=== PATIENT | male | born 1990 | race African-American/Black ===

== ENCOUNTER 2021-05-11 11:15 | Outpatient (CLI) | payer OTHER, SELFPAY ==
--- NOTE | 2021-05-11 11:20 | RAD_ITS ---
STUDY: X-RAY - RIGHT ANKLE REASON FOR EXAM: Male, 30 years old. ANKLE FRACTURE TECHNIQUE: 3 view(s) of the ankle. COMPARISON: 05/02/2021 FINDINGS: Distal fibular fracture extending to the tibiotalar joint level is stable with persistent, but stable displacement best seen on lateral view. Nondisplaced fracture of the posterior malleolus is stable. Persistent widening of the medial tibiotalar articulation. Normal visualized talus and calcaneus. The visualized subtalar, talonavicular, calcaneocuboid and tarsal articulations are normal. Decreased soft tissue swelling. RAD/Ankle min 3 Views IMPRESSION: 1. Stable alignment of distal fibular fracture. 2. Stable widening/subluxation of the medial tibiotalar joint. 3. Stable posterior malleolus fracture. Electronically Signed: Kang Beyer MD ([place]) at 11:47 EST ,
--- NOTE | 2021-05-11 11:21 | RAD_ITS ---
STUDY: X-RAY - RIGHT TIBIA AND FIBULA REASON FOR EXAM: Male, 30 years old. ANKLE FRACTURE TECHNIQUE: 3 view(s) of the tibia and fibula were obtained. COMPARISON: None. FINDINGS: Normal visualized tibia. Distal fibular fractures better seen on ankle x-ray. No additional fracture seen. The soft tissue structures are unremarkable. RAD/Tibia & Fibula 2 Views IMPRESSION: Distal fibular fracture described on ankle x-ray. Electronically Signed: Kang Beyer MD (Brooks) at 11:45 EST Reading Location ID and State: [address] [place] [address] , Service support ,
--- NOTE | 2021-05-11 11:21 | RAD_ITS ---
STUDY: X-RAY CHEST REASON FOR EXAM: Male, 30 years old. PRE OP TECHNIQUE: PA and lateral views of the chest. COMPARISON: None. FINDINGS: Linear fibrotic changes of the lung bases. No airspace consolidation. There is no demonstrated pleural abnormality. Normal size heart. Normal mediastinum and yasmani. Normal visualized pulmonary arteries. Normal visualized aortic arch and descending thoracic aorta. Normal visualized thoracic spine. Normal visualized ribs, clavicles, and shoulders. There is no demonstrated abnormality of the visualized soft tissue structures of the upper abdomen. RAD/Chest PA and Lateral IMPRESSION: No acute cardiopulmonary process. Electronically Signed: Kang Beyer MD ([place]) at 12:01 EST ,
[2021-05-11 15:05] LABS: Absolute Lymphocyte Count 1.48 X10^3/uL (0.83-4.51); Absolute Neutrophil Count 4.7 X10^3/uL (2.0-7.7); Basophil# 0.04 X10^3/uL; Basophil% 0.6 % (0-1); Eosinophil# 0.24 X10^3/uL; Eosinophils% 3.4 % (0-5); Hematocrit 41.6 % (40-54); Hemoglobin 13.3 g/dL (13.0-16.5); Lymphocyte # 1.48 X10^3/ul (0.83-4.51); Lymphocyte % 20.9 % (19-41); Mean Corpuscular Hgb 28.8 pg (27.0-32.0); Mean Platelet Vol. 9.8 fl (6.2-12.0); Monocyte# 0.64 X10^3/uL; NRBC Flagged by Analyzer 0 % (0-5); Neutrophil # 4.65 X10^3/uL (2.7-7.7); Neutrophil % 65.7 % (47-70); Platelet Count 345 K/mm3 (150-450); RBC Distribution Width CV 12.7 % (11.6-14.6); RBC Distribution Width SD 41.6 fl (35.1-43.9); Red Blood Count 4.62 M/mm3 (4.6-6.2); White Blood Count 7.1 K/mm3 (4.4-11.0)
[2021-05-11 15:29] LABS: ALB/GLOB Ratio 0.7 RATIO (0.9-2.4); AST(SGOT) 26 U/L (15-37); Alanine Aminotransfer ALT/SGPT 37 U/L (16-61); Albumin, Serum 3.5 g/dL (3.2-5.0); Alkaline Phosphatase 110 U/L (45-117); Anion Gap 7 (5-15); BUN 10 mg/dL (7-18); BUN/Creat Ratio 9.3 RATIO (10-20); Chloride 103 mmol/L (98-107); Creatinine, Serum 1.07 mg/dL (0.70-1.30); EST Glomerular Filtration Rate 85 mL/min (>60); Est Glom Filt Rate - Afr Amer 103 mL/min (>60); Globulin 5.2 g/dL (2.2-4.2); Glucose 101 mg/dL (74-106); Potassium 3.5 mmol/L (3.5-5.1); Protein, Total 8.7 g/dL (6.4-8.2); Sodium Level 136 mmol/L (136-145)
== END 2021-05-11 23:59 | disposition home or self-care (01) ==
LOC: MTLAB 11:18
PROVIDERS: PCP Internal Medicine; Referring Provider Family Medicine; Visit Provider Family Medicine
DX: S82.891A Other fracture of right lower leg, initial encounter for closed fracture (principal); Z01.818 Encounter for other preprocedural examination
CPT/HCPCS: 36415; 71046; 73590; 73610; 80053; 85025

== ENCOUNTER 2021-05-16 06:07 | Day surgery (SDC) | payer OTHER, SELFPAY ==
[2021-05-16] MEDS: Lactated Ringers 1,000 ML 15 ML IV (06:20)
[2021-05-16 06:38] VITALS: BP 116/79; PULSE 105; RESP 20; TEMP 36.5; O2SAT 96; BMI 43.3
--- NOTE | 2021-05-16 07:30 | RAD_ITS ---
STUDY: X-RAY - RIGHT ANKLE REASON FOR EXAM: Male, 30 years old. ORIF TECHNIQUE: 7 intraoperative view(s) of the ankle. COMPARISON: 05/11/2021 FINDINGS: 7 limited intraoperative studies were performed as the patient has undergone open reduction internal fixation of a comminuted distal fibular fracture. Alignment at the fracture site is anatomic. No intraoperative complications are noted. Follow-up is recommended to ensure complete osseous union RAD/Ankle 2 Views IMPRESSION: ORIF of a distal fibular fracture. Fracture stabilized with a metallic sideplate with multiple threaded screws, 2 of which run through the fibula into the distal tibia as well. Alignment at the fracture site is anatomic. Follow-up recommended to ensure complete osseous union Electronically Signed: Gautam Mai MD at 16:23 EST ,
[2021-05-16 10:23] VITALS: BP 101/88; BP 116/79; PULSE 87; RESP 16; TEMP 36.3; O2SAT 100
--- NOTE | 2021-05-16 10:25 | PCM.DC ---
Discharge Instructions Diet Discharge Diet: Light diet - advance as tolerated Activity Weight Bearing Status: No weight bearing (Non-weight bearing to Right Lower Extremity) Keep extremity elevated above heart level: Right Leg (Keep right foot elevated at least 50minutes for every hour) Dressing / Incision Call your doctor if your incision/area has: Continuous Slow Oozing, Sudden Increased Bleeding and Foul Smelling Discharge Call your doctor if you observe: Fever of 101 or Higher, Shortness of breath, Chest pain, Increased palpitations (irregular heartbeat), Calf discomfort and Uncontrolled pain Change Dressing in: do not change dressing Remove Dressing in: leave in place till F/U Cleanse incision/area with: Keep Dressing Clean & Dry Follow Up Care Please Follow Up With: Aaron Huber DPM When: follow [facility] within [facility] or sooner if needed. Test Results: Test results from this visit will be discussed in further detail at your follow-up appointment, if applicable. Discharge Plan Admission Primary Reason for Your Visit: Open Reduction Internal Fixation of Right Ankle with Syndesmotic Repair Attending Provider: Aaron Huber Primary Care Provider: Cleveland Means Discharge Orders/Prescriptions Prescriptions: New cephalexin 500 mg capsule 500 mg PO Q12H Qty: 14 RF: 0 oxycodone-acetaminophen 5-325 mg tablet 1 - 2 tab PO Q6H PRN (Reason: pain) 7 Days Qty: 28 RF: 0 No Action prednisone 5 mg tablet 5 mg PO DAILY RF: 0 mycophenolate mofetil [CellCept] 250 mg Capsule 500 mg PO BID RF: 0 sulfamethoxazole-trimethoprim [Bactrim] 200-40 mg/5 mL Suspension 5 ml PO DAILY RF: 0 Referrals / Follow Up: Cleveland Means MD [Primary Care Provider] - Disposition Disposition (needs filled in before D/C Order can be placed): Home, Self Care
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
[2021-05-16 10:30] VITALS: BP 116/79; BP 133/100; PULSE 88; RESP 16; O2SAT 95
[2021-05-16 10:45] VITALS: BP 116/79; BP 139/52; PULSE 91; RESP 15; O2SAT 94
--- NOTE | 2021-05-16 10:55 | RAD_ITS ---
STUDY: X-RAY - RIGHT ANKLE REASON FOR EXAM: Male, 30 years old. Post-op TECHNIQUE: 3 view(s) of the ankle. COMPARISON: Comparison is made with prior study dated 05/11/2021. FINDINGS: The patient is status post open reduction and internal fixation of the distal fibular fracture. There is good alignment. Normal tibiotalar articulation and ankle mortise. Normal visualized talus and calcaneus. The visualized subtalar, talonavicular, calcaneocuboid and tarsal articulations are normal. Postoperative soft tissue changes. RAD/Ankle min 3 Views IMPRESSION: Status post open reduction internal fixation of the distal fibular fracture. There is good alignment. Electronically Signed: Ervin Francis MD at 13:44 EST ,
[2021-05-16 11:03] VITALS: BP 116/79; BP 145/64; PULSE 91; RESP 16; TEMP 36.2; O2SAT 97
[2021-05-16] MEDS: Acetaminophen 325 MG Tablet PO (11:24)
[2021-05-16] MEDS: oxyCODONE 5 MG Tablet PO (11:25)
[2021-05-16 12:05] VITALS: BP 116/79; BP 125/89; PULSE 96; RESP 16; TEMP 35.9; O2SAT 92
== END 2021-05-16 23:59 | disposition home or self-care (01) ==
LOC: SDC 06:07 → AC 06:10
PROVIDERS: PCP Internal Medicine; Referring Provider Student in an Organized Health Care Education/Training Program; Visit Provider Student in an Organized Health Care Education/Training Program
PROC: (CPT 27792; principal; 2021-05-16 07:10)
DX: S82.441A Displaced spiral fracture of shaft of right fibula, initial encounter for closed fracture (principal); S82.391A Other fracture of lower end of right tibia, initial encounter for closed fracture; S93.401A Sprain of unspecified ligament of right ankle, initial encounter; W00.9XXA Unspecified fall due to ice and snow, initial encounter; D86.9 Sarcoidosis, unspecified; F17.220 Nicotine dependence, chewing tobacco, uncomplicated; Z79.52 Long term (current) use of systemic steroids
CPT/HCPCS: 27792; 27822; 27829; 64445; 73600; 73610; 76000; C1713; J7120; J2405

== ENCOUNTER → 2021-08-24 | Outpatient (CLI) | payer OTHER, SELFPAY ==
[2021-08-24 15:18] LABS: Absolute Lymphocyte Count 1.27 X10^3/uL (0.83-4.51); Absolute Neutrophil Count 2.5 X10^3/uL (2.0-7.7); Basophil# 0.01 X10^3/uL; Basophil% 0.2 % (0-1); Eosinophil# 0.42 X10^3/uL; Eosinophils% 8.6 % (0-5); Hematocrit 39.4 % (40-54); Hemoglobin 12.7 g/dL (13.0-16.5); Lymphocyte # 1.27 X10^3/ul (0.83-4.51); Lymphocyte % 25.9 % (19-41); Mean Corp Hgb Conc 32.2 g/dL (32-36); Mean Corpuscular Hgb 28.5 pg (27.0-32.0); Mean Corpuscular Volume 88.5 fL (80-94); Mean Platelet Vol. 10.8 fl (6.2-12.0); Monocyte# 0.66 X10^3/uL; Monocyte% 13.4 % (0-10); NRBC Flagged by Analyzer 0 % (0-5); Neutrophil # 2.52 X10^3/uL (2.7-7.7); Neutrophil % 51.3 % (47-70); Platelet Count 288 K/mm3 (150-450); RBC Distribution Width CV 13.1 % (11.6-14.6); Red Blood Count 4.45 M/mm3 (4.6-6.2); White Blood Count 4.9 K/mm3 (4.4-11.0)
[2021-08-24 15:35] LABS: ALB/GLOB Ratio 0.6 RATIO (0.9-2.4); AST(SGOT) 23 U/L (15-37); Alanine Aminotransfer ALT/SGPT 32 U/L (16-61); Albumin, Serum 3.4 g/dL (3.2-5.0); Alkaline Phosphatase 167 U/L (45-117); Anion Gap 4 (5-15); BUN 9 mg/dL (7-18); BUN/Creat Ratio 7.1 RATIO (10-20); Calcium,Total 9.4 mg/dL (8.5-10.1); Chloride 104 mmol/L (98-107); Creatinine, Serum 1.26 mg/dL (0.70-1.30); EST Glomerular Filtration Rate 71 mL/min (>60); Est Glom Filt Rate - Afr Amer 85 mL/min (>60); Globulin 5.3 g/dL (2.2-4.2); Glucose 102 mg/dL (74-106); Potassium 4.3 mmol/L (3.5-5.1); Protein, Total 8.7 g/dL (6.4-8.2); Sodium Level 137 mmol/L (136-145)
== END | disposition home or self-care (01) ==
LOC: MFPLAB 12:28
PROVIDERS: PCP Internal Medicine; Visit Provider Family Medicine
DX: Z01.818 Encounter for other preprocedural examination (principal)
CPT/HCPCS: 36415; 80053; 85025

== ENCOUNTER 2021-08-30 08:31 | Day surgery (SDC) | payer OTHER, SELFPAY ==
[2021-08-30] VITALS (8 sets, daily range): BP systolic 112–131; BP diastolic 79–88; PULSE 71–103; RESP 16–18; TEMP 36.4–37.1; O2SAT 96–100; BMI 40.2
--- NOTE | 2021-08-30 08:51 | PCM.DC ---
Discharge Instructions Diet Discharge Diet: No restrictions Activity Discharge Activity: May Shower (With cast bag on right leg) Weight Bearing Status: No weight bearing (Right lower extremity, use crutches/knee scooter for assistance) Keep extremity elevated above heart level: Right Leg (Elevate Right leg at all times of rest) Dressing / Incision Call your doctor if your incision/area has: Increased Pain/ Swelling, Increased Redness and Foul Smelling Discharge Call your doctor if you observe: Fever of 101 or Higher, Chest pain and Calf discomfort Change Dressing in: do not change dressing (Physician will change dressing at first post-op visit) Remove Dressing in: do not remove dressing (Keep dressings clean, dry, and intact) Cleanse incision/area with: Do not get Incision Wet Follow Up Care Please Follow Up With: Aaron Huber DPM When: 1 week. Patient has post-op visit scheduled Test Results: Test results from this visit will be discussed in further detail at your follow-up appointment, if applicable. Discharge Plan Admission Attending Provider: Aaron Huber Primary Care Provider: Cleveland Means Discharge Orders/Prescriptions Prescriptions: New doxycycline hyclate 100 mg capsule 100 mg PO DAILY 10 Days Qty: 10 RF: 0 aspirin 325 mg tablet 325 mg PO DAILY 20 Days Qty: 20 RF: 0 oxycodone-acetaminophen 5-325 mg tablet 1 tab PO Q6H PRN (Reason: pain) 7 Days Qty: 28 RF: 0 No Action prednisone 5 mg tablet 5 mg PO DAILY RF: 0 mycophenolate mofetil [CellCept] 250 mg Capsule 500 mg PO BID RF: 0 Referrals / Follow Up: Cleveland Means MD [Primary Care Provider] - Disposition Disposition (needs filled in before D/C Order can be placed): Home, Self Care
[2021-08-30] MEDS: Lactated Ringers 1,000 ML 15 ML IV (09:43)
--- NOTE | 2021-08-30 09:45 | RAD_ITS ---
STUDY: X-RAY - RIGHT ANKLE REASON FOR EXAM: Male, 30 years old. Intraoperative digital documentation views of ORIF of right ankle. TECHNIQUE: 2 intraoperative digital documentation view(s) of the ankle. COMPARISON: 05/16/2021 FINDINGS: Stable lateral plate-screw fixation of the distal fibula, syndesmotic screw and surgical device projected in the distal medial talus. The soft tissue structures are unremarkable. RAD/Ankle 2 Views IMPRESSION: Stable ORIF of right ankle. No complications. Electronically Signed: Lowell Olivares MD at 9:31 EDT ,
[2021-08-30] MEDS: Lidocaine 1% (20 ml mdv) 20 ML Vial (11:29)
[2021-08-30] MEDS: Bupivacaine Mpf 0.5% 30 ML VIAL (11:29)
--- NOTE | 2021-08-30 11:57 | SUR.PHASEI ---
DR. LOPEZ AT BEDSIDE TALKING WITH PATIENT. DR. LOPEZ GAVE VERBAL ORDER AT BEDSIDE FOR 5MG OF OXYIR PO AND 325MG OF TYLENOL PO. RN READ BACK ORDER TO PHYSICIAN AND ENTERED ORDER INTO COMPUTER
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
[2021-08-30] MEDS: Acetaminophen 325 MG Tablet PO (12:47)
[2021-08-30] MEDS: oxyCODONE 5 MG Tablet PO (12:47)
== END 2021-08-30 13:43 | disposition home or self-care (01) ==
LOC: SDC 08:33 → AC 08:35
PROVIDERS: PCP Internal Medicine; Referring Provider Student in an Organized Health Care Education/Training Program; Visit Provider Student in an Organized Health Care Education/Training Program
PROC: (CPT 20680; principal; 2021-08-30 09:45)
DX: T84.84XA Pain due to internal orthopedic prosthetic devices, implants and grafts, initial encounter (principal); Y83.1 Surgical operation with implant of artificial internal device as the cause of abnormal reaction of the patient, or of later complication, without mention of misadventure at the time of the procedure; G47.30 Sleep apnea, unspecified; K21.9 Gastro-esophageal reflux disease without esophagitis; F17.220 Nicotine dependence, chewing tobacco, uncomplicated; Z86.711 Personal history of pulmonary embolism
CPT/HCPCS: 20680; 73600; 76000; J7120; J2405

== ENCOUNTER 2021-09-29 12:30 | Outpatient (RCR) | payer OTHER, SELFPAY ==
--- NOTE | 2021-09-19 14:57 | HP.PTEVAL ---
Patient's Visit Information ASTON MUSTAFA III is a 31 year old M referred to Physical Therapy by Dr. Aaron Huber DPM with a diagnosis of Displaced Fracture of Lat Mall. Date of Evaluation: 09/19/21 Physical Therapist: Lilian Pires DPT - Visit Plan Frequency: 3x /Week Duration: 4 Weeks Plan: Focus on LE and core strength/stabilization, gait, proprioception and functional mobility. Can use ankle brace and tennis shoe. HEP Given IE: Ankle ROM, weight shifts, HR/TR seated - Subjective Patient reports that he was snowboarding at the end of Apr had a fracture- he went to urgent care who referred him to podiatry- he had a plate put in a few weeks later- and then he had hardware removed 08/30/21. He has been in a CAM walker throughout but was NWB until August. He is now WBAT. Prior to the last surgery he would wear the boot intermittently. He feels a lot more unstable now that they have removed the screw so he has been wearing the CAM walk more. He reports that he has stitches that he gets out this week. Worst: 3/10 Agg: pressure on it. Eases: elevation, and getting off of it. Best: 0/10. Describes the pain as dull and achy. No radiating pain stays on the outside of the ankle. Uses a single crutch as his AD. He has not been walking a lot- he he just got WB last Sunday. Fully I prior to injury. Work: [employer]- 50% sitting 50% standing- has been off work since this- October 03 return to work date. Feels that he is 75% back to normal. Sleep: not disturbed. Kids who are 9 and 4. PMHx/Meds: no changes since surgery at the hospital. - Objective Posture: FH, RS- can correct but does not maintain. Gait: antalgic- single axillary crutch- decrease stance on right LE with CAM walker- bent knee in stance phase. SLS: weight shift but unable to SLS. HR/TR: able in sitting. Girth: Figure 8: 52 cm Malls: 26 cm, Mets: 23.5 cm. ROM: DF: neutral, PF: 50 degrees, inver: 30 degrees Ever: 20 degrees, Knee: WFL. Strength: Ankle: 4/5 in available range, Knee: 4/5. Flex: HS: moderate, Gastroc: severe. Soleus: severe. Observation: incision healing well no s/s of infection- sutures in tact. Pt was 20 min late to initial evaluation - Balance/Special Test Scores Lower Extremity Functional Score: 8 - Goals Goal 1:: Patient will be I with HEP and progression Goal Time Frame: 4-6 Weeks Goal 2:: Patient will SLS for 30 sec without LOB Goal Time Frame: 4-6 Weeks Goal 3:: Patient will ambulate >300 feet with a normalized gait pattern and no AD Goal Time Frame: 4-6 Weeks Goal 4:: Patient will report 80% improvement Goal Time Frame: 4-6 Weeks - Rehabilitation Potential Physical Therapy Diagnosis: Patient presents with hypomobility- he has decreased LE and core strength/stabilization, ROM, flex, proprioception and muscular endurance leading to abnormal ambulation, poor balance and decreased ability to perform ADL's. Rehabilitation Potential: Good - Anticipated Interventions Patient/Client Instruction: Educate patient on: Benefits of Fitness Program Therapeutic Exercise to Include: Strength training, Endurance training, Balance training, Coordination, Agility training, Body mechanics, Postural training, Flexibilty training, Gait and locomotor training, Neuromotor development, Dynamic Lumbar Stabilization, Scapular Strength/Stabilization For the Purpose of:: To improve muscle performance and motor function TENS: Yes Cryotherapy (ice pack, ice massage): Yes Thermo therapy (hot pack): Yes Ultrasound (thermal/non thermal): No Thank you for the opportunity to evaluate your patient. For Medicare and Medicare HMO plans, please review the plan of care and approve it. It will need to be FAXED BACK to us at [phone] for Medicare purposes. For Medicare only, by signing this I certify the plan of care. Please let me know if there are questions or concerns regarding this plan of care. Physician Signature: Date:
--- NOTE | 2022-02-23 08:01 | HP.PT.NRP ---
ASTON MUSTAFA III was seen in my office for initial evaluation on 09/19/21. The following Plan of Care was established for this patient: Initial Frequency: 3x /Week Initial Duration: 4 Weeks Patient/Client Instruction: Educate patient on: Benefits of Fitness Program Therapeutic Exercise to Include: Strength training, Endurance training, Balance training, Coordination, Agility training, Body mechanics, Postural training, Flexibilty training, Gait and locomotor training, Neuromotor development, Dynamic Lumbar Stabilization, Scapular Strength/Stabilization For the Purpose of:: To improve muscle performance and motor function TENS: Yes Cryotherapy (ice pack, ice massage): Yes Thermo therapy (hot pack): Yes Ultrasound (thermal/non thermal): No This patient was last seen in our office . Pertinent comments regarding their Physical therapy will appear below: Patient has not attended physical therapy in over 30 days- at this time d/c is appropriate and return to the MD for further evaluation as needed At this point I will be discontinuing this patient from physical therapy. I would be happy to see this patient again in the future if found appropriate by the physician. Thank you! Lilian Pires DPT Balance/Gait/Functional tests - Balance/Special Test Scores Lower Extremity Functional Score: 8
== END 2021-09-29 19:00 | disposition home or self-care (01) ==
LOC: PT 12:30
PROVIDERS: PCP Internal Medicine; Referring Provider Student in an Organized Health Care Education/Training Program; Visit Provider Student in an Organized Health Care Education/Training Program
DX: S82.61XD Displaced fracture of lateral malleolus of right fibula, subsequent encounter for closed fracture with routine healing (principal); X58.XXXD Exposure to other specified factors, subsequent encounter
CPT/HCPCS: 97110; 97161

== ENCOUNTER → 2024-10-04 | Outpatient (CLI) | payer BC, SELFPAY ==
--- NOTE | 2024-10-03 15:47 | LES_PTH ---
PATIENT: ASTON MUSTAFA III LOC: [facility] U#:[id number] AGE/SX: 34/M ROOM: RE10/04/[address]: Dr. Jerrod Londono MD : 1990 BED: DIS: 10/04/2024 SPEC #: [id number] RECD: 10/03/24 17:06 STATUS: PACO PUSHPA #: [id number] DANITZA: 10/03/24 15:[address]: Jerrod Londono DEPT: SURGICAL PATHOLOGY RECD BY: Randall Jose ENTERED: 10/06/24 09:33 SP TYPE: Lesion OTHR DR: Dr. Cleveland Means MD Tissues: A - Skin of nose, NOS Procedures: Surgery Specimen Level IV HEADER OPERATION: Biopsy left nose PRE-OP DIAGNOSIS: Left nose biopsy TISSUE SUBMITTED: A- Left nose biopsy lesion MICROSCOPIC DIAGNOSIS A. Nose, left lesion, biopsy: Lobular capillary hemangioma. MICROSCOPIC DESCRIPTION Slides are reviewed. GROSS DESCRIPTION A. Received in formalin labeled with the patient's name and date of . Designated as biopsy left nose lesion is a 0.5 x 0.2 x 0.2 cm firm and raised, johnson to light brown portion of skin devoid of orientation. The resection margin is inked black and the specimen is bisected and entirely submitted in 1 cassette. MS 10/06/2024 CPT:86236
--- OUTSIDE RECORDS SUMMARY | 2024-10-04 09:26 | XMS RPT_ITS | CCD ---
Author Organization [facility] Care Team Providers Care Hvac Residential Service Technician Name Role Phone [place] MEANS Unavailable Unavailable OLDER, MANDY (TANK CLEANER) Unavailable Unavailable OLDER, MANDY (TANK CLEANER) Unavailable Unavailable Cleveland Means MD Primary Care Provider Lynn Howard MD H Unavailable Lee GOMEZ, Nicoleasis H Unavailable Dr. Cleveland Means Primary Care Provider Dr. Cleveland Means Referring Provider Tamir MATIAS, PA Chano Attending Provider Dr. Kannan Gallagher Attending Provider Tamir MATIAS, PA Chano Referring Provider Cleveland Means MD Primary Care Provider Lee GOMEZ, Debasis H Unavailable Lee GOMEZ, Debasis H Unavailable Lee GOMEZ, Debasis H Unavailable [phone] Cleveland Means Primary Care Unavailable Cleveland Means Referring Unavailable Chano Garnett Attending Unavailable Aaron Huber Attending Unavailable Aaron Huber Referring Unavailable Cleveland Means Primary Care Unavailable Genie Chaudhari S Attending Unavailable Cleveland Means Primary Care Unavailable Aaron Huber Attending Unavailable Cleveland Means Primary Care Unavailable Aaron Huber Referring Unavailable Cleveland Means Primary Care Unavailable Aaron Huber Attending Unavailable Aaron Huber Referring Unavailable Genie Chaudhari S Attending Unavailable Faar, Genie S Referring Unavailable Cleveland Means Primary Care Unavailable Cleveland Means Primary Care Unavailable Kannan Gallagher Attending Unavailable Chano Garnett Referring Unavailable Cleveland Means MD Primary Care Provider Lee GOMZE, Debasis H Unavailable Lee GOMEZ, Debasis H Unavailable Cleveland Means MD Primary Care Provider LEE, DEBASIS H Attending Unavailable LEE, DEBASIS H Referring Unavailable MEANS, MOSHE Primary Care Unavailable LEE, DEBASIS H Attending Unavailable MEANS, MOSHE Primary Care Unavailable Ozzie HAT LINER.TANK CLEANER, Mandy M Unavailable LEE, DEBASIS H Referring Unavailable MEANS, MOSHE Primary Care Unavailable MEÑO STEINBERG Referring Unavailable MEANS, MOSHE Primary Care Unavailable LEE, DEBASIS H Referring Unavailable MEANS, MOSHE Primary Care Unavailable LEE, DEBASIS H Referring Unavailable MEANS, MOSHE Primary Care Unavailable LEE, DEBASIS H Referring Unavailable MEANS, MOSHE Primary Care Unavailable LEE, DEBASIS H Referring Unavailable MEANS, MOSHE Primary Care Unavailable LEE, DEBASIS H Referring Unavailable LEE, DEBASIS H Referring Unavailable PAIGE, NELSON Attending Unavailable PAIGE, NELSON Attending Unavailable PAIGE, NELSON Referring Unavailable MEANS, MOSHE Primary Care Unavailable LEE, DEBASIS H Referring Unavailable MEANS, MOSHE Primary Care Unavailable LEE, DEBASIS H Referring Unavailable MARK GONG Attending Unavailable PAIGE, NELSON Referring Unavailable MEANS, MOSHE Primary Care Unavailable LEE, DEBASIS H Referring Unavailable MEANS, MOSHE Primary Care Unavailable LEE, DEBASIS H Referring Unavailable MEANS, MOSHE Primary Care Unavailable PAIGE, NELSON Attending Unavailable PAIGE, NELSON Referring Unavailable MEANS, MOSHE Primary Care Unavailable Dr. Cleveland Means MD Primary Care Provider Dr. Cleveland Means MD Referring Provider Dr. Jerrod Londono MD Attending Provider Allergies Allergy Classification Reported Allergen(s) Allergy Type Date of Onset Reaction(s) Facility shrimp allergenic extract (2 sources) shrimp allergenic extract Drug Allergy 4 Other: See Comments [facility] Work Phone: (20 sources) Seasonal allergy; Translations: [SEASONAL ALLERGIES] Allergy to substance Other: See Comments [facility] (20 sources) shrimp allergenic extract; Translations: [SHRIMP] Drug Allergy 4 Other: See Comments [facility] Work Phone: Medications Current Medications Medication Drug Class(es) Dates Sig (Normalized) Sig (Original) alendronic acid 35 mg oral tablet (20 sources) Bisphosphonate Start: 10-17-2023 End: 02-26-2025 take 1 tablet by mouth every week in the morning alendronate (FOSAMAX) 35 mg tablet Indications: Current chronic use of systemic steroids Take 1 tablet by mouth one time a week. in the morning with a full glass of water, on an empty stomach, and do not take anything else by mouth or lie down for the next 30 minutes. 12 tablet 3 02/27/2024 02/26/2025 Active amoxicillin 875 mg / clavulanate 125 mg oral tablet (6 sources) Penicillin-class Antibacterial Start: 08-17-2021 End: 08-24-2021 take 1 tablet by mouth every twelve hours amoxicillin-clavu lanic acid (AUGMENTIN) 875-125 mg per tablet Indications: Acute bronchitis, unspecified organism Take 1 tablet by mouth every 12 hours for 7 days. 14 tablet 0 08/17/2021 08/24/2021 Active Start: 07-06-2015 End: 05-02-2021 take 1 tablet by mouth every twelve hours Amoxicillin-Pot Clavulanate 875 MG tablet Discontinued 875 mg PO Q12H 20 0 July 06, 2015 12:00am May 02, 2021 4:24pm Comment on above: Take 1 tablet by winifred every 12 hours for 7 days. benoxinate hydrochloride 4 mg/ml / fluorescein sodium 3 mg/ml ophthalmic solution (13 sources) Diagnostic Dye Start: 08-28-2024 End: 08-28-2024 fluorescein-benoxi pranav 0.3-0.4 % 1 drop (FLURESS) Start: 08-28-2024 End: 08-28-2024 1 drop, BOTH EYES, DIRECT ED, Starting on Rosanna 08/28/24 at 1030, Until Rosanna 08/28/24 at 2229, Administer for applanation tonometry. In the event of a Fluress shortage, administer Steff-Fluor 1 drop into both eyes as directed for applanation tonometry Start: 05-01-2024 End: 05-02-2024 fluorescein-benoxinate 0.3-0 .4 % 1 Drop (FLURESS) Start: 05-01-2024 End: 05-02-2024 1 Drop, BOTH EYES, DIRECT ED, Starting on Rosanna 05/01/24 at 1600, Until Sun05/02/24 at 0359, Administer for applanation tonometry. In the event of a Fluress shortage, administer Helm-Fluor 1 drop into both eyes as directed for applanation tonometry, OPHT CLINIC MED ORDERS Start: 11-23-2023 End: 11-24-2023 fluorescein-benoxinate 0.3-0 .4 % 1 Drop (FLURESS) Start: 11-23-2023 End: 11-24-2023 1 Drop, BOTH EYES, DIRECT ED, Starting on 11/23/23 at 1330, Until 11/24/23 at 0129, Administer for applanation tonometry. In the event of a Fluress shortage, administer Steff-Fluor 1 drop into both eyes as directed for applanation tonometry Start: 09-06-2023 End: 09-07-2023 fluorescein-benoxinate 0.3-0 .4 % 1 Drop (FLURESS) Start: 05-03-2023 End: 05-04-2023 fluorescein-benoxinate 0.3-0 .4 % 1 Drop (FLURESS) Start: 02-01-2023 End: 02-02-2023 fluorescein-benoxinate 0.25- 0.4 % 1 Drop (FLURESS) Start: 06-09-2022 End: 06-09-2022 fluorescein-benoxinate 0.25- 0.4 % 1 Drop (FLURESS) Start: 02-02-2022 End: 02-02-2022 fluorescein-benoxinate 0.25- 0.4 % 1 Drop (FLURESS) Start: 08-12-2021 End: 08-12-2021 fluorescein-benoxinate 0.25- 0.4 % 1 Drop (FLURESS) BIPAP (20 sources) Start: 03-07-2018 BIPAP Indicati ons: RONNA (obstructive sleep apnea) , Shift work sleep disorder New machine: Settings 15/11 cm H2O, suitable mask per pt preference (Airfit F30), chin strap, head gear, humidity, tubing, lifetime supplies. G47.33 Obstructive Sleep Apnea 1 Device 03/07/2018 Active Start: 03-07-2018 BIPAP Indicati ons: RONNA (obstructive sleep apnea) , Shift work sleep disorder New machine: Settings 15/11 cm H2O, suitable mask per pt preference (Airfit F30), chin strap, head gear, humidity, tubing, lifetime supplies. G47.33 Obstructive Sleep Apnea 1 Device 0 03/07/2018 Active Comment on above: New machine: Setting s 15/11 cm H2O, suitable mask per pt preference (Airfit F30), chin strap, head gear, humidity, tubing, lifetime supplies. G47.33 Obstructive Sleep Apnea cetirizine hydrochloride 10 mg oral tablet (20 sources) Histamine-1 Receptor Antagonist Start: take 1 tablet by mouth once daily cetirizine (ZYRTEC) 10 mg tablet Indications: Sarcoidosis TAKE 1 TABLET BY MOUTH EVERY DAY 90 tablet 1 04/25/2024 Active Start: 10-17-2023 End: 04-14-2024 take 1 tablet by mouth once daily cetirizine (ZYRTEC) 10 mg tablet Indications: Sarcoidosis Take 1 tablet by mouth once daily. 90 tablet 1 10/17/2023 04/14/2024 Active [id number] 0.3 ml EPINEPHrine 1 mg/ml auto-injector (20 sources) alpha-Adrenergic Agonist, beta-Adrenergic Agonist, Catecholamine Start: 05-16-2023 EPINEPHrine (EPIPEN 2-MAYANK) 0.3 mg/0.3 mL auto-injector Inject 0.3 mL intramuscularly as needed. For allergic reaction.Seek emergent medical care immediately after use.Disp:1 2-pakw/corporate sales trainer 1 Each 2 05/16/2023 Active Comment on above: Inject 0.3 mL intram uscularly as needed. For allergic reaction.Seek emergent medical care immediately after use.Disp:1 2-pakw/corporate sales trainer fluconazole 150 mg oral tablet (1 source) Azole Antifungal Start: 04-03-2022 End: 04-06-2022 take 1 tablet by mouth once daily fluconazole (DIFLUCAN) 150 mg tablet Take 1 tablet by mouth once daily for 3 days. 3 tablet 0 04/03/2022 04/06/2022 Active Comment on above: Take 1 tablet by winifred once daily for 3 days. folic acid 1 mg oral tablet (20 sources) Start: 10-17-2023 End: 02-26-2025 take 1 tablet by mouth once daily folic acid 1 mg tablet Indications: Neurosarcoidosis , Sarcoidosis Take 1 tablet by mouth once daily. 90 tablet 3 02/27/2024 02/26/2025 Active inFLIXimab 100 mg injection (20 sources) Tumor Necrosis Factor Kamilla Start: 02-27-2024 End: 02-26-2025 inFLIXimab (REMICADE) 100 mg injection Indications: Neurosarcoidosis Inject 600 mg intravenously every 4 weeks. Pre-medicate with 25mg po benadryl and 1000mg po acetaminophen prior to infusion per protocol. 6 Each 11 02/27/2024 02/26/2025 Active Start: 05-11-2021 End: 02-27-2024 inFLIXimab (REMICADE) 100 mg injection Indications: Neurosarcoidosis Inject 600 mg intravenously every 6 weeks. Infuse 5 mg/kg intravenously on weeks 0, 2, 6 then every 4 weeks. Pre-medicate with 25mg po benadryl and 1000mg po acetaminophen prior to infusion per protocol. 600 mg 5 05/11/2021 02/27/2024 Discontinued Start: 08-28-2018 End: 05-11-2021 inFLIXimab (REMICADE) 100 mg injection Inject 600 mg intravenously every 4 weeks. Infuse 5 mg/kg intravenously on weeks 0, 2, 6 then every 4 weeks. Pre-medicate with 25mg po benadryl and 1000mg po acetaminophen prior to infusion per protocol. 6 Vial 6 08/28/2018 05/11/2021 Discontinued Comment on above: Inject 600 mg intrav enously every 6 weeks. Infuse 5 mg/kg intravenously on weeks 0, 2, 6 then every 4 weeks. Pre-medicate with 25mg po benadryl and 1000mg po acetaminophen prior to infusion per protocol. Infliximab (Remicade) 100 mg recon soln (1 source) Start: 10-03-2024 Infliximab (Remicade) 100 mg recon soln Active mg .Route every 6 weeks October 03, 2024 12:00am every 6 weeksIV iv contrast (will be provided with radiology test) (20 sources) Start: 08-23-2023 iv contrast (will be provided with radiology test) Indications: Sarcoidosis of central nervous system , Optic neuritis MRI Orbits Inject, intravenously, once for 1 dose. No IV access, insert saline lock prior to the beginning of sedation, infusion, injection of imaging exam. Discontinue saline lock post exam. If Pt. has a central line or IVAD, may access for administration according to line specific nursing protocol. Once exam is complete flush line and de-access according to line specific nursing protocol in the MR contrast administration guidelines link. 1 Each 08/23/2023 Active Start: 08-23-2023 iv contrast (w ill be provided with radiology test) Indications: Sarcoidosis of central nervous system , Optic neuritis MRI Orbits Inject, intravenously, once for 1 dose. No IV access, insert saline lock prior to the beginning of sedation, infusion, injection of imaging exam. Discontinue saline lock post exam. If Pt. has a central line or IVAD, may access for administration according to line specific nursing protocol. Once exam is complete flush line and de-access according to line specific nursing protocol in the MR contrast administration guidelines link. 1 Each 0 08/23/2023 Active Start: 09-13-2022 End: 2022 inject 1 dose intravenously once iv contrast (will be provided with radiology test) Indications: Thunderclap headache , Sarcoidosis of lung (HCC) , Neurosarcoidosis , Morbid obesity (HCC) MRI Brain Inject, intravenously, once for 1 dose.No IV access, insert saline lock prior to beginning of sedation, infusion, injection of imaging exam.Discontinue saline lock post exam. If Pt. has a central line or IVAD, may access for administration according to line specific nursing protocol.Once exam is complete flush line and de-access according to line specific nursing protocol in the MR contrast administration guidelines link 1 Each 0 09/13/2022 2022 Active Start: 09-13-2022 End: 2022 iv contrast (will be provide d with radiology test) Indications: Thunderclap headache , Sarcoidosis of lung (HCC) , Neurosarcoidosis , Morbid obesity (HCC) MRI Pituitary Inject, intravenously, once for 1 dose. No IV access, insert saline lock prior to the beginning of sedation, infusion, injection of imaging exam. Discontinue saline lock post exam. If Pt. has a central line or IVAD, may access for administration according to line specific nursing protocol. Once exam is complete flush line and de-access according to line specific nursing protocol in the MR contrast administration guidelines link. 1 Each 0 09/13/2022 2022 Active Start: 07-22-2021 End: 07-23-2021 inject 1 dose intravenously once iv contrast (will be provided with radiology test) Indications: Sarcoidosis of central nervous system MRI Brain Inject, intravenously, once for 1 dose.No IV access, insert saline lock prior to beginning of sedation, infusion, injection of imaging exam.Discontinue saline lock post exam. If Pt. has a central line or IVAD, may access for administration according to line specific nursing protocol.Once exam is complete flush line and de-access according to line specific nursing protocol in the MR contrast administration guidelines link 1 Each 0 07/22/2021 07/23/2021 Active Start: 07-22-2021 End: 07-23-2021 iv contrast (will be provide d with radiology test) Indications: Sarcoidosis of central nervous system MRI Orbits Inject, intravenously, once for 1 dose. No IV access, insert saline lock prior to the beginning of sedation, infusion, injection of imaging exam. Discontinue saline lock post exam. If Pt. has a central line or IVAD, may access for administration according to line specific nursing protocol. Once exam is complete flush line and de-access according to line specific nursing protocol in the MR contrast administration guidelines link. 1 Each 0 07/22/2021 07/23/2021 Active Comment on above: MRI Brain Inject, in travenously, once for 1 dose.No IV access, insert saline lock prior to beginning of sedation, infusion, injection of imaging exam.Discontinue saline lock post exam. If Pt. has a central line or IVAD, may access for administration according to line specific nursing protocol.Once exam is complete flush line and de-access according to line specific nursing protocol in the MR contrast administration guidelines link MRI Orbits Inject, i ntravenously, once for 1 dose. No IV access, insert saline lock prior to the beginning of sedation, infusion, injection of imaging exam. Discontinue saline lock post exam. If Pt. has a central line or IVAD, may access for administration according to line specific nursing protocol. Once exam is complete flush line and de-access according to line specific nursing protocol in the MR contrast administration guidelines link. MRI Pituitary Inject , intravenously, once for 1 dose. No IV access, insert saline lock prior to the beginning of sedation, infusion, injection of imaging exam. Discontinue saline lock post exam. If Pt. has a central line or IVAD, may access for administration according to line specific nursing protocol. Once exam is complete flush line and de-access according to line specific nursing protocol in the MR contrast administration guidelines link. methotrexate 2.5 mg oral tablet (20 sources) Folate Analog Metabolic Inhibitor Start: 024 End: 025 take 3 tablets by mouth once methotrexate 2.5 mg tablet Indications: Neurosarcoidosis Take 3 tablets by mouth every Sunday. Take as directed. 36 tablet 3 02/29/2024 02/28/2025 Active Start: 10-17-2023 End: 02-27-2024 inject 0.3 mL by subcutaneous injection every week methotrexate sodium 25 mg/mL soln Indications: Sarcoidosis Inject 0.3 mL subcutaneously one time a week. 4 mL 5 10/17/2023 02/27/2024 Discontinued nystatin [id number] unt/ml / triamcinolone acetonide 1 mg/ml topical cream (2 sources) Polyene Antifungal, Corticosteroid Start: 07-01-2021 End: 07-15-2021 nystatin-triamcinolone (MYCOLOG II) cream Indications: Rash and nonspecific skin eruption Apply to affected area four times daily for 14 days. 60 g 1 07/01/2021 07/15/2021 Active Comment on above: Apply to affected ar ea four times daily for 14 days. ondansetron 4 mg oral tablet (20 sources) Serotonin-3 Receptor Antagonist Start: 12-22-2019 take 1 tablet by mouth every eight hours as needed for nausea ondansetron (ZOFRAN) 4 mg tablet Indications: Neurosarcoidosis , Nausea and vomiting, intractability of vomiting not specified, unspecified vomiting type Take 1 tablet by mouth every 8 hours as needed for Nausea/Vomiting. 30 tablet 1 12/22/2019 Active Comment on above: Take 1 tablet by winifred th every 8 hours as needed for Nausea/Vomiting. pantoprazole 40 mg delayed release oral tablet (20 sources) Proton Pump Inhibitor Start: 04-24-2023 End: 10-09-2023 take 1 tablet by mouth once daily pantoprazole DR (PROTONIX) 40 mg tablet Indications: Gastroesophageal reflux disease without esophagitis Take 1 tablet by mouth once daily. 90 tablet 3 10/10/2023 Active Start: 03-28-2022 End: 06-26-2022 take 1 tablet by mouth once daily pantoprazole DR (PROTONIX) 40 mg tablet Indications: Gastroesophageal reflux disease without esophagitis Take 1 tablet by mouth once daily. 90 tablet 3 03/28/2022 Active Start: 01-17-2021 End: 03-25-2022 take 1 tablet by mouth once daily pantoprazole DR (PROTONIX) 40 mg tablet Indications: Gastroesophageal reflux disease without esophagitis TAKE 1 TABLET BY MOUTH EVERY DAY 30 tablet 2 01/17/2021 08/17/2021 Discontinued Comment on above: TAKE 1 TABLET BY WINIFRED TH EVERY DAY Take 1 tablet by winifred th once daily. phenylephrine hydrochloride 25 mg/ml ophthalmic solution (11 sources) alpha-1 Adrenergic Agonist Start: 08-28-2024 End: 08-28-2024 PHENYLephrine 2.5 % 1 drop (AK-DILATE, ANGIE-SYNEPHRINE) Start: 08-28-2024 End: 08-28-2024 1 drop, BOTH EYES, DIRECT ED, Starting on Sun08/28/24 at 1030, Until Sun08/28/24 at 2229, Administer for dilation PROTECT FROM LIGHT Start: 05-01-2024 End: 05-02-2024 PHENYLephrine 2.5 % 1 Drop ( AK-DILATE, ANGIE-SYNEPHRINE) Start: 05-01-2024 End: 05-02-2024 1 Drop, BOTH EYES, DIRECT ED, Starting on Sun05/01/24 at 1600, Until Sun05/02/24 at 0359, Administer for dilation PROTECT FROM LIGHT, [facility] MED ORDERS Start: 09-06-2023 End: 09-07-2023 PHENYLephrine 2.5 % 1 Drop ( AK-DILATE, ANGIE-SYNEPHRINE) Start: 05-03-2023 End: 05-04-2023 PHENYLephrine 2.5 % 1 Drop ( AK-DILATE, ANGIE-SYNEPHRINE) Start: 02-01-2023 End: 02-02-2023 PHENYLephrine 2.5 % 1 Drop ( AK-DILATE, ANGIE-SYNEPHRINE) Start: 06-09-2022 End: 06-09-2022 PHENYLephrine 2.5 % 1 Drop ( AK-DILATE, ANGIE-SYNEPHRINE) Start: 02-02-2022 End: 02-02-2022 PHENYLephrine 2.5 % 1 Drop ( AK-DILATE, ANGIE-SYNEPHRINE) Start: 08-12-2021 End: 08-12-2021 PHENYLephrine 2.5 % 1 Drop ( AK-DILATE, ANGIE-SYNEPHRINE) prednisoLONE acetate 10 mg/ml ophthalmic suspension (20 sources) Corticosteroid Start: 02-24-2021 End: 02-02-2022 prednisoLONE acetate (PRED FORTE, ECONOPRED PLUS) 1 % ophthalmic suspension Use 1 Drop in the left eye four times daily. 10 mL 3 02/02/2022 Active Start: 02-24-2021 End: 02-02-2022 prednisoLONE acetate (PRED F ORTE, ECONOPRED PLUS) 1 % ophthalmic suspension Use 1 Drop in the left eye four times daily. 10 mL 3 02/02/2022 Active Comment on above: Use 1 Drop in the le ft eye four times daily. predniSONE 5 mg oral tablet (20 sources) Start: 05-11-2021 End: 02-27-2024 predniSONE (DELTASONE) 5 mg tablet Indications: Neurosarcoidosis , Sarcoid uveitis of left eye Take 1 tablet by mouth every 48 hours. 45 tablet 5 02/27/2024 Active Start: 12-15-2019 End: 05-11-2021 take 1 tablet by mouth once daily Prednisone 5 mg tablet Active 5 mg PO DAILY December 15, 2019 12:00am Comment on above: Take 1 tablet by winifred th every 48 hours. proparacaine hydrochloride 5 mg/ml ophthalmic solution (8 sources) Local Anesthetic Start: 08-28-2024 End: 08-28-2024 proparacaine 0.5 % 1 drop (ALCAINE) Start: 05-01-2024 End: 05-02-2024 proparacaine 0.5 % 1 Drop (A LCAINE) Start: 09-06-2023 End: 09-07-2023 proparacaine 0.5 % 1 Drop (A LCAINE) Start: 05-03-2023 End: 05-04-2023 proparacaine 0.5 % 1 Drop (A LCAINE) Start: 02-01-2023 End: 02-02-2023 proparacaine 0.5 % 1 Drop (A LCAINE) Start: 06-09-2022 End: 06-09-2022 proparacaine 0.5 % 1 Drop (A LCAINE) Start: 02-02-2022 End: 02-02-2022 proparacaine 0.5 % 1 Drop (A LCAINE) Start: 08-12-2021 End: 08-12-2021 proparacaine 0.5 % 1 Drop (A LCAINE) sodium chloride 0.342 meq/ml ophthalmic solution (20 sources) Start: 09-29-2022 take 1 drop(s) into the eye(s) four times daily sodium chloride (HERBERT 128) 2 % ophthalmic solution Use 1 Drop in the left eye four times daily. 10 mL 3 09/29/2022 Active Comment on above: Use 1 Drop in the le ft eye four times daily. triamcinolone acetonide 1 mg/ml topical cream (15 sources) Corticosteroid Start: 08-16-2022 End: 02-12-2023 triamcinolone acetonide (KENALOG) 0.1 % cream Apply 1 application to affected area twice daily. Apply sparingly to affected areas on the feet for rash/itching. 30 g 3 08/16/2022 02/12/2023 Active Start: 04-03-2022 End: 08-14-2022 triamcinolone acetonide (NARESH ALOG) 0.1 % cream Apply 1 application to affected area twice daily. Apply sparingly to affected areas on the feet for rash/itching. 30 g 0 04/03/2022 08/14/2022 Discontinued Comment on above: Apply 1 application to affected area twice daily. Apply sparingly to affected areas on the feet for rash/itching. tropicamide 10 mg/ml ophthalmic solution (11 sources) Anticholinergic Start: 08-28-2024 End: 08-28-2024 tropicamide 1 % 1 drop (MYDRIACYL) Start: 08-28-2024 End: 08-28-2024 1 drop, BOTH EYES, DIRECT ED, Starting on Sun08/28/24 at 1030, Until Rosanna 08/28/24 at 2229, Administer for dilation Start: 05-01-2024 End: 05-02-2024 tropicamide 1 % 1 Drop (MYDR IACYL) Start: 05-01-2024 End: 05-02-2024 1 Drop, BOTH EYES, DIRECT ED, Starting on Sun05/01/24 at 1600, Until Sun05/02/24 at 0359, Administer for dilation, OPHT CLINIC MED ORDERS Start: 09-06-2023 End: 09-07-2023 tropicamide 1 % 1 Drop (MYDR IACYL) Start: 05-03-2023 End: 05-04-2023 tropicamide 1 % 1 Drop (MYDR IACYL) Start: 02-01-2023 End: 02-02-2023 tropicamide 1 % 1 Drop (MYDR IACYL) Start: 06-09-2022 End: 06-09-2022 tropicamide 1 % 1 Drop (MYDR IACYL) Start: 02-02-2022 End: 02-02-2022 tropicamide 1 % 1 Drop (MYDR IACYL) Start: 08-12-2021 End: 08-12-2021 tropicamide 1 % 1 Drop (MYDR IACYL) Completed/Discontinued Medications Medication Drug Class(es) Dates Sig (Normalized) Sig (Original) acetaminophen 325 mg oral tablet (11 sources) Start: 10-03-2024 End: 10-03-2024 take 1 dose by mouth once, then take 4000 mg by mouth once daily 650 mg, ORAL, ONCE, 1 dose, On Sun10/03/24 at 1330, No more than 4000 mg of acetaminophen should be given per day (FROM ALL SOURCES) Start: 08-22-2024 End: 08-22-2024 take 1 dose by mouth once, then take 4000 mg by mouth once daily 650 mg, ORAL, ONCE, 1 dose, On Sun08/22/24 at 1330, No more than 4000 mg of acetaminophen should be given per day (FROM ALL SOURCES) Start: 07-11-2024 End: 07-11-2024 take 1 dose by mouth once, then take 4000 mg by mouth once daily 650 mg, ORAL, ONCE, 1 dose, On Sun07/11/24 at 1430, No more than 4000 mg of acetaminophen should be given per day (FROM ALL SOURCES) Start: 05-23-2024 End: 05-23-2024 take 1 dose by mouth once, then take 4000 mg by mouth once daily 650 mg, ORAL, ONCE, 1 dose, On Sun05/23/24 at 0930, No more than 4000 mg of acetaminophen should be given per day (FROM ALL SOURCES) Start: 04-11-2024 End: 04-11-2024 take 1 dose by mouth once, then take 4000 mg by mouth once daily 650 mg, ORAL, ONCE, 1 dose, On Sun04/11/24 at 0900, No more than 4000 mg of acetaminophen should be given per day (FROM ALL SOURCES) Start: 02-29-2024 End: 02-29-2024 take 1 dose by mouth once, then take 4000 mg by mouth once daily 650 mg, ORAL, ONCE, 1 dose, On Sun02/29/24 at 0900, No more than 4000 mg of acetaminophen should be given per day (FROM ALL SOURCES) Start: 01-18-2024 End: 01-18-2024 take 1 dose by mouth once, then take 4000 mg by mouth once daily 650 mg, ORAL, ONCE, 1 dose, On Sun01/18/24 at 0930, No more than 4000 mg of acetaminophen should be given per day (FROM ALL SOURCES) Start: 12-07-2023 End: 12-07-2023 take 1 dose by mouth once, then take 4000 mg by mouth once daily 650 mg, ORAL, ONCE, 1 dose, On Sun12/07/23 at 0930, No more than 4000 mg of acetaminophen should be given per day (FROM ALL SOURCES) Start: 10-26-2023 End: 10-26-2023 acetaminophen 650 mg tab(s) (TYLENOL) Start: 2023 End: 2023 acetaminophen 650 mg tab(s) (TYLENOL) Start: 08-03-2023 End: 08-03-2023 acetaminophen 650 mg tab(s) (TYLENOL) acetaminophen 325 mg / oxyCODONE hydrochloride 5 mg oral tablet (7 sources) Opioid Agonist Start: 08-30-2021 End: 10-03-2024 Oxycodone-Acetaminophen 5-32 5 mg tablet Discontinued 1 {tbl} PO EVERY 6 HOURS as needed for pain 28 7 0 August 30, 2021 October 03, 2024 3:09pm Other acute postprocedural pain Other acute postprocedural pain Start: 08-30-2021 take 1 tablet by winifred th every six hours Oxycodone-Acetaminophen Active 1 TABLET PO EVERY 6 HOURS 28 7 August 30, 2021 Start: 07-06-2015 End: 12-15-2019 Oxycodone-Acetaminophen 1 TA BLET tablet Discontinued 1 - 2 {tbl} PO EVERY 4 HOURS NEEDED as needed for Pain July 06, 2015 12:00am December 15, 2019 9:43am Start: 07-06-2015 End: 12-15-2019 take 1 tablet by mouth every four hours as needed Oxycodone-Acetaminophen Discontinued 1 - 2 TABLET PO EVERY 4 HOURS NEEDED July 06, 2015 10:27pm December 15, 2019 9:43am [id number] 200 actuat albuterol 0.09 mg/actuat metered dose inhaler (20 sources) beta2-Adrenergic Agonist Start: 04-11-2023 End: 05-16-2023 take 2 puff(s) by inhalation every six hours as needed for wheezing albuterol HFA (PROVENTIL HFA, VENTOLIN HFA) 90 mcg/actuation inhaler Indications: URI, acute Inhale 2 Puffs as instructed every 6 hours as needed for wheezing/shortness of breath. 1 Each 0 04/11/2023 05/16/2023 Discontinued (Other) Start: 12-22-2020 take 2 puff(s) by in halation every six hours as needed for cough albuterol HFA (PROAIR HFA) 90 mcg/actuation inhaler Indications: Cough Inhale 2 Puffs as instructed every 6 hours as needed for wheezing/shortness of breath (cough). 6.7 g 3 12/22/2020 Active Comment on above: Inhale 2 Puffs as in structed every 6 hours as needed for wheezing/shortness of breath (cough). Inhale 2 Puffs as in structed every 6 hours as needed for wheezing/shortness of breath. aspirin 325 mg oral tablet (3 sources) Platelet Aggregation Inhibitor, Nonsteroidal Anti-inflammatory Drug Start: End: take 1 tablet by mouth once daily Aspirin 325 mg tablet Discontinued 325 mg PO DAILY 20 20 0 August 30, 2021 12:00am October 03, 2024 3:09pm post-op ciprofloxacin 3 mg/ml ophthalmic solution (1 source) Quinolone Antimicrobial Start: End: take 1 drop(s) into the eye(s) four times daily ciprofloxacin HCl (CILOXAN) 0.3 % ophthalmic solution Use 1 Drop in the left eye four times daily. 1 Bottle 04/20/2020 05/09/2021 Discontinued (Discontinued by Patient) cyclopentolate hydrochloride 10 mg/ml ophthalmic solution (20 sources) Start: End: take 1 drop(s) into the eye(s) twice daily cyclopentolate (CYCLOGYL) 1 % ophthalmic solution Use 1 Drop in the left eye twice daily. 1 Bottle 07/28/2020 05/16/2023 Discontinued (Other) Start: 07-28-2020 take 1 drop(s) into the eye(s) twice daily cyclopentolate (CYCLOGYL) 1 % ophthalmic solution Use 1 Drop in the left eye twice daily. 1 Bottle 0 07/28/2020 Active Comment on above: Use 1 Drop in the le ft eye twice daily. diphenhydrAMINE hydrochloride 25 mg oral capsule (12 sources) Histamine-1 Receptor Antagonist Start: 10-03-2024 End: 10-03-2024 take 1 dose by mouth once 25 mg, ORAL, ONCE, 1 dose, On Sun10/03/24 at 1330 Start: 08-28-2024 End: 08-28-2024 diphenhydrAMINE 12.5-50 mg o ral liquid (BENADRYL) Start: 08-22-2024 End: 08-22-2024 take 1 dose by mouth once 25 mg, ORAL, ONCE, 1 dose, O n 08/22/24 at 1330 Start: 07-11-2024 End: 07-11-2024 take 1 dose by mouth once 25 mg, ORAL, ONCE, 1 dose, O n 07/11/24 at 1430 Start: 05-23-2024 End: 05-23-2024 take 1 dose by mouth once 25 mg, ORAL, ONCE, 1 dose, O n 05/23/24 at 0930 Start: 04-11-2024 End: 04-11-2024 take 1 dose by mouth once 25 mg, ORAL, ONCE, 1 dose, O n 04/11/24 at 0900 Start: 02-29-2024 End: 02-29-2024 take 1 dose by mouth once 25 mg, ORAL, ONCE, 1 dose, O n 02/29/24 at 0900 Start: 01-18-2024 End: 01-18-2024 take 1 dose by mouth once 25 mg, ORAL, ONCE, 1 dose, O n 01/18/24 at 0930 Start: 12-07-2023 End: 12-07-2023 take 1 dose by mouth once 25 mg, ORAL, ONCE, 1 dose, O n 12/07/23 at 0930 Start: 10-26-2023 End: 10-26-2023 diphenhydrAMINE 25 mg capsul e (BENADRYL) Start: 2023 End: 2023 diphenhydrAMINE 25 mg capsul e (BENADRYL) Start: 08-03-2023 End: 08-03-2023 diphenhydrAMINE 25 mg capsul e (BENADRYL) doxycycline hyclate 100 mg oral capsule (3 sources) Tetracycline-class Drug Start: 08-30-2021 End: 10-03-2024 take 1 capsule by mouth once daily Doxycycline Hyclate 100 mg capsule Discontinued 100 mg PO DAILY 10 10 0 August 30, 2021 12:00am October 03, 2024 3:09pm etodolac 500 mg oral tablet (4 sources) Nonsteroidal Anti-inflammatory Drug Start: 12-15-2019 End: 05-02-2021 take 1 tablet by mouth twice daily Etodolac 500 mg tablet Discontinued 500 mg PO TWICE A DAY 60 0 December 15, 2019 12:00am May 02, 2021 4:24pm Do not take in conjunction with other NSAIDs. Tylenol is okay. fluorescein 250 mg injection (2 sources) Start: 08-28-2024 End: 08-28-2024 fluorescein 250 mg injection Start: 08-28-2024 End: 08-28-2024 250 mg, INTRAVENOUS, ONCE, 1 dose, On Rosanna 08/28/24 at 1030 inFLIXimab-axxq 600 mg in Na Cl 0.9% 250 mL (AVSOLA) (11 sources) Start: 10-03-2024 End: 10-03-2024 600 mg, INTRAVENOUS, at 83.33-250 mL/hr, Administer over 1-3 Hours, ONCE, 1 dose, On Sun10/03/24 at 1330, TOTAL VOLUME - Expires: 10/04/24 @ 1315 Administer with 0.2 micron filter. Start: 08-22-2024 End: 08-22-2024 600 mg, INTRAVENOUS, at 83.3 3-250 mL/hr, Administer over 1-3 Hours, ONCE, 1 dose, On Sun08/22/24 at 1330, TOTAL VOLUME - exp 1330 08/22/24 (room temp) Administer with 0.2 micron filter. Start: 07-11-2024 End: 07-11-2024 600 mg, INTRAVENOUS, at 83.3 3-250 mL/hr, Administer over 1-3 Hours, ONCE, 1 dose, On Sun07/11/24 at 1430, Total Volume: = 250 ml exp 1500 07/12/24 (room temp) Administer with 0.2 micron filter. Start: 05-23-2024 End: 05-23-2024 600 mg, INTRAVENOUS, at 83.3 3-250 mL/hr, Administer over 1-3 Hours, ONCE, 1 dose, On Sun05/23/24 at 0930, Total Volume - Expires: 05/24/24 @ 0930 Administer with 0.2 micron filter. Start: 04-11-2024 End: 04-11-2024 600 mg, INTRAVENOUS, at 83.3 3-250 mL/hr, Administer over 1-3 Hours, ONCE, 1 dose, On Sun04/11/24 at 0900, TOTAL VOLUME - Expires: 04/12/24 @ 0910 Administer with 0.2 micron filter. Start: 02-29-2024 End: 02-29-2024 600 mg, INTRAVENOUS, at 83.3 3-250 mL/hr, Administer over 1-3 Hours, ONCE, 1 dose, On Sun02/29/24 at 0900, Total Volume: = 250 mL exp 0900 /7/24 (room temp) Administer with 0.2 micron filter. Start: 01-18-2024 End: 01-18-2024 600 mg, INTRAVENOUS, at 83.3 3-250 mL/hr, Administer over 1-3 Hours, ONCE, 1 dose, On Sun01/18/24 at 0930, TOTAL VOLUME - Expires: 01/19/24 @ 0920 Administer with 0.2 micron filter. Start: 12-07-2023 End: 12-07-2023 600 mg, INTRAVENOUS, at 83.3 3-250 mL/hr, Administer over 1-3 Hours, ONCE, 1 dose, On Sun12/07/23 at 0930, TOTAL VOLUME - Expires: 12/08/23 @ 0915 Administer with 0.2 micron filter. Start: 10-26-2023 End: 10-26-2023 inFLIXimab-axxq 600 mg in Na Cl 0.9% 250 mL (AVSOLA) Start: 2023 End: 2023 inFLIXimab-axxq 600 mg in Na Cl 0.9% 250 mL (AVSOLA) Start: 08-03-2023 End: 08-03-2023 inFLIXimab-axxq 600 mg in Na Cl 0.9% 250 mL (AVSOLA) mycophenolate mofetil 500 mg oral tablet (20 sources) Start: 05-10-2023 End: 10-17-2023 take 1 tablet by mouth twice daily mycophenolate Mofetil (CELLCEPT) 500 mg tablet Take 1 tablet by mouth two times a day. 60 tablet 1 05/10/2023 10/17/2023 Discontinued Start: 08-14-2022 End: 05-10-2023 take 2 tablets by mouth twice daily mycophenolate Mofetil (CELLCEPT) 500 mg tablet Indications: Neurosarcoidosis , Sarcoid uveitis of left eye Take 2 tablets by mouth twice daily. 120 tablet 11 08/14/2022 05/10/2023 Discontinued Start: 05-13-2021 take 2 capsules by m outh twice daily Mycophenolate Mofetil (Cellcept) 250 mg Capsule Active 500 mg PO TWICE A DAY May 13, 2021 1:00am Start: 09-03-2020 End: 05-19-2022 take 2 tablets by mouth twice daily mycophenolate Mofetil (CELLCEPT) 500 mg tablet Indications: Neurosarcoidosis , Sarcoid uveitis of left eye Take 2 tablets by mouth twice daily. 120 tablet 5 01/23/2022 05/19/2022 Discontinued Comment on above: Take 2 tablets by mo uth twice daily. Take 1 tablet by winifred th two times a day. nystatin 100 unt/mg topical powder (20 sources) Polyene Antifungal Start: 023 End: nystatin (NYSTOP) powder Indications: Tinea cruris Apply 1 application to affected area twice daily. 60 g 1 04/03/2022 05/16/2023 Discontinued (Other) Comment on above: Apply 1 application to affected area twice daily. sulfamethoxazole 800 mg / trimethoprim 160 mg oral tablet (20 sources) Dihydrofolate Reductase Inhibitor Antibacterial, Sulfonamide Antimicrobial Start: 021 End: take 1 tablet by mouth once sulfamethoxazole-trime thoprim (BACTRIM DS,SEPTRA DS) 800-160 mg per tablet Indications: Neurosarcoidosis , Sarcoid uveitis of left eye Take 1 tablet by mouth every Sunday,Sunday, y. 16 tablet 5 05/19/2022 05/10/2023 Discontinued Comment on above: Take 1 tablet by winifred th every Sunday,Sunday,Sunday. topiramate 25 mg oral tablet (20 sources) Start: 022 End: take 1 tablet by mouth twice daily topiramate (TOPAMAX) 25 mg tablet Take 1 tablet by mouth twice daily. 60 tablet 2 04/07/2021 05/16/2023 Discontinued (Other) Comment on above: Take 1 tablet by winifred th twice daily. Problems Active Problems Problem Classification Problem Date Documented Da te Episodic/Chronic Abdominal pain (2 sources) Stomach ache; Translations: [Unspecified abdominal pain] Episodic Acute bronchitis (1 source) Acute bronchitis; Translations: [Acute bronchitis, unspecified] Episodic Allergic reactions (4 sources) Allergy to food; Translations: [Allergy to other foods] 05-10-2023 Episodic Blindness and vision defects (1 source) Disorder of refraction; Translations: [Unspecified disorder of refraction] 11-23-2023 Episodic Complication of device; implant or graft (4 sources) Pain; Translations: [Pain due to internal orthopedic prosthetic devices, implants and grafts, initial encounter] Episodic Esophageal disorders (20 sources) Gastroesophageal reflux disease; Translations: [Gastro-esophageal reflux disease without esophagitis] Onset: 1 04-19-2020 Chronic Fracture of lower limb (15 sources) Fracture of posterior malleolus; Translations: [Other fracture of lower end of right tibia, initial encounter for closed fracture] Onset: 2 Episodic Headache; including migraine (20 sources) New daily persistent headache; Translations: [New daily persistent headache (NDPH)] Onset: 8 Resolved: 2 01-01-2018 Chronic Headache; including migraine (1 source) Thunderclap headache; Translations: [Primary thunderclap headache] Episodic Immunity disorders (20 sources) Pulmonary sarcoidosis; Translations: [Sarcoidosis of lung] Onset: 6 07-11-2018 Chronic Inflammation; infection of eye (except that caused by tuberculosis or sexually transmitteddisease) (20 sources) Panuveitis of left eye; 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, left eye] Onset: 8 11-28-2017 Chronic Other aftercare (3 sources) Long-term current use of systemic steroid; Translations: [superintendent container terminal (current) use of systemic steroids] 05-14-2023 Episodic Other aftercare (1 source) At risk for negative response to medication; Translations: [Other terminal carman (current) drug therapy] 05-14-2023 Episodic Other aftercare (1 source) intermediate (current) use of systemic steroids; Translations: [Current chronic use of systemic steroids] Onset: 4 Episodic Other eye disorders (20 sources) Vitritis; Translations: [Other disorders of vitreous body] Onset: 8 11-28-2017 Chronic Other gastrointestinal disorders (1 source) Heartburn; Translations: [Heartburn] 04-20-2022 Episodic Other injuries and conditions due to external causes (1 source) Injury of right ankle; Translations: [Unspecified injury of right ankle, initial encounter] 04-29-2021 Episodic Other liver diseases (20 sources) Steatosis of liver; Translations: [Fatty (change of) liver, not elsewhere classified] Onset: 0 12-26-2019 Chronic Other nervous system disorders (20 sources) Circadian rhythm sleep disorder of shift work type; Translations: [Circadian rhythm sleep disorder, shift work type] Onset: 8 01-01-2018 Chronic Other nervous system disorders (3 sources) Acute postoperative pain; Translations: [Other acute postprocedural pain] 08-30-2021 Episodic Other non-traumatic joint disorders (1 source) Acute ankle pain; Translations: [Pain in right ankle and joints of right foot] 04-29-2021 Episodic Other nutritional; endocrine; and metabolic disorders (20 sources) Morbid obesity; Translations: [Morbid (severe) obesity due to excess calories] Onset: 9 07-26-2020 Chronic Other skin disorders (1 source) Eruption; Translations: [Rash and other nonspecific skin eruption] Episodic Other upper respiratory disease (20 sources) Seasonal allergic rhinitis; Translations: [Other seasonal allergic rhinitis] Onset: 6 07-08-2015 Chronic Other upper respiratory disease (1 source) Allergic rhinitis due to animals; Translations: [Allergic rhinitis due to animal (cat) (dog) hair and dander] 05-16-2023 Chronic Other upper respiratory disease (1 source) Allergic rhinitis due to house dust mite; Translations: [Other allergic rhinitis] 05-16-2023 Chronic Other upper respiratory disease (1 source) Allergic rhinitis; Translations: [Other allergic rhinitis] 05-16-2023 Chronic Other upper respiratory disease (1 source) Allergic rhinitis due to pollen; Translations: [Allergic rhinitis due to pollen] 05-16-2023 Chronic Residual codes; unclassified (1 source) Obstructive sleep apnea (adult) (pediatric); Translations: [Obstructive sleep apnea (adult) (pediatric)] Onset: 8 Chronic Residual codes; unclassified (20 sources) Obstructive sleep apnea syndrome; Translations: [Obstructive sleep apnea (adult) (pediatric)] Onset: 8 01-01-2018 Chronic Residual codes; unclassified (1 source) Hypersomnia, unspecified; Translations: [Hypersomnia, unspecified] Onset: 8 Sprains and strains (6 sources) Rupture of ankle ligament; Translations: [Sprain of deltoid ligament of right ankle, initial encounter] Episodic Past or Other Problems Problem Classification Problem Date Documented Date Episodic/Chronic Anxiety disorders (20 sources) Mixed anxiety and depressive disorder; Translations: [Other specified anxiety disorders] Onset: 08-19-2015 Resolved: 01-26-2020 03-21-2021 Chronic Biliary tract disease (20 sources) Gallstone; Translations: [Calculus of gallbladder without cholecystitis without obstruction] Onset: 12-26-2019 12-26-2019 Episodic Lymphadenitis (20 sources) Hilar lymphadenopathy ; Translations: [Localized enlarged lymph nodes] Onset: 07-12-2015 Resolved: 04-08-2018 04-08-2018 Episodic Other lower respiratory disease (1 source) Snoring; Translations: [Snoring] Onset: 08-24-2017 Episodic Other lower respiratory disease (1 source) Apnea, not elsewhere classified; Translations: [Apnea, not elsewhere classified] Onset: 08-24-2017 Episodic Other lower respiratory disease (20 sources) Solitary nodule of lung; Translations: [Solitary pulmonary nodule] Onset: 07-26-2015 Resolved: 01-26-2020 01-26-2020 Episodic Other nervous system disorders (2 sources) Other acute postprocedural pain; Translations: [Other acute postoperative pain] Onset: 08-30-2021 Episodic Other non-traumatic joint disorders (1 source) Pain in right ankle and joints of right foot; Translations: [M25.571 - Pain in right ankle and joints of right foot] Onset: 05-04-2021 Episodic Other upper respiratory disease (20 sources) Nasal congestion; Translations: [Nasal congestion] Onset: 01-01-2018 Resolved: 01-26-2020 01-26-2020 Episodic Pulmonary heart disease (20 sources) H/O: pulmonary embolus; Translations: [Personal history of pulmonary embolism] Onset: 07-12-2015 Resolved: 04-08-2018 04-19-2020 Episodic Residual codes; unclassified (20 sources) History of immunosuppressive therapy; Translations: [Personal history of immunosupression therapy] Onset: 01-10-2021 01-10-2021 Episodic Spondylosis; intervertebral disc disorders; other back problems (20 sources) Neck pain; Translations: [Cervicalgia] Onset: 08-03-2021 Resolved: 12-28-2021 Episodic Results Test Name Value Interpretation Reference Range Facility CBC W Auto Differential pane l (Bld)on 09-01-2024 Basophils (Bld) [#/Vol] 0.05 10*3/uL Normal <0.11 [facility] Comment on above: Order Comment: Speci men Type: BLOOD SPECIMENOrdering Facility: [facility] Address: [address] [place] [address] Performed By: #### 5 7021-8 ####[facility] [id number] [place] [address] [place] Basophils/100 WBC (Bld) 0.8 % Normal [facility] Comment on above: Order Comment: Speci men Type: BLOOD SPECIMENOrdering Facility: [facility] Address: [address] [place] [address] Performed By: #### 5 7021-8 ####[facility] [id number] [place] [address] [place] Differential cell count method Nom (Bld) Auto Normal [facility] Comment on above: Order Comment: Speci men Type: BLOOD SPECIMENOrdering Facility: [facility] Address: [address] [place] [address] Performed By: #### 5 7021-8 ####[facility] [id number] [place] [address] [place] Eosinophils (Bld) [#/Vol] 0.26 10*3/uL Normal <0.46 [facility] Comment on above: Order Comment: Speci men Type: BLOOD SPECIMENOrdering Facility: [facility] Address: [address] [place] [address] Performed By: #### 5 7021-8 ####[facility] [id number] [place] [address] [place] Eosinophils/100 WBC (Bld) 4.1 % Normal [facility] Comment on above: Order Comment: Speci men Type: BLOOD SPECIMENOrdering Facility: [facility] Address: [address] [place] [address] Performed By: #### 5 7021-8 ####[facility] RAVINDERCENTERVILLENIKI [id number] [place] [address] [place] Erythrocyte distribution width (RBC) [Ratio] 12.8 % Normal 11.5-15.0 [facility] Comment on above: Order Comment: Speci men Type: BLOOD SPECIMENOrdering Facility: [facility] Address: [address] [place] [address] Performed By: #### 5 7021-8 ####[facility] [id number] [place] [address] [place] Hematocrit (Bld) [Volume fraction] 40.1 % Normal 39.0-51.0 [facility] Comment on above: Order Comment: Speci men Type: BLOOD SPECIMENOrdering Facility: [facility] Address: [address] [place] [address] Performed By: #### 5 7021-8 ####[facility] [id number] [place] [address] [place] Hemoglobin (Bld) [Mass/Vol] 13.6 g/dL Normal 13.0-17.0 [facility] Comment on above: Order Comment: Speci men Type: BLOOD SPECIMENOrdering Facility: [facility] Address: [address] [place] [address] Performed By: #### 5 7021-8 ####[facility] [id number] [place] [address] [place] Immature granulocytes (Bld) [#/Vol] 10*3/uL Normal <0.10 [facility] Comment on above: Order Comment: Speci men Type: BLOOD SPECIMENOrdering Facility: [facility] Address: [address] [place] [address] Performed By: #### 5 7021-8 ####[facility] [id number] [place] [address] [place] Immature granulocytes/100 WBC (Bld) 0.2 % Normal [facility] Comment on above: Order Comment: Speci men Type: BLOOD SPECIMENOrdering Facility: [facility] Address: [address] [place] [address] Performed By: #### 5 7021-8 ####[facility] ERMARYOnur [id number] [place] [address] [place] Lymphocytes (Bld) [#/Vol] 2.53 10*3/uL Normal 1.00-4.00 [facility] Comment on above: Order Comment: Speci men Type: BLOOD SPECIMENOrdering Facility: [facility] Address: [address] [place] [address] Performed By: #### 5 7021-8 ####[facility] [id number] [place] [address] [place] Lymphocytes/100 WBC (Bld) 39.7 % Normal [facility] Comment on above: Order Comment: Speci men Type: BLOOD SPECIMENOrdering Facility: [facility] Address: [address] [place] [address] Performed By: #### 5 7021-8 ####[facility] [id number] [place] [address] [place] MCH (RBC) [Entitic mass] 30.4 pg Normal 26.0-34.0 [facility] Comment on above: Order Comment: Speci men Type: BLOOD SPECIMENOrdering Facility: [facility] Address: [address] [place] [address] Performed By: #### 5 7021-8 ####[facility] ERNCLIA [id number] [place] [address] [place] MCHC (RBC) [Mass/Vol] 33.9 g/dL Normal 30.5-36.0 [facility] Comment on above: Order Comment: Speci men Type: BLOOD SPECIMENOrdering Facility: [facility] Address: [address] [place] [address] Performed By: #### 5 7021-8 ####[facility] ERNCLI [id number] [place] [address] [place] MCV (RBC) [Entitic vol] 89.7 fL Normal 80.0-100.0 [facility] Comment on above: Order Comment: Speci men Type: BLOOD SPECIMENOrdering Facility: [facility] Address: [address] [place] [address] Performed By: #### 5 7021-8 ####[facility] ERNCSALT [facility] [id number] [place] [address] [place] Monocytes (Bld) [#/Vol] 0.45 10*3/uL Normal <0.87 [facility] Comment on above: Order Comment: Speci men Type: BLOOD SPECIMENOrdering Facility: [facility] Address: [address] [place] [address] Performed By: #### 5 7021-8 ####[facility] ERNCLI [id number] [place] [address] [place] Monocytes/100 WBC (Bld) 7.1 % Normal [facility] Comment on above: Order Comment: Speci men Type: BLOOD SPECIMENOrdering Facility: [facility] Address: [address] [place] [address] Performed By: #### 5 7021-8 ####[facility] [id number] [place] [address] [place] Neutrophils (Bld) [#/Vol] 3.07 10*3/uL Normal 1.45-7.50 [facility] Comment on above: Order Comment: Speci men Type: BLOOD SPECIMENOrdering Facility: [facility] Address: [address] [place] [address] Performed By: #### 5 7021-8 ####[facility] RAVINDERWNCLIA [id number] [place] [address] [place] Neutrophils/100 WBC (Bld) 48.1 % Normal [facility] Comment on above: Order Comment: Speci men Type: BLOOD SPECIMENOrdering Facility: [facility] Address: [address] [place] [address] Performed By: #### 5 7021-8 ####MCKIT[facility] HOSPITALLIA [id number] [place] [address] [place] Nucleated RBC (Bld) [#/Vol] 10*3/uL Normal <0.01 [facility] Comment on above: Order Comment: Speci men Type: BLOOD SPECIMENOrdering Facility: [facility] Address: [address] [place] [address] Performed By: #### 5 7021-8 ####[facility]OSPITALLIA [id number] [place] [address] [place] Nucleated RBC/100 WBC (Bld) [Ratio] 0.0 /100 WBC Normal [facility] Comment on above: Order Comment: Speci men Type: BLOOD SPECIMENOrdering Facility: [facility] Address: [address] [place] [address] Performed By: #### 5 7021-8 ####[facility] ERNCLIA [id number] [place] [address] [place] Platelet mean volume (Bld) [Entitic vol] 8.9 fL Low 9.0-12.7 [facility] Comment on above: Order Comment: Speci men Type: BLOOD SPECIMENOrdering Facility: [facility] Address: [address] [place] [address] Performed By: #### 5 7021-8 ####[facility] HOSPITALLIA [id number] [place] [address] [place] Platelets (Bld) [#/Vol] 306 10*3/uL Normal 150-400 [facility] Comment on above: Order Comment: Speci men Type: BLOOD SPECIMENOrdering Facility: [facility] Address: [address] [place] [address] Performed By: #### 5 7021-8 ####[facility]ITAL[facility] [id number] [place] [address] [place] RBC (Bld) [#/Vol] 4.47 10*6/uL Normal 4.20-6.00 [facility] Comment on above: Order Comment: Speci men Type: BLOOD SPECIMENOrdering Facility: [facility] Address: [address] [place] [address] Performed By: #### 5 7021-8 ####[facility] [id number] [place] [address] [place] WBC (Bld) [#/Vol] 6.37 10*3/uL Normal 3.70-11.00 [facility] Comment on above: Order Comment: Speci men Type: BLOOD SPECIMENOrdering Facility: [facility] Address: [address] [place] [address] Performed By: #### 5 7021-8 ####[facility] HOSPITALBRYCEA [id number] [place] [address] [place] Comprehensive metabolic 2000 panelon 09-01-2024 Albumin [Mass/Vol] 4.2 g/dL Normal 3.9-4.9 [facility] Comment on above: Order Comment: Speci men Type: BLOOD SPECIMENOrdering Facility: [facility] Address: [address] [place] [address] Performed By: #### 2 4323-8 ####[facility] ERMARYLIA [id number] [place] [address] [place] ALP [Catalytic activity/Vol] 102 U/L Normal 38-113 [facility] Comment on above: Order Comment: Speci men Type: BLOOD SPECIMENOrdering Facility: [facility] Address: [address] [place] [address] Performed By: #### 2 4323-8 ####[facility] ASHWINI MILLWNCLIA [id number] [place] [address] [place] ALT [Catalytic activity/Vol] 17 U/L Normal 10-54 [facility] Comment on above: Order Comment: Speci men Type: BLOOD SPECIMENOrdering Facility: [facility] Address: [address] [place] [address] Performed By: #### 2 4323-8 ####[facility] ERNCLIA [id number] [place] [address] [place] Anion gap [Moles/Vol] 13 mmol/L Normal 8-15 [facility] Comment on above: Order Comment: Speci men Type: BLOOD SPECIMENOrdering Facility: [facility] Address: [address] [place] [address] Performed By: #### 2 4323-8 ####[facility] HOSPITALLIA [id number] [place] [address] [place] AST [Catalytic activity/Vol] 17 U/L Normal 14-40 [facility] Comment on above: Order Comment: Speci men Type: BLOOD SPECIMENOrdering Facility: [facility] Address: [address] [place] [address] Performed By: #### 2 4323-8 ####[facility] [id number] [place] [address] [place] Bilirubin [Mass/Vol] 0.4 mg/dL Normal 0.2-1.3 [facility] Comment on above: Order Comment: Speci men Type: BLOOD SPECIMENOrdering Facility: [facility] Address: [address] [place] [address] Performed By: #### 2 4323-8 ####[facility] ASHWINI MILLTOWNCLIA [id number] [place] [address] [place] Calcium [Mass/Vol] 9.3 mg/dL Normal 8.5-10.2 [facility] Comment on above: Order Comment: Speci men Type: BLOOD SPECIMENOrdering Facility: [facility] Address: [address] [place] [address] Performed By: #### 2 4323-8 ####[facility] MILLTOWNCLIA [id number] [place] [address] [place] Chloride [Moles/Vol] 106 mmol/L Normal 98-107 [facility] Comment on above: Order Comment: Speci men Type: BLOOD SPECIMENOrdering Facility: [facility] Address: [address] [place] [address] Performed By: #### 2 4323-8 ####[facility] MILLTOWNCLIA [id number] [place] [address] [place] CO2 [Moles/Vol] 20 mmol/L Low 22-30 [facility] Comment on above: Order Comment: Speci men Type: BLOOD SPECIMENOrdering Facility: [facility] Address: [address] [place] [address] Performed By: #### 2 4323-8 ####[facility] ASHWINI MILLTOWNCLIA [id number] [place] [address] [place] Creatinine [Mass/Vol] 1.04 mg/dL Normal 0.73-1.22 [facility] Comment on above: Order Comment: Speci men Type: BLOOD SPECIMENOrdering Facility: [facility] Address: [address] [place] [address] Performed By: #### 2 4323-8 ####[facility] MILLTOWNCLIA [id number] [place] [address] [place] Creatinine and Glomerular filtration rate.predicted panel (S/P/Bld) 97 mL/min/1.73m??? Normal >=60 [facility] Comment on above: Order Comment: Renata flores Type: BLOOD SPECIMENOrdering Facility: [facility] Address: [address] [place] [address] Result Comment: Reina mated Glomerular Filtration Rate (eGFR) is calculated using the 2020 CKD-EPI creatinine equation. This equation utilizes serum creatinine, sex, and age as parameters. The creatinine assay has traceable calibration to isotope dilution-mass spectrometry. Refer to KDIGO guidelines for clinical interpretation. In patients with unstable renal function, e.g. those with acute kidney injury, the eGFR may not accurately reflect actual GFR. Performed By: #### 2 4323-8 ####[facility] [id number] [place] [address] [place] Glucose [Mass/Vol] 98 mg/dL Normal 74-99 [facility] Comment on above: Order Comment: Renata flores Type: BLOOD SPECIMENOrdering Facility: [facility] Address: [address] [place] [address] Result Comment: The [place] [employer] (ADA) provides guidance for cutoff values for fasting glucose and random glucose. The ADA defines fasting as no caloric intake for at least 8 hours. Fasting plasma glucose results between 100 to 125 mg/dL indicate increased risk for diabetes (prediabetes). Fasting plasma glucose results greater than or equal to 126 mg/dL meet the criteria for diagnosis of diabetes. In the absence of unequivocal hyperglycemia, results should be confirmed by repeat testing. In a patient with classic symptoms of hyperglycemia or hyperglycemic crisis, random plasma glucose results greater than or equal to 200 mg/dL meet the criteria for diagnosis of diabetes. Reference: Standards of Medical Care in Diabetes 2016, [place] [employer]. Diabetes Care. 2016.39(Suppl 1). Performed By: #### 2 4323-8 ####[facility] [id number] [place] [address] [place] Potassium [Moles/Vol] 4.0 mmol/L Normal 3.7-5.1 [facility] Comment on above: Order Comment: Speci men Type: BLOOD SPECIMENOrdering Facility: [facility] Address: [address] [place] [address] Performed By: #### 2 4323-8 ####[facility] ERNCLIA [id number] [place] [address] [place] Protein [Mass/Vol] 8.0 g/dL Normal 6.3-8.0 [facility] Comment on above: Order Comment: Speci men Type: BLOOD SPECIMENOrdering Facility: [facility] Address: [address] [place] [address] Performed By: #### 2 4323-8 ####[facility] ERNCSALT [facility] [id number] [place] [address] [place] Sodium [Moles/Vol] 139 mmol/L Normal 136-144 [facility] Comment on above: Order Comment: Speci men Type: BLOOD SPECIMENOrdering Facility: [facility] Address: [address] [place] [address] Performed By: #### 2 4323-8 ####[facility] HOSPITALLIA [id number] [place] [address] [place] Urea nitrogen [Mass/Vol] 9 mg/dL Normal 9-24 [facility] Comment on above: Order Comment: Speci men Type: BLOOD SPECIMENOrdering Facility: [facility] Address: [address] [place] [address] Performed By: #### 2 4323-8 ####[facility] ERNCLIA [id number] [place] [address] [place] FLUORESCEIN ANGIOGRAPHY OU ( BOTH EYES), TRANSIT OS (LEFT EYE)on 08-28-2024 [facility] Radiology Study observation (narrative) [facility] FUNDUS AUTOFLUORESCENCE PHOT O (FAF) OU (BOTH EYES)on 08-28-2024 [facility] Radiology Study observation (narrative) [facility] FUNDUS PHOTOS OU (BOTH EYES) on 08-28-2024 [facility] Radiology Study observation (narrative) [facility] OCT ANGIOGRAPHY OU (BOTH EYE S)on 08-28-2024 [facility] Radiology Study observation (narrative) [facility] OCT MACULA CIRRUS OU (BOTH E YES)on 08-28-2024 [facility] Radiology Study observation (narrative) [facility] CNPNon 07-31-2024 CNPN Telephone (PMNA11) ASTON CHICAS III ([id number]) 1990 M Date Time Provider Department 07/31/24 LYNN HOWARD PMNA11 During your visit today, we recorded the following information about you: Ashkan Alves 07/31/2024 12:48 PM Signed Avsola 100 MG Vials were approved Please allow time delay for documents to appear in [employer] (Scanned Documents Tab). Images can take up to 24 hours to appear in [employer]. Allergies As of Date: 07/31/2024 Noted Allergy Reaction SEASONAL ALLERGIES 05/17/2023 14 - Other: See Comments Comments: Cats, dust mites, molds, trees, grasses, weeds, ragweed verified by skin testing SHRIMP 05/16/2023 14 - Other: See Comments Comments: Itching mouth and throat, one prior episode of urticaria associated with ingestion of shrimp Date Reviewed: 05/23/2024 Reviewed by: Shannen Cavanaugh, KAILASH - Fully Assessed Reason for Visit: Medication Authorization [1699] Prescriptions as of 07/31/2024 - cetirizine (ZYRTEC) 10 mg tablet TAKE 1 TABLET BY MOUTH EVERY DAY - folic acid 1 mg tablet Take 1 tablet by mouth once daily. - predniSONE (DELTASONE) 5 mg tablet Take 1 tablet by mouth every 48 hours. - methotrexate 2.5 mg tablet Take 3 tablets by mouth every Sunday. Take as directed. - alendronate (FOSAMAX) 35 mg tablet Take 1 tablet by mouth one time a week. in the morning with a full glass of water, on an empty stomach, and do not take anything else by mouth or lie down for the next 30 minutes. - inFLIXimab (REMICADE) 100 mg injection Inject 600 mg intravenously every 4 weeks. Pre-medicate with 25mg po benadryl and 1000mg po acetaminophen prior to infusion per protocol. - pantoprazole DR (PROTONIX) 40 mg tablet Take 1 tablet by mouth once daily. - iv contrast (will be provided with radiology test) MRI Orbits Inject, intravenously, once for 1 dose. No IV access, insert saline lock prior to the beginning of sedation, infusion, injection of imaging exam. Discontinue saline lock post exam. If Pt. has a central line or IVAD, may access for administration according to line specific nursing protocol. Once exam is complete flush line and de-access according to line specific nursing protocol in the MR contrast administration guidelines link. - EPINEPHrine (EPIPEN 2-MAYANK) 0.3 mg/0.3 mL auto-injector Inject 0.3 mL intramuscularly as needed. 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 - prednisoLONE acetate (PRED FORTE, ECONOPRED PLUS) 1 % ophthalmic suspension Use 1 Drop in the left eye four times daily. - albuterol HFA (PROAIR HFA) 90 mcg/actuation inhaler Inhale 2 Puffs as instructed every 6 hours as needed for wheezing/shortness of breath (cough). - ondansetron (ZOFRAN) 4 mg tablet Take 1 tablet by mouth every 8 hours as needed for Nausea/Vomiting. - BIPAP New machine: Settings 15/11 cm H2O, suitable mask per pt preference (Airfit F30), chin strap, head gear, humidity, tubing, lifetime supplies. 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] 11/28/2017 Vitritis of left eye [H43.89] 11/28/2017 RONNA (obstructive sleep apnea) [G47.33] 01/01/2018 Nasal congestion [R09.81] 01/01/2018 01/26/2020 Longstanding daily persistent headache behind t*01/01/2018 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] 01/01/2018 Morbid obesity (HCC) [E66.01] 04/29/2018 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] 07/11/2018 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 Hepatic steatosis [K76.0] 12/26/2019 Gallstones [K80.20] 12/26/2019 GERD (gastroesophageal reflux disease) [K21.9] 04/19/2020 History of pulmonary embolus (PE) [Z86.711] 04/19/2020 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 Personal history of immunosupression therapy [Z*01/10/2021 Neck pain [M54.2] 08/03/2021 12/28/2021 Tension type headache [G44.209] 08/03/2021 12/28/2021 Encounter Status:Closed by ASHKAN ALVES on 07/31/24 [facility] Neel 06-20-2024 LENAN Telephone (BOLA) ASTON CHICAS III ([id number]) 1990 M Date Time Provider Department 06/20/24 SUHAS ESCOTO During your visit today, we recorded the following information about you: Stephanie Higgins 06/20/2024 11:19 AM Signed Spouse is calling to move 07/04/24 to 07/11 as patient is going to first shift and unable to get time off for this date, and then will need to move other appointments to the afternoon please advise patient in regards to these changes as spouse is currently at work and unable to take a call. Cristina CastilloNicol 06/20/2024 2:14 PM Signed Rescheduled, patient informed Allergies As of Date: 06/20/2024 Noted Allergy Reaction SEASONAL ALLERGIES 05/17/2023 14 - Other: See Comments Comments: Cats, dust mites, molds, trees, grasses, weeds, ragweed verified by skin testing SHRIMP 05/16/2023 14 - Other: See Comments Comments: Itching mouth and throat, one prior episode of urticaria associated with ingestion of shrimp Date Reviewed: 05/23/2024 Reviewed by: Shannen Cavanaugh, RN - Fully Assessed Reason for Visit: Appointment [186] Prescriptions as of 06/20/2024 - cetirizine (ZYRTEC) 10 mg tablet TAKE 1 TABLET BY MOUTH EVERY DAY - folic acid 1 mg tablet Take 1 tablet by mouth once daily. - predniSONE (DELTASONE) 5 mg tablet Take 1 tablet by mouth every 48 hours. - methotrexate 2.5 mg tablet Take 3 tablets by mouth every Sunday. Take as directed. - alendronate (FOSAMAX) 35 mg tablet Take 1 tablet by mouth one time a week. in the morning with a full glass of water, on an empty stomach, and do not take anything else by mouth or lie down for the next 30 minutes. - inFLIXimab (REMICADE) 100 mg injection Inject 600 mg intravenously every 4 weeks. Pre-medicate with 25mg po benadryl and 1000mg po acetaminophen prior to infusion per protocol. - pantoprazole DR (PROTONIX) 40 mg tablet Take 1 tablet by mouth once daily. - iv contrast (will be provided with radiology test) MRI Orbits Inject, intravenously, once for 1 dose. No IV access, insert saline lock prior to the beginning of sedation, infusion, injection of imaging exam. Discontinue saline lock post exam. If Pt. has a central line or IVAD, may access for administration according to line specific nursing protocol. Once exam is complete flush line and de-access according to line specific nursing protocol in the MR contrast administration guidelines link. - EPINEPHrine (EPIPEN 2-MAYANK) 0.3 mg/0.3 mL auto-injector Inject 0.3 mL intramuscularly as needed. 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 - prednisoLONE acetate (PRED FORTE, ECONOPRED PLUS) 1 % ophthalmic suspension Use 1 Drop in the left eye four times daily. - albuterol HFA (PROAIR HFA) 90 mcg/actuation inhaler Inhale 2 Puffs as instructed every 6 hours as needed for wheezing/shortness of breath (cough). - ondansetron (ZOFRAN) 4 mg tablet Take 1 tablet by mouth every 8 hours as needed for Nausea/Vomiting. - BIPAP New machine: Settings 15/11 cm H2O, suitable mask per pt preference (Airfit F30), chin strap, head gear, humidity, tubing, lifetime supplies. 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] 11/28/2017 Vitritis of left eye [H43.89] 11/28/2017 RONNA (obstructive sleep apnea) [G47.33] 01/01/2018 Nasal congestion [R09.81] 01/01/2018 01/26/2020 Longstanding daily persistent headache behind t*01/01/2018 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] 01/01/2018 Morbid obesity (HCC) [E66.01] 04/29/2018 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] 07/11/2018 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 Hepatic steatosis [K76.0] 12/26/2019 Gallstones [K80.20] 12/26/2019 GERD (gastroesophageal reflux disease) [K21.9] 04/19/2020 History of pulmonary embolus (PE) [Z86.711] 04/19/2020 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 Personal history of immunosupression therapy [Z*01/10/2021 Neck pain [M54.2] 08/03/2021 12/28/2021 Tension type headache [G44.209] 08/03/2021 12/28/2021 Encounter Status:Closed by NICOL GONZALEZ on 06/20/24 Normal [facility] 1,25-dihydroxyvitamin D3 [Ma ss/Vol]on 05-14-2024 VIT D1,25 DIHYDROXY 22.6 pg/mL Normal 19.9-79.3 [facility] Comment on above: Order Comment: Speci mark Type: BLOOD SPECIMENOrdering Facility: [facility] Address: [address] [place] [address] Performed By: #### 1 649-3 ####[facility] LABCLIA [id number] [place] [address] [place] ANGELITO SerPl-cCncon 05-14-2024 Angiotensin converting enzyme [Catalytic activity/Vol] 10 U/L Normal <=52 [facility] Comment on above: Order Comment: Kristii mark Type: BLOOD SPECIMEN Ordering Facility: [facility] Address: [address] [place] [address] Result Comment: Radha ficially low ANGELITO levels may be found for patients taking ANGELITO inhibitors or after the administration of gadolinium. This test was developed, and its performance characteristics determined by the [facility] Department of Pathology and Laboratory Medicine. It has not been cleared or approved by the FDA. The [facility] Department of Pathology and Laboratory Medicine is regulated under CLIA as qualified to perform high-complexity testing. This test is used for clinical purposes. It should not be regarded as investigational or for research. Performed By: #### 2 742-5 #### [facility] CLIA [id number] [address] [place] [address] BLOOD TB SCREENon 05-14-2024 M. tuberculosis tuberculin stim IFN-g Ql (Bld) Negative Normal [facility] Comment on above: Order Comment: Speci men Type: BLOOD SPECIMENOrdering Facility: [facility] Address: [address] [place] [address] Performed By: #### I NFTBP ####[facility] LABCL[facility] [id number] [place] [address] [place] MITOGEN MINUS NIL >9.98 Normal >=0.50 [facility] Comment on above: Order Comment: Speci men Type: BLOOD SPECIMENOrdering Facility: [facility] Address: [address] [place] [address] Performed By: #### I NFTBP ####[facility] LABIA [id number] [address] TB GAMMA INTERPRETATION Infection with M. tuberculosis complex is unlikely. If latent tuberculosis infection is highly suspected, a negative result does not rule out the infection. Specimens from immunocompromised patients and those <5 years of age may show false negative results. In case of a contact investigation, please repeat 8-12 weeks after a known exposure. Normal [facility] Comment on above: Order Comment: Speci men Type: BLOOD SPECIMENOrdering Facility: [facility] Address: [address] [place] [address] Performed By: #### I NFTBP ####[facility] LABIA [id number] [address] TB NIL 0.02 IU/mL Normal <=8.00 [facility] Comment on above: Order Comment: Speci men Type: BLOOD SPECIMENOrdering Facility: [facility] Address: [address] [place] [address] Performed By: #### I NFTBP ####[facility] LABCLIA [id number] [place] [address] [place] TB1 AG MINUS NIL 0.01 IU/mL Normal <0.35 [facility] Comment on above: Order Comment: Speci men Type: BLOOD SPECIMENOrdering Facility: [facility] Address: [address] [place] [address] Performed By: #### I NFTBP ####[facility] LABCL[facility] [id number] [place] [address] [place] TB2 AG MINUS NIL 0.02 IU/mL Normal <0.35 [facility] Comment on above: Order Comment: Speci men Type: BLOOD SPECIMENOrdering Facility: [facility] Address: [address] [place] [address] Performed By: #### I NFTBP ####[facility] LABIA [id number] [place] [address] [place] CBC W Auto Differential pane l (Bld)on 05-14-2024 Basophils (Bld) [#/Vol] 0.04 10*3/uL Normal <0.11 [facility] Comment on above: Order Comment: Speci men Type: BLOOD SPECIMENOrdering Facility: [facility] Address: [address] [place] [address] Performed By: #### 5 7021-8 ####[facility] HOSPITALA [id number] [place] [address] [place] Basophils/100 WBC (Bld) 0.6 % Normal [facility] Comment on above: Order Comment: Speci men Type: BLOOD SPECIMENOrdering Facility: [facility] Address: [address] [place] [address] Performed By: #### 5 7021-8 ####[facility] ERNCLIA [id number] [place] [address] [place] Differential cell count method Nom (Bld) Auto Normal [facility] Comment on above: Order Comment: Speci men Type: BLOOD SPECIMENOrdering Facility: [facility] Address: [address] [place] [address] Performed By: #### 5 7021-8 ####[facility] ALMA DELIABRYCEOnur [id number] [place] [address] [place] Eosinophils (Bld) [#/Vol] 0.19 10*3/uL Normal <0.46 [facility] Comment on above: Order Comment: Speci men Type: BLOOD SPECIMENOrdering Facility: [facility] Address: [address] [place] [address] Performed By: #### 5 7021-8 ####[facility] ERNIKI [id number] [place] [address] [place] Eosinophils/100 WBC (Bld) 2.7 % Normal [facility] Comment on above: Order Comment: Speci men Type: BLOOD SPECIMENOrdering Facility: [facility] Address: [address] [place] [address] Performed By: #### 5 7021-8 ####[facility] ERNIKI [id number] [place] [address] [place] Erythrocyte distribution width (RBC) [Ratio] 12.9 % Normal 11.5-15.0 [facility] Comment on above: Order Comment: Speci men Type: BLOOD SPECIMENOrdering Facility: [facility] Address: [address] [place] [address] Performed By: #### 5 7021-8 ####[facility] ERNCLIA [id number] [place] [address] [place] Hematocrit (Bld) [Volume fraction] 39.3 % Normal 39.0-51.0 [facility] Comment on above: Order Comment: Speci men Type: BLOOD SPECIMENOrdering Facility: [facility] Address: [address] [place] [address] Performed By: #### 5 7021-8 ####[facility] ERNCLIA [id number] [place] [address] [place] Hemoglobin (Bld) [Mass/Vol] 12.6 g/dL Low 13.0-17.0 [facility] Comment on above: Order Comment: Speci men Type: BLOOD SPECIMENOrdering Facility: [facility] Address: [address] [place] [address] Performed By: #### 5 7021-8 ####[facility] [id number] [place] [address] [place] Immature granulocytes (Bld) [#/Vol] 10*3/uL Normal <0.10 [facility] Comment on above: Order Comment: Speci men Type: BLOOD SPECIMENOrdering Facility: [facility] Address: [address] [place] [address] Performed By: #### 5 7021-8 ####[facility] [id number] [place] [address] [place] Immature granulocytes/100 WBC (Bld) 0.3 % Normal [facility] Comment on above: Order Comment: Speci men Type: BLOOD SPECIMENOrdering Facility: [facility] Address: [address] [place] [address] Performed By: #### 5 7021-8 ####[facility] [id number] [place] [address] [place] Lymphocytes (Bld) [#/Vol] 2.50 10*3/uL Normal 1.00-4.00 [facility] Comment on above: Order Comment: Speci men Type: BLOOD SPECIMENOrdering Facility: [facility] Address: [address] [place] [address] Performed By: #### 5 7021-8 ####[facility] [id number] [place] [address] [place] Lymphocytes/100 WBC (Bld) 36.1 % Normal [facility] Comment on above: Order Comment: Speci men Type: BLOOD SPECIMENOrdering Facility: [facility] Address: [address] [place] [address] Performed By: #### 5 7021-8 ####[facility] ERNCLIA [id number] [place] [address] [place] MCH (RBC) [Entitic mass] 29.5 pg Normal 26.0-34.0 [facility] Comment on above: Order Comment: Speci men Type: BLOOD SPECIMENOrdering Facility: [facility] Address: [address] [place] [address] Performed By: #### 5 7021-8 ####[facility] ERNCBRYCEA [id number] [place] [address] [place] MCHC (RBC) [Mass/Vol] 32.1 g/dL Normal 30.5-36.0 [facility] Comment on above: Order Comment: Speci men Type: BLOOD SPECIMENOrdering Facility: [facility] Address: [address] [place] [address] Performed By: #### 5 7021-8 ####[facility] ERNCLIA [id number] [place] [address] [place] MCV (RBC) [Entitic vol] 92.0 fL Normal 80.0-100.0 [facility] Comment on above: Order Comment: Speci men Type: BLOOD SPECIMENOrdering Facility: [facility] Address: [address] [place] [address] Performed By: #### 5 7021-8 ####[facility] ERNCLIA [id number] [place] [address] [place] Monocytes (Bld) [#/Vol] 0.39 10*3/uL Normal <0.87 [facility] Comment on above: Order Comment: Speci men Type: BLOOD SPECIMENOrdering Facility: [facility] Address: [address] [place] [address] Performed By: #### 5 7021-8 ####[facility] RAVINDERCENTERVILLECANDELARIAA [id number] [place] [address] [place] Monocytes/100 WBC (Bld) 5.6 % Normal [facility] Comment on above: Order Comment: Speci men Type: BLOOD SPECIMENOrdering Facility: [facility] Address: [address] [place] [address] Performed By: #### 5 7021-8 ####[facility] ERNCSALT [facility] [id number] [place] [address] [place] Neutrophils (Bld) [#/Vol] 3.78 10*3/uL Normal 1.45-7.50 [facility] Comment on above: Order Comment: Speci men Type: BLOOD SPECIMENOrdering Facility: [facility] Address: [address] [place] [address] Performed By: #### 5 7021-8 ####[facility] [id number] [place] [address] [place] Neutrophils/100 WBC (Bld) 54.7 % Normal [facility] Comment on above: Order Comment: Speci men Type: BLOOD SPECIMENOrdering Facility: [facility] Address: [address] [place] [address] Performed By: #### 5 7021-8 ####[facility] [id number] [place] [address] [place] Nucleated RBC (Bld) [#/Vol] 10*3/uL Normal <0.01 [facility] Comment on above: Order Comment: Speci men Type: BLOOD SPECIMENOrdering Facility: [facility] Address: [address] [place] [address] Performed By: #### 5 7021-8 ####[facility] ERNCLIA [id number] [place] [address] [place] Nucleated RBC/100 WBC (Bld) [Ratio] 0.0 /100 WBC Normal [facility] Comment on above: Order Comment: Speci men Type: BLOOD SPECIMENOrdering Facility: [facility] Address: [address] [place] [address] Performed By: #### 5 7021-8 ####[facility] HOSPITALBRYCE [id number] [place] [address] [place] Platelet mean volume (Bld) [Entitic vol] 9.3 fL Normal 9.0-12.7 [facility] Comment on above: Order Comment: Speci men Type: BLOOD SPECIMENOrdering Facility: [facility] Address: [address] [place] [address] Performed By: #### 5 7021-8 ####[facility] [id number] [place] [address] [place] Platelets (Bld) [#/Vol] 312 10*3/uL Normal 150-400 [facility] Comment on above: Order Comment: Speci men Type: BLOOD SPECIMENOrdering Facility: [facility] Address: [address] [place] [address] Performed By: #### 5 7021-8 ####[facility] [id number] [place] [address] [place] RBC (Bld) [#/Vol] 4.27 10*6/uL Normal 4.20-6.00 [facility] Comment on above: Order Comment: Speci men Type: BLOOD SPECIMENOrdering Facility: [facility] Address: [address] [place] [address] Performed By: #### 5 7021-8 ####[facility] HOSPITALLI [id number] [place] [address] [place] WBC (Bld) [#/Vol] 6.92 10*3/uL Normal 3.70-11.00 [facility] Comment on above: Order Comment: Speci men Type: BLOOD SPECIMENOrdering Facility: [facility] Address: [address] [place] [address] Performed By: #### 5 7021-8 ####[facility] [id number] [place] [address] [place] CRP SerPl-mCncon 05-14-2024 CRP [Mass/Vol] 0.9 mg/dL High <0.9 [facility] Comment on above: Order Comment: Speci men Type: BLOOD SPECIMENOrdering Facility: [facility] Address: [address] [place] [address] Performed By: #### 1 988-5 ####[facility] LABCLIA [id number] [place] [address] [place] Comprehensive metabolic 2000 panelon 05-14-2024 Albumin [Mass/Vol] 4.2 g/dL Normal 3.9-4.9 [facility] Comment on above: Order Comment: Speci men Type: BLOOD SPECIMENOrdering Facility: [facility] Address: [address] [place] [address] Performed By: #### 2 4323-8 ####[facility] [id number] [place] [address] [place] ALP [Catalytic activity/Vol] 108 U/L Normal 38-113 [facility] Comment on above: Order Comment: Speci men Type: BLOOD SPECIMENOrdering Facility: [facility] Address: [address] [place] [address] Performed By: #### 2 4323-8 ####[facility] [id number] [place] [address] [place] ALT [Catalytic activity/Vol] 22 U/L Normal 10-54 [facility] Comment on above: Order Comment: Speci men Type: BLOOD SPECIMENOrdering Facility: [facility] Address: [address] [place] [address] Performed By: #### 2 4323-8 ####[facility] TAMPAWNCL[facility] [id number] [place] [address] [place] Anion gap [Moles/Vol] 11 mmol/L Normal 8-15 [facility] Comment on above: Order Comment: Speci men Type: BLOOD SPECIMENOrdering Facility: [facility] Address: [address] [place] [address] Performed By: #### 2 4323-8 ####[facility] ERNCSALT [facility] [id number] [place] [address] [place] AST [Catalytic activity/Vol] 17 U/L Normal 14-40 [facility] Comment on above: Order Comment: Speci men Type: BLOOD SPECIMENOrdering Facility: [facility] Address: [address] [place] [address] Performed By: #### 2 4323-8 ####[facility] [id number] [place] [address] [place] Bilirubin [Mass/Vol] 0.3 mg/dL Normal 0.2-1.3 [facility] Comment on above: Order Comment: Speci men Type: BLOOD SPECIMENOrdering Facility: [facility] Address: [address] [place] [address] Performed By: #### 2 4323-8 ####[facility] ERNCA [id number] [place] [address] [place] Calcium [Mass/Vol] 9.4 mg/dL Normal 8.5-10.2 [facility] Comment on above: Order Comment: Speci men Type: BLOOD SPECIMENOrdering Facility: [facility] Address: [address] [place] [address] Performed By: #### 2 4323-8 ####[facility] ERNCLIA [id number] [place] [address] [place] Chloride [Moles/Vol] 103 mmol/L Normal 98-107 [facility] Comment on above: Order Comment: Speci men Type: BLOOD SPECIMENOrdering Facility: [facility] Address: [address] [place] [address] Performed By: #### 2 4323-8 ####[facility] ERNCLIA [id number] [place] [address] [place] CO2 [Moles/Vol] 24 mmol/L Normal 22-30 [facility] Comment on above: Order Comment: Speci men Type: BLOOD SPECIMENOrdering Facility: [facility] Address: [address] [place] [address] Performed By: #### 2 4323-8 ####[facility]ALL[facility] [id number] [place] [address] [place] Creatinine [Mass/Vol] 1.12 mg/dL Normal 0.73-1.22 [facility] Comment on above: Order Comment: Speci men Type: BLOOD SPECIMENOrdering Facility: [facility] Address: [address] [place] [address] Performed By: #### 2 4323-8 ####[facility]ALL[facility] [id number] [place] [address] [place] [facility] Creatinine and Glomerular filtration rate.predicted panel (S/P/Bld) 88 mL/min/1.73m??? Normal >=60 [facility] Comment on above: Order Comment: Speci men Type: BLOOD SPECIMENOrdering Facility: [facility] Address: [address] [place] [address] Result Comment: Reina mated Glomerular Filtration Rate (eGFR) is calculated using the 2020 CKD-EPI creatinine equation. This equation utilizes serum creatinine, sex, and age as parameters. The creatinine assay has traceable calibration to isotope dilution-mass spectrometry. Refer to KDIGO guidelines for clinical interpretation. In patients with unstable renal function, e.g. those with acute kidney injury, the eGFR may not accurately reflect actual GFR. Performed By: #### 2 4323-8 ####[facility] TAMPAWMARYLIA [id number] [place] [address] [place] Glucose [Mass/Vol] 123 mg/dL High 74-99 [facility] Comment on above: Order Comment: Renata flores Type: BLOOD SPECIMENOrdering Facility: [facility] Address: [address] [place] [address] Result Comment: The [place] [employer] (ADA) provides guidance for cutoff values for fasting glucose and random glucose. The ADA defines fasting as no caloric intake for at least 8 hours. Fasting plasma glucose results between 100 to 125 mg/dL indicate increased risk for diabetes (prediabetes). Fasting plasma glucose results greater than or equal to 126 mg/dL meet the criteria for diagnosis of diabetes. In the absence of unequivocal hyperglycemia, results should be confirmed by repeat testing. In a patient with classic symptoms of hyperglycemia or hyperglycemic crisis, random plasma glucose results greater than or equal to 200 mg/dL meet the criteria for diagnosis of diabetes. Reference: Standards of Medical Care in Diabetes 2016, [place] [employer]. Diabetes Care. 2016.39(Suppl 1). Performed By: #### 2 4323-8 ####[facility] [id number] [place] [address] [place] Potassium [Moles/Vol] 3.8 mmol/L Normal 3.7-5.1 [facility] Comment on above: Order Comment: Renata flores Type: BLOOD SPECIMENOrdering Facility: [facility] Address: [address] [id number] Performed By: #### 2 4323-8 ####[facility] ERNCLIA [id number] [place] [address] [place] Protein [Mass/Vol] 8.0 g/dL Normal 6.3-8.0 [facility] Comment on above: Order Comment: Speci men Type: BLOOD SPECIMENOrdering Facility: [facility] Address: [address] [place] [address] Performed By: #### 2 4323-8 ####[facility] [id number] [place] [address] [place] Sodium [Moles/Vol] 138 mmol/L Normal 136-144 [facility] Comment on above: Order Comment: Speci men Type: BLOOD SPECIMENOrdering Facility: [facility] Address: [address] [place] [address] Performed By: #### 2 4323-8 ####[facility] [id number] [place] [address] [place] Urea nitrogen [Mass/Vol] 12 mg/dL Normal 9-24 [facility] Comment on above: Order Comment: Speci men Type: BLOOD SPECIMENOrdering Facility: [facility] Address: [address] [place] [address] Performed By: #### 2 4323-8 ####[facility] [id number] [place] [address] [place] INTERLEUKIN 2 RECEPTOR, SOLU BLE, SERUMon 05-14-2024 INTERLEUKIN-2 RECEPTOR 668.2 pg/mL Normal 175.3-858.2 [facility] Comment on above: Order Comment: Speci men Type: BLOOD SPECIMENOrdering Facility: [facility] Address: [address] [place] [address] Result Comment: INTE RPRETIVE INFORMATION: Cytokines Results are used to understand the pathophysiology of immune, infectious, or inflammatory disorders, or may be used for research purposes. This test was developed and its performance characteristics determined by [facility]. It has not been cleared or approved by the [place] Food and Drug Administration. This test was performed in a CLIA certified laboratory and is intended for clinical purposes. Performed By: [facility] [address] [id number] Internal Grinder: Nba Bonilla MD, PhD CLIA Number: [id number] Performed By: #### S IL2R ####[facility]IESCLIA [id number] [place] [id number] OCT MACULA CIRRUS OU (BOTH E YES)Ordered By: Ann Caldwell on 05-01-2024 [facility] Work Phone: OCT MACULA CIRRUS OU (BOTH E YES)on 05-01-2024 Radiology Study observation (narrative) [facility] CNOVSPon 01-18-2024 CNOVSP Visit (SP) Office (HEMAWS) ASTON CHICAS III ([id number]) 1990 M Date Time Provider Department 01/18/24 9:00 AM TREATMENT RM 16 [facility] WSTRHEMAWS During your visit today, we recorded the following information about you: Temperature Pulse Blood pressure 98.4 degrees 82/minute 141/80 Referring Provider: LYNN HOWARD [[id number]] Allergies As of Date: 01/18/2024 Noted Allergy Reaction SEASONAL ALLERGIES 05/17/2023 14 - Other: See Comments Comments: Cats, dust mites, molds, trees, grasses, weeds, ragweed verified by skin testing SHRIMP 05/16/2023 14 - Other: See Comments Comments: Itching mouth and throat, one prior episode of urticaria associated with ingestion of shrimp Date Reviewed: 01/18/2024 Reviewed by: Veronika Atkinson MA - Fully Assessed Reason for Visit: Non-Chemotherapy Treatment [795] Primary Visit Diagnosis:Pulmonary sarcoidosis (HCC) [D86.0] Order(s):TREATMENT PARAMETER-NOT NEEDED [[id number]] Order #: [id number]: 1 BCN NURSING COMMUNICATION [[id number]] Order #: [id number]: 1 STANDING BCN NURSING COMMUNICATION [[id number]] Order #: [id number]: 1 [] diphenhydrAMINE 25 mg capsule (BENADRYL)Disp: Rfl: [] acetaminophen 650 mg tab(s) (TYLENOL)Disp: Rfl: [] inFLIXimab-axxq 600 mg in NaCl 0.9% 250 mL (AVSOLA)Disp: Rfl: NaCl 0.9% iv infusionDisp: Rfl: diphenhydrAMINE 50 mg injection (BENADRYL)Disp: Rfl: hydrocortisone sodium succinate (PF) 100 mg injection (Solu-CORTEF)Disp: Rfl: EPINEPHrine HCl (PF) 1 mg/mL (1 mL) 0.3 mg injectionDisp: Rfl: [facility] NURSING COMMUNICATION [[id number]] Order #: [id number]: 1 STANDING Prescriptions as of 01/18/2024 - cetirizine (ZYRTEC) 10 mg tablet Take 1 tablet by mouth once daily. - methotrexate sodium 25 mg/mL soln Inject 0.3 mL subcutaneously one time a week. - folic acid 1 mg tablet Take 1 tablet by mouth once daily. - Insulin Syringe-Needle U-100 (MONOJECT INS SYR 1CC/27G) 1 mL 27 gauge x 1/2 syrg 0.3 mL one time a week. - predniSONE (DELTASONE) 5 mg tablet Take 1 tablet by mouth every 48 hours. - alendronate (FOSAMAX) 35 mg tablet Take 1 tablet by mouth one time a week. in the morning with a full glass of water, on an empty stomach, and do not take anything else by mouth or lie down for the next 30 minutes. - pantoprazole DR (PROTONIX) 40 mg tablet Take 1 tablet by mouth once daily. - iv contrast (will be provided with radiology test) MRI Orbits Inject, intravenously, once for 1 dose. No IV access, insert saline lock prior to the beginning of sedation, infusion, injection of imaging exam. Discontinue saline lock post exam. If Pt. has a central line or IVAD, may access for administration according to line specific nursing protocol. Once exam is complete flush line and de-access according to line specific nursing protocol in the MR contrast administration guidelines link. - EPINEPHrine (EPIPEN 2-MAYANK) 0.3 mg/0.3 mL auto-injector Inject 0.3 mL intramuscularly as needed. 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 - prednisoLONE acetate (PRED FORTE, ECONOPRED PLUS) 1 % ophthalmic suspension Use 1 Drop in the left eye four times daily. - inFLIXimab (REMICADE) 100 mg injection Inject 600 mg intravenously every 6 weeks. Infuse 5 mg/kg intravenously on weeks 0, 2, 6 then every 4 weeks. Pre-medicate with 25mg po benadryl and 1000mg po acetaminophen prior to infusion per protocol. - albuterol HFA (PROAIR HFA) 90 mcg/actuation inhaler Inhale 2 Puffs as instructed every 6 hours as needed for wheezing/shortness of breath (cough). - ondansetron (ZOFRAN) 4 mg tablet Take 1 tablet by mouth every 8 hours as needed for Nausea/Vomiting. - BIPAP New machine: Settings 15/11 cm H2O, suitable mask per pt preference (Airfit F30), chin strap, head gear, humidity, tubing, lifetime supplies. G47.33 Obstructive Sleep Apnea Facility-Administered Medications as of 01/18/2024 - NaCl 0.9% iv infusion - diphenhydrAMINE 50 mg injection (BENADRYL) - hydrocortisone sodium succinate (PF) 100 mg injection (Solu-CORTEF) - EPINEPHrine HCl (PF) 1 mg/mL (1 mL) 0.3 mg injection Problem List As Of Date 01/18/2024 Noted Resolved Seasonal allergic rhinitis [J30.2] 07/08/2015 Pulmonary embolus (HCC) [I26.99] 07/12/2015 04/08/2018 Hilar adenopathy [R59.0] 07/12/2015 04/08/2018 Solitary pulmonary nodule [R91.1] 07/26/2015 01/26/2020 Pulmonary sarcoidosis (HCC) [D86.0] 08/19/2015 Depression with anxiety [F41.8] 08/19/2015 01/26/2020 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 Normal [facility] CNOVSPon 12-07-2023 CNOVSP Visit (SP) Office (HEMAWS) ASTON CHICAS III ([id number]) 1990 M Date Time Provider Department 12/07/23 9:00 AM TREATMENT RM 16 [facility] WSTRHEMAWS During your visit today, we recorded the following information about you: Temperature Pulse Respiration Blood pressure 98.7 degrees 69/minute 18/minute 108/76 Weight 122.4 kg Referring Provider: LYNN HOWARD [[id number]] Allergies As of Date: 12/07/2023 Noted Allergy Reaction SEASONAL ALLERGIES 05/17/2023 14 - Other: See Comments Comments: Cats, dust mites, molds, trees, grasses, weeds, ragweed verified by skin testing SHRIMP 05/16/2023 14 - Other: See Comments Comments: Itching mouth and throat, one prior episode of urticaria associated with ingestion of shrimp Date Reviewed: 12/07/2023 Reviewed by: Leida Lou RN - Fully Assessed Reason for Visit: Non-Chemotherapy Treatment [795] Primary Visit Diagnosis:Pulmonary sarcoidosis (HCC) [D86.0] Order(s):TREATMENT PARAMETER-NOT NEEDED [[id number]] Order #: [id number]: 1 BCN NURSING COMMUNICATION [[id number]] Order #: [id number]: 1 STANDING BCN NURSING COMMUNICATION [[id number]] Order #: [id number]: 1 [] diphenhydrAMINE 25 mg capsule (BENADRYL)Disp: Rfl: [] acetaminophen 650 mg tab(s) (TYLENOL)Disp: Rfl: [] inFLIXimab-axxq 600 mg in NaCl 0.9% 250 mL (AVSOLA)Disp: Rfl: NaCl 0.9% iv infusionDisp: Rfl: diphenhydrAMINE 50 mg injection (BENADRYL)Disp: Rfl: hydrocortisone sodium succinate (PF) 100 mg injection (Solu-CORTEF)Disp: Rfl: EPINEPHrine HCl (PF) 1 mg/mL (1 mL) 0.3 mg injectionDisp: Rfl: BCN NURSING COMMUNICATION [[id number]] Order #: [id number]: 1 STANDING Prescriptions as of 12/07/2023 - cetirizine (ZYRTEC) 10 mg tablet Take 1 tablet by mouth once daily. - methotrexate sodium 25 mg/mL soln Inject 0.3 mL subcutaneously one time a week. - folic acid 1 mg tablet Take 1 tablet by mouth once daily. - Insulin Syringe-Needle U-100 (MONOJECT INS SYR 1CC/27G) 1 mL 27 gauge x 1/2 syrg 0.3 mL one time a week. - predniSONE (DELTASONE) 5 mg tablet Take 1 tablet by mouth every 48 hours. - alendronate (FOSAMAX) 35 mg tablet Take 1 tablet by mouth one time a week. in the morning with a full glass of water, on an empty stomach, and do not take anything else by mouth or lie down for the next 30 minutes. - pantoprazole DR (PROTONIX) 40 mg tablet Take 1 tablet by mouth once daily. - iv contrast (will be provided with radiology test) MRI Orbits Inject, intravenously, once for 1 dose. No IV access, insert saline lock prior to the beginning of sedation, infusion, injection of imaging exam. Discontinue saline lock post exam. If Pt. has a central line or IVAD, may access for administration according to line specific nursing protocol. Once exam is complete flush line and de-access according to line specific nursing protocol in the MR contrast administration guidelines link. - EPINEPHrine (EPIPEN 2-MAYANK) 0.3 mg/0.3 mL auto-injector Inject 0.3 mL intramuscularly as needed. 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 - prednisoLONE acetate (PRED FORTE, ECONOPRED PLUS) 1 % ophthalmic suspension Use 1 Drop in the left eye four times daily. - inFLIXimab (REMICADE) 100 mg injection Inject 600 mg intravenously every 6 weeks. Infuse 5 mg/kg intravenously on weeks 0, 2, 6 then every 4 weeks. Pre-medicate with 25mg po benadryl and 1000mg po acetaminophen prior to infusion per protocol. - albuterol HFA (PROAIR HFA) 90 mcg/actuation inhaler Inhale 2 Puffs as instructed every 6 hours as needed for wheezing/shortness of breath (cough). - ondansetron (ZOFRAN) 4 mg tablet Take 1 tablet by mouth every 8 hours as needed for Nausea/Vomiting. - BIPAP New machine: Settings 15/11 cm H2O, suitable mask per pt preference (Airfit F30), chin strap, head gear, humidity, tubing, lifetime supplies. G47.33 Obstructive Sleep Apnea Facility-Administered Medications as of 12/07/2023 - NaCl 0.9% iv infusion - diphenhydrAMINE 50 mg injection (BENADRYL) - hydrocortisone sodium succinate (PF) 100 mg injection (Solu-CORTEF) - EPINEPHrine HCl (PF) 1 mg/mL (1 mL) 0.3 mg injection Problem List As Of Date 12/07/2023 Noted Resolved Seasonal allergic rhinitis [J30.2] 07/08/2015 Pulmonary embolus (HCC) [I26.99] 07/12/2015 04/08/2018 Hilar adenopathy [R59.0] 07/12/2015 04/08/2018 Solitary pulmonary nodule [R91.1] 07/26/2015 01/26/2020 Pulmonary sarcoidosis (HCC) [D86.0] 08/19/2015 Depression with anxiety [F41.8] 08/19/2015 01/26/2020 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 Normal [facility] CNOVSPon 10-26-2023 CNOVSP Visit (SP) Office ([place]) ASTON CHICAS III ([id number]) 1990 M Date Time Provider Department 10/26/23 9:00 AM TREATMENT RM [facility] [place] [facility] WSTRHEMA[facility] During your visit today, we recorded the following information about you: Temperature Pulse Respiration Blood pressure 98 degrees 79/minute 18/minute 112/77 Referring Provider: LYNN HOWARD [[id number]] Allergies As of Date: 10/26/2023 Noted Allergy Reaction SEASONAL ALLERGIES 05/17/2023 14 - Other: See Comments Comments: Cats, dust mites, molds, trees, grasses, weeds, ragweed verified by skin testing SHRIMP 05/16/2023 14 - Other: See Comments Comments: Itching mouth and throat, one prior episode of urticaria associated with ingestion of shrimp Date Reviewed: 10/26/2023 Reviewed by: Leida Lou, KAILASH - Fully Assessed Reason for Visit: Non-Chemotherapy Treatment [795] Primary Visit Diagnosis:Pulmonary sarcoidosis (HCC) [D86.0] Order(s):TREATMENT PARAMETER-NOT NEEDED [[id number]] Order #: [id number]: 1 BCN NURSING COMMUNICATION [[id number]] Order #: [id number]: 1 STANDING BCN NURSING COMMUNICATION [[id number]] Order #: [id number]: 1 [] diphenhydrAMINE 25 mg capsule (BENADRYL)Disp: Rfl: [] acetaminophen 650 mg tab(s) (TYLENOL)Disp: Rfl: [] inFLIXimab-axxq 600 mg in NaCl 0.9% 250 mL (AVSOLA)Disp: Rfl: NaCl 0.9% iv infusionDisp: Rfl: diphenhydrAMINE 50 mg injection (BENADRYL)Disp: Rfl: hydrocortisone sodium succinate (PF) 100 mg injection (Solu-CORTEF)Disp: Rfl: EPINEPHrine HCl (PF) 1 mg/mL (1 mL) 0.3 mg injectionDisp: Rfl: BCN NURSING COMMUNICATION [9990330] Order #: [id number]: 1 STANDING Prescriptions as of 10/26/2023 - cetirizine (ZYRTEC) 10 mg tablet Take 1 tablet by mouth once daily. - methotrexate sodium 25 mg/mL soln Inject 0.3 mL subcutaneously one time a week. - folic acid 1 mg tablet Take 1 tablet by mouth once daily. - Insulin Syringe-Needle U-100 (MONOJECT INS SYR 1CC/27G) 1 mL 27 gauge x 1/2 syrg 0.3 mL one time a week. - predniSONE (DELTASONE) 5 mg tablet Take 1 tablet by mouth every 48 hours. - alendronate (FOSAMAX) 35 mg tablet Take 1 tablet by mouth one time a week. in the morning with a full glass of water, on an empty stomach, and do not take anything else by mouth or lie down for the next 30 minutes. - pantoprazole DR (PROTONIX) 40 mg tablet Take 1 tablet by mouth once daily. - iv contrast (will be provided with radiology test) MRI Orbits Inject, intravenously, once for 1 dose. No IV access, insert saline lock prior to the beginning of sedation, infusion, injection of imaging exam. Discontinue saline lock post exam. If Pt. has a central line or IVAD, may access for administration according to line specific nursing protocol. Once exam is complete flush line and de-access according to line specific nursing protocol in the MR contrast administration guidelines link. - EPINEPHrine (EPIPEN 2-MAYANK) 0.3 mg/0.3 mL auto-injector Inject 0.3 mL intramuscularly as needed. 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 - prednisoLONE acetate (PRED FORTE, ECONOPRED PLUS) 1 % ophthalmic suspension Use 1 Drop in the left eye four times daily. - inFLIXimab (REMICADE) 100 mg injection Inject 600 mg intravenously every 6 weeks. Infuse 5 mg/kg intravenously on weeks 0, 2, 6 then every 4 weeks. Pre-medicate with 25mg po benadryl and 1000mg po acetaminophen prior to infusion per protocol. - albuterol HFA (PROAIR HFA) 90 mcg/actuation inhaler Inhale 2 Puffs as instructed every 6 hours as needed for wheezing/shortness of breath (cough). - ondansetron (ZOFRAN) 4 mg tablet Take 1 tablet by mouth every 8 hours as needed for Nausea/Vomiting. - BIPAP New machine: Settings 15/11 cm H2O, suitable mask per pt preference (Airfit F30), chin strap, head gear, humidity, tubing, lifetime supplies. G47.33 Obstructive Sleep Apnea Facility-Administered Medications as of 10/26/2023 - NaCl 0.9% iv infusion - diphenhydrAMINE 50 mg injection (BENADRYL) - hydrocortisone sodium succinate (PF) 100 mg injection (Solu-CORTEF) - EPINEPHrine HCl (PF) 1 mg/mL (1 mL) 0.3 mg injection Problem List As Of Date 10/26/2023 Noted Resolved Seasonal allergic rhinitis [J30.2] 07/08/2015 Pulmonary embolus (HCC) [I26.99] 07/12/2015 04/08/2018 Hilar adenopathy [R59.0] 07/12/2015 04/08/2018 Solitary pulmonary nodule [R91.1] 07/26/2015 01/26/2020 Pulmonary sarcoidosis (HCC) [D86.0] 08/19/2015 Depression with anxiety [F41.8] 08/19/2015 01/26/2020 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 Normal [facility] MR Orbit WO and W contrast I Von 09-26-2023 IMPRESSION: Stable chronic changes in the left globe with newly appreciated areas of likely chronic abnormal signal in the left optic nerve, but no superimposed abnormal enhancement to suggest an active optic neuritis. Normal appearance of the right orbit. No abnormal intracranial parenchymal or leptomeningeal enhancement to suggest neurosarcoidosis. [facility] Consultant: PSCMariah Transcribe Date/Time: Sep 26 2023 4:41P Dictated by : REX HOFFMAN MD This examination was interpreted and the report reviewed and electronically signed by: REX HOFFMAN MD on Sep 26 2023 5:39PM [facility] DIVISION OF RADIOLOGY * * *Final Report* * * DATE OF EXAM: Sep 26 2023 3:45PM [facility] 0311 - MRI ORBIT WO/W IVCON / PROCEDURE REASON: multiple diagnoses * * * * Physician Interpretation * * * * EXAMINATION: MRI ORBIT WO/W IVCON Clinical history: As provided by the ordering clinician via order question entries: Infection/inflammatory . Optic neuritis suspected. Sarcoidosis of central nervous system. Optic neuritis. Further evaluate for optic neuritis. Stated history: Eval for optic neuritis, hx sarcoidosis. TECHNIQUE: Whole brain sagittal T1, axial FLAIR, and DWI. Orbital coronal precontrast T1, postcontrast coronal T2 fat-saturated, and axial fat saturated T1 SPACE. Additional whole brain axial T1-weighted images were also acquired. MQ: MRBWOW_2 Contrast: IV 20 ml of Dotarem Comparison: 05/21/2023 brain MRI and 03/21/2022 orbital MRI without and with contrast RESULT: Acute Change: No abnormal restricted diffusion to suggest an acute infarct. Orbits: Normal appearance of the right orbit. Stable appearance of the left orbit with small left globe and sequelae of prior retinal detachment and postprocedural changes related to vitrectomy and silicone oil injection. Chronic appearing area of increased T2 signal in the anterior orbital segment of the left optic nerve (series 7, image 10), and also posteriorly and extending into the canalicular segment (series 7, images 14-17), not readily visualized on the 2019 examination and no obvious correlate on the February 2022 exam within the constraints of severe motion degradation artifact on that exam. The right optic nerve, prechiasmatic optic nerves, chiasm, and optic tracts otherwise appear unremarkable. No abnormal enhancement. Mass Lesion/ Mass Effect: No apparent intracranial mass, extra-axial fluid collection, or abnormal enhancement in the imaged brain parenchyma. No significant mass effect. Chronic Change: Previously seen punctate foci of FLAIR signal hyperintensity in the bifrontal white matter are less apparent on the current examination. No substantial chronic changes. Parenchyma: No significant volume loss for age. The brain parenchyma is otherwise within normal limits of signal intensity and morphology. Ventricles: Ventricular calibers are commensurate with the parenchymal volume and normal in configuration. Skull Base: Partially empty sella. Grossly unremarkable hypothalamic region. Mild bilateral cerebellar tonsillar ectopia, unchanged from the prior exam. Otherwise unremarkable appearance of the craniocervical junction. No significant marrow replacement process. Vasculature: Major intracranial arterial structures, and dural venous sinuses show typical flow void, suggesting patency by spin echo criteria. Other: Small volume presumed retained secretions in the ethmoid air cell posteriorly on the left. Trace mucosal thickening in the right greater than left maxillary sinuses. Grossly clear mastoid air cells. Kaley bullosae of the right middle nasal turbinate. Minimal leftward deviation of the nasal septum. The extracranial soft tissues are within normal limits. DIVISION OF RADIOLOGY Provider, [facility] - 09/26/2023 * * *Final Report* * * DATE OF EXAM: Sep 26 2023 3:45PM [facility] 0311 - MRI ORBIT WO/W IVCON / PROCEDURE REASON: multiple diagnoses * * * * Physician Interpretation * * * * EXAMINATION: MRI ORBIT WO/W IVCON Clinical history: As provided by the ordering clinician via order question entries: Infection/inflammatory . Optic neuritis suspected. Sarcoidosis of central nervous system. Optic neuritis. Further evaluate for optic neuritis. Stated history: Eval for optic neuritis, hx sarcoidosis. TECHNIQUE: Whole brain sagittal T1, axial FLAIR, and DWI. Orbital coronal precontrast T1, postcontrast coronal T2 fat-saturated, and axial fat saturated T1 SPACE. Additional whole brain axial T1-weighted images were also acquired. MQ: MRBWOW_2 Contrast: IV 20 ml of Dotarem Comparison: 05/21/2023 brain MRI and 03/21/2022 orbital MRI without and with contrast RESULT: Acute Change: No abnormal restricted diffusion to suggest an acute infarct. Orbits: Normal appearance of the right orbit. Stable appearance of the left orbit with small left globe and sequelae of prior retinal detachment and postprocedural changes related to vitrectomy and silicone oil injection. Chronic appearing area of increased T2 signal in the anterior orbital segment of the left optic nerve (series 7, image 10), and also posteriorly and extending into the canalicular segment (series 7, images 14-17), not readily visualized on the 2019 examination and no obvious correlate on the February 2022 exam within the constraints of severe motion degradation artifact on that exam. The right optic nerve, prechiasmatic optic nerves, chiasm, and optic tracts otherwise appear unremarkable. No abnormal enhancement. Mass Lesion/ Mass Effect: No apparent intracranial mass, extra-axial fluid collection, or abnormal enhancement in the imaged brain parenchyma. No significant mass effect. Chronic Change: Previously seen punctate foci of FLAIR signal hyperintensity in the bifrontal white matter are less apparent on the current examination. No substantial chronic changes. Parenchyma: No significant volume loss for age. The brain parenchyma is otherwise within normal limits of signal intensity and morphology. Ventricles: Ventricular calibers are commensurate with the parenchymal volume and normal in configuration. Skull Base: Partially empty sella. Grossly unremarkable hypothalamic region. Mild bilateral cerebellar tonsillar ectopia, unchanged from the prior exam. Otherwise unremarkable appearance of the craniocervical junction. No significant marrow replacement process. Vasculature: Major intracranial arterial structures, and dural venous sinuses show typical flow void, suggesting patency by spin echo criteria. Other: Small volume presumed retained secretions in the ethmoid air cell posteriorly on the left. Trace mucosal thickening in the right greater than left maxillary sinuses. Grossly clear mastoid air cells. Kaley bullosae of the right middle nasal turbinate. Minimal leftward deviation of the nasal septum. The extracranial soft tissues are within normal limits. IMPRESSION IMPRESSION: Stable chronic changes in the left globe with newly appreciated areas of likely chronic abnormal signal in the left optic nerve, but no superimposed abnormal enhancement to suggest an active optic neuritis. Normal appearance of the right orbit. No abnormal intracranial parenchymal or leptomeningeal enhancement to suggest neurosarcoidosis. [facility] Consultant: [facility] C[facility] Transcribe Date/Time: Sep 26 2023 4:41P Dictated by : REX HOFFMAN MD This examination was interpreted and the report reviewed and electronically signed by: REX HOFFMAN MD on Sep 26 2023 5:39PM EST [facility] Radiology Study observation (narrative) [facility] MR Orbit WO and W contrast I VOrdered By: [facility] Provider on 09-26-2023 [facility] MRI ORBIT WO/W IVCONon 09-25 MRI ORBIT WO/W IVCON * * *Final Report* * * DATE OF EXAM: Sep 26 2023 3:45PM [facility] 0311 - MRI ORBIT WO/W IVCON / PROCEDURE REASON: multiple diagnoses * * * * Physician Interpretation * * * * EXAMINATION: MRI ORBIT WO/W IVCON Clinical history: As provided by the ordering clinician via order question entries: Infection/inflammatory . Optic neuritis suspected. Sarcoidosis of central nervous system. Optic neuritis. Further evaluate for optic neuritis. Stated history: Eval for optic neuritis, hx sarcoidosis. TECHNIQUE: Whole brain sagittal T1, axial FLAIR, and DWI. Orbital coronal precontrast T1, postcontrast coronal T2 fat-saturated, and axial fat saturated T1 SPACE. Additional whole brain axial T1-weighted images were also acquired. MQ: MRBWOW_2 Contrast: IV 20 ml of Dotarem Comparison: 05/21/2023 brain MRI and 03/21/2022 orbital MRI without and with contrast RESULT: Acute Change: No abnormal restricted diffusion to suggest an acute infarct. Orbits: Normal appearance of the right orbit. Stable appearance of the left orbit with small left globe and sequelae of prior retinal detachment and postprocedural changes related to vitrectomy and silicone oil injection. Chronic appearing area of increased T2 signal in the anterior orbital segment of the left optic nerve (series 7, image 10), and also posteriorly and extending into the canalicular segment (series 7, images 14-17), not readily visualized on the 2019 examination and no obvious correlate on the February 2022 exam within the constraints of severe motion degradation artifact on that exam. The right optic nerve, prechiasmatic optic nerves, chiasm, and optic tracts otherwise appear unremarkable. No abnormal enhancement. Mass Lesion/ Mass Effect: No apparent intracranial mass, extra-axial fluid collection, or abnormal enhancement in the imaged brain parenchyma. No significant mass effect. Chronic Change: Previously seen punctate foci of FLAIR signal hyperintensity in the bifrontal white matter are less apparent on the current examination. No substantial chronic changes. Parenchyma: No significant volume loss for age. The brain parenchyma is otherwise within normal limits of signal intensity and morphology. Ventricles: Ventricular calibers are commensurate with the parenchymal volume and normal in configuration. Skull Base: Partially empty sella. Grossly unremarkable hypothalamic region. Mild bilateral cerebellar tonsillar ectopia, unchanged from the prior exam. Otherwise unremarkable appearance of the craniocervical junction. No significant marrow replacement process. Vasculature: Major intracranial arterial structures, and dural venous sinuses show typical flow void, suggesting patency by spin echo criteria. Other: Small volume presumed retained secretions in the ethmoid air cell posteriorly on the left. Trace mucosal thickening in the right greater than left maxillary sinuses. Grossly clear mastoid air cells. Kaley bullosae of the right middle nasal turbinate. Minimal leftward deviation of the nasal septum. The extracranial soft tissues are within normal limits. IMPRESSION: Stable chronic changes in the left globe with newly appreciated areas of likely chronic abnormal signal in the left optic nerve, but no superimposed abnormal enhancement to suggest an active optic neuritis. Normal appearance of the right orbit. No abnormal intracranial parenchymal or leptomeningeal enhancement to suggest neurosarcoidosis. [facility] Consultant: TANA Transcribe Date/Time: Sep 26 2023 4:41P Dictated by : REX HOFFMAN MD This examination was interpreted and the report reviewed and electronically signed by: REX HOFFMAN MD on Sep 26 2023 5:39PM EST [id number] Normal [facility] OCT MACULA CIRRUS OU (BOTH E YES)on 09-06-2023 [facility] Radiology Study observation (narrative) [facility] CT Chest WO contraston 05-10 [facility] SURGICAL PATHOLOGYon 023 Case Report Surgical Pathology Report Case: [id number] Authorizing Provider: Norbert Sosa MD Collected: 04/20/2022 01:48 PM Ordering Location: Ambulatory Surgery Received: 04/20/2022 03:20 PM Pathologist: Violet Cronin MD Specimens: A) - DUODENUM BIOPSY B) - ANTRUM (STOMACH) BIOPSY, ANtral bx for H/H C) - ESOPHAGUS BIOPSY, DISTAL D) - ESOPHAGUS MID BIOPSY, MID [facility] Diagnosis Comment B. No microorganisms morphologically compatible with H. Pylori are identified on routine H&E stained sections. [facility] FINAL DIAGNOSIS A. Duodenum, biopsy: - Duodenal mucosa with no pathologic diagnostic abnormality; negative for celiac disease, granulomas or dysplasia. B. Stomach, antrum, biopsy: - Gastric antral body type mucosa with no pathologic diagnostic abnormality; see comment. C. Esophagus, distal, biopsy: - Mild reactive squamous mucosa and slight actively inflamed gastric mucosa; negative for intestinal metaplasia or dysplasia. D. Esophagus, mid, biopsy: - Squamous mucosa with no pathologic diagnostic abnormality; negative for intraepithelial eosinophils. [facility] Gross Description A. DUODENUM BIOPSY Received in formalin is one piece of johnson, soft tissue measuring 0.4 x 0.2 x 0.2 cm. Totally submitted in one cassette. B. ANTRUM (STOMACH) BIOPSY Received in formalin is one piece of johnson, soft tissue measuring 0.4 x 0.2 x 0.2 cm. Totally submitted in one cassette. C. ESOPHAGUS BIOPSY Received in formalin are two pieces of johnson, soft tissue aggregating to 0.6 x 0.3 x 0.2 cm. Totally submitted in one cassette. D. ESOPHAGUS MID BIOPSY Received in formalin are two pieces of johnson, soft tissue aggregating to 0.3 x 0.2 x 0.1 cm. Totally submitted in one cassette. Gross examination performed at [facility], [address] 04/20/2022 10:50 PM [facility] Performing Lab Diagnostic interpretation performed at [facility], [address] [address] CLIA# [id number] Internal Grinder: Violet Cronin M.D. [facility] EGD DIAGNOSTICon 04-20-2022 [facility] No Panel Informationon 03-21 [facility] XR Chest PA and Lateralon IMPRESSION: Chronic changes. No apparent acute cardiopulmonary process. 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 MQ: XC2_6 EXAM DATE/TIME: 01/31/2022 2:45 PM COMPARISON: Comparison is made to prior chest dated 17 March 2021 and June 2018 RESULT: Lines, tubes, and devices: None. Lungs and pleura: Hypoventilatory change accentuates bilateral chronic interstitial lung changes. Central airway lucency with probable bronchial wall thickening appears slightly progressed. There is no focal consolidation or acute pleural process. There is no vascular redistribution to suggest pulmonary edema. Cardiomediastinal silhouette: Normal cardiomediastinal silhouette. Bones/soft tissues: The bony structures are intact with mild degenerative change. No bony destructive process noted. 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 MQ: XC2_6 EXAM DATE/TIME: 01/31/2022 2:45 PM COMPARISON: Comparison is made to prior chest dated 17 March 2021 and June 2018 RESULT: Lines, tubes, and devices: None. Lungs and pleura: Hypoventilatory change accentuates bilateral chronic interstitial lung changes. Central airway lucency with probable bronchial wall thickening appears slightly progressed. There is no focal consolidation or acute pleural process. There is no vascular redistribution to suggest pulmonary edema. Cardiomediastinal silhouette: Normal cardiomediastinal silhouette. Bones/soft tissues: The bony structures are intact with mild degenerative change. No bony destructive process noted. IMPRESSION IMPRESSION: Chronic changes. No apparent acute cardiopulmonary process. [facility] Consultant: PSCB Transcribe Date/Time: Jan 31 2022 2:53P Dictated by : VERONIKA ELLSWORTH MD This examination was interpreted and the report reviewed and electronically signed by: VERONIKA ELLSWORTH MD on Jan 31 2022 2:56PM EST [facility] Radiology Study observation (narrative) [facility] XR Chest PA and LateralOrder ed By: Ccf Provider on 01-31-2022 [facility] CBC W Auto Differential pane l (Bld)on 12-23-2021 Abs Immature Gran <0.10 k/uL [facility] Basophils (Bld) [#/Vol] <0.11 k/uL [facility] Basophils/100 WBC (Bld) 0.3 % [facility] Differential cell count method Nom (Bld) Auto [facility] Eosinophils (Bld) [#/Vol] 0.11 10*3/uL <0.46 k/uL [facility] Eosinophils/100 WBC (Bld) 3.4 % [facility] Erythrocyte distribution width (RBC) [Ratio] 13.2 % 11.5 - 15.0 % [facility] Hematocrit (Bld) [Volume fraction] 33.2 % Low 39.0 - 51.0 % [facility] Hemoglobin (Bld) [Mass/Vol] 11.2 g/dL Low 13.0 - 17.0 g/dL [facility] Immature Gran % 0.3 % [facility] Lymphocytes (Bld) [#/Vol] 1.06 10*3/uL 1.00 - 4.00 k/uL [facility] Lymphocytes/100 WBC (Bld) 32.6 % [facility] MCH (RBC) [Entitic mass] 29.6 pg 26.0 - 34.0 pg [facility] MCHC (RBC) [Mass/Vol] 33.7 g/dL 30.5 - 36.0 g/dL [facility] MCV (RBC) [Entitic vol] 87.8 fL 80.0 - 100.0 fL [facility] Monocytes (Bld) [#/Vol] 0.45 10*3/uL <0.87 k/uL [facility] Monocytes/100 WBC (Bld) 13.8 % [facility] Neutrophils (Bld) [#/Vol] 1.61 10*3/uL 1.45 - 7.50 k/uL [facility] Neutrophils/100 WBC (Bld) 49.6 % [facility] Nucleated RBC (Bld) [#/Vol] <0.01 k/uL [facility] Nucleated RBC/100 WBC (Bld) [Ratio] 0.0 /100 WBC [facility] Platelet mean volume (Bld) [Entitic vol] 8.3 fL Low 9.0 - 12.7 fL [facility] Platelets (Bld) [#/Vol] 255 10*3/uL 150 - 400 k/uL [facility] RBC (Bld) [#/Vol] 3.78 10*6/uL Low 4.20 - 6.0 0 m/uL [facility] WBC (Bld) [#/Vol] 3.25 10*3/uL Low 3.70 - 11. 00 k/uL [facility] Comprehensive metabolic 2000 panelon 12-23-2021 Albumin [Mass/Vol] 3.6 g/dL Low 3.9 - 4.9 g/dL [facility] ALP [Catalytic activity/Vol] 173 U/L High 38 - 113 U/L [facility] ALT [Catalytic activity/Vol] 23 U/L 10 - 54 U/L [facility] Anion gap [Moles/Vol] 10 mmol/L 9 - 18 mmol/L [facility] AST [Catalytic activity/Vol] 23 U/L 14 - 40 U/L [facility] Bilirubin [Mass/Vol] 0.4 mg/dL 0.2 - 1 .3 mg/dL [facility] Calcium [Mass/Vol] 8.5 mg/dL 8.5 - 10. 2 mg/dL [facility] Chloride [Moles/Vol] 105 mmol/L 97 - 10 5 mmol/L [facility] CO2 [Moles/Vol] 21 mmol/L Low 22 - 30 mmol/L [facility] Creatinine [Mass/Vol] 0.92 mg/dL 0.73 - 1.22 mg/dL [facility] Estimated Glomerular Filtration Rate 113 mL/min/1.73m >=60 mL/min/1.73m [facility] Glucose [Mass/Vol] 95 mg/dL 74 - 99 mg/dL [facility] Potassium [Moles/Vol] 3.6 mmol/L Low 3.7 - 5.1 mmol/L [facility] Protein [Mass/Vol] 7.3 g/dL 6.3 - 8.0 g/dL Cl [facility] Sodium [Moles/Vol] 136 mmol/L 136 - 144 mmol/L [facility] Urea nitrogen [Mass/Vol] 9 mg/dL 9 - 24 mg/dL [facility] Inital Evaluation (1) - PTon 09-19-2021 Inital Evaluation (1) - PT [facility] Physical Therapy [address] [place] [address] / REHABILITATION SERVICES INITIAL EVALUATION MR#: [id number] Acct: [id number] Name: ASTON CHICAS III Rep #: [id number] : 1990 31 From: Lilian Pires DPT Referring Dr.: MARY ALICE Huber Status: RE G R Insurance: [facility] SELF PAY INSURANCE Patient's Visit Information ASTON CHICAS III is a 31 year old M referred to Physical Therapy by Dr. Aaron Huber DPM with a diagnosis of Displaced Fracture of Lat Mall. Date of Evaluation: 09/19/21 Physical Therapist: Lilian Pires DPT - Visit Plan Frequency: 3x /Week Duration: 4 Weeks Plan: Focus on LE and core strength/stabilization , gait, proprioception and functional mobility. Can use ankle brace and tennis shoe. HEP Given IE: Ankle ROM, weight shifts, HR/TR seated - Subjective Patient reports that he was snowboarding at the end of Apr had a fracture- he went to urgent care who referred him to podiatry- he had a plate put in a few weeks later- and then he had hardware removed 08/30/21. He has been in a CAM walker throughout but was NWB until August. He is now WBAT. Prior to the last surgery he would wear the boot intermittently. He feels a lot more unstable now that they have removed the screw so he has been wearing the CAM walk more. He reports that he has stitches that he gets out this week. Worst: 3/10 Agg: pressure on it. Eases: elevation, and getting off of it. Best: 0/10. Describes the pain as dull and achy. No radiating pain stays on the outside of the ankle. Uses a single crutch as his AD. He has not been walking a lot- he he just got WB last Sunday. Fully I prior to injury. Work: [employer]- 50% sitting 50% standing- has been off work since this- October 03 return to work date. Feels that he is 75% back to normal. Sleep: not disturbed. Kids who are 9 and 4. PMHx/Meds: no changes since surgery at the hospital. - Objective Posture: FH, RS- can correct but does not maintain. Gait: antalgic- single axillary crutch- decrease stance on right LE with CAM walker- bent knee in stance phase. SLS: weight shift but unable to SLS. HR/TR: able in sitting. Girth: Figure 8: 52 cm Malls: 26 cm, Mets: 23.5 cm. ROM: DF: neutral, PF: 50 degrees, inver: 30 degrees Ever: 20 degrees, Knee: WFL. Strength: Ankle: 4/5 in available range, Knee: 4/5. Flex: HS: moderate, Gastroc: severe. Soleus: severe. Observation: incision healing well no s/s of infection- sutures in tact. Pt was 20 min late to initial evaluation - Balance/Special Test Scores Lower Extremity Functional Score: 8 - Goals Goal 1:: Patient will be I with HEP and progression Goal Time Frame: 4-6 Weeks Goal 2:: Patient will SLS for 30 sec without LOB Goal Time Frame: 4-6 Weeks Goal 3:: Patient will ambulate >300 feet with a normalized gait pattern and no AD Goal Time Frame: 4-6 Weeks Goal 4:: Patient will report 80% improvement Goal Time Frame: 4-6 Weeks - Rehabilitation Potential Physical Therapy Diagnosis: Patient presents with hypomobility- he has decreased LE and core strength/stabilization , ROM, flex, proprioception and muscular endurance leading to abnormal ambulation, poor balance and decreased ability to perform ADL's. Rehabilitation Potential: Good - Anticipated Interventions Patient/Client Instruction: Educate patient on: Benefits of Fitness Program Therapeutic Exercise to Include: Strength training, Endurance training, Balance training, Coordination, Agility training, Body mechanics, Postural training, Flexibilty training, Gait and locomotor training, Neuromotor development, Dynamic Lumbar Stabilization, Scapular Strength/Stabilization For the Purpose of:: To improve muscle performance and motor function TENS: Yes Cryotherapy (ice pack, ice massage): Yes Thermo therapy (hot pack): Yes Ultrasound (thermal/non thermal): No Thank you for the opportunity to evaluate your patient. For Medicare and Medicare HMO plans, please review the plan of care and approve it. It will need to be FAXED BACK to us at [phone] for Medicare purposes. For Medicare only, by signing this I certify the plan of care. Please let me know if there are questions or concerns regarding this plan of care. Physician Signature: Date:__ 09/19/21 1457 CC: MARY ALICE Huber; Dr. Cleveland Means MD ELR Signed Normal [facility] Ankle 2 Viewson 08-30-2021 Ankle 2 Views [facility] Imaging Services [address] [place] [address] Ankle 2 Views MR#: [id number] Acct: [id number] Name: ASTON CHICAS III Rep #: [id number] : 1990 M 30 From: Lowell Olivares MD PCP: Dr. Cleveland Means MD Status: [facility] Study: Ankle 2 Views Date of Exam: 08/30/21 Exam# [id number] Ordering Dr: Aaron Huber DPM STUDY: X-RAY - RIGHT ANKLE REASON FOR EXAM: Male, 30 years old. Intraoperative digital documentation views of ORIF of right ankle. TECHNIQUE: 2 intraoperative digital documentation view(s) of the ankle. COMPARISON: 05/16/2021 FINDINGS: Stable lateral plate-screw fixation of the distal fibula, syndesmotic screw and surgical device projected in the distal medial talus. The soft tissue structures are unremarkable. RAD/Ankle 2 Views IMPRESSION: Stable ORIF of right ankle. No complications. Electronically Signed: Lowell Olivares MD at 9:31 EDT , CC: MARY ALICE Huber; Dr. Cleveland Means MD [facility] Consultant: Signed Normal [facility] CBC W/Diff, Automatedon 06-0 Absolute Neut Normal 2.0-7.7 [facility] Comment on above: Result Comment: @CAN CELLATION REQUESTED VIA EMR Performed By: #### L 500.4056, L100.0100 #### [facility] [address] [place], [address] HCT Normal 40-54 [facility] Comment on above: Result Comment: @CAN CELLATION REQUESTED VIA EMR Performed By: #### L 500.4050, L100.0100 #### [facility] [address] [place], [address] HGB Normal 13.0-16.5 [facility] Comment on above: Result Comment: @CAN CELLATION REQUESTED VIA EMR Performed By: #### L 500.4050, L100.0100 #### [facility] [address] [place], [address] MCH Normal 27.0-32.0 [facility] Comment on above: Result Comment: @CAN CELLATION REQUESTED VIA EMR Performed By: #### L 500.4050, L100.0100 #### [facility] [address] [place], [address] MCHC Normal 32-36 [facility] Comment on above: Result Comment: @CAN CELLATION REQUESTED VIA EMR Performed By: #### L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 3.5-5.1 [facility] Comment on above: Order Comment: Order Date: 05/11/21Order Info: 0786-1 - CMP Performed By: #### L 100.0100, L500.4050 ####[facility] [address] [place], [address] Sodium [Moles/Vol] 136 mmol/L Normal 136-145 [facility] Comment on above: Order Comment: Order Date: 05/11/21Order Info: 0786-1 - CMP Performed By: #### L 100.0100, L500.4050 ####[place] [facility] [address] [place], [address] T PROT 8.7 g/dL High 6.4-8.2 [facility] Comment on above: Order Comment: Order Date: 05/11/21Order Info: 0786-1 - CMP Performed By: #### L 100.0100, L500.4050 ####[facility] [address] [place], [address] Urea nitrogen [Mass/Vol] 10 mg/dL Normal 7-18 [facility] Comment on above: Order Comment: Order Date: 05/11/21Order Info: 0786-1 - CMP Performed By: #### L 100.0100, L500.4050 ####[facility] [address] [place], [address] Determination of erythrocyte mean corpuscular volume (MCV)on 05-11-2021 MCV (RBC) [Entitic vol] 90.0 fL 80-94 [facility] Work Phone: Hematocrit Auto (Bld) [Volum e fraction]on 05-11-2021 Hematocrit (Bld) [Volume fraction] 41.6 % 40-54 [facility] Work Phone: Laboratory - Chemistry and C hemistry - challengeon 05-11-2021 ALP [Catalytic activity/Vol] 110 U/L 45-117 [facility] Work Phone: ALT [Catalytic activity/Vol] 37 U/L 16-61 [facility] Work Phone: CO2 [Moles/Vol] 26.0 mmol/L 21.0-32.0 [facility] Work Phone: Globulin (S) [Mass/Vol] 5.2 g/dL 2.2-4.2 [facility] Work Phone: Urea nitrogen/Creatinine [Mass ratio] 9.3 mg/mg 10-20 [facility] Work Phone: Laboratory - Hematology and Cell countson 05-11-2021 Erythrocyte distribution width (RBC) [Entitic vol] 41.6 fL 35.1-43.9 [facility] Work Phone: Erythrocyte distribution width (RBC) [Ratio] 12.7 % 11.6-14.6 [facility] Work Phone: Immature granulocytes/100 WBC (Bld) 0.400 % 0.0-0.9 [facility] Work Phone: Comment on above: IG% - Immature Granu locytes (promyelocytes, myelocytes and metamyelocytes) > 1% indicates that a LEFT SHIFT is Present. MCH (RBC) [Entitic mass] 28.8 pg 27.0-32.0 [facility] Work Phone: Nucleated RBC/100 WBC (Bld) [Ratio] 0 % 0-5 [facility] Work Phone: MCHC Auto (RBC) [Mass/Vol]on 05-11-2021 MCHC (RBC) [Mass/Vol] 32.0 g/dL 32-36 [facility] Work Phone: No Panel Informationon 05-11 Estimated GFR (MDRD) Amer 103 mL/min >60 [facility] Work Phone: Comment on above: GFR Calc Estimated GFR (MDRD) Non-Af Amer 85 mL/min >60 [facility] Work Phone: Comment on above: Non- GFR Calc Platelets bldon 05-11-2021 Platelets (Bld) [#/Vol] 345 10*3/uL 150-450 [facility] Work Phone: Serum or plasma albumin argenis urement (mass/volume)on 05-11-2021 Albumin [Mass/Vol] 3.5 g/dL 3.2-5.0 [facility] Work Phone: Serum or plasma albumin/glob ulin mass ratioon 05-11-2021 Albumin/Globulin [Mass ratio] 0.7 {ratio} 0.9-2.4 [facility] Work Phone: Serum or plasma calcium argenis urement (mass/volume)on 05-11-2021 Calcium [Mass/Vol] 9.0 mg/dL 8.5-10.1 [facility] Work Phone: Serum or plasma creatinine m easurement (mass/volume)on 05-11-2021 Creatinine [Mass/Vol] 1.07 mg/dL 0.70-1.30 [facility] Work Phone: Comment on above: The validity of the calculated GFR & GFRAA in patients over 70 years has not been determined. Clinical correlation is essential. Serum or plasma urea nitroge n measurement (mass/volume)on 05-11-2021 Urea nitrogen [Mass/Vol] 10 mg/dL 7-18 [facility] Work Phone: Thin prep Papanicolaou smear with manual screeningon 05-11-2021 Thin prep Papanicolaou smear with manual screening 26 U/L 15-37 [facility] Work Phone: Thin prep Papanicolaou smear with manual screening 7 5-15 [facility] Work Phone: Tibia Fibula 2 Viewson 05-11 Tibia Fibula 2 Views [facility] Imaging Services [address] [place] [address] Tibia Fibula 2 Views MR#: [id number] Acct: [id number] Name: ASTON CHICAS III Rep #: [id number] : 1990 M 30 From: Kang Beyer MD PCP: Dr. Cleveland Means MD Status: REG CLI Study: Tibia Fibula 2 Views Date of Exam: 05/11/21 Exam# [id number] Ordering Dr: Genie Chaudhari MD STUDY: X-RAY - RIGHT TIBIA AND FIBULA REASON FOR EXAM: Male, 30 years old. ANKLE FRACTURE TECHNIQUE: 3 view(s) of the tibia and fibula were obtained. COMPARISON: None. FINDINGS: Normal visualized tibia. Distal fibular fractures better seen on ankle x-ray. No additional fracture seen. The soft tissue structures are unremarkable. RAD/Tibia Fibula 2 Views IMPRESSION: Distal fibular fracture described on ankle x-ray. Electronically Signed: Kang Beyer MD (Brooks) at 11:45 EST Reading Location ID and State: [place] , Service support , CC: Dr. Genie Chaudhari MD; Dr. Cleveland Means MD W[facility] Care [facility] Consultant: Signed Normal [facility] Ankle min 3 Viewson 05-02-19 Ankle min 3 Views [facility] Radiology [address] [place] [address] Ankle min 3 Views MR#: [id number] Acct: [id number] Name: ASTON CHICAS III Rep #: [id number] : 1990 M 30 From: Dominic miller MD PCP: Dr. Cleveland Means MD Status: DEP AMB Study: Ankle min 3 Views Date of Exam: 05/02/21 Exam# [id number] Ordering Dr: Chano Garnett PA ADDENDUM by Dr. Dominic Pat MD on 05/02/21 at 1703 STUDY: X-RAY - RIGHT ANKLE REASON FOR EXAM: Male, 30 years old. s Hx of a fracture, patient had xrays at urgent care on sunday. Patient fell on sunday. Pain in right ankle. TECHNIQUE: 3 view(s) of the ankle. COMPARISON: None. FINDINGS: An acute spiral fracture of the distal one third fibular shaft is present with mild displacement. There is also widening (6.4 mm) of the medial clear space indicating mild lateral subluxation of the talus in relation to the tibial plafond. The soft tissues are moderately swollen. Normal distal tibia. No additional fractures are seen. Normal medial and lateral malleoli. Normal tibiotalar articulation and ankle mortise. Normal visualized talus and calcaneus. The visualized subtalar, talonavicular, calcaneocuboid and tarsal articulations are normal. 05/02/21 1703 Date cc: POLLY Garnett; Dr. Cleveland Means MD * Signed ADDENDUM by Dr. Dominic Pat MD on 05/02/21 at 1703 RAD/Ankle min 3 Views IMPRESSION: 1. Acute spiral mildly displaced fracture of the distal one third fibular shaft 2. There is also widening of the medial clear space indicating mild lateral subluxation of the talus in relation to the tibial plafond. N.B. : The above Results were Read Back by Dominic Pat MD to Chano Garnett MD, and understanding confirmed on 05/02/2021 17:08:29 (ET). Electronically Signed: Dominic Pat MD at 17:03 EST , 05/02/21 1715 Date cc: POLLY Garnett; Dr. Cleveland Means MD * Signed We are attempting to reach an attending provider to discuss findings. An addendum with communication details will be sent when the communication is complete. STUDY: X-RAY - RIGHT ANKLE REASON FOR EXAM: Male, 30 years old. s Hx of a fracture, patient had xrays at urgent care on sunday. Patient fell on sunday. Pain in right ankle. TECHNIQUE: 3 view(s) of the ankle. COMPARISON: None. FINDINGS: An acute spiral fracture of the distal one third fibular shaft is present with mild displacement. There is also widening (6.4 mm) of the medial clear space indicating mild lateral subluxation of the talus in relation to the tibial plafond. The soft tissues are moderately swollen. Normal distal tibia. No additional fractures are seen. Normal medial and lateral malleoli. Normal tibiotalar articulation and ankle mortise. Normal visualized talus and calcaneus. The visualized subtalar, talonavicular, calcaneocuboid and tarsal articulations are normal. RAD/Ankle min 3 Views IMPRESSION: 1. Acute spiral mildly displaced fracture of the distal one third fibular shaft 2. There is also widening of the medial clear space indicating mild lateral subluxation of the talus in relation to the tibial plafond. Electronically Signed: Dominic Pat MD at 17:03 EST Reading Location ID and State: [address] [place] [address] , Service support , CC: POLLY Garnett; Dr. Cleveland Means MD W[facility] Care Center Consultant: Signed Normal [facility] Orthopedic Visit Reporton Orthopedic Visit Report [facility] Orthopa[facility] Sports Medicine [address] [place] [address] OFFICE VISIT Date of Service: 05/02/21 MR#: [id number] Acct: [id number] Name: ASTON CHICAS III Rep #: [id number] : 1990 Provider: POLLY Garnett Age/Sex: 30/M Location: [facility] Status: Signed Intake Vital Signs 05/02/21 08:19 05/02/21 15:23 Height 5 ft 9 in 5 ft 8 in Weight: 285 lb BMI 43.3 Intake Visit Reasons: Right leg Is patient in pain?: Yes Pain scale (1-10): 5 Allergies No Known Allergies Allergy (Verified 05/02/21 15:24) Medications prednisone 5 mg tablet PO 12/15/19 [History Confirmed 05/02/21] [facility] Medical History (Updated 05/02/21 @ 16:17 by POLLY Jansen) Sarcoidosis Social History Smoking Status: Former smoker alcohol intake: current HPI Right leg Details: Parts of this documentation were recorded by a scribe, this documentation accurately reflects the service provided and the decisions made by , POLLY Frye 05/02/21 1413. ASTON CHICAS III is a 30 year old M here today new patient for right ankle fracture. Patient notes that he slipped on ice on Sunday. Patient was unable to ambulate on his ankle. He went to the urgent care at [facility], he had xrays which showed a fracture and he was put into a splint. Patient has kept the splint on at all times. Patient is able to move his toes. He has numbness over his anterior foot and ankle. Patient is taking tylenol for pain. Ortho Exam Right Foot/Ankle Skin/Wound: Yes Ecchymosis and Soft Tissue Swelling; No Erythema Exam: present tender to palpate - over fracture site, TTP Lateral Malleolus and TTP Deltoid Ligament; absent TTP Medial Malleolus ANKLE: Inspection of the right ankle shows generalized swelling the ankle with evident lateral ecchymosis patient does have swelling also noted the foot. He does have sensation to light touch throughout the extremity. He does have pain with range of motion of the foot. Patient does have reproducible tenderness on palpation of the distal one third of the fibula at site of fracture site, he also has pain over the deltoid ligament. No other major tests were done due to pain and swelling. Coding Level of Care Code Off vis,new,level 3 Diagnoses Fracture of posterior malleolus of right tibia S82.391A Fracture of distal end of right fibula S82.831A Tear of deltoid ligament of right ankle S93.421A Assessment and Plan Assessment and Plan (1) Fracture of posterior malleolus of right tibia: Status: Acute (2) Fracture of distal end of right fibula: Status: Acute (3) Tear of deltoid ligament of right ankle: Status: Acute Plan - Chano MATIAS PA: Patient presents the office today for follow-up of right ankle injury. Patient sustained injury while shoveling snow. He states that he had an inversion injury fell over immediately with pain. Patient was seen in the emergency department showing evidence of fracture. We did repeat radiographs today which do show a spiral/oblique fracture of the distal one third of the fibula. Patient also has posterior malleolus fracture as well as increased medial clear space. He has significant swelling in the ankle today at the same time he has soft compartments and normal sensation to light touch. At this time we did discuss anatomy physiology as well as pathophysiology of the ankle. With bimalleolar fracture as well as medial clear space widening I do think that patient likely will need surgical intervention for ankle stabilization. At this time we are going to send patient to foot and ankle specialist for treatment. In the meantime patient is to elevate the extremity, and continue to ice. I did go ahead and reapply his splint with more padding underneath for better support and fitting. Patient is to monitor notify of any increasing pains, numbness or tingling, hardening of the compartments, calf tenderness, or any other signs or symptoms. We did call foot and ankle patient has appointment set up for Sunday. This note was generated with Diffbot dictation software. It may contain incorrect words, spelling, and punctuation that were not noted in checking the note before signing. Plan Details Other Orders: Orders: Ankle min 3 Views Today M25.571 05/02/21 1620 Date Chano Owens Signature: Date (if applicable) CC: Normal [facility] XR Ankle - right AP and Late ral and obliqueon 04-29-2021 * * *Final Report* * * DATE OF EXAM: Apr 29 2021 4:03PM WOX 5297 - XR ANKLE 3V AP/LAT/OBL RT / PROCEDURE REASON: multiple diagnoses * * * * Physician Interpretation * * * * Indication: Right ankle pain after trauma Comparison: None 3 views of the right ankle are obtained. There is an oblique comminuted fracture of the distal right fibula. There is a fracture of the posterior malleolus extending to the articular surface. No dislocation. Impression: Fractures of the distal right fibula and posterior malleolus Wound Care Center Consultant: TANA Transcribe Date/Time: Apr 29 2021 4:06P Dictated by : VALENCIA GARCIA MD This examination was interpreted and the report reviewed and electronically signed by: VALENCIA GARCIA MD on Apr 29 2021 4:07PM [facility] DIVISION OF RADIOLOGY Provider, Adrián [facility] - 04/29/2021 * * *Final Report* * * DATE OF EXAM: Apr 29 2021 4:03PM WOX 5297 - XR ANKLE 3V AP/LAT/OBL RT / PROCEDURE REASON: multiple diagnoses * * * * Physician Interpretation * * * * Indication: Right ankle pain after trauma Comparison: None 3 views of the right ankle are obtained. There is an oblique comminuted fracture of the distal right fibula. There is a fracture of the posterior malleolus extending to the articular surface. No dislocation. Impression: Fractures of the distal right fibula and posterior malleolus Wound Care Center Consultant: [facility] Transcribe Date/Time: Apr 29 2021 4:06P Dictated by : VALENCIA GARCIA MD This examination was interpreted and the report reviewed and electronically signed by: VALENCIA GARCIA MD on Apr 29 2021 4:07PM [facility] Radiology Study observation (narrative) [facility] XR Ankle - right AP and Late ral and obliqueOrdered By: [facility] Provider on 04-29-2021 [facility] Progress Noteon 11-05-2020 Boot Maker Authentication Interface Message Text Aston Chicas is a 30 year-old man with an 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 The phenotypes is variable even in the same family and many individuals are mildly affected. Diagnosis: the diagnosis is usually made on chromosomal microarray ordered in the course of genetic work up of developmental delays and autism Management: Supportive. Early intervention, IEP, management of seizures...Echo to rule out CHD. Inheritance: Most cases are reported due to a deletion inherited from either parent. The risk in such situation is 50% at time of conception of siblings who share the same affected parent. Since the phenotype is variable in the case of 22q11.2 duplication syndrome and many cases are inherited from a parent with mild or subtle presentation, I recommended target testing for duplicated area on chromosome 22q11.2 . It is important to rule out this possibility since patients with this syndrome will need at least evaluation with echo. Further, it is crucial for genetic counseling and defining the recurrence risk ( marginal if the duplication is proved to be a de marita event vs 50% if inherited from a parent). Offering testing for other family members at risk ( children) is another benefit of identifying if the duplication id inherited. I discussed the basic technics, the benefits, the risks, the possible outcome including finding a variant of unclear clinical significance which may require parental testing for further clarification, and the alternative of no testing of targeted chromosomal microarray. Aston verbalized understanding and agreement. Normal [facility] Miscellaneous Laboratory Guerda ton 10-20-2020 Patient Results ----- Normal [facility] Comment on above: Order Comment: Custo m panel to [facility] Saliva specimen collected 09-23-20 No orders. No charges. Scanned as Lab external. Result Comment: Plea se refer to the complete report scanned into Epic as lab external 10-20-2020. Performed By: #### M ISC #### [address] [address] Test Normal [facility] Normal [facility] Comment on above: Order Comment: Custo m panel to [facility] Saliva specimen collected 09-23-20 No orders. No charges. Scanned as Lab external. Performed By: #### M ISC #### [address] [address] Test Name Genetics report Normal [facility] Comment on above: Order Comment: Custo m panel to [facility] Saliva specimen collected 09-23-20 No orders. No charges. Scanned as Lab external. Performed By: #### M ISC #### [address] [address] No Panel Information [facility] Vital Signs Date Time Vital Sign Value Performing Clinician Facility 10-03-2024 15:13-0400 Body height 172.[address] Cleveland Means MD Work Phone: 7(435)[phone] [place] [address] 10-03-2024 15:13-0400 Body mass index (BMI) [Ratio] 40.1 kg/m2 Dr. Cleveland Means MD Work Phone: 1(022)743-683358 [place] [address] 10-03-2024 15:13-0400 Body weight 119.[address] Cleveland Means MD Work Phone: 8(169)476-851458 [place] [address] 10-03-2024 15:13-0400 Diastolic blood pressure 80 mm[Hg] Dr. Cleveland Means MD Work Phone: 0(328)506-690758 [place] [address] 10-03-2024 15:13-0400 Heart rate 50 /min Dr. Cleveland Means MD Work Phone: 4(297)[phone] [place] [address] 10-03-2024 15:13-0400 Respiratory rate 16 /min Dr. Cleveland Means MD Work Phone: 7(014)232-409358 [place] [address] 10-03-2024 15:13-0400 SaO2% (BldA) [Mass fraction] 96 % Dr. Cleveland Means MD Work Phone: 6(074)393-743658 [place] [address] 10-03-2024 15:13-0400 Systolic blood pressure 121 mm[Hg] Dr. Cleveland Means MD Work Phone: 5(530)864-229314 [place] [address] 10-03-2024 13:15-0400 Body temperature 97.81 [degF] Treatment Wstr Work Phone: [facility] 10-03-2024 13:15-0400 Diastolic blood pressure 76 mm[Hg] Treatment Wstr Work Phone: [facility] 10-03-2024 13:15-0400 Heart rate 78 /min Treatment Wstr Work Phone: [facility] 10-03-2024 13:15-0400 Respiratory rate 18 /min Treatment Wstr Work Phone: [facility] 10-03-2024 13:15-0400 SaO2% (BldA) [Mass fraction] 97 % Treatment Wstr Work Phone: [facility] 10-03-2024 13:15-0400 Systolic blood pressure 123 mm[Hg] Treatment Wstr Work Phone: [facility] 08-22-2024 13:36-0400 Body temperature 97.7 [degF] Treatment Wstr Work Phone: [facility] 08-22-2024 13:36-0400 Diastolic blood pressure 72 mm[Hg] Treatment Wstr Work Phone: [facility] 08-22-2024 13:36-0400 Heart rate 58 /min Treatment Wstr Work Phone: [facility] 08-22-2024 13:36-0400 SaO2% (BldA) [Mass fraction] 98 % Treatment Wstr Work Phone: [facility] 08-22-2024 13:36-0400 Systolic blood pressure 116 mm[Hg] Treatment Wstr Work Phone: [facility] 07-11-2024 14:32-0400 Body mass index (BMI) [Ratio] 42.92 kg/m2 Treatment Wstr Work Phone: [facility] 07-11-2024 14:32-0400 Body temperature 98.71 [degF] Treatment Wstr Work Phone: [facility] 07-11-2024 14:32-0400 Body weight 124.3 kg Treatment Wstr Work Phone: [facility] 07-11-2024 14:32-0400 Diastolic blood pressure 70 mm[Hg] Treatment Wstr Work Phone: [facility] 07-11-2024 14:32-0400 Heart rate 88 /min Treatment Wstr Work Phone: [facility] 07-11-2024 14:32-0400 Respiratory rate 16 /min Treatment Wstr Work Phone: [facility] 07-11-2024 14:32-0400 SaO2% (BldA) [Mass fraction] 97 % Treatment Wstr Work Phone: [facility] 07-11-2024 14:32-0400 Systolic blood pressure 130 mm[Hg] Treatment Wstr Work Phone: [facility] 05-23-2024 09:11-0500 Body temperature 99.19 [degF] Treatment Wstr Work Phone: [facility] 05-23-2024 09:11-0500 Diastolic blood pressure 83 mm[Hg] Treatment Wstr Work Phone: [facility] 05-23-2024 09:11-0500 Heart rate 67 /min Treatment Wstr Work Phone: [facility] 05-23-2024 09:11-0500 SaO2% (BldA) [Mass fraction] 99 % Treatment Wstr Work Phone: [facility] 05-23-2024 09:11-0500 Systolic blood pressure 131 mm[Hg] Treatment Wstr Work Phone: [facility] 04-11-2024 09:07-0500 Body temperature 98.01 [degF] Treatment Wstr Work Phone: [facility] 04-11-2024 09:07-0500 Diastolic blood pressure 72 mm[Hg] Treatment Wstr Work Phone: [facility] 04-11-2024 09:07-0500 Heart rate 91 /min Treatment Wstr Work Phone: [facility] 04-11-2024 09:07-0500 Respiratory rate 16 /min Treatment Wstr Work Phone: [facility] 04-11-2024 09:07-0500 SaO2% (BldA) [Mass fraction] 100 % Treatment Wstr Work Phone: [facility] 04-11-2024 09:07-0500 Systolic blood pressure 127 mm[Hg] Treatment Wstr Work Phone: [facility] 02-29-2024 09:10-0500 Body temperature 98.8 [degF] Treatment Wstr Work Phone: [facility] 02-29-2024 09:10-0500 Diastolic blood pressure 85 mm[Hg] Treatment Wstr Work Phone: [facility] 02-29-2024 09:10-0500 Heart rate 95 /min Treatment Wstr Work Phone: [facility] 02-29-2024 09:10-0500 SaO2% (BldA) [Mass fraction] 95 % Treatment Wstr Work Phone: [facility] 02-29-2024 09:10-0500 Systolic blood pressure 130 mm[Hg] Treatment Wstr Work Phone: [facility] 01-18-2024 09:03-0400 Body temperature 98.4 [degF] Treatment Wstr Work Phone: [facility] 01-18-2024 09:03-0400 Diastolic blood pressure 80 mm[Hg] Treatment Wstr Work Phone: [facility] 01-18-2024 09:03-0400 Heart rate 82 /min Treatment Wstr Work Phone: [facility] 01-18-2024 09:03-0400 SaO2% (BldA) [Mass fraction] 98 % Treatment Wstr Work Phone: [facility] 01-18-2024 09:03-0400 Systolic blood pressure 141 mm[Hg] Treatment Wstr Work Phone: [facility] 12-07-2023 09:08-0400 Body mass index (BMI) [Ratio] 42.26 kg/m2 Treatment Wstr Work Phone: [facility] 12-07-2023 09:08-0400 Body temperature 98.71 [degF] Treatment Wstr Work Phone: [facility] 12-07-2023 09:08-0400 Body weight 122.4 kg Treatment Wstr Work Phone: [facility] 12-07-2023 09:08-0400 Diastolic blood pressure 76 mm[Hg] Treatment Wstr Work Phone: [facility] 12-07-2023 09:08-0400 Heart rate 69 /min Treatment Wstr Work Phone: [facility] 12-07-2023 09:08-0400 Respiratory rate 18 /min Treatment Wstr Work Phone: [facility] 12-07-2023 09:08-0400 SaO2% (BldA) [Mass fraction] 100 % Treatment Wstr Work Phone: [facility] 12-07-2023 09:08-0400 Systolic blood pressure 108 mm[Hg] Treatment Wstr Work Phone: [facility] 10-26-2023 09:06-0400 Body temperature 98.01 [degF] Treatment Wstr Work Phone: [facility] 10-26-2023 09:06-0400 Diastolic blood pressure 77 mm[Hg] Treatment Wstr Work Phone: [facility] 10-26-2023 09:06-0400 Heart rate 79 /min Treatment Wstr Work Phone: [facility] 10-26-2023 09:06-0400 Respiratory rate 18 /min Treatment Wstr Work Phone: [facility] 10-26-2023 09:06-0400 SaO2% (BldA) [Mass fraction] 97 % Treatment Wstr Work Phone: [facility] 10-26-2023 09:06-0400 Systolic blood pressure 112 mm[Hg] Treatment Wstr Work Phone: [facility] 2023 13:48-0400 Body mass index (BMI) [Ratio] 42.6 kg/m2 Treatment Wstr Work Phone: [facility] 2023 13:48-0400 Body temperature 97 [degF] Treatment Wstr Work Phone: [facility] 2023 13:48-0400 Body weight 123.38 kg Treatment Wstr Work Phone: [facility] 2023 13:48-0400 Diastolic blood pressure 84 mm[Hg] Treatment Wstr Work Phone: [facility] 2023 13:48-0400 Heart rate 73 /min Treatment Wstr Work Phone: [facility] 2023 13:48-0400 Respiratory rate 18 /min Treatment Wstr Work Phone: [facility] 2023 13:48-0400 Systolic blood pressure 118 mm[Hg] Treatment Wstr Work Phone: [facility] 08-23-2023 14:35-0400 Body mass index (BMI) [Ratio] 42.66 kg/m2 Meño Steinberg MD Work Phone: [facility] 08-23-2023 14:35-0400 Body temperature 97.59 [degF] Meño Steinberg MD Work Phone: [facility] 08-23-2023 14:35-0400 Body weight 123.56 kg Meño Steinberg MD Work Phone: [facility] 08-23-2023 14:35-0400 Diastolic blood pressure 75 mm[Hg] Meño Steinberg MD Work Phone: [facility] 08-23-2023 14:35-0400 Heart rate 59 /min Meño Steinberg MD Work Phone: [facility] 08-23-2023 14:35-0400 Respiratory rate 18 /min Meño Steinberg MD Work Phone: [facility] 08-23-2023 14:35-0400 SaO2% (BldA) [Mass fraction] 100 % Meño Steinberg MD Work Phone: [facility] 08-23-2023 14:35-0400 Systolic blood pressure 134 mm[Hg] Meño Steinberg MD Work Phone: [facility] 08-03-2023 13:34-0400 Body mass index (BMI) [Ratio] 42.76 kg/m2 Treatment Wstr Work Phone: [facility] 08-03-2023 13:34-0400 Body temperature 97.81 [degF] Treatment Wstr Work Phone: [facility] 08-03-2023 13:34-0400 Body weight 123.83 kg Treatment Wstr Work Phone: [facility] 08-03-2023 13:34-0400 Diastolic blood pressure 83 mm[Hg] Treatment Wstr Work Phone: [facility] 08-03-2023 13:34-0400 Heart rate 69 /min Treatment Wstr Work Phone: [facility] 08-03-2023 13:34-0400 Respiratory rate 18 /min Treatment Wstr Work Phone: [facility] 08-03-2023 13:34-0400 SaO2% (BldA) [Mass fraction] 100 % Treatment Wstr Work Phone: [facility] 08-03-2023 13:34-0400 Systolic blood pressure 130 mm[Hg] Treatment Wstr Work Phone: [facility] 06-01-2023 08:00-0500 Body temperature 98.49 [degF] Treatment Wstr Work Phone: [facility] 06-01-2023 08:00-0500 Diastolic blood pressure 66 mm[Hg] Treatment Wstr Work Phone: [facility] 06-01-2023 08:00-0500 Heart rate 75 /min Treatment Wstr Work Phone: [facility] 06-01-2023 08:00-0500 Systolic blood pressure 126 mm[Hg] Treatment Wstr Work Phone: [facility] 05-16-2023 15:42-0500 Body weight 125.65 kg Gia Stewart MD Work Phone: [facility] 05-16-2023 15:42-0500 Diastolic blood pressure 62 mm[Hg] Gia Stewart MD Work Phone: [facility] 05-16-2023 15:42-0500 Heart rate 86 /min Gia Stewart MD Work Phone: [facility] 05-16-2023 15:42-0500 SaO2% (BldA) [Mass fraction] 98 % Gia Stewart MD Work Phone: [facility] 05-16-2023 15:42-0500 Systolic blood pressure 98 mm[Hg] Gia Stewart MD Work Phone: [facility] 05-10-2023 14:19-0500 Body temperature 97.39 [degF] Nickie Ibarra PA-C Work Phone: [facility] 05-10-2023 14:19-0500 Body weight 125.65 kg Nickie Ibarra PA-C Work Phone: [facility] 05-10-2023 14:19-0500 Diastolic blood pressure 85 mm[Hg] Nickie Ibarra PA-C Work Phone: [facility] 05-10-2023 14:19-0500 Heart rate 93 /min Nickie Ibarra PA-C Work Phone: [facility] 05-10-2023 14:19-0500 SaO2% (BldA) [Mass fraction] 96 % Nickie Ibarra PA-C Work Phone: [facility] 05-10-2023 14:19-0500 Systolic blood pressure 130 mm[Hg] Nickie Ibarra PA-C Work Phone: [facility] 01-26-2023 08:33-0400 Body temperature 97.7 [degF] Treatment Wstr Work Phone: [facility] 01-26-2023 08:33-0400 Diastolic blood pressure 84 mm[Hg] Treatment Wstr Work Phone: [facility] 01-26-2023 08:33-0400 Heart rate 84 /min Treatment Wstr Work Phone: [facility] 01-26-2023 08:33-0400 Respiratory rate 16 /min Treatment Wstr Work Phone: [facility] 01-26-2023 08:33-0400 SaO2% (BldA) [Mass fraction] 96 % Treatment Wstr Work Phone: [facility] 01-26-2023 08:33-0400 Systolic blood pressure 125 mm[Hg] Treatment Wstr Work Phone: [facility] 12-15-2022 08:38-0400 Body temperature 97.59 [degF] Treatment Wstr Work Phone: [facility] 12-15-2022 08:38-0400 Diastolic blood pressure 48 mm[Hg] Treatment Wstr Work Phone: [facility] 12-15-2022 08:38-0400 Heart rate 72 /min Treatment Wstr Work Phone: [facility] 12-15-2022 08:38-0400 Systolic blood pressure 116 mm[Hg] Treatment Wstr Work Phone: [facility] 09-22-2022 10:10-0400 Body temperature 97.39 [degF] Treatment Wstr Work Phone: [facility] 09-22-2022 10:10-0400 Diastolic blood pressure 74 mm[Hg] Treatment Wstr Work Phone: [facility] 09-22-2022 10:10-0400 Heart rate 70 /min Treatment Wstr Work Phone: [facility] 09-22-2022 10:10-0400 Systolic blood pressure 134 mm[Hg] Treatment Wstr Work Phone: [facility] 06-30-2022 08:00-0400 Body temperature 97.39 [degF] Treatment Wstr Work Phone: [facility] 06-30-2022 08:00-0400 Body weight 117.48 kg Treatment Wstr Work Phone: [facility] 06-30-2022 08:00-0400 Diastolic blood pressure 72 mm[Hg] Treatment Wstr Work Phone: [facility] 06-30-2022 08:00-0400 Heart rate 70 /min Treatment Wstr Work Phone: [facility] 06-30-2022 08:00-0400 Respiratory rate 18 /min Treatment Wstr Work Phone: [facility] 06-30-2022 08:00-0400 SaO2% (BldA) [Mass fraction] 100 % Treatment Wstr Work Phone: [facility] 06-30-2022 08:00-0400 Systolic blood pressure 126 mm[Hg] Treatment Wstr Work Phone: [facility] 04-20-2022 14:40-0500 Heart rate 82 /min Norbert Sosa MD Work Phone: [facility] 04-20-2022 14:40-0500 SaO2% (BldA) [Mass fraction] 100 % Norbert Sosa MD Work Phone: [facility] 04-20-2022 14:30-0500 Diastolic blood pressure 70 mm[Hg] Norbert Sosa MD Work Phone: [facility] 04-20-2022 14:30-0500 Respiratory rate 16 /min Norbert Sosa MD Work Phone: [facility] 04-20-2022 14:30-0500 Systolic blood pressure 122 mm[Hg] Norbert Sosa MD Work Phone: [facility] 04-20-2022 13:01-0500 Body temperature 98.49 [degF] Norbert Sosa MD Work Phone: [facility] 02-03-2022 09:00-0500 Body temperature 98.2 [degF] Treatment Wstr Work Phone: [facility] 02-03-2022 09:00-0500 Diastolic blood pressure 58 mm[Hg] Treatment Wstr Work Phone: [facility] 02-03-2022 09:00-0500 Heart rate 77 /min Treatment Wstr Work Phone: [facility] 02-03-2022 09:00-0500 Systolic blood pressure 91 mm[Hg] Treatment Wstr Work Phone: [facility] 12-23-2021 09:34-0400 Body temperature 98.2 [degF] Treatment Wstr Work Phone: [facility] 12-23-2021 09:34-0400 Body weight 114.31 kg Treatment Wstr Work Phone: [facility] 12-23-2021 09:34-0400 Diastolic blood pressure 79 mm[Hg] Treatment Wstr Work Phone: [facility] 12-23-2021 09:34-0400 Heart rate 87 /min Treatment Wstr Work Phone: [facility] 12-23-2021 09:34-0400 SaO2% (BldA) [Mass fraction] 100 % Treatment Wstr Work Phone: [facility] 12-23-2021 09:34-0400 Systolic blood pressure 133 mm[Hg] Treatment Wstr Work Phone: [facility] 11-11-2021 09:23-0400 Body temperature 97.81 [degF] Treatment Wstr Work Phone: [facility] 11-11-2021 09:23-0400 Diastolic blood pressure 73 mm[Hg] Treatment Wstr Work Phone: [facility] 11-11-2021 09:23-0400 Heart rate 93 /min Treatment Wstr Work Phone: [facility] 11-11-2021 09:23-0400 Systolic blood pressure 115 mm[Hg] Treatment Wstr Work Phone: [facility] 09-30-2021 08:09-0400 Body temperature 96.8 [degF] Treatment Wstr Work Phone: [facility] 09-30-2021 08:09-0400 Diastolic blood pressure 72 mm[Hg] Treatment Wstr Work Phone: [facility] 09-30-2021 08:09-0400 Heart rate 103 /min Treatment Wstr Work Phone: [facility] 09-30-2021 08:09-0400 Respiratory rate 16 /min Treatment Wstr Work Phone: [facility] 09-30-2021 08:09-0400 Systolic blood pressure 124 mm[Hg] Treatment Wstr Work Phone: [facility] 08-30-2021 13:33-0400 Body temperature 97.8 [degF] Dr. Cleveland Means Work Phone: [facility] Work Phone: 08-30-2021 13:33-0400 Diastolic blood pressure 84 mm[Hg] Dr. Cleveland Means Work Phone: [facility] Work Phone: 08-30-2021 13:33-0400 Heart rate 90 /min Dr. Cleveland Means Work Phone: [facility] Work Phone: 08-30-2021 13:33-0400 Respiratory rate 18 /min Dr. Cleveland Means Work Phone: [facility] Work Phone: 08-30-2021 13:33-0400 SaO2% (BldA) [Mass fraction] 99 % Dr. Cleveland Means Work Phone: [facility] Work Phone: 08-30-2021 13:33-0400 Systolic blood pressure 112 mm[Hg] Dr. Cleveland Means Work Phone: [facility] Work Phone: 08-30-2021 09:00-0400 Body height 172.[address] Cleveland Means Work Phone: [facility] Work Phone: 08-30-2021 09:00-0400 Body mass index (BMI) [Ratio] 40.2 kg/m2 Dr. Cleveland Means Work Phone: [facility] Work Phone: 08-30-2021 09:00-0400 Body weight [address] Cleveland Means Work Phone: [facility] Work Phone: 07-08-2021 08:00-0400 Body temperature 96.6 [degF] Treatment Wstr Work Phone: [facility] 07-08-2021 08:00-0400 Diastolic blood pressure 61 mm[Hg] Treatment Wstr Work Phone: [facility] 07-08-2021 08:00-0400 Heart rate 128 /min Treatment Wstr Work Phone: [facility] 07-08-2021 08:00-0400 SaO2% (BldA) [Mass fraction] 99 % Treatment Wstr Work Phone: [facility] 07-08-2021 08:00-0400 Systolic blood pressure 101 mm[Hg] Treatment Wstr Work Phone: [facility] 05-16-2021 11:05-0500 Body temperature 96.6 [degF] Dr. Cleveland Means Work Phone: [facility] Work Phone: 05-16-2021 11:05-0500 Diastolic blood pressure 89 mm[Hg] Dr. Cleveland Means Work Phone: [facility] Work Phone: 05-16-2021 11:05-0500 Heart rate 96 /min Dr. Cleveland Means Work Phone: [facility] Work Phone: 05-16-2021 11:05-0500 Respiratory rate 16 /min Dr. Cleveland Means Work Phone: [facility] Work Phone: 05-16-2021 11:05-0500 SaO2% (BldA) [Mass fraction] 92 % Dr. Cleveland Means Work Phone: [facility] Work Phone: 05-16-2021 11:05-0500 Systolic blood pressure 125 mm[Hg] Dr. Cleveland Means Work Phone: [facility] Work Phone: 05-16-2021 05:38-0500 Body height 172.[address] Cleveland Means Work Phone: [facility] Work Phone: 05-16-2021 05:38-0500 Body mass index (BMI) [Ratio] 43.3 kg/m2 Dr. Cleveland Means Work Phone: [facility] Work Phone: 05-16-2021 05:38-0500 Body weight 129.[address] Cleveland Means Work Phone: [facility] Work Phone: 05-02-2021 14:23-0500 Body mass index (BMI) [Ratio] 43.3 kg/m2 Dr. Cleveland Means Work Phone: [facility] Work Phone: 05-02-2021 14:23-0500 Body weight 129.[address] Cleveland Means Work Phone: [facility] Work Phone: Encounters Encounter Date Encounter Type Care Provider Facility Start: 10-03-2024 End: 10-03-[address] Cleveland Means MD Work Phone: [facility] Start: 10-03-2024 End: 10-03-[address] 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); Panuveitis of left eye Start: 08-28-2024 End: 08-28-2024 ambulatory NELSON PAIGE Facility:[facility] Start: 08-22-2024 End: 08-22-2024 ambulatory Treatment Rm 18 [facility] Work Phone: Hematology/Oncology Comment on above: Pulmonary sarcoidosi s (HCC) (Primary Dx) Start: 07-31-2024 End: 07-31-2024 Telephone encounter Lynn Howard MD Work Phone: Pulmonary Medicine Comment on above: Medication Authoriza tion Start: 07-11-2024 End: 07-11-2024 ambulatory Treatment Rm 14 [facility] Work Phone: Hematology/Oncology Comment on above: Pulmonary sarcoidosi s (HCC) (Primary Dx) Start: 07-09-2024 End: 07-09-2024 Orders Only Frank Valladares [facility] HB -3 Comment on above: Neurosarcoidosis (Pr imary Dx) Start: 06-26-2024 End: 06-26-2024 ambulatory Lynn Howard MD Work Phone: Pulmonary Medicine Comment on above: July 03 Start: 06-20-2024 End: 06-20-2024 Telephone encounter Suhas Escoto DO Work Phone: Hematology/Oncology Comment on above: Appointment Start: 05-23-2024 End: 05-23-2024 ambulatory Treatment Rm 16 [facility] Work Phone: Hematology/Oncology Comment on above: Pulmonary sarcoidosi s (HCC) (Primary Dx) Start: 05-14-2024 End: 05-14-2024 ambulatory LYNN HOWARD Facility:[facility] Start: 05-01-2024 End: 05-01-2024 ambulatory NELSON PAIGE Facility:[facility] Start: 05-01-2024 End: 05-01-2024 Office outpatient visit 25 minutes Nelson Gibson MD Work Phone: Ophthalmology Comment on above: Sarcoid uveitis of l eft eye Start: 04-24-2024 End: 04-25-2024 Refill Lynn Howard MD Work Phone: Pulmonary Medicine Comment on above: Refill Request Start: 04-11-2024 End: 04-11-2024 ambulatory Treatment Rm 16 [facility] Work Phone: Hematology/Oncology Comment on above: Pulmonary sarcoidosi s (HCC) (Primary Dx) Start: 03-11-2024 End: 03-11-2024 Social Work Cinthia WATSON Hematology Start: 02-29-2024 End: 02-29-2024 ambulatory Treatment Rm 16 [facility] Work Phone: Hematology/Oncology Comment on above: Pulmonary sarcoidosi s (HCC) (Primary Dx) Start: 02-27-2024 End: 02-27-2024 Telemedicine consultation with patient Lynn Howard MD Work Phone: Pulmonary Medicine Start: 02-27-2024 End: 02-27-2024 ambulatory Lynn Howard MD Work Phone: Pulmonary Medicine Comment on above: Neurosarcoidosis (Pr imary Dx); Sarcoidosis; Sarcoid uveitis of left eye; Current chronic use of systemic steroids; Pulmonary sarcoidosis (HCC); RONNA (obstructive sleep apnea); Morbid obesity (HCC); Personal history of immunosupression therapy Start: 01-18-2024 End: 01-18-2024 ambulatory LYNN HOWARD Hematology/Oncology Comment on above: Pulmonary sarcoidosi s (HCC) (Primary Dx) Start: 01-18-2024 End: 01-18-2024 Patient encounter procedure Treatment Rm 16 [facility] Work Phone: Hematology/Oncology Start: 12-07-2023 End: 12-07-2023 ambulatory DEBTYRON HOWARD Hematology/Oncology Comment on above: Pulmonary sarcoidosi s (HCC) (Primary Dx) Start: 12-07-2023 End: 12-07-2023 Patient encounter procedure Treatment Rm 16 [facility] Work Phone: Hematology/Oncology Start: 11-23-2023 End: 11-23-2023 ambulatory MARK GONG Facility:[facility] Start: 11-23-2023 End: 11-23-2023 Patient encounter procedure Mark Gong OD Work Phone: Ophthalmology Comment on above: Refractive error (Pr imary Dx); Sarcoid uveitis of left eye; Panuveitis of left eye Start: 10-26-2023 End: 10-26-2023 ambulatory LYNN HOWARD Hematology/Oncology Comment on above: Pulmonary sarcoidosi s (HCC) (Primary Dx) Start: 10-26-2023 End: 10-26-2023 Patient encounter procedure Treatment Rm 16 [facility] Work Phone: Hematology/Oncology Start: 10-17-2023 End: 10-17-2023 Telemedicine consultation with patient Lynn Howard MD Work Phone: Pulmonary Medicine Start: 10-17-2023 End: 10-17-2023 ambulatory Lynn Howard MD Work Phone: Pulmonary Medicine Comment on above: Sarcoidosis (Primary Dx); Neurosarcoidosis; Sarcoid uveitis of left eye; Panuveitis of left eye; Optic neuritis; Current chronic use of systemic steroids Start: 10-09-2023 Refill Lynn frazier MD Work Phone: Pulmonary Medicine Comment on above: Refill Request Start: 09-26-2023 End: 09-26-2023 ambulatory MEÑO STEINBERG Facility:[facility] Start: 09-26-2023 End: 09-26-2023 Subsequent hospital visit by physician [facility] (I-Stat/1.5t) Work Phone: Radiology Comment on above: 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] Start: 2023 End: 2023 ambulatory Treatment Rm 8 [facility] Work Phone: Hematology/Oncology Comment on above: Pulmonary sarcoidosi s (HCC) (Primary Dx) Start: 09-07-2023 Orders Only Lynn frazier MD Work Phone: Pulmonary Medicine Comment on above: 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) Start: 09-06-2023 End: 09-06-2023 ambulatory NELSON GIBSON Facility:[facility] Start: 09-06-2023 End: 09-06-2023 Office outpatient visit 25 minutes Nelson Gibson MD Work Phone: Ophthalmology Comment on above: Sarcoid uveitis of l eft eye Start: 08-27-2023 Orders Only Lynn frazier MD Work Phone: Pulmonary Medicine Comment on above: 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) Start: 08-23-2023 End: 08-23-2023 Patient encounter procedure Meño Steinberg MD Work Phone: Pulmonary Medicine Comment on above: 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); Optic neuritis Start: 08-15-2023 Telephone encounter Lynn Howard MD Work Phone: Pulmonary Medicine Comment on above: Insurance Authorizat ion Start: 08-03-2023 End: 08-03-2023 ambulatory Treatment Rm 8 [facility] Work Phone: Hematology/Oncology Comment on above: Pulmonary sarcoidosi s (HCC) (Primary Dx) Start: 07-25-2023 Orders Only Lynn frazier MD Work Phone: Pulmonary Medicine Comment on above: 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, 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) Start: 07-11-2023 Telephone encounter Luis armas MD Work Phone: Hematology/Oncology Comment on above: Chemotherapy Treatme nt Start: 06-11-2023 Orders Only Lynn frazier MD Work Phone: Pulmonary Medicine Comment on above: 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, 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) Start: 06-07-2023 Orders Only [facility] HB-3 Start: 06-01-2023 End: 06-01-2023 ambulatory Treatment Rm 9 [facility] Work Phone: Hematology/Oncology Comment on above: Personal history of immunosupression therapy (Primary Dx); Pulmonary sarcoidosis (HCC) Start: 05-31-2023 Orders Only Lynn frazier MD Work Phone: Pulmonary Medicine Comment on above: Pulmonary sarcoidosi s (HCC) (Primary Dx) Start: 05-16-2023 End: 05-16-2023 Patient encounter procedure Gia Stewart MD Work Phone: Allergy Comment on above: Oral allergy syndrom e, initial encounter (Primary Dx); Food allergy; Adverse reaction to food, initial encounter; Allergic rhinitis due to cats; Allergic rhinitis due to dust mite; Allergic rhinitis due to fungal spores, unspecified seasonality; Seasonal allergic rhinitis due to pollen Start: 05-10-2023 End: 05-10-2023 ambulatory Pulm A110 Work Phone: Pulmonary Medicine Comment on above: Spirometry Start: 05-10-2023 End: 05-10-2023 Patient encounter procedure Pulm [facility] - A110 Work Phone: 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; Pulmonary sarcoidosis (HCC); Sarcoid uveitis of left eye; Stomach pain; Panuveitis of left eye; Current chronic use of systemic steroids; Ongoing use of possibly toxic medication Start: 05-10-2023 End: 05-10-2023 Subsequent hospital visit by physician Miriam Rodgers Work Phone: Radiology Comment on above: Neurosarcoidosis [D8 6.89] Start: 05-03-2023 End: 05-03-2023 Patient encounter procedure Nelosn Gibosn MD Work Phone: Ophthalmology Comment on above: Sarcoid uveitis of l eft eye Start: 03-05-2023 E-mail encounter fro m caregiver [facility] Provider ASHWINI [facility] Start: 03-05-2023 Patient encounter procedure [facility] Provider Hematology/Oncology Comment on above: Appointment Cancella tion Request Start: 02-01-2023 End: 02-01-2023 Patient encounter procedure Nelson Gibson MD Work Phone: Ophthalmology Comment on above: Sarcoid uveitis of l eft eye Start: 01-26-2023 End: 01-26-2023 Orders Only Lynn Howard MD Work Phone: Pulmonary Medicine Comment on above: Pulmonary sarcoidosi s (HCC) (Primary Dx) Start: 12-15-2022 End: 12-15-2022 ambulatory Treatment Rm 9 [facility] Work Phone: Hematology/Oncology Comment on above: Pulmonary sarcoidosi s (HCC) (Primary Dx) Start: 09-22-2022 End: 09-22-2022 ambulatory Treatment Rm 11 [facility] Work Phone: Hematology/Oncology Comment on above: Pulmonary sarcoidosi s (HCC) (Primary Dx) Start: 09-13-2022 End: 09-13-2022 ambulatory Lynn Howard MD Work Phone: Pulmonary Medicine Comment on above: Neurosarcoidosis (Pr imary Dx); [place]cl[place] headache; Sarcoidosis of lung (HCC); Morbid obesity (HCC); Pulmonary sarcoidosis (HCC); RONNA (obstructive sleep apnea) Start: 09-13-2022 End: 09-13-2022 Telemedicine consultation with patient Lynn Howard MD Work Phone: [facility] Start: 06-30-2022 End: 06-30-2022 ambulatory Treatment 9 [facility] Work Phone: Hematology/Oncology Comment on above: Pulmonary sarcoidosi s (HCC) (Primary Dx) Start: 06-09-2022 End: 06-09-2022 Patient encounter procedure Nelson Gibson MD Work Phone: Ophthalmology Comment on above: Sarcoid uveitis of l eft eye Start: 05-19-2022 End: 05-19-2022 ambulatory Lynn Howard MD Work Phone: Pulmonary Medicine Comment on above: Neurosarcoidosis (Pr imary Dx); Sarcoid uveitis of left eye; Sarcoidosis of lung (HCC) Start: 05-19-2022 End: 05-19-2022 Telemedicine consultation with patient Lynn Howard MD Work Phone: [facility] Start: 05-02-2022 Telephone encounter Norbert velazquez MD Work Phone: General Surgery Comment on above: Procedure Follow Up (EGD) Start: 04-20-2022 End: 04-20-2022 Subsequent hospital visit by physician Norbert Sosa MD Work Phone: Ambulatory Surgery Comment on above: Heartburn [R12] Start: 04-09-2022 Orders Only Lynn frazier MD Work Phone: Pulmonary Medicine Comment on above: Neurosarcoidosis (Pr imary Dx) Start: 04-03-2022 Telephone encounter Suhas quintanilla DO Work Phone: Hematology/Oncology Comment on above: Appointment; Patient Update Start: 03-30-2022 ambulatory Lynn frazier MD Work Phone: Pulmonary Medicine Comment on above: Medicine Start: 03-25-2022 Refill Lynn frazier MD Work Phone: Pulmonary Medicine Comment on above: Refill Request Start: 03-21-2022 End: 03-21-2022 Subsequent hospital visit by physician [facility] (I-Stat/1.5t) Work Phone: Radiology Comment on above: 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] Start: 03-17-2022 Orders Only Lynn frazier MD Work Phone: Pulmonary Medicine Comment on above: Sarcoidosis (Primary Dx) Pulmonary sarcoidosi s (HCC) Orders (Needs new re micade order) Start: 02-24-2022 End: 02-24-2022 Subsequent hospital visit by physician [facility] (I-Stat/1.5t) Work Phone: Radiology Comment on above: 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] Start: 02-03-2022 End: 02-03-2022 ambulatory Treatment Rm 2 [facility] Work Phone: Hematology/Oncology Comment on above: Personal history of immunosupression therapy (Primary Dx); Pulmonary sarcoidosis (HCC) Start: 02-02-2022 End: 02-02-2022 Patient encounter procedure Nelson Gibson MD Work Phone: Ophthalmology Comment on above: Sarcoid uveitis of l eft eye Start: 02-01-2022 Telephone encounter Nelson bravo MD Work Phone: Ophthalmology Comment on above: Appointment Start: 01-31-2022 End: 01-31-2022 Subsequent hospital visit by physician Rad[facility] Work Phone: Radiology Comment on above: Neurosarcoidosis [D8 6.89] Start: 01-23-2022 End: 01-23-2022 ambulatory Debasis Raymon Howard MD Work Phone: Pulmonary Medicine Comment on above: Neurosarcoidosis (Pr imary Dx); Sarcoid uveitis of left eye; Stomach pain Start: 01-23-2022 End: 01-23-2022 Telemedicine consultation with patient Lynn Howard MD Work Phone: [facility] Start: 12-23-2021 End: 12-23-2021 ambulatory Treatment Rm 13 [facility] Work Phone: Hematology/Oncology Comment on above: Pulmonary sarcoidosi s (HCC) (Primary Dx); Sarcoidosis of lung (HCC) Start: 11-11-2021 End: 11-11-2021 ambulatory Treatment Rm 6 [facility] [email or web address] Work Phone: Hematology/Oncology Comment on above: Pulmonary sarcoidosi s (HCC) (Primary Dx) Start: 09-30-2021 End: 09-30-2021 ambulatory Treatment Rm 2 [facility] [email or web address] Work Phone: Hematology/Oncology Comment on above: Pulmonary sarcoidosi s (HCC) (Primary Dx) Start: 09-29-2021 End: 09-29-2021 ambulatory Aaron Huber Facility:[facility] Start: 08-30-2021 Encounter for other preprocedural examination Aaron Huber [facility] Start: 08-30-2021 End: 08-30-2021 ambulatory Aaron Huber Facility:[facility] Start: 08-30-2021 End: 08-30-2021 Admission to same day surgery center Dr. Cleveland Means Work Phone: [facility] Start: 08-24-2021 End: 08-24-[address] Cleveland Means Work Phone: [facility] Start: 08-24-2021 End: 08-24-2021 ambulatory Calvin Contreras PT Work Phone: [facility] Comment on above: Neck pain (Primary D x); Chronic tension-type headache, not intractable Start: 08-17-2021 End: 08-17-2021 ambulatory Lynn Howard MD Work Phone: Pulmonary Medicine Comment on above: Neurosarcoidosis (Pr imary Dx); Gastroesophageal reflux disease without esophagitis; Sarcoid uveitis of left eye; Sarcoidosis of lung (HCC); Acute bronchitis, unspecified organism Start: 08-17-2021 End: 08-17-2021 Telemedicine consultation with patient Lynn Howard MD Work Phone: [facility] Start: 08-12-2021 Telephone encounter Nan Prather RN He matology/Oncology Comment on above: Frozen Food Department Manager - O ther (Schedule ) Start: 08-12-2021 End: 08-12-2021 Patient encounter procedure Nelson Gibson MD Work Phone: Ophthalmology Comment on above: Sarcoid uveitis of l eft eye Start: 08-11-2021 ambulatory Lynn frazier MD Work Phone: Pulmonary Medicine Comment on above: Infusion Start: 08-10-2021 End: 08-10-2021 ambulatory Lindsey Josue HYDROLOGY PROFESSOR Work Phone: [facility] Comment on above: Neck pain (Primary D x); Chronic tension-type headache, not intractable Start: 07-22-2021 End: 07-22-2021 ambulatory Meño Steinberg MD Work Phone: [facility] Comment on above: 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); Sarcoidosis of lung (HCC) Start: 07-22-2021 End: 07-22-2021 Telemedicine consultation with patient Meño Steinberg MD Work Phone: [facility] Start: 07-08-2021 End: 07-08-2021 ambulatory Treatment Rm 2 [facility] Work Phone: Hematology/Oncology Comment on above: Pulmonary sarcoidosi s (HCC) (Primary Dx) Start: 06-30-2021 ambulatory Lynn frazier MD Work Phone: [facility] Start: 06-30-2021 Patient encounter procedure Lynn Howard MD Work Phone: Pulmonary Medicine Comment on above: Appointment Start: 06-24-2021 ambulatory Nelson colon MD Work Phone: [facility] Start: 06-24-2021 Patient encounter procedure Nelson Gibson MD Work Phone: Ophthalmology Comment on above: Appointment Start: 05-16-2021 End: 05-16-2021 ambulatory Cleveland Means Facility:[facility] Start: 05-16-2021 End: 05-16-2021 Admission to same day surgery center Dr. Cleveland Means Work Phone: [facility] Start: 05-11-2021 End: 05-12-2021 ambulatory Genie Chaudhari Facility:[facility] Start: 05-11-2021 End: 05-11-[address] Cleveland Means Work Phone: [facility] Start: 05-02-2021 End: 05-02-2021 ambulatory Cleveland Means Facility:[facility] Start: 05-02-2021 End: 05-02-[address] Cleveland Means Work Phone: [facility] Start: 04-29-2021 End: 04-29-2021 Subsequent hospital visit by physician Radha [facility] Work Phone: Radiology Comment on above: Injury of right ankl e, initial encounter [S99.911A] Start: 02-16-2018 End: 02-22-2018 Patient encounter procedure MANDY (TANK CLEANER) [facility] Start: 09-11-2017 End: 09-11-2017 Patient encounter procedure MANDY (LENA) [facility] Start: 08-24-2017 End: 08-24-2017 [facility] Procedures Date Procedure Procedure Detail Performing Clinician Start: 08-28-2024 End: 08-28-2024 Computerized ophthalmic imaging retina Nelson Gibson MD Work Phone: Start: 08-28-2024 OCT ANGIOGRAPHY OU (BOTH EYES) Nelson granados MD Work Phone: Start: 05-01-2024 Computerized ophthalmic imaging retina Nelson Gibson MD Work Phone: Start: 09-26-2023 Mri orbit face & neck w/o & w/contrast matrl Meño Steinberg MD Work Phone: Start: 09-06-2023 Computerized ophthalmic imaging retina Nelson Gibson MD Work Phone: Start: 05-16-2023 ALLERGEN SKIN TEST-FOOD Gia Stewart MD Work Phone: Start: 05-16-2023 ALLERGEN SKIN TEST-INHALENT 40 Gia Stewart MD Work Phone: Start: 05-10-2023 Co diffusing capacity Lynn Howard MD Work Phone: Start: 05-10-2023 Ct thorax w/o contrast material Lynn Howard MD Work Phone: Start: 05-03-2023 Computerized ophthalmic imaging retina Nelson Gibson MD Work Phone: Start: 02-01-2023 Computerized ophthalmic imaging retina Nelson Gibson MD Work Phone: Start: 06-09-2022 Computerized ophthalmic imaging retina Nelson Gibson MD Work Phone: Start: 04-20-2022 Level iv surg pathology gross&microscopic exam Norbert Sosa MD Work Phone: Start: 04-20-2022 Esophagogastroduodenoscopy transoral diagnostic Norbert Sosa MD Work Phone: Start: 03-21-2022 End: 03-21-2022 Mri brain brain stem w/o w/contrast material Meño Steinberg MD Work Phone: Start: 02-02-2022 Computerized ophthalmic imaging retina Nelson Gibson MD Work Phone: Start: 01-31-2022 Radiologic exam chest 2 views Lynn Howard MD Work Phone: Start: 12-23-2021 Blood count complete auto&auto difrntl wbc Lynn Howard MD Work Phone: Start: 08-30-[address] Cleveland Means Work Phone: Start: 08-30-[address] Cleveland Means Work Phone: Start: 08-17-2021 Adult depression screening assessment Lynn Howard MD Work Phone: Start: 08-12-2021 Computerized ophthalmic imaging retina Nelson Gibson MD Work Phone: Start: 07-21-2021 Adult depression screening assessment Meño Steinberg MD Work Phone: Start: 05-16-[address] Cleveland Means Work Phone: Start: 05-16-2021 O.R. Fluoro for C-Arm Dr. Cleveland Means Work Phone: Start: 05-16-[address] Cleveland Means Work Phone: Start: 05-11-2021 Plain chest X-ray Dr. Cleveland Means Work Phone: Start: 05-11-2021 Plain X-ray of tibia and fibula Dr. Andrey Means Work Phone: Start: 05-11-[address] Cleveland Means Work Phone: Start: 05-09-2021 Lipid 1996 panel - Serum or Plasma Treat ment Wstr Work Phone: Start: 05-02-[address] Cleveland Means Work Phone: Start: 04-29-2021 Radex ankle complete minimum 3 views Nohemy Pollock HAT LINER.TANK CLEANER Work Phone: Start: 02-10-2021 Adult depression screening assessment Nelson Gibson MD Work Phone: Plan of Treatment Date Care Activity Detail Author Start: 05-09-2026 Lipid panel Lipid Screening [facility] Start: 08-18-2025 Urine microalbumin profile [facility] Start: 01-01-2025 End: 01-01-2025 Patient encounter procedure 01/01/2025 3:15 PM EDT Office Visit [facility] Ophthalmology [address] [address] Nelson Gibson MD [address] [place] [address] Diagnostics, [facility] [address] [address] Return in about 4 months (around 12/28/2024).Check out comments:Drs. Medhat Pemberton or Drs. Tae Mayberry please within 2-3 months for K transplant evaluation Ophthalmology Comment on above: Return in about 4 months (around 12/29/19 25).Check out comments:Drs. Medhat Pemberton or Drs. Tae Mayberry please within 2-3 months for K transplant evaluation Start: 12-31-2024 End: 12-31-2024 Patient encounter procedure 12/31/2024 9:45 AM EDT Office Visit [facility] Ophthalmology [address] [address] Medhat Pemberton MD [address] [place] [address] Diagnostics, [facility] [address] [address] Return in about 4 months (around 12/28/2024).Check out comments:Drs. Meléndez See or Drs. Tae Mayberry please within 2-3 months for K transplant evaluation Ophthalmology Comment on above: Return in about 4 months (around 12/29/19).Check out comments:Drs. Meléndez See or Drs. Tae Mayberry please within 2-3 months for K transplant evaluation Start: 12-26-2024 End: 12-26-2024 ambulatory 12/26/2024 1:30 PM EDT Infusion Center Hematology/Oncology [address] [place] [address] 2ND Hematology/Oncology Comment on above: 2ND Start: 11-24-2024 Influenza vaccination [facility] Start: 11-14-2024 End: 11-14-2024 ambulatory 11/14/2024 1:30 PM EDT Infusion Center Hematology/Oncology [address] [place] [place] [address] 2ND Hematology/Oncology Comment on above: 2ND Start: 10-23-2024 End: 10-23-2024 Patient encounter procedure 10/23/2024 3:30 PM EDT Office Visit [facility] Ophthalmology [address] [address] Nelson Gibson MD [address] [place] [address] Return in about 4 months (around 08/29/2024). Ophthalmology Comment on above: Return in about 4 months (around ). Start: 10-03-2024 End: 10-03-2024 ambulatory 10/03/2024 1:30 PM EDT Infusion Center Hematology/Oncology [address] [place] [address] 2ND Hematology/Oncology Comment on above: 2ND Start: 09-20-2024 End: 02-27-2025 OCT MACULA CIRRUS OU (BOTH EYES) OCT MACULA CIRRUS OU (BOTH EYES) [facility] Imaging Routine Sarcoid uveitis of left eye Expected: 09/20/2024, Expires: 02/27/2025 [facility] Work Phone: Comment on above: Expected: 09/20/2024, Expires: Start: 08-28-2024 End: 08-28-2024 Patient encounter procedure Ophthalmology Comment on above: Return in about 4 months (around ). Start: 08-22-2024 End: 08-22-2024 ambulatory 08/22/2024 1:30 PM EDT Infusion Center Hematology/Oncology [address] [place] [address] 2ND Hematology/Oncology Comment on above: 2ND Start: 08-15-2024 End: 08-15-2024 ambulatory 08/15/2024 9:00 AM EDT Infusion Center Hematology/Oncology [address] [place] [address] 2ND Hematology/Oncology Comment on above: 2ND Start: 07-11-2024 End: 07-11-2024 ambulatory 07/11/2024 2:30 PM EDT Infusion Center Hematology/Oncology [address] [place] [address] 2ND Hematology/Oncology Comment on above: 2ND Start: 07-04-2024 End: 07-04-2024 ambulatory 07/04/2024 9:00 AM EDT Infusion Center Hematology/Oncology [address] [place] [address] 2ND Hematology/Oncology Comment on above: 2ND Start: 07-03-2024 End: 07-03-2024 ambulatory 07/03/2024 9:00 AM EDT [facility] [address] [address] Lynn Howard MD [address] [place] [address] MYC V - Neurosarcoidosi Pulmonary Medicine Comment on above: MYC V - Neurosarcoidosi Start: 06-16-2024 End: 06-16-2024 Patient encounter procedure 06/16/2024 11:00 AM EDT Office Visit Gastroenterology [address] [place] [address] Olga Larsen PA-C [address] [place] [address] abdominal problems Gastroenterology Comment on above: abdominal problems Start: 05-23-2024 End: 05-23-2024 ambulatory 05/23/2024 9:00 AM EST [facility] Center Hematology/Oncology [address] [place] [address] 2ND Hematology/Oncology Comment on above: 2ND Start: 05-17-2024 End: 10-24-2024 OCT MACULA CIRRUS OU (BOTH EYES) OCT MACULA CIRRUS OU (BOTH EYES) [facility] Imaging Routine Sarcoid uveitis of left eye Expected: 05/17/2024, Expires: 10/24/2024 [facility] Work Phone: Comment on above: Expected: 05/17/2024, Expires: Start: 05-01-2024 End: 05-01-2024 Patient encounter procedure 05/01/2024 3:30 PM EST Office Visit [facility] Ophthalmology [address] [address] Nelson Gibson MD [address] [place] [address] Return in about 4 months (around 01/06/2024). Ophthalmology Comment on above: Return in about 4 months (around 024). Start: 04-11-2024 End: 04-11-2024 ambulatory Hematology/Oncology Comment on above: 2ND Start: 02-29-2024 End: 02-29-2024 ambulatory Hematology/Oncology Comment on above: 2ND Start: 02-27-2024 End: 05-28-2024 Angiotensin converting enzyme [Enzymatic activity/volume] in Serum or Plasma ANGELITO/ANGIOTENSIN BLD Lab Routine Neurosarcoidosis Expected: 02/27/2024, Expires: 05/28/2024 [facility] Comment on above: Expected: 02/27/2024, Expires: Start: 02-27-2024 End: 05-28-2024 BLOOD TB SCREEN BLOOD TB SCREEN Lab Routine Neurosarcoidosis Expected: 02/27/2024, Expires: 05/28/2024 [facility] Comment on above: Expected: 02/27/2024, Expires: Start: 02-27-2024 End: 05-28-2024 C reactive protein [Mass/volume] in Serum or Plasma C-REACTIVE PROTEIN Lab Routine Neurosarcoidosis Expected: 02/27/2024, Expires: 05/28/2024 [facility] Comment on above: Expected: 02/27/2024, Expires: Start: 02-27-2024 End: 05-28-2024 Calcitriol [Mass/volume] in Serum or Plasma VITAMIN D1 25-DIHYDR Lab Routine Neurosarcoidosis Expected: 02/27/2024, Expires: 05/28/2024 [facility] Comment on above: Expected: 02/27/2024, Expires: Start: 02-27-2024 End: 05-28-2024 INTERLEUKIN 2 RECEPTOR, SOLUBLE, SERUM INTERLEUKIN 2 RECEPTOR, SOLUBLE, SERUM Lab Routine Neurosarcoidosis Expected: 02/27/2024, Expires: 05/28/2024 [facility] Comment on above: Expected: 02/27/2024, Expires: Start: 02-27-2024 End: 02-27-2024 Follow-up encounter 02/27/2024 8:30 AM [facility]monary Medicine [address] [place] [address] Lynn Howard MD [address] [place] [address] follow up Pulmonary Medicine Comment on above: follow up Start: 02-16-2024 End: 07-25-2024 OCT MACULA CIRRUS OU (BOTH EYES) OCT MACULA CIRRUS OU (BOTH EYES) [facility] Imaging Routine Sarcoid uveitis of left eye Expected: 02/16/2024, Expires: 07/25/2024 [facility] Work Phone: Comment on above: Expected: 02/16/2024, Expires: Start: 01-31-2024 End: 01-31-2024 Patient encounter procedure 01/31/2024 3:30 PM EST Office Visit [facility] Ophthalmology [address] [address] Nelson Gibson MD [address] [place] [address] Return in about 4 months (around 01/06/2024). Ophthalmology Comment on above: Return in about 4 months (around 024). Start: 01-18-2024 End: 01-18-2024 ambulatory 01/18/2024 9:00 AM EDT Visit (SP) Office Hematology/Oncology [address] [place] [address] 2ND Hematology/Oncology Comment on above: 2ND Start: 01-10-2024 End: 01-10-2024 Patient encounter procedure 01/10/2024 3:30 PM EDT Office Visit [facility] Ophthalmology [address] [address] Nelson Gibson MD [address] [place] [address] Return in about 4 months (around 01/06/2024). Ophthalmology Comment on above: Return in about 4 months (around 024). Start: 12-13-2023 End: 12-13-2023 Patient encounter procedure 12/13/2023 12:00 PM EDT Office Visit Pulmonary Medicine [address] [place] [address] Meño Steinberg MD [address] [address] 3 mo f/u / est pt neurosarcoid / f/u desk/rescheduled x1 from 12.06.2023 Pulmonary Medicine Comment on above: 3 mo f/u / est pt neurosarcoid / f/u emily k/rescheduled x1 from 12.06.2023 Start: 12-07-2023 End: 12-07-2023 ambulatory Hematology/Oncology Comment on above: 2ND Start: 12-06-2023 End: 12-06-2023 Patient encounter procedure 12/06/2023 2:30 PM EDT Office Visit Pulmonary Medicine [address] [place] [address] Meño Steinberg MD [address] [place] [address] 3 mo f/u / est pt neurosarcoid / f/u desk Pulmonary Medicine Comment on above: 3 mo f/u / est pt neurosarcoid / f/u emily k Start: 11-25-2023 Covid-19 Vaccine ( season) Covid-19 Vaccine ( season) [facility] Start: 11-25-2023 Covid-19 Vaccine () Covid-19 Vaccine () [facility] Start: 11-25-2023 Influenza vaccination [facility] Start: 11-23-2023 End: 11-23-2023 Patient encounter procedure 11/23/2023 1:00 PM EDT Office Visit [facility] Ophthalmology [address] [place], [place] [address] Mark Gong, OD [address] [place] [address] Return in about 4 months (around 01/06/2024). Ophthalmology Comment on above: Return in about 4 months (around 024). Start: 10-26-2023 End: 10-26-2023 [facility] Center Hematology/Oncology Comment on above: Q6WK AVSOLA/ORDERING DEBASIS LEE/AUTH EXP 07/10/24* NO LATER THAN 130 2ND Start: 10-17-2023 End: 01-16-2024 25-hydroxyvitamin D3 [Mass/volume] in Serum or Plasma VITAMIN D 25 HYDROXY Lab Routine Sarcoidosis Expected: 10/17/2023, Expires: 01/16/2024 [facility] Comment on above: Expected: 10/17/2023, Expires: Start: 10-17-2023 End: 01-16-2024 Angiotensin converting enzyme [Enzymatic activity/volume] in Serum or Plasma ANGELITO/ANGIOTENSIN BLD Lab Routine Sarcoidosis Expected: 10/17/2023, Expires: 01/16/2024 [facility] Comment on above: Expected: 10/17/2023, Expires: Start: 10-17-2023 End: 01-16-2024 BLOOD TB SCREEN BLOOD TB SCREEN Lab Routine Sarcoidosis Expected: 10/17/2023, Expires: 01/16/2024 [facility] Comment on above: Expected: 10/17/2023, Expires: Start: 10-17-2023 End: 01-16-2024 C reactive protein [Mass/volume] in Serum or Plasma C-REACTIVE PROTEIN Lab Routine Sarcoidosis Expected: 10/17/2023, Expires: 01/16/2024 [facility] Comment on above: Expected: 10/17/2023, Expires: Start: 10-17-2023 End: 01-16-2024 Calcitriol [Mass/volume] in Serum or Plasma VITAMIN D1 25-DIHYDR Lab Routine Sarcoidosis Expected: 10/17/2023, Expires: 01/16/2024 [facility] Comment on above: Expected: 10/17/2023, Expires: Start: 10-17-2023 End: 01-16-2024 Erythrocyte sedimentation rate SEDIMENTATION RATE, WESTERGREN Lab Routine Sarcoidosis Expected: 10/17/2023, Expires: 01/16/2024 [facility] Comment on above: Expected: 10/17/2023, Expires: Start: 10-17-2023 End: 01-16-2024 INTERLEUKIN 2 RECEPTOR, SOLUBLE, SERUM INTERLEUKIN 2 RECEPTOR, SOLUBLE, SERUM Lab Routine Sarcoidosis Expected: 10/17/2023, Expires: 01/16/2024 [facility] Comment on above: Expected: 10/17/2023, Expires: Start: 10-17-2023 End: 10-17-2023 Follow-up encounter 10/17/2023 1:30 PM EDT [facility] [address] [place] [address] Lynn Howard MD [address] [place] [address] follow up Pulmonary Medicine Comment on above: follow up Start: 10-17-2023 End: 10-17-2023 Patient encounter procedure 10/17/2023 1:30 PM EDT Office Visit Pulmonary Medicine [address] [address] Lynn Howard MD [address] [place] [address] Gen, Est, 6 month follow up, Pulmonary Medicine Comment on above: Gen, Est, 6 month follow up, Start: 09-26-2023 End: 09-26-2023 Patient encounter procedure 09/26/2023 3:00 PM EDT Appointment Radiology [address] [place] [address] 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] Radiology Comment on above: Sarcoidosis of central nervous system [D 86.89] Start: 2023 End: 2023 Infusion Center 2023 1:30 PM EDT Infusion Center Hematology/Oncology [address] [place] [address] Q6WK AVSOLA/ORDERING DEBASIS LEE/AUTH EXP 07/10/24* NO LATER THAN 130 Hematology/Oncology Comment on above: Q6WK AVSOLA/ORDERING DEBASIS LEE/AUTH EXP 07/10/24* NO LATER THAN 130 Start: 09-06-2023 End: 09-06-2023 Patient encounter procedure 09/06/2023 3:00 PM EDT Office Visit [facility] Ophthalmology [address] [address] Nelson Gibson MD [address] [place] [address] Return in about 4 months (around 09/01/2023). Ophthalmology Comment on above: Return in about 4 months (around ). Start: 08-23-2023 End: 08-23-2023 Patient encounter procedure 08/23/2023 2:30 PM EDT Office Visit Pulmonary Medicine [address] [place] [address] Meño Steinberg MD [address] [place] [address] Gen, Est, 6 month follow up, Pulmonary Medicine Comment on above: Gen, Est, 6 month follow up, Start: 08-08-2023 End: 08-08-2023 Follow-up encounter 08/08/2023 8:00 AM EDT [facility] [address] [id number] Gia Stewart MD [address] [place], [place] [id number] follow up visit Allergy Comment on above: follow up visit Start: 08-03-2023 End: 08-03-2023 Infusion Center 08/03/2023 1:30 PM EDT Infusion Center Hematology/Oncology [address] [place] [address] Q6WK AVSOLA/ORDERING DEBASIS LEE/AUTH EXP ?* Hematology/Oncology Comment on above: Q6WK AVSOLA/ORDERING DEBASIS LEE/AUTH EXP ?* Start: 03-26-2023 Behavioral Health Screening Behavioral Health Screening [facility] Start: 03-26-2023 Depression Assessment Depression Assessment [facility] Start: 03-15-2023 End: 10-13-2023 Ct thorax w/o contrast material CT CHEST WO IVCON Radiology Routine Thunderclap headache Sarcoidosis of lung (HCC) Neurosarcoidosis Morbid obesity (HCC) Expected: 03/15/2023, Expires: 10/13/2023 [facility] Work Phone: Comment on above: Expected: 03/15/2023, Expires: Start: 03-15-2023 End: 10-13-2023 LUNG DIFFUSION CAPACITY (DLCO) LUNG DIFFUSION CAPACITY (DLCO) PFT Routine Sarcoidosis of lung (HCC) Expected: 03/15/2023, Expires: 10/13/2023 [facility] Work Phone: Comment on above: Expected: 03/15/2023, Expires: 4 Start: 03-15-2023 End: 10-13-2023 Mri brain brain stem w/o w/contrast material [facility] Work Phone: Comment on above: Expected: 03/15/2023, Expires: 4 Start: 03-15-2023 End: 10-13-2023 SPIROMETRY WITH DILATOR IF OBSTRUCTED SPIROMETRY WITH DILATOR IF OBSTRUCTED PFT Routine Sarcoidosis of lung (HCC) Expected: 03/15/2023, Expires: 10/13/2023 [facility] Work Phone: Comment on above: Expected: 03/15/2023, Expires: 4 Start: 02-17-2023 End: 07-27-2023 OCT MACULA CIRRUS OU (BOTH EYES) OCT MACULA CIRRUS OU (BOTH EYES) [facility] Imaging Routine Sarcoid uveitis of left eye Expected: 02/17/2023, Expires: 07/27/2023 [facility] Work Phone: Comment on above: Expected: 02/17/2023, Expires: 4 Start: 11-24-2022 Covid-19 Vaccine ( season) Covid-19 Vaccine () [facility] Start: 11-24-2022 Influenza vaccination [facility] Start: 09-13-2022 End: 11-13-2022 Angiotensin converting enzyme [Enzymatic activity/volume] in Serum or Plasma [facility] Work Phone: Comment on above: Expected: 09/13/2022, Expires: 3 Start: 09-13-2022 End: 11-13-2022 BLOOD TB SCREEN [facility] Work Phone: Comment on above: Expected: 09/13/2022, Expires: 3 Start: 09-13-2022 End: 11-13-2022 C reactive protein [Mass/volume] in Serum or Plasma [facility] Work Phone: Comment on above: Expected: 09/13/2022, Expires: 3 Start: 09-13-2022 End: 11-13-2022 Erythrocyte sedimentation rate [facility] Work Phone: Comment on above: Expected: 09/13/2022, Expires: 3 Start: 09-13-2022 End: 11-13-2022 INTERLEUKIN 2 RECEPTOR, SOLUBLE, SERUM [facility] Work Phone: Comment on above: Expected: 09/13/2022, Expires: 3 Start: 09-12-2022 TWO PNEUMOVAX 5 YEARS APART PRIOR TO AGE 65 (#2) TWO PNEUMOVAX 5 YEARS APART PRIOR TO AGE 65 (#2) [facility] Start: 08-27-2022 End: 02-03-2023 OCT MACULA CIRRUS OU (BOTH EYES) OCT MACULA CIRRUS OU (BOTH EYES) [facility] Imaging Routine Sarcoid uveitis of left eye Expected: 08/27/2022, Expires: 02/03/2023 [facility] Work Phone: Comment on above: Expected: 08/27/2022, Expires: 3 Start: 08-17-2022 Adult depression screening assessment DEPRESSION SCREENING [facility] Start: 07-21-2022 Adult depression screening assessment DEPRESSION SCREENING [facility] Start: 05-09-2022 [facility] Comment on above: Postponed from 2008 (Declined at t his time) Start: 05-09-2022 ADULT PREVNAR-13 ADULT PREVNAR-13 [facility] Comment on above: Postponed from 2008 (Declined at t his time) Start: 05-09-2022 PNEUMOCOCCAL (2 - PCV) PNEUMOCOCCAL (2 - PCV) [facility] Comment on above: Postponed from 09/12/2018 (Declined at t his time) Start: 03-26-2022 DEPRESSION ASSESSMENT DEPRESSION ASSESSMENT [facility] Start: 02-10-2022 Adult depression screening assessment DEPRESSION SCREENING [facility] Start: 01-23-2022 End: 03-25-2022 Angiotensin converting enzyme [Enzymatic activity/volume] in Serum or Plasma ANGELITO/ANGIOTENSIN BLD Lab Routine Neurosarcoidosis Sarcoid uveitis of left eye Expected: 01/23/2022, Expires: 03/25/2022 [facility] Work Phone: Comment on above: Expected: 01/23/2022, Expires: 2 Start: 01-23-2022 End: 03-25-2022 C reactive protein [Mass/volume] in Serum or Plasma C-REACTIVE PROTEIN (CRP) Lab Routine Neurosarcoidosis Sarcoid uveitis of left eye Expected: 01/23/2022, Expires: 03/25/2022 [facility] Work Phone: Comment on above: Expected: 01/23/2022, Expires: 2 Start: 01-23-2022 End: 03-25-2022 Erythrocyte sedimentation rate SED RATE WESTERGREN Lab Routine Neurosarcoidosis Sarcoid uveitis of left eye Expected: 01/23/2022, Expires: 03/25/2022 [facility] Work Phone: Comment on above: Expected: 01/23/2022, Expires: 2 Start: 01-23-2022 End: 03-25-2022 INTERLEUKIN 2 RECEPTOR, SOLUBLE, SERUM INTERLEUKIN 2 RECEPTOR, SOLUBLE, SERUM Lab Routine Neurosarcoidosis Sarcoid uveitis of left eye Expected: 01/23/2022, Expires: 03/25/2022 [facility] Work Phone: Comment on above: Expected: 01/23/2022, Expires: 2 Start: 11-24-2021 Influenza vaccination INFLUENZA (#1) [facility] Start: 08-30-2021 Radiography of ankle Ankle min 3 Views [facility] Work Phone: Start: 08-30-2021 Radiography of ankle Ankle 2 Views [facility] Work Phone: Start: 07-20-2021 COVID-19 VACCINE (4 - Booster for Pfizer series) COVID-19 VACCINE (4 - Booster for Pfizer series) [facility] Start: 07-14-2021 COVID-19 VACCINE (4 - Booster for Pfizer series) COVID-19 VACCINE (4 - Booster for Pfizer series) [facility] Start: 06-16-2021 COVID-19 VACCINE (4 - Booster for Pfizer series) COVID-19 VACCINE (4 - Booster for Pfizer series) [facility] Start: 06-16-2021 Covid-19 Vaccine (4 - Pfizer risk series) Covid-19 Vaccine (4 - Pfizer risk series) [facility] Start: 05-16-2021 Injection aa&/strd sciatic nerve NJX AA&/STRD SCIATIC NERVE [facility] Work Phone: Start: 05-16-2021 Open tx distal fibular fracture lat malleolus TREATMENT OF ANKLE FRACTURE [facility] Work Phone: Start: 05-16-2021 Open tx distal tibiofibular joint disruption TREAT LOWER LEG JOINT [facility] Work Phone: Start: 05-16-2021 Open tx trimalleolar ankle fx w/o fixj pst lip TREATMENT OF ANKLE FRACTURE [facility] Work Phone: Start: 03-26-2021 DEPRESSION ASSESSMENT DEPRESSION ASSESSMENT [facility] Start: 09-12-2018 PNEUMOCOCCAL (2 - PCV) PNEUMOCOCCAL (2 - PCV) [facility] Start: 09-12-2018 Pneumococcal vaccination [facility] Start: 2008 SHINGRIX VACCINE (1 of 2) SHINGRIX VACCINE (1 of 2) [facility] Start: 09-15-2007 Anxiety Screening Anxiety Screening [facility] Start: 09-15-2007 Depression Screening Depression Screening [facility] End: 08-17-2022 CBC W Auto Differential panel - Blood CBC + DIFF Lab Routine Sarcoidosis of lung (HCC) Every 2 months for 6 Occurrences starting 08/17/2021 until 08/17/2022 [facility] Work Phone: Comment on above: Every 2 months for 6 Occurrences startin g 08/17/2021 until 08/17/2022 End: 01-23-2023 CBC W Auto Differential panel - Blood CBC + DIFF Lab Routine Neurosarcoidosis Sarcoid uveitis of left eye Once per month for 6 Occurrences starting 01/23/2022 until 01/23/2023 [facility] Work Phone: Comment on above: Once per month for 6 Occurrences startin g 01/23/2022 until 01/23/2023 End: 05-19-2023 CBC W Auto Differential panel - Blood CBC + DIFF Lab Routine Neurosarcoidosis Every 2 months for 6 Occurrences starting 05/19/2022 until 05/19/2023 [facility] Work Phone: Comment on above: Every 2 months for 6 Occurrences startin g 05/19/2022 until 05/19/2023 End: 10-16-2024 CBC W Auto Differential panel - Blood COMPLETE BLOOD COUNT AND DIFFERENTIAL Lab Routine Sarcoidosis Once per month for 6 Occurrences starting 10/17/2023 until 10/16/2024 [facility] Work Phone: Comment on above: Once per month for 6 Occurrences startin g 10/17/2023 until 10/16/2024 End: 02-26-2025 CBC W Auto Differential panel - Blood COMPLETE BLOOD COUNT AND DIFFERENTIAL Lab Routine Neurosarcoidosis Every 2 months for 6 Occurrences starting 02/27/2024 until 02/26/2025 [facility] Work Phone: Comment on above: Every 2 months for 6 Occurrences startin g 02/27/2024 until 02/26/2025 End: 08-17-2022 Comprehensive metabolic 2000 panel - Serum or Plasma COMP METABOLIC PANEL Lab Routine Sarcoidosis of lung (HCC) Every 2 months for 6 Occurrences starting 08/17/2021 until 08/17/2022 [facility] Work Phone: Comment on above: Every 2 months for 6 Occurrences startin g 08/17/2021 until 08/17/2022 End: 01-23-2023 Comprehensive metabolic 2000 panel - Serum or Plasma COMP METABOLIC PANEL Lab Routine Neurosarcoidosis Sarcoid uveitis of left eye Once per month for 6 Occurrences starting 01/23/2022 until 01/23/2023 [facility] Work Phone: Comment on above: Once per month for 6 Occurrences startin g 01/23/2022 until 01/23/2023 End: 05-19-2023 Comprehensive metabolic 2000 panel - Serum or Plasma COMP METABOLIC PANEL Lab Routine Neurosarcoidosis Every 2 months for 6 Occurrences starting 05/19/2022 until 05/19/2023 [facility] Work Phone: Comment on above: Every 2 months for 6 Occurrences startin g 05/19/2022 until 05/19/2023 End: 10-16-2024 Comprehensive metabolic 2000 panel - Serum or Plasma COMPREHENSIVE METABOLIC PANEL Lab Routine Sarcoidosis Once per month for 6 Occurrences starting 10/17/2023 until 10/16/2024 [facility] Comment on above: Once per month for 6 Occurrences startin g 10/17/2023 until 10/16/2024 End: 02-26-2025 Comprehensive metabolic 2000 panel - Serum or Plasma COMPREHENSIVE METABOLIC PANEL Lab Routine Neurosarcoidosis Every 2 months for 6 Occurrences starting 02/27/2024 until 02/26/2025 [facility] Comment on above: Every 2 months for 6 Occurrences startin g 02/27/2024 until 02/26/2025 End: 06-18-2023 Ct thorax w/o contrast material CT CHEST WO IVCON Radiology Routine Neurosarcoidosis Sarcoidosis of lung (HCC) 1 Occurrences starting 05/19/2022 until 06/18/2023 [facility] Work Phone: Comment on above: 1 Occurrences starting 05/19/2022 until 06/18/2023 LUNG DIFFUSION CAPAC ITY (DLCO) LUNG DIFFUSION CAPACITY (DLCO) PFT Routine Sarcoidosis of lung (HCC) 05/10/2023 1:26 PM EST [facility] Work Phone: End: 09-21-2024 MR Orbit WO and W contrast IV MRI ORBIT WO/W IVCON Radiology Routine 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 Occurrences starting 08/23/2023 until 09/21/2024 [facility] Work Phone: Comment on above: 1 Occurrences starting 08/23/2023 until 09/21/2024 End: 08-21-2022 Mri brain brain stem w/o w/contrast material MRI BRAIN WO/W IVCON Radiology Routine Sarcoidosis of central nervous system 1 Occurrences starting 07/22/2021 until 08/21/2022 [facility] Work Phone: Comment on above: 1 Occurrences starting 07/22/2021 until 08/21/2022 End: 08-21-2022 Mri orbit face & neck w/o & w/contrast matrl MRI ORBIT WO/W IVCON Radiology Routine Sarcoidosis of central nervous system 1 Occurrences starting 07/22/2021 until 08/21/2022 [facility] Work Phone: Comment on above: 1 Occurrences starting 07/22/2021 until 08/21/2022 Patient referral [facility] Work Phone: End: 02-22-2023 Radiologic exam chest 2 views XR CHEST 2V FRONTAL/LAT Radiology Routine 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 Occurrences starting 01/23/2022 until 02/22/2023 [facility] Work Phone: Comment on above: 1 Occurrences starting 01/23/2022 until 02/22/2023 SPIROMETRY WITH DILA TOR IF OBSTRUCTED SPIROMETRY WITH DILATOR IF OBSTRUCTED PFT Routine Sarcoidosis of lung ([facility]) 05/10/2023 1:26 PM EST [facility] Work Phone: End: 11-15-2024 XR Chest PA and Lateral XR CHEST 2V FRONTAL/LAT Radiology Routine Sarcoidosis 1 Occurrences starting 10/17/2023 until 11/15/2024 [facility] Comment on above: 1 Occurrences starting 10/17/2023 until 11/15/2024 [facility] Immunizations Immunization Date Immunization Notes Care Provider Fa sandy 04-21-2021 Covid (Pfizer) Dr. Cleveland Means Work Phone: [facility] 02-10-2021 influenza, injectabl e, quadrivalent, contains preservative Nelson Gibson MD Work Phone: [facility] 02-10-2021 influenza virus vacc ine, unspecified formulation Treatment Wstr Work Phone: [facility] 09-12-2017 pneumococcal polysaccharide vaccine, 23 valent Nelson Gibson MD Work Phone: [facility] 08-19-2015 tetanus toxoid, redu jesi diphtheria toxoid, and acellular pertussis vaccine, adsorbed Nelson Gibson MD Work Phone: [facility] 04-18-2013 influenza virus vacc ine, unspecified formulation Nelson Gibson MD Work Phone: [facility] 11-07-2001 hepatitis B vaccine, pediatric or pediatric/adolescent dosage Nelson Gibson MD Work Phone: [facility] Work Phone: 11-07-2001 measles, mumps and rubella virus vaccine Nelson Gibson MD Work Phone: [facility] Work Phone: Payers Date Payer Category Payer [employer] BLUE CARD PPO OOS [id number] 2023 Unknown [id number] 2023 Unknown [id number] 2021 Self-pay [id number] 2020 Unknown [id number] 2018 Unknown MMO MMO SUPERMED PLUS [id number] 2018-Present [phone] [address] [place] [address] PPO [id number] 2018 Unknown [id number] Unknown [id number] Unknown [id number] Unknown [id number] Unknown [id number] Unknown [id number] Unknown [id number] Unknown [id number] Unknown [id number] Social History Date Type Detail Facility Start: 06-21-2015 End: 05-01-2024 Tobacco smoking status NHIS Ex-smoker [facility] Start: 09-19-2011 End: 09-18-2012 History of tobacco use Current smoker [facility] Start: 09-19-2011 End: 09-18-2012 History of tobacco use Cigarette Smoker [facility] Start: 06-21-2015 End: 08-11-2022 Cigarettes smoked current (pack per day) - Reported 0.5 [facility] Start: 06-21-2015 End: 05-01-2024 Tobacco use and exposure User of smokeless tobacco [facility] History of tobacco use Chews Tobacco [facility] Start: 04-29-2021 End: 05-09-2021 Alcohol intake Current non-drinker of alcohol (finding) [facility] Start: 02-10-2021 History SDOH Alcohol Frequency 3 [facility] Start: 02-10-2021 History SDOH Alcohol Std Drinks 1 [facility] Start: 02-10-2021 History SDOH Social Connections Phone 5 [facility] Start: 02-10-2021 History SDOH Social Connections Membership 2 [facility] Start: 02-10-2021 History SDOH Physical Activity DPW 0 [facility] Start: 02-10-2021 History SDOH Financial 4 [facility] Start: 12-14-2019 Education 21 [facility] Start: 04-15-2020 End: 01-31-2022 Tobacco Comment no vape hx [facility] Start: 1990 Sex Assigned At Male [facility] Start: 03-30-2021 End: 01-31-2022 Exposure to SARS-CoV-2 (event) Not sure [facility] Start: 08-24-2021 Tobacco smoking status [facility] Unknown if ever smoked [facility] Work Phone: Start: 01-31-2022 End: 08-28-2024 Alcohol intake Current drinker of alcohol (finding) [facility] Start: 04-20-2022 Alcohol Comment occasionally [facility] Start: 02-10-2021 End: 08-11-2022 Social connection and isolation panel [facility] Do you belong to any clubs or organizations such as quaker groups, unions, fraternal or athletic groups, or school groups? No [facility] Are you now , , , , never or living with a partner? [facility] How often to you hav e a drink containing alcohol? 2-4 times a month [facility] How many standard dr inks containing alcohol do you have on a typical day? 1 or 2 [facility] How often do you hav e 6 or more drinks on 1 occasion? Never [facility] How hard is it for y ou to pay for the very basics like food, housing, medical care, and heating Not very hard [facility] Adult Depression Screening Assessment 3 [facility] Do you feel stress - tense, restless, nervous, or anxious, or unable to sleep at night because your mind is troubled all the time - these days [OSQ] To some extent [facility] (I/We) worried wheth er (my/our) food would run out before (I/we) got money to buy more. Never true [facility] Start: 10-23-2019 Gender identity Identifies as male gender (finding) [facility] Start: 10-23-2019 Sexual orientation Heterosexual (finding) [facility] How often to you hav e a drink containing alcohol? Monthly or less [facility] How hard is it for y ou to pay for the very basics like food, housing, medical care, and heating Somewhat hard [facility] In the past 12 month s, was there a time when you were not able to pay the mortgage or rent on time? Yes [facility] Start: 10-03-2024 Tobacco smoking status NHIS Smokes tobacco daily (finding) [facility] Medical Equipment Procedure Code Equipment Code Equipment Origin al Text Equipment Identifier Dates ORIF, ankle 2.7mm locking screw FDA Star t: 05-16-2021 ORIF, ankle Posterior Latera l fibula plate FDA Start: 05-16-2021 ORIF, ankle TIGHTROPE, XP FDA Start: 05-16-2021 ORIF, ankle 2.7mm locking screw FDA Star t: 05-16-2021 ORIF, ankle 2.7mm locking screw FDA Star t: 05-16-2021 ORIF, ankle 2.7mm locking screw FDA Star t: 05-16-2021 ORIF, ankle 3.5mm cortical screw FDA Sta rt: 05-16-2021 ORIF, ankle 3.5mm locking screw FDA Star t: 05-16-2021 ORIF, ankle 3.5mm locking screw FDA Star t: 05-16-2021 ORIF, ankle 3.5mm locking screw FDA Star t: 05-16-2021 ORIF, ankle 3.5mm locking screw FDA Star t: 05-16-2021 ORIF, ankle 2.7mm locking screw FDA Star t: 05-16-2021 ORIF, ankle Posterior Latera l fibula plate FDA Start: 05-16-2021 ORIF, ankle TIGHTROPE, XP FDA Start: 05-16-2021 ORIF, ankle 2.7mm locking screw FDA Star t: 05-16-2021 ORIF, ankle 2.7mm locking screw FDA Star t: 05-16-2021 ORIF, ankle 2.7mm locking screw FDA Star t: 05-16-2021 ORIF, ankle 3.5mm cortical screw FDA Sta rt: 05-16-2021 ORIF, ankle 3.5mm locking screw FDA Star t: 05-16-2021 ORIF, ankle 3.5mm locking screw FDA Star t: 05-16-2021 ORIF, ankle 3.5mm locking screw FDA Star t: 05-16-2021 ORIF, ankle 3.5mm locking screw FDA Star t: 05-16-2021 ORIF, ankle 2.7mm locking screw FDA Star t: 05-16-2021 ORIF, ankle Posterior Latera l fibula plate FDA Start: 05-16-2021 ORIF, ankle TIGHTROPE, XP FDA Start: 05-16-2021 ORIF, ankle 2.7mm locking screw FDA Star t: 05-16-2021 ORIF, ankle 2.7mm locking screw FDA Star t: 05-16-2021 ORIF, ankle 2.7mm locking screw FDA Star t: 05-16-2021 ORIF, ankle 3.5mm cortical screw FDA Sta rt: 05-16-2021 ORIF, ankle 3.5mm locking screw FDA Star t: 05-16-2021 ORIF, ankle 3.5mm locking screw FDA Star t: 05-16-2021 ORIF, ankle 3.5mm locking screw FDA Star t: 05-16-2021 ORIF, ankle 3.5mm locking screw FDA Star t: 05-16-2021 ORIF, ankle 2.7mm locking screw FDA Star t: 05-16-2021 ORIF, ankle Posterior Latera l fibula plate FDA Start: 05-16-2021 ORIF, ankle TIGHTROPE, XP FDA Start: 05-16-2021 ORIF, ankle 2.7mm locking screw FDA Star t: 05-16-2021 ORIF, ankle 2.7mm locking screw FDA Star t: 05-16-2021 ORIF, ankle 2.7mm locking screw FDA Star t: 05-16-2021 ORIF, ankle 3.5mm cortical screw FDA Sta rt: 05-16-2021 ORIF, ankle 3.5mm locking screw FDA Star t: 05-16-2021 ORIF, ankle 3.5mm locking screw FDA Star t: 05-16-2021 ORIF, ankle 3.5mm locking screw FDA Star t: 05-16-2021 ORIF, ankle 3.5mm locking screw FDA Star t: 05-16-2021 Retisert Flucino lone Acetonide 0.59mg - [id number] Start: 07-27-2020 0.3 mL one time a week. [id number] Start: 10-17-2023 End: 04-14-2024 Mental Status Date Assessment Result Facility 08-30-2021 Cognitive function Voice/Name [facility] Work Phone: 05-16-2021 Cognitive function Voice/Name [facility] Work Phone: Clinical Notes 01-01-2018 to 08-28-2024 Nelson Gibson MD - 08/28/2024 12:06 PM EDTTelephone Encounter - Ashkan Alves - 07/31/2024 12:43 PM EDTTelephone Encounter - Ashkan Alves - 07/31/2024 12:43 PM EDT Note Date & Type Note Facility 08-28-2024 Note Date of Procedure 08/28/2024. 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 Start time: 10:52 AM. Stop time: 11:00 AM. Imaged Right eye only no view Left eye . Quality Right Eye Good. Left Eye Excessive artifacts. ZEISS 08-28-2024 Note Date of Procedure 08/28/2024. 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 Start time: 10:52 AM. Stop time: 11:00 AM. Imaged right eye only no view os. OCT Macula Interpretation Right Eye Normal without fluid. Interval Change Right Eye Stable. ZEISS 08-28-2024 Note Date of Procedure 08/28/2024. 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 Start time: 11:01 AM. Stop time: 11:03 AM. Disc Right Eye Normal. Macula Right Eye Normal. Periphery Right Eye Normal. [facility] 08-28-2024 Note Date of Procedure 08/28/2024. 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 Start time: 11:00 AM. Stop time: 11:03 AM. Interpretation Right Eye Normal pattern. [facility]ISS 08-28-2024 Note Date of Procedure 08/28/2024. 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 Start time: 11:03 AM. Stop time: 11:36 AM. 24g IV catheter in Right wrist vein. 2.5 cc's 10% NaFl injected. No complications. Catheter removed, intact. Patient tolerated. Michelle Dixon RN 08/28/2024 11:20 AM No view Left eye increased/ decreased gain view no better . Interpretation Left Eye Findings include Leakage. Additional Notes Right Eye No neovascularization on views obtained, No abnormal disc fluorescence, No late staining/hyperfluorescence in the macula. Notes ? Leakage OS [facility] 08-28-2024 Note HNO ID: [id number] Author: NELSON GIBSON MD Service: ? 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 biopsied and c/w sarcoid. Follows with pulmonology Dr. Howard. - Had numerous URRUTIA and light sensitivity, MRI in 05/2018 with leptomeningeal enhancement c/w sarcoidosis. - Most recent MRI Orbits 09/26/2023: Stable chronic changes in the left globe with newly appreciated areas of likely chronic abnormal signal in the left optic nerve, but no superimposed abnormal enhancement to suggest an active optic neuritis Imaging: - FA 12/24/19 OD mild disc leakage with far peripheral perivenular leakage; relatively normal - FA 02/24/21: Left eye hot disc, hazy view - OCT 09/28/22 Right eye - flat - OCT 02/01/23: OD - flat, unable to obtain OS - OCT 05/03/23: OD - flat, OS - abnormal contour, but improved vs last few visit - unclear if same area of imaging or not. - OCT 05/01/2024: OD flat, stable, poor view/centration but grossly less fluid/macular folds OCT 08/28/24 Right eye - flat, no view Left eye - FA 08/29/24 no leakage Right eye, no real view Left eye Assessment/Plan: - I think inactive, but time to replace retisert Left eye - will K transplant; - ongoing corneal edema and haze - PK/Silicon oil removal / Retisert exchange later in the year Guide Dog Mobility Instructor: Dr. Howard (Reviewed note from 02/27/24) Neurologist: Dr. Steinberg (Reviewed note from 08/23/2023) Labs: get rpt labs and TB screen; last CBC/CMP from 01/2022 I have confirmed and edited as necessary the relevant HPI, ophthalmic history, ROS, and the neuro exam findings as obtained by others. I have seen and examined Aston Chicas III. I have discussed the case and the management of this patient's care with the Resident/Fellow, if applicable. I also have reviewed and agree with the assessment and plan as stated above and agree with all of its relevant components. 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 biopsied and c/w sarcoid. Follows with pulmonology Dr. Howard. - Had numerous URRUTIA and light sensitivity, MRI in 05/2018 with leptomeningeal enhancement c/w sarcoidosis. - Most recent MRI Orbits 09/26/2023: Stable chronic changes in the left globe with newly appreciated areas of likely chronic abnormal signal in the left optic nerve, but no superimposed abnormal enhancement to suggest an active optic neuritis Imaging: - FA 12/24/19 OD mild disc leakage with far peripheral perivenular leakage; relatively normal - FA 02/24/21: Left eye hot disc, hazy view - OCT 09/28/22 Right eye - flat - OCT 02/01/23: OD - flat, unable to obtain OS - OCT 05/03/23: OD - flat, OS - abnormal contour, but improved vs last few visit - unclear if same area of imaging or not. - OCT 05/01/2024: OD flat, stable, poor view/centration but grossly less fluid/macular folds OCT 08/28/24 Right eye - flat, no view Left eye - FA 08/29/24 no leakage Right eye, no real view Left eye Assessment/Plan: - I think inactive, but time to replace retisert Left eye - will K transplant; - ongoing corneal edema and haze - PK/Silicon oil removal / Retisert exchange later in the year Guide Dog Mobility Instructor: Dr. Howard (Reviewed note from 02/27/24) Neurologist: Dr. Steinberg (Reviewed note from 08/23/2023) Labs: get rpt labs and TB screen; last CBC/CMP from 01/2022 I have confirmed and edited as necessary the relevant HPI, ophthalmic history, ROS, and the neuro exam findings as obtained by others. I have seen and examined Aston Chicas III. I have discussed the case and the management of this patient's care with the Resident/Fellow, if applicable. I also have reviewed and agree with the assessment and plan as stated above and agree with all of its relevant components. documented in this encounter [facility] 07-31-2024 Telephone encounter Note Images from the original note were not included. Avsola 100 MG Vials were approved Please allow time delay for documents to appear in Epic (Scanned Documents Tab). Images can take up to 24 hours to appear in Epic. [facility] 07-31-2024 Miscellaneous Notes Images from the original note were not included. Avsola 100 MG Vials were approved Please allow time delay for documents to appear in Epic (Scanned Documents Tab). Images can take up to 24 hours to appear in Epic. documented in this encounter [facility] 06-20-2024 Telephone encounter Note Rescheduled, patient informed [facility] Work Phone: 06-20-2024 Miscellaneous Notes Rescheduled, patient informed Spouse is calling to move 07/04/24 to 07/11 as patient is going to first shift and unable to get time off for this date, and then will need to move other appointments to the afternoon please advise patient in regards to these changes as spouse is currently at work and unable to take a call. documented in this encounter [facility] 06-20-2024 Telephone encounter Note Spouse is calling to move 07/04/24 to 07/11 as patient is going to first shift and unable to get time off for this date, and then will need to move other appointments to the afternoon please advise patient in regards to these changes as spouse is currently at work and unable to take a call. [facility] 05-01-2024 Note HNO ID: [id number] Author: NELSON GIBSON MD Service: ? Author Type: Physician Type: Progress Notes Filed: 05/01/2024 17:36 Note Text: Got updated Mrx last Fall, seeing well. 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 biopsied and c/w sarcoid. Follows with pulmonology Dr. Howard. - Had numerous URRUTIA and light sensitivity, MRI in 05/2018 with leptomeningeal enhancement c/w sarcoidosis. - Most recent MRI Orbits 09/26/2023: Stable chronic changes in the left globe with newly appreciated areas of likely chronic abnormal signal in the left optic nerve, but no superimposed abnormal enhancement to suggest an active optic neuritis Imaging: - FA 12/24/19 OD mild disc leakage with far peripheral perivenular leakage; relatively normal - FA 02/24/21: Left eye hot disc, hazy view - OCT 09/28/22 Right eye - flat - OCT 02/01/23: OD - flat, unable to obtain OS - OCT 05/03/23: OD - flat, OS - abnormal contour, but improved vs last few visit - unclear if same area of imaging or not. - OCT 05/01/2024: OD flat, stable, poor view/centration but grossly less fluid/macular folds Assessment/Plan: - Retisert is still working well OS - improved fluid/folds - Restarted on MTX oral, continuing PO prednisone and infliximab infusions [id number]. - Follow up in 4 months with FA - ongoing corneal edema and haze - Consider PK/SOR/sutured IOL/Retisert exchange later in the year Guide Dog Mobility Instructor: Dr. Howard (Reviewed note from 02/27/24) Neurologist: Dr. Steinberg (Reviewed note from 08/23/2023) Labs: get rpt labs and TB screen; last CBC/CMP from 01/2022 I have confirmed and edited as necessary the relevant HPI, ophthalmic history, ROS, and the neuro exam findings as obtained by others. I have seen and examined Aston Chicas III. I have discussed the case and the management of this patient's care with the Resident/Fellow, if applicable. I also have reviewed and agree with the assessment and plan as stated above and agree with all of its relevant components. [facility] 05-01-2024 Note Date of Procedure 05/01/2024. OCT Macula Interpretation Right Eye Findings include Negative for Intraretinal fluid, Subretinal fluid. Left Eye Findings include Negative for Intraretinal fluid, Subretinal fluid. Interval Change Right Eye Stable. Left Eye Stable. [facility] 05-01-2024 History of Present illness Narrative Got updated Mrx last Fall, seeing well. 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 biopsied and c/w sarcoid. Follows with pulmonology Dr. Howard. - Had numerous URRUTIA and light sensitivity, MRI in 05/2018 with leptomeningeal enhancement c/w sarcoidosis. - Most recent MRI Orbits 09/26/2023: Stable chronic changes in the left globe with newly appreciated areas of likely chronic abnormal signal in the left optic nerve, but no superimposed abnormal enhancement to suggest an active optic neuritis Imaging: - FA 12/24/19 OD mild disc leakage with far peripheral perivenular leakage; relatively normal - FA 02/24/21: Left eye hot disc, hazy view - OCT 09/28/22 Right eye - flat - OCT 02/01/23: OD - flat, unable to obtain OS - OCT 05/03/23: OD - flat, OS - abnormal contour, but improved vs last few visit - unclear if same area of imaging or not. - OCT 05/01/2024: OD flat, stable, poor view/centration but grossly less fluid/macular folds Assessment/Plan: - Retisert is still working well OS - improved fluid/folds - Restarted on MTX oral, continuing PO prednisone and infliximab infusions [id number]. - Follow up in 4 months with FA - ongoing corneal edema and haze - Consider PK/SOR/sutured IOL/Retisert exchange later in the year Guide Dog Mobility Instructor: Dr. Howard (Reviewed note from 02/27/24) Neurologist: Dr. Steinberg (Reviewed note from 08/23/2023) Labs: get rpt labs and TB screen; last CBC/CMP from 01/2022 I have confirmed and edited as necessary the relevant HPI, ophthalmic history, ROS, and the neuro exam findings as obtained by others. I have seen and examined Aston Chicas III. I have discussed the case and the management of this patient's care with the Resident/Fellow, if applicable. I also have reviewed and agree with the assessment and plan as stated above and agree with all of its relevant components. documented in this encounter [facility] 04-24-2024 Telephone encounter Note Summary: RX REFILL Patient contacted pharmacy and requests refills as follows: Requested Prescriptions Pending Prescriptions Disp Refills cetirizine (ZYRTEC) 10 mg tablet [Pharmacy Med Name: CETIRIZINE HCL 10 MG TABLET] 90 tablet 1 Sig: TAKE 1 TABLET BY MOUTH EVERY DAY The last encounter with Lynn Howard MD was 02/27/2024 RX INSTRUCTIONS: Patient aware RX will be sent to pharmacy. No need to notify patient. Patient has been identified by name and date of : Yes Ashkan Alcantar [facility] 04-24-2024 Miscellaneous Notes Summary: RX REFILL Patient contacted pharmacy and requests refills as follows: Requested Prescriptions Pending Prescriptions Disp Refills cetirizine (ZYRTEC) 10 mg tablet [Pharmacy Med Name: CETIRIZINE HCL 10 MG TABLET] 90 tablet 1 Sig: TAKE 1 TABLET BY MOUTH EVERY DAY The last encounter with Lynn Howard MD was 02/27/2024 RX INSTRUCTIONS: Patient aware RX will be sent to pharmacy. No need to notify patient. Patient has been identified by name and date of : Yes Ashkan Alcantar documented in this encounter [facility] 03-11-2024 Note HNO ID: [id number] Author: CINTHIA CUETO LISW Service: ? Author Type: Demurrage Worker Type: Progress Notes Filed: 03/11/2024 11:27 Note Text: is providing coverage for [place] Pt is on PRO Report due to PHQ-9=16 with a positive #9 on 02/27/24. Pt is not an oncology pt and PHQ was administered for appointment with cook's assistant. No contact. WALTER Sanchez-S Oncology [facility] 03-11-2024 History of Present illness Narrative SW is providing coverage for [place] SW Pt is on PRO Report due to PHQ-9=16 with a positive #9 on 02/27/24. Pt is not an oncology pt and PHQ was administered for appointment with cook's assistant. No contact. SRINIVASA Sanchez Oncology SW documented in this encounter [facility] 02-27-2024 Note HNO ID: [id number] Author: LYNN HOWARD MD Service: ? Author Type: Physician Type: Progress Notes Filed: 02/27/2024 08:58 Note Text: Virtual Visit for sarcoidosis Aston Chicas III has consented to this video visit . Persons Present: patient I have communicated my name and active licensure. The patient's identity and physical location were verified at the time of this visit. Either the patient or their legal premium service representative has been informed of the risks and benefits of -- and alternatives to -- treatment through a remote evaluation and consents to proceed with the evaluation remotely. MY CHart zoom visit: Chief Complaint/Reason: Sarcoidosis Subsequent vsit : - here for follow up for sarcoidosis - now feels very tired - has been working 3rd shift - has been fatigue sore , jt pain - sleeps around 6 hours of sleep - on and off bipap - has not been taking methotrexate for last 3-4 months - only doing prednisone 5 every 48 hors - on infliximab every 6 weeks - unfortunately di dnot get increased Sarcoidosis ROS : - no skin rash - posadas shave Jt pain - hip knees ankles ans shoulder - no leg swelling - no kidney stones - no blood stools - got new glasses - left eye is being followed dr Gibson - Right eye vision normal - intentional loss of weight of 20 lbs ROS: GEN: Good energy, good appetite, No weight change, no fevers, no chills HEENT: No headaches, no conjunctival pruritus, no rhinorrhea or congestion, no nose bleeds, no snoring, CV: see HPI Lungs:see HPI GI: No Abdominal pain, nausea, vomiting, diarrhea, constipation, blood in stools : No dysuria, polyuria or hematuria MSK: No joint or muscle aches Neuro: No numbness or weakness, no seizures Skin: No lesions or rashes Lymph: No swollen node All other review of system is negative. 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 methotrexate sodium 25 mg/mL soln Inject 0.3 mL subcutaneously one time a week. folic acid 1 mg tablet Take 1 tablet by mouth once daily. Insulin Syringe-Needle U-100 (MONOJECT INS SYR 1CC/27G) 1 mL 27 gauge x 1/2 syrg 0.3 mL one time a week. predniSONE (DELTASONE) 5 mg tablet Take 1 tablet by mouth every 48 hours. alendronate (FOSAMAX) 35 mg tablet Take 1 tablet by mouth one time a week. in the morning with a full glass of water, on an empty stomach, and do not take anything else by mouth or lie down for the next [address] (PROTONIX) 40 mg tablet Take 1 tablet by mouth once daily. iv contrast (will be provided with radiology test) MRI Orbits Inject, intravenously, once for 1 dose. No IV access, insert saline lock prior to the beginning of sedation, infusion, injection of imaging exam. Discontinue saline lock post exam. If Pt. has a central line or IVAD, may access for administration according to line specific nursing protocol. Once exam is complete flush line and de-access according to line specific nursing protocol in the MR contrast administration guidelines link. EPINEPHrine (EPIPEN 2-MAYANK) 0.3 mg/0.3 mL auto-injector Inject 0.3 mL intramuscularly as needed. For allergic reaction.Seek emergent medical care immediately after use.Disp:1 2-pakw/corporate sales trainer sodium chloride (HERBERT 128) 2 % ophthalmic solution Use 1 Drop in the left eye four times daily. prednisoLONE acetate (PRED FORTE, ECONOPRED PLUS) 1 % ophthalmic suspension Use 1 Drop in the left eye four times daily. (Patient taking differently: Use 1 Drop in the left eye two times a day.) inFLIXimab (REMICADE) 100 mg injection Inject 600 mg intravenously every 6 weeks. Infuse 5 mg/kg intravenously on weeks 0, 2, 6 then every 4 weeks. Pre-medicate with 25mg po benadryl and 1000mg po acetaminophen prior to infusion per protocol. albuterol HFA (PROAIR HFA) 90 mcg/actuation inhaler Inhale 2 Puffs as instructed every 6 hours as needed for wheezing/shortness of breath (cough). ondansetron (ZOFRAN) 4 mg tablet Take 1 tablet by mouth every 8 hours as needed for Nausea/Vomiting. BIPAP New machine: Settings 15/11 cm H2O, suitable mask per pt preference (Airfit F30), chin strap, head gear, humidity, tubing, lifetime supplies. G47.33 Obstructive Sleep Apnea No current facility-administered medicatio (more content not included)... [facility] 02-27-2024 History of Present illness Narrative Virtual Visit for sarcoidosis Aston Chicas III has consented to this video visit . Persons Present: patient I have communicated my name and active licensure. The patient's identity and physical location were verified at the time of this visit. Either the patient or their legal premium service representative has been informed of the risks and benefits of -- and alternatives to -- treatment through a remote evaluation and consents to proceed with the evaluation remotely. MY CHart zoom visit: Chief Complaint/Reason: Sarcoidosis Subsequent vsit : - here for follow up for sarcoidosis - now feels very tired - has been working 3rd shift - has been fatigue sore , jt pain - sleeps around 6 hours of sleep - on and off bipap - has not been taking methotrexate for last 3-4 months - only doing prednisone 5 every 48 hors - on infliximab every 6 weeks - unfortunately di dnot get increased Sarcoidosis ROS : - no skin rash - posadas shave Jt pain - hip knees ankles ans shoulder - no leg swelling - no kidney stones - no blood stools - got new glasses - left eye is being followed dr Gibson - Right eye vision normal - intentional loss of weight of 20 lbs ROS: GEN: Good energy, good appetite, No weight change, no fevers, no chills HEENT: No headaches, no conjunctival pruritus, no rhinorrhea or congestion, no nose bleeds, no snoring, CV: see HPI Lungs:see HPI GI: No Abdominal pain, nausea, vomiting, diarrhea, constipation, blood in stools : No dysuria, polyuria or hematuria MSK: No joint or muscle aches Neuro: No numbness or weakness, no seizures Skin: No lesions or rashes Lymph: No swollen node All other review of system is negative. 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 methotrexate sodium 25 mg/mL soln Inject 0.3 mL subcutaneously one time a week. folic acid 1 mg tablet Take 1 tablet by mouth once daily. Insulin Syringe-Needle U-100 (MONOJECT INS SYR 1CC/27G) 1 mL 27 gauge x 1/2 syrg 0.3 mL one time a week. predniSONE (DELTASONE) 5 mg tablet Take 1 tablet by mouth every 48 hours. alendronate (FOSAMAX) 35 mg tablet Take 1 tablet by mouth one time a week. in the morning with a full glass of water, on an empty stomach, and do not take anything else by mouth or lie down for the next [address] (PROTONIX) 40 mg tablet Take 1 tablet by mouth once daily. iv contrast (will be provided with radiology test) MRI Orbits Inject, intravenously, once for 1 dose. No IV access, insert saline lock prior to the beginning of sedation, infusion, injection of imaging exam. Discontinue saline lock post exam. If Pt. has a central line or IVAD, may access for administration according to line specific nursing protocol. Once exam is complete flush line and de-access according to line specific nursing protocol in the MR contrast administration guidelines link. EPINEPHrine (EPIPEN 2-MAYANK) 0.3 mg/0.3 mL auto-injector Inject 0.3 mL intramuscularly as needed. For allergic reaction.Seek emergent medical care immediately after use.Disp:1 2-pakw/corporate sales trainer sodium chloride (HERBERT 128) 2 % ophthalmic solution Use 1 Drop in the left eye four times daily. prednisoLONE acetate (PRED FORTE, ECONOPRED PLUS) 1 % ophthalmic suspension Use 1 Drop in the left eye four times daily. (Patient taking differently: Use 1 Drop in the left eye two times a day.) inFLIXimab (REMICADE) 100 mg injection Inject 600 mg intravenously every 6 weeks. Infuse 5 mg/kg intravenously on weeks 0, 2, 6 then every 4 weeks. Pre-medicate with 25mg po benadryl and 1000mg po acetaminophen prior to infusion per protocol. albuterol HFA (PROAIR HFA) 90 mcg/actuation inhaler Inhale 2 Puffs as instructed every 6 hours as needed for wheezing/shortness of breath (cough). ondansetron (ZOFRAN) 4 mg tablet Take 1 tablet by mouth every 8 hours as needed for Nausea/Vomiting. BIPAP New machine: Settings 15/11 cm H2O, suitable mask per pt preference (Airfit F30), chin strap, head gear, humidity, tubing, lifetime supplies. G47.33 Obstructive Sleep Apnea No current facility-administered medications for this visit. CXR 03/23/21 - R basal atelectasis Data Reviewed: Most recent labs and imaging results. Component Latest Ref Rng & Units 07/11/2018 TB Nil IU/mL 0.17 TB1 Ag minus Nil <0.35 IU/mL 0.00 TB2 Ag minus Nil <0.35 IU/mL 0.02 Mitogen minus Nil 5.88 TB Result Negative Negative TB Interpretation No evidence of current or previous infection with Mycobacterium tuberculosis. Vitamin D 1,25 Dihydroxy D2 pg/mL 68.4 Vitamin D 1,25 Dihydroxy D3 pg/mL 26.3 Vit D1,25 Dihydroxy 15.0 - 60.0 pg/mL 94.7 (H) TPMT Genotype TPMT*1/TPMT*1 TPMT Predicted Phenotype Alleles present are associated with NORMAL ENZYME ACTIVITY. WSR 0 - 15 mm/hr 26 (H) CRP <0.9 mg/dL 1.2 (H) ANGELITO <52 U/L 70 (H) Interleukin-2 Receptor, Serum <=1,033 pg/mL 2,389 (H) Vitamin D 25 Hydroxy 31.0 - 80.0 ng/mL 16.9 (L) PFT: ( normal) Date FEV1 FVC FEV1/FVC TLC RV DLco 03/17/21 2.82 (81%) 3.49 (84%) 81 20.09 (59%) MRI Orbit : 09/26/23 Stable chronic changes in the left globe with newly appreciated areas of likely chronic abnormal signal in the left optic nerve, but no superimposed abnormal enhancement to suggest an active optic neuritis. Normal appearance of the right orbit. No abnormal intracranial parenchymal or leptomeningeal enhancement to suggest neurosarcoidosis. MRI Brain 05/21/23 No acute intracranial abnormality and no abnormal parenchymal or leptomeningeal enhancement. MRI Brain 03/21/22 1. No acute/new/progressive/recurrent intracranial pathology or abnormal enhancement. 2. Left globe surgical changes with no active orbital disease. 03/03/21 Postoperative changes related to prior left globe mechanical vitrectomy. No acute brain findings. No mass effect or abnormal enhancement. Artifact as noted on the diffusion trace images. No correlate on the remaining images. Borderline tonsillar descent. No crowding at the foramen magnum. No evidence for cervical syrinx. 04/09/20 1. Complete resolution of previously identified intracranial changes of neurosarcoidosis. 2. On today's study - unremarkable MRI brain. 3. Findings consistent with secondary changes of papilledema (correlate clinically). 4. Persistent mild enhancement of posterior eye globe chorioretinal lining. 5. Remaining orbital MRI is unremarkable. 09/11/2019 Progressive infratentorial and supratentorial leptomeningeal enhancement since 05/31/2018 compatible with the provided history of neurosarcoidosis. No significant intracranial mass effect. Asymmetric enhancement left anterior chamber may relate to uveitis. Bilateral optic disc fullness suggestive of papilledema. Pansinusitis. Assessment: Sarcoidosis with eye, neurological and pulmonary involvement ( MRI confirms neurosarcoidosis) Loss of visionin left eye RONNA on BIPAP Stomach pain Sarcoidosis - after getting better to treatment had stopped taking medication had relapse of disease in January 2023 - non compliant to cellcept - has flare of uveitis - MRI orbit reviewed persistent disease but stable 10/16 - MRI brain - no enhancement - switched to sub cut MTX 7.5mg weekly on10/16 non compliant did not nform about compliance Plan want to switch to PO MTX - will switch - will increase infliximab ot every 4 week for 6 months till eye disease is better controlled - continue prednisone 5mg every 48 houors - Sarcoidosis markers/ blood TB test for infliximab - cotninue follow up with dr Gibson for left eye - CBC/CMP every other montly RONNA - on bipap Plan - increase compliance to the BIPAP Follow up in 3 months VV Follo wup 3 months with virtual visit Time spend : 40 minutes Lynn Howard MD Staff, Respiratory [place] Staff, Sarcoidosis IL[facility] Center 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, [employer] Date: February 27, 2024 Time: 8:53 AM Pager: [phone] Cleveland Means MD, Dr Gibson, Dr Steinberg documented in this encounter [facility] 11-23-2023 Note HNO ID: [id number] Author: MARK GONG OD Service: ? Author Type: REGULATOR OPERATOR Type: Progress Notes Filed: 11/23/2023 13:58 Note Text: 1. 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 Gibson as scheduled Follow-up with me as needed Mark Gong, RICHARD November 23, 2023 1:57 PM [facility] 11-23-2023 History of Present illness Narrative 1. 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 Gibson as scheduled Follow-up with me as needed Mark Gong, RICHARD November 23, 2023 1:57 PM documented in this encounter [facility] 10-17-2023 Note HNO ID: [id number] Author: LYNN HOWARD MD Service: ? Author Type: Physician Type: Progress Notes Filed: 10/17/2023 14:14 Note Text: Virtual Visit for sarcoidosis Aston Chicas III has consented to this video visit . Persons Present: patient I have communicated my name and active licensure. The patient's identity and physical location were verified at the time of this visit. Either the patient or their legal premium service representative has been informed of the risks and benefits of -- and alternatives to -- treatment through a remote evaluation and consents to proceed with the evaluation remotely. MY CHart zoom visit: Chief Complaint/Reason: Sarcoidosis Subsequent vsit : - here for follow up for sarcoidosis - has been doing well - on onfliximab every 6 weeks - has mild tiring and fatigue - no Right eye problem - main issue is uveiti sof right eye On prednisone 5 mg every other - no skin rash - no kidney stone s - has knee and hip pain - no cough wheezing or chets tightness - no palpitation Non compliant to cellcept ROS: GEN: Good energy, good appetite, No weight change, no fevers, no chills HEENT: No headaches, no conjunctival pruritus, no rhinorrhea or congestion, no nose bleeds, no snoring, CV: see HPI Lungs:see HPI GI: No Abdominal pain, nausea, vomiting, diarrhea, constipation, blood in stools : No dysuria, polyuria or hematuria MSK: No joint or muscle aches Neuro: No numbness or weakness, no seizures Skin: No lesions or rashes Lymph: No swollen node All other review of system is negative. 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 iv contrast (will be provided with radiology test) MRI Orbits Inject, intravenously, once for 1 dose. No IV access, insert saline lock prior to the beginning of sedation, infusion, injection of imaging exam. Discontinue saline lock post exam. If Pt. has a central line or IVAD, may access for administration according to line specific nursing protocol. Once exam is complete flush line and de-access according to line specific nursing protocol in the MR contrast administration guidelines link. EPINEPHrine (EPIPEN 2-MAYANK) 0.3 mg/0.3 mL auto-injector Inject 0.3 mL intramuscularly as needed. 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 sodium chloride (HERBERT 128) 2 % ophthalmic solution Use 1 Drop in the left eye four times daily. (Patient not taking: Reported on 09/06/2023) predniSONE (DELTASONE) 5 mg tablet Take 1 tablet by mouth every 48 hours. prednisoLONE acetate (PRED FORTE, ECONOPRED PLUS) 1 % ophthalmic suspension Use 1 Drop in the left eye four times daily. (Patient taking differently: Use 1 Drop in the left eye two times a day.) inFLIXimab (REMICADE) 100 mg injection Inject 600 mg intravenously every 6 weeks. Infuse 5 mg/kg intravenously on weeks 0, 2, 6 then every 4 weeks. Pre-medicate with 25mg po benadryl and 1000mg po acetaminophen prior to infusion per protocol. albuterol HFA (PROAIR HFA) 90 mcg/actuation inhaler Inhale 2 Puffs as instructed every 6 hours as needed for wheezing/shortness of breath (cough). ondansetron (ZOFRAN) 4 mg tablet Take 1 tablet by mouth every 8 hours as needed for Nausea/Vomiting. BIPAP New machine: Settings 15/11 cm H2O, suitable mask per pt preference (Airfit F30), chin strap, head gear, humidity, tubing, lifetime supplies. G47.33 Obstructive Sleep Apnea No current facility-administered medications for this visit. CXR 03/23/21 - R basal atelectasis MRI Brain 03/21/22 1. No acute/new/progressive/recurrent intracranial pathology or abnormal enhancement. 2. Left globe surgical changes with no active orbital disease. 03/03/21 Postoperative changes related to prior left globe mechanical vitrectomy. No acute brain findings. No mass effect or abnormal enhancement. Artifact as noted on the diffusion trace images. No correlate on the remaining images. Borderline tonsillar descent. No crowding at the foramen magnum. No evidence for cervical syrinx. 04/09/20 1. Complete resolution of previously identified intracranial changes of neur (more content not included)... [facility] 10-17-2023 History of Present illness Narrative Virtual Visit for sarcoidosis Aston Chicas III has consented to this video visit . Persons Present: patient I have communicated my name and active licensure. The patient's identity and physical location were verified at the time of this visit. Either the patient or their legal premium service representative has been informed of the risks and benefits of -- and alternatives to -- treatment through a remote evaluation and consents to proceed with the evaluation remotely. MY CHart zoom visit: Chief Complaint/Reason: Sarcoidosis Subsequent vsit : - here for follow up for sarcoidosis - has been doing well - on onfliximab every 6 weeks - has mild tiring and fatigue - no Right eye problem - main issue is uveiti sof right eye On prednisone 5 mg every other - no skin rash - no kidney stone s - has knee and hip pain - no cough wheezing or chets tightness - no palpitation Non compliant to cellcept ROS: GEN: Good energy, good appetite, No weight change, no fevers, no chills HEENT: No headaches, no conjunctival pruritus, no rhinorrhea or congestion, no nose bleeds, no snoring, CV: see HPI Lungs:see HPI GI: No Abdominal pain, nausea, vomiting, diarrhea, constipation, blood in stools : No dysuria, polyuria or hematuria MSK: No joint or muscle aches Neuro: No numbness or weakness, no seizures Skin: No lesions or rashes Lymph: No swollen node All other review of system is negative. 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 iv contrast (will be provided with radiology test) MRI Orbits Inject, intravenously, once for 1 dose. No IV access, insert saline lock prior to the beginning of sedation, infusion, injection of imaging exam. Discontinue saline lock post exam. If Pt. has a central line or IVAD, may access for administration according to line specific nursing protocol. Once exam is complete flush line and de-access according to line specific nursing protocol in the MR contrast administration guidelines link. EPINEPHrine (EPIPEN 2-MAYANK) 0.3 mg/0.3 mL auto-injector Inject 0.3 mL intramuscularly as needed. 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 sodium chloride (HERBERT 128) 2 % ophthalmic solution Use 1 Drop in the left eye four times daily. (Patient not taking: Reported on 09/06/2023) predniSONE (DELTASONE) 5 mg tablet Take 1 tablet by mouth every 48 hours. prednisoLONE acetate (PRED FORTE, ECONOPRED PLUS) 1 % ophthalmic suspension Use 1 Drop in the left eye four times daily. (Patient taking differently: Use 1 Drop in the left eye two times a day.) inFLIXimab (REMICADE) 100 mg injection Inject 600 mg intravenously every 6 weeks. Infuse 5 mg/kg intravenously on weeks 0, 2, 6 then every 4 weeks. Pre-medicate with 25mg po benadryl and 1000mg po acetaminophen prior to infusion per protocol. albuterol HFA (PROAIR HFA) 90 mcg/actuation inhaler Inhale 2 Puffs as instructed every 6 hours as needed for wheezing/shortness of breath (cough). ondansetron (ZOFRAN) 4 mg tablet Take 1 tablet by mouth every 8 hours as needed for Nausea/Vomiting. BIPAP New machine: Settings 15/11 cm H2O, suitable mask per pt preference (Airfit F30), chin strap, head gear, humidity, tubing, lifetime supplies. G47.33 Obstructive Sleep Apnea No current facility-administered medications for this visit. CXR 03/23/21 - R basal atelectasis MRI Brain 03/21/22 1. No acute/new/progressive/recurrent intracranial pathology or abnormal enhancement. 2. Left globe surgical changes with no active orbital disease. 03/03/21 Postoperative changes related to prior left globe mechanical vitrectomy. No acute brain findings. No mass effect or abnormal enhancement. Artifact as noted on the diffusion trace images. No correlate on the remaining images. Borderline tonsillar descent. No crowding at the foramen magnum. No evidence for cervical syrinx. 04/09/20 1. Complete resolution of previously identified intracranial changes of neurosarcoidosis. 2. On today's study - unremarkable MRI brain. 3. Findings consistent with secondary changes of papilledema (correlate clinically). 4. Persistent mild enhancement of posterior eye globe chorioretinal lining. 5. Remaining orbital MRI is unremarkable. 09/11/2019 Progressive infratentorial and supratentorial leptomeningeal enhancement since 05/31/2018 compatible with the provided history of neurosarcoidosis. No significant intracranial mass effect. Asymmetric enhancement left anterior chamber may relate to uveitis. Bilateral optic disc fullness suggestive of papilledema. Pansinusitis. Data Reviewed: Most recent labs and imaging results. Component Latest Ref Rng & Units 07/11/2018 TB Nil IU/mL 0.17 TB1 Ag minus Nil <0.35 IU/mL 0.00 TB2 Ag minus Nil <0.35 IU/mL 0.02 Mitogen minus Nil 5.88 TB Result Negative Negative TB Interpretation No evidence of current or previous infection with Mycobacterium tuberculosis. Vitamin D 1,25 Dihydroxy D2 pg/mL 68.4 Vitamin D 1,25 Dihydroxy D3 pg/mL 26.3 Vit D1,25 Dihydroxy 15.0 - 60.0 pg/mL 94.7 (H) TPMT Genotype TPMT*1/TPMT*1 TPMT Predicted Phenotype Alleles present are associated with NORMAL ENZYME ACTIVITY. WSR 0 - 15 mm/hr 26 (H) CRP <0.9 mg/dL 1.2 (H) ANGELITO <52 U/L 70 (H) Interleukin-2 Receptor, Serum <=1,033 pg/mL 2,389 (H) Vitamin D 25 Hydroxy 31.0 - 80.0 ng/mL 16.9 (L) PFT: ( normal) Date FEV1 FVC FEV1/FVC TLC RV DLco 03/17/21 2.82 (81%) 3.49 (84%) 81 20.09 (59%) MRI Orbit : 09/26/23 Stable chronic changes in the left globe with newly appreciated areas of likely chronic abnormal signal in the left optic nerve, but no superimposed abnormal enhancement to suggest an active optic neuritis. Normal appearance of the right orbit. No abnormal intracranial parenchymal or leptomeningeal enhancement to suggest neurosarcoidosis. MRI Brain 05/21/23 o acute intracranial abnormality and no abnormal parenchymal or leptomeningeal enhancement. Assessment: Sarcoidosis with eye, neurological and pulmonary involvement ( MRI confirms neurosarcoidosis) Loss of visionin left eye RONNA on BIPAP Stomach pain Plan: - after getting better to treatment had stopped taking medication had relapse of disease in January - non compliant to cellcept - has flare of uveitis - MRI orbit reviewed persistent disease but stabke - MRI bbrain - no enhancement - switch to MTX 7.5mg weekly for better compliance - increase infliximab ot every 4 week for 6 months till eye disease is better controlled - continue prednisone 5mg every 48 houors - blood TB test for infliximab - cotninue follow up with dr Gibson for left eye - CBC/CMP every montly - increase compliance to the BIPAP Follow up in 3 months VV Juana boswell 3 months with virtual visit Time spend : 40 minutes Lynn Howard MD Staff, Respiratory [place] Staff, Sarcoidosis IL[facility] 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 Requested Prescriptions Pending Prescriptions Disp Refills pantoprazole (PROTONIX) 40 mg tablet 90 tablet 3 Sig: Take 1 tablet by mouth once daily. Patient last seen 08/23/23 Ashkan Alcantar [facility] 10-10-2023 Miscellaneous Notes Summary: RX REFILL Call from patient requesting refill. Requested Prescriptions Pending Prescriptions Disp Refills pantoprazole DR (PROTONIX) 40 mg tablet 90 tablet 3 Sig: Take 1 tablet by mouth once daily. Patient last seen 08/23/23 Ashkan Alcantar documented in this encounter [facility] 09-26-2023 History of Present illness Narrative Radiology Service Progress Note DATE OF SERVICE: September 26, 2023 TIME: 3:30 PM PATIENT IDENTITY VERIFICATION COMPLETED USING TWO (2) STANDARD IDENTIFIERS: Name and Date of confirmed by patient verbally. FALL SCREENING: Has the patient had 2 falls in the last year or 1 fall with injury or currently using an Ambulatory Assistive Device (Walker, Cane, Wheelchair, Crutches, etc.)? No PATIENT GENDER DATA: Male PATIENT RELEVANT IMPLANT DATA REVIEWED: Yes PATIENT PRESENTS WITH AN IMPLANTABLE OR ATTACHED DIE TRIPPER: No ALLERGIES: Reviewed and unchanged CONTRAST ALLERGY: NO. EXAM: MRI - CONTRAST TYPE: GROUP II PERIPHERAL IV DATA: Ambulatory: A peripheral IV was started in the Right antecubital site with a Angio cath: 22 gauge. RADIOLOGY DEPARTMENT: MR; Exam(s) Completed: Head: Orbit/Sinus SIGNATURE: RT Inna(Elizabeth) PATIENT NAME: Aston Chicas III DATE: September 26, 2023 TIME: 3:30 PM documented in this encounter [facility] 09-26-2023 Note HNO ID: [id number] Author: ELAINE FAUSTIN RT(R) Service: ? Author Type: Technologist Type: Progress Notes Filed: 09/26/2023 15:31 Note Text: Radiology Service Progress Note DATE OF SERVICE: September 26, 2023 TIME: 3:30 PM PATIENT IDENTITY VERIFICATION COMPLETED USING TWO (2) STANDARD IDENTIFIERS: Name and Date of confirmed by patient verbally. FALL SCREENING: Has the patient had 2 falls in the last year or 1 fall with injury or currently using an Ambulatory Assistive Device (Walker, Cane, Wheelchair, Crutches, etc.)? No PATIENT GENDER DATA: Male PATIENT RELEVANT IMPLANT DATA REVIEWED: Yes PATIENT PRESENTS WITH AN IMPLANTABLE OR ATTACHED DIE TRIPPER: No ALLERGIES: Reviewed and unchanged CONTRAST ALLERGY: NO. EXAM: MRI - CONTRAST TYPE: GROUP II PERIPHERAL IV DATA: Ambulatory: A peripheral IV was started in the Right antecubital site with a Angio cath: 22 gauge. RADIOLOGY DEPARTMENT: MR; Exam(s) Completed: Head: Orbit/Sinus SIGNATURE: RT Inna(R) PATIENT NAME: Aston Chicas III DATE: September 26, 2023 TIME: 3:30 PM [facility] 09-06-2023 Note Date of Procedure 09/06/2023. 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 Poor view left eye/GUS Chavarria . Interpretation Right Eye Normal without fluid. Findings include Negative for Intraretinal fluid, Subretinal fluid. Interval Change Right Eye Stable. Notes No view [facility] 09-06-2023 Note HNO ID: [id number] Author: NELSON GIBSON MD Service: ? Author Type: Physician Type: Progress Notes Filed: 09/06/2023 16:52 Note Text: Feels vision OD is a little worse. No new floaters/flashes. 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 biopsied and c/w sarcoid. Follows with pulmonology Dr. Howard. - Had numerous URRUTIA and light sensitivity, MRI in 05/2018 with leptomeningeal enhancement c/w sarcoidosis. Follows with neurology Dr. 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 - OCT 09/06/23: OD flat, stable, no view OS Assessment/Plan: Looks better Left eye - less fluid, less folds -my plan - observe, if worse once retisert is out - will plan on retisert replacement If continues to improve, could consider simultaneous Penetrating keratoplasty Left eye - will wait to see if he even needs it - Restarted on cellcept, continuing PO prednisone and infliximab infusions [id number]. Can consider Mrx given slight worsening vision OD. Otherwise, monitor F/u in 4 months [facility] 09-06-2023 History of Present illness Narrative Feels vision OD is a little worse. No new floaters/flashes. 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 biopsied and c/w sarcoid. Follows with pulmonology Dr. Howard. - Had numerous URRUTIA and light sensitivity, MRI in 05/2018 with leptomeningeal enhancement c/w sarcoidosis. Follows with neurology Dr. 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 - OCT 09/06/23: OD flat, stable, no view OS Assessment/Plan: Looks better Left eye - less fluid, less folds -my plan - observe, if worse once retisert is out - will plan on retisert replacement If continues to improve, could consider simultaneous Penetrating keratoplasty Left eye - will wait to see if he even needs it - Restarted on cellcept, continuing PO prednisone and infliximab infusions [id number]. Can consider Mrx given slight worsening vision OD. Otherwise, monitor F/u in 4 months documented in this encounter [facility] 08-23-2023 Instructions Meño Steinberg MD - 08/23/2023 2:56 PM EDT Schedule an MRI Orbit. Follow up with Dr. Steinberg after the MRI is complete. This can be a virtual visit. Send me a MyChart message if your right arm numbness and weakness is not significantly better in a couple of weeks. documented in this encounter [facility] 08-23-2023 History of Present illness Narrative Images from the original note were not included. 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, uveitis/perineuritis OS) DISEASE SUMMARY: Date of onset: July 2015 Date of diagnosis of sarcoidosis: 2015 Established by: Lung biopsy Disease course at onset: Progressive Current disease course: Progressive Previous disease therapies: - Methotrexate - Imuran (GI upset) Current disease therapy: - Infliximab 7.5 mg/kg every 4 weeks - Prednisone 5 mg EOD - Cellcept 2 g BID Most recent MRI orbits: 04/09/2020 Most recent MRI brain:03/03/2021 (stable) Most recent MRI cervical spine: Not done CHIEF COMPLAINT: Follow-up on disease modifying therapy INTERVAL HISTORY: MRI imaging of the brain in April 2023 was unremarkable with no evidence of ongoing inflammatory disease activity. Since his last visit, he developed new weakness and numbness after falling asleep on the right arm. He has the most difficulty with supination of the right arm. The numbness primarily affects the the posterior right forearm. He is already starting to notice clinical improvement. Chronic symptoms: Headache. Resolved. Fatigue. Cognitive symptoms. Refer to patient-entered data. The patient is unaccompanied. The patient was last seen 07/22/2021, currently taking infliximab, mycophenolate, and low-dose prednisone . Since the patient's last visit the patient reports overall feeling stable. Issues with current therapy: Tolerating medication without side effects. Neuro-QoL Functions (higher=better functioning) Flowsheet Row [facility] from 07/22/2021 in [facility] Upper Extremity Domain T Score 45 Lower Extremity Domain T Score 44 Cognitive Function Domain T Score 40 Positive Affect Well Being T Score -- Ability To Participate In Social Roles T Score 42 Satisfaction With Social Roles T Score 41 Neuro-QoL Symptoms (higher=worse symptoms) Flowsheet Row [facility] from 07/22/2021 in [facility] Sleep Domain T Score 66 Fatigue Domain T Score 50 Anxiety Domain T Score 58 Depression Domain T Score 57 Stigma Domain T Score 57 Emotional Behavior Dyscontrol T Score -- has a past medical history of Depression with anxiety (08/19/2015), Gallstones (12/26/2019), Hepatic steatosis (12/26/2019), Hilar adenopathy, Liver abscess (10/2007), Mediastinal adenopathy, Migraine (04/18/2013), RONNA (obstructive sleep apnea), 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 has a current medication list which includes the following prescription(s): epinephrine, mycophenolate mofetil, pantoprazole dr, herbert 128, prednisone, prednisolone acetate, infliximab, albuterol hfa, ondansetron, and BIPAP. EXAM: BP 134/75 Pulse (!) 59 Temp 36.4 C (97.6 F) (Temporal) Resp 18 Wt 123.6 kg (272 lb 6.4 oz) SpO2 100% BMI 42.66 kg/m General Appearance: well appearing, in no acute distress Mental status evaluation during the interview and examination showed normal level of consciousness, orientation, language, memory, praxis, and higher intellectual function Affect: Normal Visual acuity: Deferred Eye movements: full, without MAGED Facial sensation: Intact bilaterally Facial movements: Intact bilaterally Speech: normal Muscle tone: Right arm spasticity: None Right leg spasticity: None Left arm spasticity: None Left leg spasticity: None Muscle strength (#/5): Right Left Upper Extremity: Deltoids 5 5 Biceps 5 5 Brachioradialis 4+ 5 Triceps 5 5 Wrist Extension 5 5 Wrist Flexion 5 5 Finger Extension 5 5 Director Immunology 5 5 Dorsal interossei 5 5 Thumb abduction 5 5 Lower extremity: Iliopsoas 5 5 Quadriceps 5 5 Hamstrings 5 5 Tibialis anterior 5 5 Gastrocnemius 5 5 Coordination: Upper extremity dexterity and rapid movements: Normal bilaterally Finger-nose: no dysmetria; coordination intact Heel-ritter: no dysmetria; coordination intact Sensory Perception: Pin Prick: Intact, Touch: Intact Standard gait: normal. Assistive device: independent RESULTS: CBC + Diff Component Value Date WBC 5.22 01/31/2022 HB 12.9 (L) 01/31/2022 HCT 38.5 (L) 01/31/2022 PLT 297 01/31/2022 ABSLYMPH 1.47 01/31/2022 CMP Component Value Date AST 19 09/13/2022 GLUC 91 09/13/2022 BUN 10 09/13/2022 CREAT 1.05 09/13/2022 NA 139 09/13/2022 K 3.8 09/13/2022 CHLOR 104 09/13/2022 ALT 21 09/13/2022 MRI Results: 05/21/2023 MRI Brain W/WO IVCON: IMPRESSION: No acute intracranial abnormality and no abnormal parenchymal or leptomeningeal enhancement. 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 He is clinically and radiologically stable on infliximab and mycophenolate. He is due for repeat MRI imaging of the orbits. Since his last visit, he developed right arm weakness (primarily affecting the brachioradialis on formal strength testing), which developed after falling asleep on the right arm. 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 His symptoms are improving, but if he has persistent residual weakness, we can consider an EMG/NCS in the future. PLAN: MR Orbit W/WO IVCON Consider EMG/NCS for residual right arm weakness if not significantly improved at the next visit Office Visit on 08/23/23 MRI ORBIT WO/W IVCON Follow-up: In 3 months virtually with me I spent a total of 40 minutes on the date of the service which included preparing to see the patient, [id number] patient care, completing clinical documentation, obtaining and/or reviewing separately obtained history, performing a medically appropriate examination, counseling and educating the patient/family/caregiver, and ordering medications, tests, or procedures. Meño Steinberg MD [facility] documented in this encounter [facility] 08-15-2023 Telephone encounter Note [facility] approved Infliximab 10mg Start date: 07/11/2023 End date: 07/10/2024 Please allow time delay for documents to appear in [employer] (Scanned Documents Tab). Images can take up to 24 hours to appear in [employer]. [facility] 08-15-2023 Miscellaneous Notes [place] [employer] approved Infliximab 10mg Start date: 07/11/2023 End date: 07/10/2024 Please allow time delay for documents to appear in Epic (Scanned Documents Tab). Images can take up to 24 hours to appear in Epic. documented in this encounter [facility] 07-13-2023 Miscellaneous Notes Appointment confirmed. Waiting for authorization per treatment plan - Rocio,per POLLY singh this will not be approved by Sunday- please move out a week. 1st attempt. Message left for patient to contact office. Appointment rescheduled to 07/19 @ 830. Please advise patient of new appt date and time awaiting for insurance approval. documented in this encounter [facility] 06-01-2023 History of Present illness Narrative Patient requests infusion over one hour documented in this encounter [facility] 05-16-2023 Instructions Gia Stewart MD - 05/16/2023 5:07 PM EST You are allergic to Cats Dust mites molds (May through January) trees (May, June and July) grasses (July and August) weeds (October, November and December) ragweed (October, November and December) Use fluticasone nasal spray/generic Flonase 2 sprays to each nostril once a day every day on a regular basis Continue to take [id number] cetirizine/Zyrtec 10 mg once daily as needed. If necessary, cetirizine may be increased to 10 mg twice daily. Your symptoms associated with ingestion of fruits, vegetables and hazelnut are consistent with oral allergy syndrome. Your symptoms associated with ingestion of shrimp are likely due to cross-reactivity between dust mites and shrimp. As a precaution, I recommend that you strictly eliminate treatment from your diet and have epi epinephrine autoinjectors and Zyrtec available in case of accidental ingestion and severe reaction. Dust Mite Allergy Dust mite allergy is caused by proteins found in the droppings of microscopic organisms. Dust mites are found year-round in pillows, mattresses, carpeting, and upholstered furniture. They feed from human skin cells and feathers found in down pillows and comforters. Dust mites are present in homes regardless of cleanliness. Dust mite allergy symptoms include nasal congestion and/or drainage or respiratory symptoms. Dust mite allergies can also trigger asthma, with symptoms of wheezing, cough, and shortness of breath. Avoidance measures include: Encase mattress, box springs, and pillows with airtight, allergen-proof covers. Wash bedding weekly in hot water. Limit [id number] carpeting Avoid using feathered pillows and comforters Vacuum regularly with HEPA filters. Mold Allergy Some common outdoor molds include Alternaria and Cladosporium. These are found after cutting grass, spreading mulch, or after a rainfall. Common indoor molds include Aspergillus and Penicillium. Some molds, such as Epicoccum, Fusarium, and Bipolaris, are indoors and outdoors. Mold season typically occurs during warm months into late fall but may be year-round in warm regions. Mold allergy symptoms include nasal congestion and/or drainage or respiratory symptoms. Mold allergies can also trigger asthma, with symptoms of wheezing, coughing, and shortness of breath. Mold avoidance measures include: Wearing a filter mask for possible exposure. Eliminating excess dampness in basements. Keeping indoor humidity levels between 40% and 50%. Changing filters regularly. Cleaning surfaces with visible mold with a diluted bleach solution. Pet Allergy Pet allergies are caused by proteins in the animal s skin (or dander), saliva, and urine. No pet is 100% hypoallergenic since even hairless animals can produce some allergen. Pet allergy symptoms include nasal congestion and/or drainage or respiratory symptoms. Pet allergies can also trigger asthma, with symptoms of wheezing, coughing, and shortness of breath. Avoidance measures include: Keeping pets out of the bedroom. Grooming pets regularly. Using HEPA air purifiers. Cleaning carpets regularly or using bare verito such as wood or tile. Keeping pets off furniture and covering upholstered furniture. Pollen Allergy Pollens are small proteins produced by trees, grasses, weeds, and ragweed spread by wind at certain times of the year. Pollen travels more in hot, dry, and windy weather, which can increase allergy symptoms. Rainy, cloudy, or windless days cause fewer symptoms since the pollen does not move as much into the air. Tree pollen causes symptoms in the early spring, whereas grass pollen is in the atmosphere in the later spring and early summer. Weeds and ragweed allergies trigger symptoms in the late summer and fall. In warmer places, pollination can be year-round. Avoidance measures include: Keep your windows closed. Using air conditioning. Staying indoors when the pollen counts are high. Wear a mask if high exposure is unavoidable. Shower, shampoo your hair, and change clothes after spending time outside. documented in this encounter [facility] 05-16-2023 History of Present illness Narrative ASSESSMENT/PLAN: 1.) Allergic Rhinitis Aggressive environmental controls There are no cats in the home. Dust mite precautions should be instituted in the home. Environmental control measures for molds and pollens were also discussed. Start fluticasone nasal spray 2 sprays each nostril once daily Continue cetirizine 10 mg once daily as needed. If necessary, may increase cetirizine to 10 mg twice daily Depending on clinical course, treatment with subcutaneous allergy immunotherapy may be strongly considered. 2.) Oral allergy syndrome: Discussed that the symptoms of itching mouth and throat associated with ingestion of certain fresh fruits/vegetables and hazelnut are due to cross-reactivity between these foods and pollens. Cooked fruits/vegetables are typically well-tolerated. A copy of Patient education: Oral allergy syndrome (Beyond the Basics) was provided 3.) Adverse reaction to shrimp: Although the patient's symptoms associated with shrimp ingestion are likely due to cross-reactivity between dust mites and shrimp, he experienced urticaria with shrimp ingestion on one occasion in addition to sxs of itching mouth and throat. I recommend that he strictly eliminate shrimp from his diet. He may continue to include other shellfish including lobster and crab in his diet as tolerated. The patient should have epinephrine autoinjectors (Epipen, Auvi-Q 0.3 mg, or Adrenaclick 0.3 mg) and benadryl 50 mg or Zyrtec 10 mg available at all times in case of severe allergic reaction. Proper use of epinephrine autoinjectors was reviewed with the patient. Patient was instructed to seek emergent medical care immediately after use. A second Epipen may be administered 5 or more minutes after the first if the reaction persists or recurs while awaiting EMS. 4.) Discussed medication dosage, usage, side effects, and goals of treatment in detail. 5.) Follow-up in 3 months - patient will return sooner should new symptoms or problems arise. Gia Stewart MD This is a consultation requested by POLLY Nino for an allergy and immunology evaluation. My final recommendations will be communicated back to the requesting healthcare provider(s) by way of shared medical record or via [place] mail. Aston Chicas III is a 32 year old male with a history of sarcoidosis who presents for further evaluation of possible food allergies. He complains of itching mouth and throat associated with ingestion of apples, banana, kiwi, blueberries, strawberries, peppers and hazelnut. Notes similar symptoms if he ingests a large amount of shrimp. Several years ago, he experienced urticaria on 1 occasion associated with shrimp ingestion. He has had significant nasal symptoms all of his life. His symptoms include nasal congestion, rhinorrhea, postnasal drip, sneezing. Symptoms are perennial with exacerbation in the fall. Exposure to cats, dogs and dust are triggers of his symptoms. He takes Zyrtec with some relief. Finds Zyrtec more effective than Claritin. No prior allergy testing or allergy immunotherapy. Under the care of pulmonary medicine for sarcoidosis. Has an albuterol inhaler on hand. Denies a history of asthma. He complains of abdominal discomfort occurring frequently after eating despite taking Protonix 40 mg once daily. Denies vomiting or diarrhea. He will be seeing gastroenterology for further evaluation. REVIEW OF SYSTEMS: SINUSITIS: The patient does not suffer from frequent sinopulmonary infections. ASTHMA: The patient has no history of asthma. ECZEMA: patient has a history of eczema. URTICARIA:The patient does not have a history of urticaria and/or angioedema. GERD: See ASA'CARSARMIUT INSECT STING: The patient does not have a history of systemic reaction to insect sting. FOOD ALLERGY:See ASA'CARSARMIUT. LATEX: The patient does not have a history of adverse reaction to latex. All other review of systems negative except for those listed above. PAST MEDICAL HISTORY Diagnosis Date Depression with anxiety 08/19/2015 Susanne Langford CNP, [facility]. 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 Sarcoidosis of lung (HCC) 08/19/2015 Seasonal allergic rhinitis 07/08/2015 Vitritis of left eye 11/28/2017 Opthalmology: Yuri Alcaraz MD MEDICATIONS: mycophenolate Mofetil (CELLCEPT) 500 mg tablet Take 1 tablet by mouth two times a day. pantoprazole DR (PROTONIX) 40 mg tablet take 1 tablet by mouth every day sodium chloride (HERBERT 128) 2 % ophthalmic solution Use 1 Drop in the left eye four times daily. predniSONE (DELTASONE) 5 mg tablet Take 1 tablet by mouth every 48 hours. prednisoLONE acetate (PRED FORTE, ECONOPRED PLUS) 1 % ophthalmic suspension Use 1 Drop in the left eye four times daily. (Patient taking differently: Use 1 Drop in the left eye two times a day.) inFLIXimab (REMICADE) 100 mg injection Inject 600 mg intravenously every 6 weeks. Infuse 5 mg/kg intravenously on weeks 0, 2, 6 then every 4 weeks. Pre-medicate with 25mg po benadryl and 1000mg po acetaminophen prior to infusion per protocol. albuterol HFA (PROAIR HFA) 90 mcg/actuation inhaler Inhale 2 Puffs as instructed every 6 hours as needed for wheezing/shortness of breath (cough). ondansetron (ZOFRAN) 4 mg tablet Take 1 tablet by mouth every 8 hours as needed for Nausea/Vomiting. BIPAP New machine: Settings 15/11 cm H2O, suitable mask per pt preference (Airfit F30), chin strap, head gear, humidity, tubing, lifetime supplies. G47.33 Obstructive Sleep Apnea ALLERGIES: Allergies As of Date: 05/16/2023 (No Known Allergies) Fully Assessed 05/16/2023 PAST SURGICAL HISTORY Procedure Laterality Date AVASTIN (BEVACIZUMAB) 1.25MG INTRAVITREAL INJECTION OS (LEFT EYE) Left 04/08/2020 [facility] INCL FLUOR GDNCE DX W/CELL WASHG SPX 07/30/2015 BRONCHOSCOPY DRN LIVER ABSCESS/LESION PERC 10/2007 percutaneous drainage EGD 04/20/2022 EYE SURGERY HX FRACTURE SURGERY TRIESENCE INTRAVITREAL INJECTION OS (LEFT EYE) Left 03/15/2020 last VITRECTOMY MECHANICAL PARS PLANA Left 07/27/2020 s/p PPV/SO/Retisert OS (07/27/20) FAMILY HISTORY: Allergic rhinitis:no. Asthma: no. Eczema: no. Cystic fibrosis: no. Immunodeficiency: no. SOCIAL HISTORY: Employer And Job Title: [employer] Years Of Education Completed: Not specified Marital Status: with 1 child Social History Tobacco Use Smoking status: Former Packs/day: 0.50 Years: 1.00 Additional pack years: 0.00 Total pack years: 0.50 Types: Cigarettes Quit date: 09/18/2012 Years since quittin.6 Smokeless tobacco: Current Types: Chew Tobacco comments: no vape hx ENVIRONMENTAL HISTORY: Lives in a apartment Age of home: 40 years Heating: gas Woodburning fireplace in the home: no Air conditioning: Central air Basement: Dry basement Verito: [id number] carpeting Dust mite controls: Dust mite controls are not in place. Pets in the home: There are no pets in the home Outdoor animals: There are no outdoor animals Tobacco smoke: No exposure in the home. Physical Exam: GENERAL APPEARANCE:Well appearing, alert, in no acute distress, well-hydrated, well nourished. HEENT: NCAT. EYES: conjunctiva and sclera normal. EARS: External ears normal. Canals clear. TM's normal. NOSE/SINUS: pallor and moderate edema of the nasal mucosa with scant clear secretions bilaterally THROAT: no erythema NECK:neck supple, no adenopathy HEART:RRR with normal S1 and S2 ,no murmurs, no gallops, no rubs LUNGS: clear to auscultation bilaterally, no wheezes, rales or rhonchi ABDOMEN:soft, nontender, nondistended, without organomegaly or palpable masses EXTREMITIES:Extremities normal, No deformities, No skin discoloration, and No edema SKIN: Skin color, texture, turgor normal. No rashes or lesions. ALLERGY SKIN TESTS on 05/16/23:Positive to cats, dust mites, molds, trees, grasses, weeds, ragweed, shrimp on prick testing. documented in this encounter [facility] 05-16-2023 Nurse Note Patient here consult regarding possible food allergies and seasonal allergy issues. Has cramping with all food intake. Does have mouth, tongue, gum itching with apple, banana, kiwi, blueberries, strawberries, peppers, and hazelnuts/. Also has tingling with large shrimp consumption. Has has nasal congestion, drainage, post nasal drip, sneezing, coughing, and eye irritation. Suffers year round. Takes zyrtec as needed which helps some. documented in this encounter [facility] 05-10-2023 History of Present illness Narrative Images from the original note were not included. 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 Last visit 09-13-[address] Howard. He reports that he has not taken the mycophenolate for over a year. He remains on infliximab 7.5 mg/kg every 4 weeks that is infused at [facility]. His last infusion was on April 20, 2023. He does continue the prednisone 5 mg every other day. He had a follow-up visit with Dr. Gibson at [facility] on May 03, 2023 for his left eye panuveitis and vitritis. Reports shows that his left eye does look better and the plan is to observe for now but they will restart therapy if needed. His last brain MRI with orbits was on April 21, 2021 that showed no acute or progressive intracranial pathology. The left globe shows surgical changes with no active disease. He is also overdue for a follow-up visit with Dr. Steinberg in neuromuscular. He reports that he has been having stomach discomfort. He feels that he has lactose intolerance or wonders if he has food allergies. He does have acid reflux symptoms that he takes Protonix for. He has never been seen by GI. He did have an endoscopy on April 20, 2002 that did not show any acute pathology. He denies overt shortness of breath, coughing or wheezing. No chest discomfort or palpitations. No episodes of dizziness. No rashes or lesions. He denies any recent illnesses. He is tolerating the infliximab without adverse effect. Is Sarcoidosis confirmed?: Yes- biopsy Sarcoidosis History: Interval development of possible Sarcoidosis manifestations (related to previously uninvolved organs): No new symptoms What organs are affected?: Eyes, Neuro (except SFN) Pulmonary hypertension: No suspicion Sarcoidosis Therapies: Current medications: Infliximab , Prednisone prescribed mycophenolate but states he has not taken it in over a year. Treatment-defining organ: Eyes, Neuro (except SFN) Is the patient being treated with oxygen therapy?: No Current Outpatient Medications Medication Sig pantoprazole DR (PROTONIX) 40 mg tablet take 1 tablet by mouth every day albuterol HFA (PROVENTIL HFA, VENTOLIN HFA) 90 mcg/actuation inhaler Inhale 2 Puffs as instructed every 6 hours as needed for wheezing/shortness of breath. sodium chloride (HERBERT 128) 2 % ophthalmic solution Use 1 Drop in the left eye four times daily. mycophenolate Mofetil (CELLCEPT) 500 mg tablet Take 2 tablets by mouth twice daily. sulfamethoxazole-trimethoprim (BACTRIM DS,SEPTRA DS) 800-160 mg per tablet Take 1 tablet by mouth every Sunday,Sunday,Sunday. predniSONE (DELTASONE) 5 mg tablet Take 1 tablet by mouth every 48 hours. nystatin (NYSTOP) powder Apply 1 application to affected area twice daily. prednisoLONE acetate (PRED FORTE, ECONOPRED PLUS) 1 % ophthalmic suspension Use 1 Drop in the left eye four times daily. (Patient taking differently: Use 1 Drop in the left eye two times a day.) inFLIXimab (REMICADE) 100 mg injection Inject 600 mg intravenously every 6 weeks. Infuse 5 mg/kg intravenously on weeks 0, 2, 6 then every 4 weeks. Pre-medicate with 25mg po benadryl and 1000mg po acetaminophen prior to infusion per protocol. albuterol HFA (PROAIR HFA) 90 mcg/actuation inhaler Inhale 2 Puffs as instructed every 6 hours as needed for wheezing/shortness of breath (cough). cyclopentolate (CYCLOGYL) 1 % ophthalmic solution Use 1 Drop in the left eye twice daily. ondansetron (ZOFRAN) 4 mg tablet Take 1 tablet by mouth every 8 hours as needed for Nausea/Vomiting. BIPAP New machine: Settings 15/11 cm H2O, suitable mask per pt preference (Airfit F30), chin strap, head gear, humidity, tubing, lifetime supplies. G47.33 Obstructive Sleep Apnea topiramate (TOPAMAX) 25 mg tablet Take 1 tablet by mouth twice daily. No current facility-administered medications for this visit. PAST MEDICAL HISTORY Diagnosis Date Depression with anxiety 08/19/2015 Susanne Langford CNP, [facility]. 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 Sarcoidosis of lung (HCC) 08/19/2015 Seasonal allergic rhinitis 07/08/2015 Vitritis of left eye 11/28/2017 Opthalmology: Yuri Alcaraz MD PAST SURGICAL HISTORY Procedure Laterality Date AVASTIN (BEVACIZUMAB) 1.25MG INTRAVITREAL INJECTION OS (LEFT EYE) Left 04/08/2020 [facility] INCL FLUOR GDNCE DX W/CELL WASHG SPX 07/30/2015 [address]N LIVER ABSCESS/LESION PERC 10/2007 percutaneous drainage EGD 04/20/2022 EYE SURGERY HX FRACTURE SURGERY TRIESENCE INTRAVITREAL INJECTION OS (LEFT EYE) Left 03/15/2020 last VITRECTOMY MECHANICAL PARS PLANA Left 07/27/2020 s/p PPV/SO/Retisert OS (07/27/20) Social History Tobacco Use Smoking status: Former Packs/day: 0.50 Years: 1.00 Additional pack years: 0.00 Total pack years: 0.50 Types: Cigarettes Quit date: 09/18/2012 Years since quittin.6 Smokeless tobacco: Current Types: Chew Tobacco comments: no vape hx Vaping Use Vaping Use: Never used Substance Use Topics Alcohol use: Yes Alcohol/week: 1.0 standard drink of alcohol Types: 1 Cans of beer per week Comment: occasionally Drug use: No Comment: past marijuana Spirometry/DLCO: 05-10-23 03/17/21 FVC 3.05 3.49 FEV1 2.40 2.82 FEV1/FVC 0.79 81 TLC RV DLCO 20.33 20. DLCOcorr DLCO/VA CT chest 05/10/23 -New perilymphatic nodules. - Interval resolution of lymphadenopathy noted on CT dated 2017. Creatinine Date Value Ref Range Status 09/13/2022 1.05 0.73 - 1.22 mg/dL Final 01/31/2022 0.99 0.73 - 1.22 mg/dL Final 12/23/2021 0.92 0.73 - 1.22 mg/dL Final 08/24/2021 1.11 0.73 - 1.22 mg/dL Final 04/25/2021 1.13 0.73 - 1.22 mg/dL Final Calcium Date Value Ref Range Status 04/25/2021 8.7 8.5 - 10.2 mg/dL Final Calcium, Total Date Value Ref Range Status 09/13/2022 9.3 8.5 - 10.2 mg/dL Final 01/31/2022 9.4 8.5 - 10.2 mg/dL Final 12/23/2021 8.5 8.5 - 10.2 mg/dL Final 08/24/2021 9.3 8.5 - 10.2 mg/dL Final Vitamin D 25 Hydroxy Date Value Ref Range Status 09/11/2019 12.7 (L) 31.0 - 80.0 ng/mL Final Comment: Classification of 25 OH Vitamin D status: Insufficiency/Moderate Deficiency: < or = 30 ng/mL Sufficiency/Optimal Levels: 31 to 80 ng/mL Toxicity: > 100 ng/mL Test performed by chemiluminescent immunoassay. 07/11/2018 16.9 (L) 31.0 - 80.0 ng/mL Final Comment: Classification of 25 OH Vitamin D status: Insufficiency/Moderate Deficiency: < or = 30 ng/mL Sufficiency/Optimal Levels: 31 to 80 ng/mL Toxicity: > 100 ng/mL Test performed by chemiluminescent immunoassay. Vit D1,25 Dihydroxy Date Value Ref Range Status 04/25/2021 73.1 19.9 - 79.3 pg/mL Final 07/02/2020 39.0 15.0 - 60.0 pg/mL Final Comment: This test was developed and its performance characteristics determined by [facility] [place] ([facility]). It has not been cleared or approved by the FDA. [facility] is regulated under CLIA as qualified to perform high complexity testing. This test is used for clinical purposes. It should not be regarded as investigational or for research. 07/11/2018 94.7 (H) 15.0 - 60.0 pg/mL Final Comment: This test was developed and its performance characteristics determined by [facility] [place] ([facility]). It has not been cleared or approved by the FDA. [facility] is regulated under CLIA as qualified to perform high-complexity testing. This test is used for clinical purposes. It should not be regarded as investigational or for research. AST Date Value Ref Range Status 09/13/2022 19 14 - 40 U/L Final 01/31/2022 26 14 - 40 U/L Final 12/23/2021 23 14 - 40 U/L Final 08/24/2021 22 14 - 40 U/L Final 04/25/2021 24 14 - 40 U/L Final ALT Date Value Ref Range Status 09/13/2022 21 10 - 54 U/L Final 01/31/2022 31 10 - 54 U/L Final 12/23/2021 23 10 - 54 U/L Final 08/24/2021 22 10 - 54 U/L Final 04/25/2021 31 10 - 54 U/L Final Alkaline Phosphatase Date Value Ref Range Status 09/13/2022 109 38 - 113 U/L Final 01/31/2022 154 (H) 38 - 113 U/L Final 12/23/2021 173 (H) 38 - 113 U/L Final 08/24/2021 176 (H) 38 - 113 U/L Final 04/25/2021 92 38 - 113 U/L Final Albumin Date Value Ref Range Status 09/13/2022 4.0 3.9 - 4.9 g/dL Final 01/31/2022 4.1 3.9 - 4.9 g/dL Final 12/23/2021 3.6 (L) 3.9 - 4.9 g/dL Final 08/24/2021 4.1 3.9 - 4.9 g/dL Final 04/25/2021 4.1 3.9 - 4.9 g/dL Final PT INR Date Value Ref Range Status 07/12/2015 1.1 0.8 - 1.2 Final Comment: The PT/INR can be used to monitor the therapeutic effect of oral anticoagulants, such as warfarin. The recommended therapeutic range is an INR of 2.0 to 3.0 for most applications, including treatment and prevention of venous thrombosis, treatment of pulmonary embolism, prevention of strokes/TIA in patients with atrial fibrillation, prevention and treatment of thrombosis in patients with a lupus anticoagulant and prevention of systemic embolization in patients with heart valve disorders. There are certain conditions where clinicians may decide to use a lower or higher therapeutic range eg. 1.5 to 1.9 for secondary prevention of idiopathic venous thromboembolism and an INR 2.5 to 3.5 for older generation mechanical heart valves. Ansell, et al. CHEST 2004: 126:204S to 233S. Platelet Count Date Value Ref Range Status 01/31/2022 297 150 - 400 k/uL Final WBC Date Value Ref Range Status 01/31/2022 5.22 3.70 - 11.00 k/uL Final 12/23/2021 3.25 (L) 3.70 - 11.00 k/uL Final 08/24/2021 4.66 3.70 - 11.00 k/uL Final 04/25/2021 6.10 3.70 - 11.00 k/uL Final 03/11/2021 6.66 3.70 - 11.00 k/uL Final Hemoglobin Date Value Ref Range Status 01/31/2022 12.9 (L) 13.0 - 17.0 g/dL Final 12/23/2021 11.2 (L) 13.0 - 17.0 g/dL Final 08/24/2021 13.3 13.0 - 17.0 g/dL Final 04/25/2021 13.4 13.0 - 17.0 g/dL Final 03/11/2021 12.6 (L) 13.0 - 17.0 g/dL Final ANGELITO Date Value Ref Range Status 04/25/2021 21 <52 U/L Final Comment: Artificially low ANGELITO levels may be found for patients taking ANGELITO inhibitors or after the administration of gadolinium. This test was developed and its performance characteristics determined by [facility] [place] ([facility]). It has not been cleared or approved by the FDA. [facility] is regulated under CLIA as qualified to perform high complexity testing. This test is used for clinical purposes. It should not be regarded as investigational or for research. 07/02/2020 <10 <52 U/L Final Comment: Artificially low ANGELITO levels may be found for patients taking ANGELITO inhibitors or after the administration of gadolinium. This test was developed and its performance characteristics determined by [facility] [place] ([facility]). It has not been cleared or approved by the FDA. [facility] is regulated under CLIA as qualified to perform high complexity testing. This test is used for clinical purposes. It should not be regarded as investigational or for research. Result rechecked. 07/11/2018 70 (H) <52 U/L Final Comment: Artificially low ANGELITO levels may be found for patients taking ANGELITO inhibitors or after the administration of gadolinium. This test was developed and its performance characteristics determined by [facility] [place] ([facility]). It has not been cleared or approved by the FDA. [facility] is regulated under CLIA as qualified to perform high-complexity testing. This test is used for clinical purposes. It should not be regarded as investigational or for research. Angiotensin Converting Enzyme Date Value Ref Range Status 09/13/2022 33 <=52 U/L Final Comment: Artificially low ANGELITO levels may be found for patients taking ANGELITO inhibitors or after the administration of gadolinium. This test was developed and its performance characteristics determined by [facility] [place] ([facility]). It has not been cleared or approved by the FDA. -[facility] is regulated under CLIA as qualified to perform high-complexity testing. This test is used for clinical purposes. It should not be regarded as investigational or for research. 01/31/2022 51 <=52 U/L Final Comment: Artificially low ANGELITO levels may be found for patients taking ANGELITO inhibitors or after the administration of gadolinium. This test was developed and its performance characteristics determined by [facility] [place] ([facility]). It has not been cleared or approved by the FDA. [facility] is regulated under CLIA as qualified to perform high-complexity testing. This test is used for clinical purposes. It should not be regarded as investigational or for research. Interleukin-2 Receptor, Serum Date Value Ref Range Status 04/25/2021 964.9 (H) 175.3 - 858.2 pg/mL Final Comment: (NOTE) INTERPRETIVE INFORMATION: Cytokines Results are used to understand the pathophysiology of immune, infectious, or inflammatory disorders, or may be used for research purposes. This test was developed and its performance characteristics determined by [facility]. It has not been cleared or approved by the [place] Food and Drug Administration. This test was performed in a CLIA certified laboratory and is intended for clinical purposes. Performed By: [facility] [address] [place] [id number] Internal Grinder: Talya Deleon MD 07/02/2020 660.9 175.3 - 858.2 pg/mL Final Comment: (NOTE) INTERPRETIVE INFORMATION: Cytokines Results are used to understand the pathophysiology of immune, infectious, or inflammatory disorders, or may be used for research purposes. Test developed and characteristics determined by [facility]. See Compliance Statement B: [employer] Performed By: [facility] [address] [place] [id number] Internal Grinder: Talya Deleon MD 07/11/2018 2,389 (H) <=1,033 pg/mL Final Comment: (NOTE) INTERPRETIVE INFORMATION: Cytokines Results are used to understand the pathophysiology of immune, infectious, or inflammatory disorders, or may be used for research purposes. Test developed and characteristics determined by [facility]. See Compliance Statement B: [employer]/ Performed by [facility], [address] [place], [place] [id number] [email or web address], Fernando Samuels MD, Lab. Director Interleukin-2 Receptor Date Value Ref Range Status 09/13/2022 1190.1 (H) 175.3 - 858.2 pg/mL Final Comment: INTERPRETIVE INFORMATION: Cytokines Results are used to understand the pathophysiology of immune, infectious, or inflammatory disorders, or may be used for research purposes. This test was developed and its performance characteristics determined by [facility]. It has not been cleared or approved by the [place] Food and Drug Administration. This test was performed in a CLIA certified laboratory and is intended for clinical purposes. Performed By: [facility] [address] [place] [address] Internal Grinder: Nba Bonilla MD, PhD 01/31/2022 1554.1 (H) 175.3 - 858.2 pg/mL Final Comment: INTERPRETIVE INFORMATION: Cytokines Results are used to understand the pathophysiology of immune, infectious, or inflammatory disorders, or may be used for research purposes. This test was developed and its performance characteristics determined by [facility]. It has not been cleared or approved by the [place] Food and Drug Administration. This test was performed in a CLIA certified laboratory and is intended for clinical purposes. Performed By: [facility] [address] [place], [place] [id number] Internal Grinder: Nba Bonilla MD, PhD Pre immunosuppression labs Hepatitis panel Hep B Core Ab, Total Date Value Ref Range Status 09/12/2017 Negative Negative Final Hep C Antibody IA Date Value Ref Range Status 09/12/2017 Negative Negative Final HBsAg Date Value Ref Range Status 09/12/2017 Negative Negative Final Hep B Surface Ab, Qual Date Value Ref Range Status 09/12/2017 Positive (A) Negative Final Comment: These results are consistent with previous exposure and/or immunity to the hepatitis B virus antigen. TB quant TB Nil Date Value Ref Range Status 09/11/2019 0.06 IU/mL Final TB1 Ag minus Nil Date Value Ref Range Status 09/11/2019 0.00 <0.35 IU/mL Final TB2 Ag minus Nil Date Value Ref Range Status 09/11/2019 0.01 <0.35 IU/mL Final Mitogen minus Nil Date Value Ref Range Status 09/11/2019 1.27 Final TB Interpretation Date Value Ref Range Status 09/11/2019 Final No evidence of current or previous infection with Mycobacterium tuberculosis. TPMT No results found for: TPMTACT G6PD No results found for: G6PDQT MRC Dyspnea Scale: Not troubled by breathlessness except on strenuous exercise Short of breath when hurrying or walking up a slight hill Walks slower than contemporaries on the level because of breathlessness, or has to stop for breath when walking at own pace Stops for breath after about 100 m or after a few minutes on the level Too breathless to leave the house, or breathless when dressing or undressing Physical Exam: BP 130/85 Pulse 93 Temp 36.3 C (97.4 F) Wt 125.6 kg (277 lb) SpO2 96% BMI 43.38 kg/m General appearance: Well appearing, alert, in no acute distress, well-hydrated, well nourished. Skin: Skin color, texture, turgor normal, no suspicious rashes or lesions Neck: Supple, no adenopathy Lungs: Lungs clear to auscultation. No wheezing, rhonchi, rales. Heart: RRR without murmur, gallop, or rubs. No ectopy Extremities: No deformities, edema, skin discoloration, clubbing or cyanosis. Good capillary refill. Musculoskeletal: No joint swelling, deformity, or tenderness Neuro: Negative findings: speech normal, mental status intact, muscle tone normal, muscle strength normal Health Risks: Aston Chicas III is not having pain related to the reason for this visit. Data Reviewed (in addition to that noted in HPI, and Past histories above): Is a new CT available: Yes- Performed here Was a new echo performed?: No Was a new right heart catheterization performed?: No SARCOIDOSIS CHECKLIST Is the patient being referred for transplantation?: No ASSESSMENT Aston Chicas III is a 32 year old year old male with sarcoidosis with neuro and orbital, ocular involvement. He remains on aggressive immunosuppression with infliximab every 4 weeks and prednisone 5 mg every other day. He is supposed to be on mycophenolate however he tells me today he has not been taking it for almost a year. We discussed the importance of being on the mycophenolate given the severity of his ocular and neurosarcoidosis. He also has progressing pulmonary nodules on his CT imaging suggesting an underlying inflammatory lung process. His spirometry is down today. He states he will restart taking it. I will send another prescription over to his pharmacy. I encouraged him to follow-up with Dr. Steinberg for updated neuroassessment. He will continue to follow at [facility] as recommended. He would like to have allergy testing. I will send a referral in for a consult for the allergy department. I would also like for him to follow-up with gastroenterology if he continues to have issues with stomach discomfort despite being on Protonix. PLAN Sarcoidosis medications after visit: Infliximab , Mycophenolate , Prednisone Follow up as scheduled. MONROE Marie PA-C documented in this encounter [facility] 05-10-2023 History of Present illness Narrative PULM FUNCTION SMARTBLOCK: Provider: Lynn Howard MD Spirometry: 1 DLCO: 1 documented in this encounter [facility] 05-10-2023 History of Present illness Narrative Radiology Service Progress Note PATIENT NAME: Aston Chicas III DATE OF SERVICE: May 10, 2023 TIME: 12:29 PM PATIENT IDENTITY VERIFICATION COMPLETED USING TWO (2) IDENTIFIERS: Name and Date of confirmed by patient verbally and Name and Date of confirmed by identification band. FALL SCREENING: Has the patient had 2 falls in the last year or 1 fall with injury or currently using an Ambulatory Assistive Device (Walker, Cane, Wheelchair, Crutches, etc.)? No PATIENT GENDER DATA: Male PATIENT RELEVANT IMPLANT DATA REVIEWED: Yes PATIENT PRESENTS WITH AN IMPLANTABLE OR ATTACHED DIE TRIPPER: No RADIOLOGY DEPARTMENT: CT; Exam(s) Completed: Chest PERIPHERAL IV DATA: Not applicable SIGNED BY: RT Marika(R) May 10, 2023 12:29 PM documented in this encounter [facility] 05-03-2023 History of Present illness Narrative No new vision changes, no new floaters/flashes, pain. Stopped PF QID OS 1 month ago because he forgot. Stopped cellcept 2 months ago - also forgot. 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 biopsied and c/w sarcoid. Follows with pulmonology Dr. Howard. - Had numerous URRUTIA and light sensitivity, MRI in 05/2018 with leptomeningeal enhancement c/w sarcoidosis. Follows with neurology Dr. 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 Looks better Left eye - less fluid, less folds -my plan - observe, if worse once retisert is out - will plan on retisert replacement If continues to improve, could consider simultaneous Penetrating keratoplasty Left eye Seeing pulmonology next week - told patient to let them know he stopped cellcept on his own. Can consider PF daily OS howver patient has been non-compliant many times I have confirmed and edited as necessary the relevant ophthalmic history, ROS, and the neuro exam findings as obtained by others. I have seen and examined this patient. I have discussed the case and the management of this patient's care with the Resident/Fellow, if applicable. I also have reviewed and agree with the assessment and plan as stated above and agree with all of its relevant components. Nelson Gibson MD May 03, 2023 4:31 PM documented in this encounter [facility] 03-06-2023 Miscellaneous Notes Spoke with pt to offer to reschedule treatment. Pt declined and stated he wanted to skip this treatment Informed pt of next treatment on 04/20. Pt stated his understanding documented in this encounter [facility] 02-01-2023 History of Present illness Narrative No new vision changes, no new floaters/flashes, pain. 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 biopsied and c/w sarcoid. Follows with pulmonology Dr. Howard. - Had numerous URRUTIA and light sensitivity, MRI in 05/2018 with leptomeningeal enhancement c/w sarcoidosis. Follows with neurology Dr. 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 I have seen and examined this patient. I have discussed the case and the management of this patient's care with the Resident/Fellow, if applicable. I also have reviewed and agree with the assessment and plan as stated above and agree with all of its relevant components. Nelson Gibson MD February 01, 2023 4:35 PM documented in this encounter [facility] 09-13-2022 History of Present illness Narrative Virtual Visit for sarcoidosis Aston Chicas III has consented to this video visit . Persons Present: patient I have communicated my name and active licensure. The patient's identity and physical location were verified at the time of this visit. Either the patient or their legal premium service representative has been informed of the risks and benefits of -- and alternatives to -- treatment through a remote evaluation and consents to proceed with the evaluation remotely. MY CHart zoom visit: Chief Complaint/Reason: Sarcoidosis Subsequent vsit : - here for follow up for sarcoidosis - no cough - no wheezing or eduard stightness' - no chest pain - no SOB - left eye - blurry - no change , R eye - good slight weaker - last eye in [place] with DR Gibson - No URRUTIA - no extremity weakness - no back pain - no fever chills - no loss of weight or appetite - no joint pain - no kindey stones - has rash which resolves with cream - sarcoidosis medication prednisone 5mg every 48, cellcept 1000mg BID and bactrim - infliximab - every 6 week ROS: GEN: Good energy, good appetite, No weight change, no fevers, no chills HEENT: No headaches, no conjunctival pruritus, no rhinorrhea or congestion, no nose bleeds, no snoring, CV: see HPI Lungs:see HPI GI: No Abdominal pain, nausea, vomiting, diarrhea, constipation, blood in stools : No dysuria, polyuria or hematuria MSK: No joint or muscle aches Neuro: No numbness or weakness, no seizures Skin: No lesions or rashes Lymph: No swollen node All other review of system is negative. 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 Apply sparingly to affected areas on the feet for rash/itching. mycophenolate Mofetil (CELLCEPT) 500 mg tablet Take 2 tablets by mouth twice daily. sulfamethoxazole-trimethoprim (BACTRIM DS,SEPTRA DS) 800-160 mg per tablet Take 1 tablet by mouth every Sunday,Sunday,Sunday. predniSONE (DELTASONE) 5 mg tablet Take 1 tablet by mouth every 48 hours. nystatin (NYSTOP) powder Apply 1 application to affected area twice daily. pantoprazole DR (PROTONIX) 40 mg tablet Take 1 tablet by mouth once daily. prednisoLONE acetate (PRED FORTE, ECONOPRED PLUS) 1 % ophthalmic suspension Use 1 Drop in the left eye four times daily. (Patient taking differently: Use 1 Drop in the left eye twice daily.) inFLIXimab (REMICADE) 100 mg injection Inject 600 mg intravenously every 6 weeks. Infuse 5 mg/kg intravenously on weeks 0, 2, 6 then every 4 weeks. Pre-medicate with 25mg po benadryl and 1000mg po acetaminophen prior to infusion per protocol. topiramate (TOPAMAX) 25 mg tablet Take 1 tablet by mouth twice daily. albuterol HFA (PROAIR HFA) 90 mcg/actuation inhaler Inhale 2 Puffs as instructed every 6 hours as needed for wheezing/shortness of breath (cough). cyclopentolate (CYCLOGYL) 1 % ophthalmic solution Use 1 Drop in the left eye twice daily. (Patient not taking: Reported on 06/09/2022) ondansetron (ZOFRAN) 4 mg tablet Take 1 tablet by mouth every 8 hours as needed for Nausea/Vomiting. BIPAP New machine: Settings 15/11 cm H2O, suitable mask per pt preference (Airfit F30), chin strap, head gear, humidity, tubing, lifetime supplies. G47.33 Obstructive Sleep Apnea No current facility-administered medications for this visit. CXR 03/23/21 - R basal atelectasis MRI Brain 03/21/22 1. No acute/new/progressive/recurrent intracranial pathology or abnormal enhancement. 2. Left globe surgical changes with no active orbital disease. 03/03/21 Postoperative changes related to prior left globe mechanical vitrectomy. No acute brain findings. No mass effect or abnormal enhancement. Artifact as noted on the diffusion trace images. No correlate on the remaining images. Borderline tonsillar descent. No crowding at the foramen magnum. No evidence for cervical syrinx. 04/09/20 1. Complete resolution of previously identified intracranial changes of neurosarcoidosis. 2. On today's study - unremarkable MRI brain. 3. Findings consistent with secondary changes of papilledema (correlate clinically). 4. Persistent mild enhancement of posterior eye globe chorioretinal lining. 5. Remaining orbital MRI is unremarkable. 09/11/2019 Progressive infratentorial and supratentorial leptomeningeal enhancement since 05/31/2018 compatible with the provided history of neurosarcoidosis. No significant intracranial mass effect. Asymmetric enhancement left anterior chamber may relate to uveitis. Bilateral optic disc fullness suggestive of papilledema. Pansinusitis. Data Reviewed: Most recent labs and imaging results. Component Latest Ref Rng & Units 07/11/2018 TB Nil IU/mL 0.17 TB1 Ag minus Nil <0.35 IU/mL 0.00 TB2 Ag minus Nil <0.35 IU/mL 0.02 Mitogen minus Nil 5.88 TB Result Negative Negative TB Interpretation No evidence of current or previous infection with Mycobacterium tuberculosis. Vitamin D 1,25 Dihydroxy D2 pg/mL 68.4 Vitamin D 1,25 Dihydroxy D3 pg/mL 26.3 Vit D1,25 Dihydroxy 15.0 - 60.0 pg/mL 94.7 (H) TPMT Genotype TPMT*1/TPMT*1 TPMT Predicted Phenotype Alleles present are associated with NORMAL ENZYME ACTIVITY. WSR 0 - 15 mm/hr 26 (H) CRP <0.9 mg/dL 1.2 (H) ANGELITO <52 U/L 70 (H) Interleukin-2 Receptor, Serum <=1,033 pg/mL 2,389 (H) Vitamin D 25 Hydroxy 31.0 - 80.0 ng/mL 16.9 (L) PFT: ( normal) Date FEV1 FVC FEV1/FVC TLC RV DLco 03/17/21 2.82 (81%) 3.49 (84%) 81 20.09 (59%) Assessment: Sarcoidosis with eye, neurological and pulmonary involvement ( MRI confirms neurosarcoidosis) Loss of visionin left eye RONNA on BIPAP Stomach pain Plan: - after getting better to treatment had stopped taking medication had relapse of disease in January - restarted on prednisone and cellcept - -coul dnot tolerate methotrexate or aza - restarted on oinfliximab - 1st dose after octiber - now every 6 weeks - Sil2 again elevated in 02/14 - MRI bbrain - no enhancement suggesting inflammation - continue cellcept and prednisone ( increase dcellcept to 1g BID 02/14) was taking half dose n - follow up with dr Gibson for left eye - CBC/CMP every 2 months - increase compliance to the BIPAP Follow up in 3 months VV and 6 months office visit with MRI Kris/Pituitary Follo wup 3 months with virtual visit Time spend : 40 minutes Lynn Howard MD Staff, Respiratory [place] Staff, Sarcoidosis ILD Center 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, [facility] [employer] Date: September 13, 2022 Time: 7:46 AM Pager: [phone] Dr Cleveland Means MD, Dr Gibson, Dr Steinberg documented in this encounter [facility] 06-30-2022 History of Present illness Narrative N documented in this encounter [facility] 06-09-2022 History of Present illness Narrative Doing well No new issues MEDS PF BID OS Prednisone 5mg daily Cellcept 2000mg (2tab BID, started early 2020) Remicade 900mg (7.3 mg/kg) q4 weeks (started 600mg 09/2019, increased to 900mg 02/2020) Previously imuran (stopped due to nausea) s/p PPV/SO/Retisert OS (07/27/20) - IOP 5, 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 biopsied and c/w sarcoid. Follows with pulmonology Dr. Howard. - Had numerous URRUTIA and light sensitivity, MRI in 05/2018 with leptomeningeal enhancement c/w sarcoidosis. Follows with neurology Dr. 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 I have seen and examined this patient. I have discussed the case and the management of this patient's care with the Resident/Fellow, if applicable. I also have reviewed and agree with the assessment and plan as stated above and agree with all of its relevant components. Nelson Gibson MD June 09, 2022 10:17 AM documented in this encounter [facility] 05-19-2022 History of Present illness Narrative Virtual Visit for sarcoidosis Aston Chicas III has consented to this video visit . 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 triamcinolone acetonide (KENALOG) 0.1 % cream Apply 1 application to affected area twice daily. Apply sparingly to affected areas on the feet for rash/itching. pantoprazole DR (PROTONIX) 40 mg tablet Take 1 tablet by mouth once daily. prednisoLONE acetate (PRED FORTE, ECONOPRED PLUS) 1 % ophthalmic suspension Use 1 Drop in the left eye four times daily. predniSONE (DELTASONE) 5 mg tablet Take 1 tablet by mouth every 48 hours. mycophenolate Mofetil (CELLCEPT) 500 mg tablet Take 2 tablets by mouth twice daily. sulfamethoxazole-trimethoprim (BACTRIM DS,SEPTRA DS) 800-160 mg per tablet Take 1 tablet by mouth every Sunday,Sunday,Sunday. (Patient not taking: Reported on 01/31/2022) inFLIXimab (REMICADE) 100 mg injection Inject 600 mg intravenously every 6 weeks. Infuse 5 mg/kg intravenously on weeks 0, 2, 6 then every 4 weeks. Pre-medicate with 25mg po benadryl and 1000mg po acetaminophen prior to infusion per protocol. topiramate (TOPAMAX) 25 mg tablet Take 1 tablet by mouth twice daily. albuterol HFA (PROAIR HFA) 90 mcg/actuation inhaler Inhale 2 Puffs as instructed every 6 hours as needed for wheezing/shortness of breath (cough). cyclopentolate (CYCLOGYL) 1 % ophthalmic solution Use 1 Drop in the left eye twice daily. ondansetron (ZOFRAN) 4 mg tablet Take 1 tablet by mouth every 8 hours as needed for Nausea/Vomiting. BIPAP New machine: Settings 15/11 cm H2O, suitable mask per pt preference (Airfit F30), chin strap, head gear, humidity, tubing, lifetime supplies. G47.33 Obstructive Sleep Apnea No current facility-administered medications for this visit. CXR 03/23/21 - R basal atelectasis MRI Brain 03/21/22 1. No acute/new/progressive/recurrent intracranial pathology or abnormal enhancement. 2. Left globe surgical changes with no active orbital disease. 03/03/21 Postoperative changes related to prior left globe mechanical vitrectomy. No acute brain findings. No mass effect or abnormal enhancement. Artifact as noted on the diffusion trace images. No correlate on the remaining images. Borderline tonsillar descent. No crowding at the foramen magnum. No evidence for cervical syrinx. 04/09/20 1. Complete resolution of previously identified intracranial changes of neurosarcoidosis. 2. On today's study - unremarkable MRI brain. 3. Findings consistent with secondary changes of papilledema (correlate clinically). 4. Persistent mild enhancement of posterior eye globe chorioretinal lining. 5. Remaining orbital MRI is unremarkable. 09/11/2019 Progressive infratentorial and supratentorial leptomeningeal enhancement since 05/31/2018 compatible with the provided history of neurosarcoidosis. No significant intracranial mass effect. Asymmetric enhancement left anterior chamber may relate to uveitis. Bilateral optic disc fullness suggestive of papilledema. Pansinusitis. Data Reviewed: Most recent labs and imaging results. Component Latest Ref Rng & Units 07/11/2018 TB Nil IU/mL 0.17 TB1 Ag minus Nil <0.35 IU/mL 0.00 TB2 Ag minus Nil <0.35 IU/mL 0.02 Mitogen minus Nil 5.88 TB Result Negative Negative TB Interpretation No evidence of current or previous infection with Mycobacterium tuberculosis. Vitamin D 1,25 Dihydroxy D2 pg/mL 68.4 Vitamin D 1,25 Dihydroxy D3 pg/mL 26.3 Vit D1,25 Dihydroxy 15.0 - 60.0 pg/mL 94.7 (H) TPMT Genotype TPMT*1/TPMT*1 TPMT Predicted Phenotype Alleles present are associated with NORMAL ENZYME ACTIVITY. WSR 0 - 15 mm/hr 26 (H) CRP <0.9 mg/dL 1.2 (H) ANGELITO <52 U/L 70 (H) Interleukin-2 Receptor, Serum <=1,033 pg/mL 2,389 (H) Vitamin D 25 Hydroxy 31.0 - 80.0 ng/mL 16.9 (L) PFT: ( normal) Date FEV1 FVC FEV1/FVC TLC RV DLco 03/17/21 2.82 (81%) 3.49 (84%) 81 20.09 (59%) Assessment: Sarcoidosis with eye, neurological and pulmonary involvement ( MRI confirms neurosarcoidosis) Loss of visionin left eye RNONA on BIPAP Stomach pain Plan: - stopped taking medication had relapse of disease in January - restarted on prednisone and cellcept better - -coul dnot tolerate methotrexate or aza - restarted on oinfliximab - 1st dose after octiber - Sil2 again elevated - MRI bbrain - no enhancement suggesting inflammation - continue cellcept and prednisone ( increase cellcept to 1g BID) was taking half dose - cotninue infliximab infusion - follow up with dr Gibson for left eye - CBC/CMP every 2 months - increase compliance to the BIPAP HRCT cjest to assess lung disease Juana boswell 3 months with virtual visit Total Time Spent:30 minutes Lynn Howard MD Staff, Respiratory [place] Staff, Sarcoidosis ILD Center 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, [facility] Date: May 19, 2022 Time: 12:11 PM Pager: [phone] Cleveland Means MD, Dr Gibson, Dr Steinberg documented in this encounter [facility] 05-02-2022 Miscellaneous Notes My Chart message sent to patient re: biopsy results. Shannon Wang RN Biopsies from upper endoscopy were unremarkable. It appears on chart review that there was also discussion about possible gallbladder etiology of his symptoms, so if he is still noting same complaints would have him follow up with Dr. Sosa to discuss this further. Aston had an EGD on 04/20/[address] Sosa. Biopsies were taken. Aston was scheduled with POLLY Coats on 04/28/2022, but did not show. Could you please review the pathology and advise regarding any necessary follow up? Shannon Wang RN documented in this encounter [facility] 04-20-2022 Nurse Note Arrived in phase II via cart. Left lateral position. Sedated, but responds to verbal stimuli. Color normal; skin warm and dry. Respirations wnl and unlabored. Abdomen soft and with + bowel sounds in quads X 4. Patient resting comfortably. [place] at bedside to review procedure and recommendations. Yolanda Velasquez RN documented in this encounter [facility] 04-20-2022 History and physical note Images from the original note were not included. HISTORY AND PHYSICAL Aston Chicas III 1990 REFERRING PHYSICIAN: Cleveland Means MD CHIEF COMPLAINT: Consult (GERD and stomach issues) HPI: The patient is a 31 year old male referred for endoscopy. The patient notes the following upper complaints: Patient been experiencing some heartburn for better than a year Probably better for about 6 months which is controlled most of his symptoms. In addition the patient has been having some lower abdominal discomfort at times. He has never had an EGD. The patient is also have a gallbladder ultrasound which showed gallstones and symptomatic steatosis . Aston notes heartburn. Aston denies dysphagia. Aston denies a history of ulcers/ peptic ulcer disease. Aston has not undergone prior endoscopy. The patient is being seen by me today at the request of Dr. Cleveland Means MD for my opinion and advice regarding Heartburn (primary encounter diagnosis) . PAST MEDICAL HISTORY PAST MEDICAL HISTORY Diagnosis Date Depression with anxiety 08/19/2015 Susanne Langford, LENA, [facility]. 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 Sarcoidosis of lung (HCC) 08/19/2015 Seasonal allergic rhinitis 07/08/2015 Vitritis of left eye 11/28/2017 Opthalmology: Yuri Alcaraz MD PAST SURGICAL HISTORY PAST SURGICAL HISTORY Procedure Laterality Date AVASTIN (BEVACIZUMAB) 1.25MG INTRAVITREAL INJECTION OS (LEFT EYE) Left 04/08/2020 [facility] INCL FLUOR GDNCE DX W/CELL WASHG SPX 07/30/[address]N LIVER ABSCESS/LESION PERC percutaneous drainage TRIESENCE INTRAVITREAL INJECTION OS (LEFT EYE) Left 03/15/2020 last VITRECTOMY MECHANICAL PARS PLANA Left 07/27/2020 s/p PPV/SO/Retisert OS (07/27/20) CURRENT MEDICATIONS Current Outpatient Medications Medication Sig predniSONE (DELTASONE) 5 mg tablet Take 1 tablet by mouth every 48 hours. mycophenolate Mofetil (CELLCEPT) 500 mg tablet Take 2 tablets by mouth twice daily. pantoprazole DR (PROTONIX) 40 mg tablet Take 1 tablet by mouth once daily. inFLIXimab (REMICADE) 100 mg injection Inject 600 mg intravenously every 6 weeks. Infuse 5 mg/kg intravenously on weeks 0, 2, 6 then every 4 weeks. Pre-medicate with 25mg po benadryl and 1000mg po acetaminophen prior to infusion per protocol. albuterol HFA (PROAIR HFA) 90 mcg/actuation inhaler Inhale 2 Puffs as instructed every 6 hours as needed for wheezing/shortness of breath (cough). cyclopentolate (CYCLOGYL) 1 % ophthalmic solution Use 1 Drop in the left eye twice daily. ondansetron (ZOFRAN) 4 mg tablet Take 1 tablet by mouth every 8 hours as needed for Nausea/Vomiting. BIPAP New machine: Settings 15/11 cm H2O, suitable mask per pt preference (Airfit F30), chin strap, head gear, humidity, tubing, lifetime supplies. G47.33 Obstructive Sleep Apnea sulfamethoxazole-trimethoprim (BACTRIM DS,SEPTRA DS) 800-160 mg per tablet Take 1 tablet by mouth every Sunday,Sunday,Sunday. (Patient not taking: Reported on 01/31/2022) topiramate (TOPAMAX) 25 mg tablet Take 1 tablet by mouth twice daily. prednisoLONE acetate (PRED FORTE, ECONOPRED PLUS) 1 % ophthalmic suspension Use 1 Drop in the left eye four times daily. (Patient not taking: No sig reported) No current facility-administered medications for this visit. ALLERGIES: Patient has no known allergies. PERSONAL HISTORY: SOCIAL HISTORY Social History Tobacco Use Smoking status: Former Packs/day: 0.50 Years: 1.00 Pack years: 0.50 Types: Cigarettes Quit date: 09/18/2012 Years since quittin.3 Smokeless tobacco: Current Types: Chew Tobacco comments: no vape hx Substance Use Topics Alcohol use: Yes Alcohol/week: 1.0 standard drink Types: 1 Cans of beer per week Drug use: No Comment: past marijuana FAMILY HISTORY: FAMILY HISTORY FAMILY HISTORY Problem Relation Age of Onset Diabetes Maternal Grandmother Hypertension Mother Colon Cancer Other maternal cousin at 44 Breast Cancer Maternal Aunt Breast Cancer Maternal Aunt Cancer Paternal Grandfather throat cancer None Father No Ocular Disease No Family History Glaucoma No Family History Macular Degen No Family History Detached Retina No Family History Blindness No Family History REVIEW OF SYMPTOMS: The review of systems data was entered by the nurse and reviewed by il Nursing Notes: Starla Yang 01/31/2022 1:37 PM Signed REVIEW OF SYSTEMS: General: The patient NOTES fatigue, denies weight loss, denies weight gain, denies feeling hot, and denies feelings of cold. Eyes: The patient denies glaucoma, NOTES eye injury/surgery, does not wear glasses or contacts. Ear/Nose/Throat: The patient denies allergies, denies hayfever, denies ear infections, and denies bloody noses. Cardiovascular: The patient denies chest pain, denies heart disease, denies high blood pressure,denies cardiac stent, denies prior heart attack, denies irregular heart beat, denies high cholesterol, denies poor circulation, denies heart failure, other cardiac issues, denies claudication, denies cold feet, denies peripheral arterial stent. Respiratory: The patient denies tuberculosis, denies pneumonia, NOTES frequent cough, NOTES pulmonary embolism, NOTES shortness of breath, and denies coughing up blood, NOTES other lung problems Gastrointestinal: The patient denies difficulty swallowing, NOTES acid reflux, denies ulcers, denies vomiting, denies jaundice/hepatitis, denies gallbladder problems, denies black or tarry stools, denies hemorrhoids, denies bleeding from rectum, denies diverticulitis, denies constipation, denies diarrhea, denies loss of stool control, and denies hernias. Kidney/Bladder: The patient denies kidney stones, denies urine infections, and denies bloody urine. Skin: The patient denies a history of skin cancer, denies bleeding/changing moles, and NOTES a history of skin rash. Neurologic: The patient denies a history of epilepsy/convulsions, NOTES headaches, denies head/spinal injuries, and denies stroke/TIA. Psychiatric: The patient denies psychiatric medications, NOTES depression, and denies voices, denies substance abuse. Endocrine: The patient denies thyroid disorders, denies diabetes, and denies hormonal problems. Hematologic: The patient denies a history of bruising, denies bleeding, and denies anemia, denies blood clots. Infections: The patient denies a history of measles and mumps, denies rheumatic fever, and denies sexually transmitted diseases. Musculoskeletal: The patient denies back pain/injury, denies back problems, denies sciatica, NOTES knee/foot trouble, denies arthritis, or denies gout. When was patient's last Mammogram screening? N/A Last Colonoscopy: N/A Starla Yang PHYSICAL EXAMINATION: General: The patient is 31 year old male, well nourished, well hydrated in no acute distress. The patient is oriented to time, place, and person. VITALS: Blood pressure 118/82, pulse 111, temperature 36.7 C (98.1 F), weight 113.4 kg (250 lb), SpO2 98 %. Body mass index is 39.16 kg/m . HEENT: Normal cephalic, ataumatic, pupils are equally round, sclera are anicteric, mucous membranes are moist, oropharynx is clear. Neck has no masses, asymmetry or lymphadenopathy. Thyroid is unremarkable. Respiratory: Clear to auscultation and percussion. Normal respiratory excursion and pattern. Cardiac: Examination is regular rate and rhythm. Abdominal exam: Soft, nontender, with no palpable masses. No hepatosplenomegaly. No palpable hernias. Rectal exam: exam deferred Extremities: no clubbing, cyanosis or edema. No adenopathy. Other: LABORATORY VALUES: As Noted RADIOLOGIC STUDIES: As Noted Assessment IMPRESSION: Heartburn (primary encounter diagnosis) PLAN: I plan to perform upper endoscopy. We discussed the risks and benefits of the planned endoscopy. I have informed the patient that complications can occur including failure to complete the endoscopy and perforation. The patient had the opportunity to ask questions concerning the planned endoscopy. My staff has also explained the procedure to the patient in understandable terms and has given the patient printed material concerning the procedure. The patient freely consents to surgery. Diagnoses: (R12) Heartburn (primary encounter diagnosis) My findings have been communicated to Dr. Cleveland Means MD via shared medical record. This note will be forwarded to Dr. Cleveland Means MD. Return to Clinic: The patient is instructed to follow-up with me 1 week post operatively. At the end of the work-up we may need to evaluate if his gallbladder could be causing his symptoms. Norbert Sosa III, MD UPDATED HISTORY AND PHYSICAL EXAMINATION SERVICE DATE: 04/20/2022 SERVICE TIME: 1:43 PM PHYSICAL EXAM MUST BE COMPLETED ON ADMISSION The History and Physical (completed in the past 30 days) has been reviewed and the patient has been examined. The contents accurately reflect the patient's condition with the following additions or revisions since the H&P was completed. Examination indicates no changes. This H&P can be found in the attached. SIGNATURE: Norbert Sosa III, MD PATIENT NAME: Aston Chicas III DATE: April 20, 2022 TIME: 1:43 PM documented in this encounter [facility] 04-04-2022 Miscellaneous Notes Spoke with pt's and scheduled as directed That's fine. As of this note, there is a 5hr treatment chair we can schedule in on Sunday morning. Please advise if this is ok. Thank you! Patient's spouse states that his symptoms have been increasing since he was unable to receive his last infusion that was scheduled on 03/17/22 due to not having the proper orders. Please contact the patient's spouse since the patient works third shift. They would prefer Wednesdays and Fridays but are willing to come any day sooner than his current scheduled appointment on 04/14/22. documented in this encounter [facility] 03-21-2022 History of Present illness Narrative Radiology Service Progress Note DATE OF SERVICE: March 21, 2022 TIME: 9:43 AM PATIENT IDENTITY VERIFICATION COMPLETED USING TWO (2) STANDARD IDENTIFIERS: Name and Date of confirmed by patient verbally. FALL SCREENING: Has the patient had 2 falls in the last year or 1 fall with injury or currently using an Ambulatory Assistive Device (Walker, Cane, Wheelchair, Crutches, etc.)? No PATIENT GENDER DATA: Male PATIENT RELEVANT IMPLANT DATA REVIEWED: Yes ALLERGIES: Reviewed and unchanged CONTRAST ALLERGY: NO. EXAM: MRI - CONTRAST TYPE: GROUP II PERIPHERAL IV DATA: Ambulatory: A peripheral IV was started in the Right antecubital site with a Angio cath: 22 gauge. RADIOLOGY DEPARTMENT: MR; Exam(s) Completed: Head: Multiple Sclerosis Orbit/Sinus SIGNATURE: RT Inna(R) PATIENT NAME: Aston Chicas III DATE: March 21, 2022 TIME: 9:43 AM documented in this encounter [facility] 02-02-2022 History of Present illness Narrative Doing well No new issues MEDS Prednisone 5mg daily Cellcept 2000mg (2tab BID, started early 2020) Remicade 900mg (7.3 mg/kg) q4 weeks (started 600mg 09/2019, increased to 900mg 02/2020) Previously imuran (stopped due to nausea) s/p PPV/SO/Retisert OS (07/27/20) - IOP 5, 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 biopsied and c/w sarcoid. Follows with pulmonology Dr. Howard. - Had numerous URRUTIA and light sensitivity, MRI in 05/2018 with leptomeningeal enhancement c/w sarcoidosis. Follows with neurology Dr. 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) - has been on MTX, prednisone, and Solumedrol in the past - FA 12/24/19 OD mild disc leakage with far peripheral perivenular leakage; relatively normal - continued corneal edema and haze - OCT 02/24/21 wnl nl foveal contour SRF/IRF right eye, few stable cells; left eye with retinal thickening and folds with choroidal folds - FA 02/24/21: Left eye hot disc, hazy view Right eye - sharp borders Prednisolone twice a day Observe for now I have confirmed and edited as necessary the relevant ophthalmic history, ROS, and the neuro exam findings as obtained by others. I have seen and examined this patient. I have discussed the case and the management of this patient's care with the Resident/Fellow, if applicable. I also have reviewed and agree with the assessment and plan as stated above and agree with all of its relevant components. Nelson Gibson MD February 03, 2022 10:26 AM documented in this encounter [facility] 02-01-2022 Miscellaneous Notes I spoke with the patient and he will come in on 02/02 at 9:30. Appt sent to be scheduled. I can do 9:30. Parris I spoke with him and he's wondering if there's anyway he can have a morning appointment tomorrow with Dr. Gibson. I left him a detailed message asking him to give me a call back to come in on 02/[address] Gibson. Images from the original note were not included. KAILASH [facility] Can you call him and see if he can come tomorrow in one of the open established spots in the afternoon. Parris Previous Messages ----- Message ----- From: Nelson Gibson MD Sent: 01/24/2022 5:09 PM EST To: Ashley Luna RN Can you get him in sometime within a month. Nelson documented in this encounter [facility] 01-23-2022 History of Present illness Narrative Virtual Visit for sarcoidosis Aston Chicas YULISSA has consented to this telephone encounter. Persons Present: patient Chief Complaint/Reason: Sarcoidosis Subsequent vsit : Virtual visit for sarcoidosis - has been dry spot on the skin - has fatigue - has self discontinued cellcept and prednisone - on infliximab every 6 week - no cough - no wheezing or chest tightness - no chest pain - has very dry skin - has ankle pain - urrutia sleft eye blindness and right eye vusion normal - has been stomach pain ROS: GEN: Good energy, good appetite, No weight change, no fevers, no chills HEENT: No headaches, no conjunctival pruritus, no rhinorrhea or congestion, no nose bleeds, no snoring, CV: see HPI Lungs:see HPI GI: No Abdominal pain, nausea, vomiting, diarrhea, constipation, blood in stools : No dysuria, polyuria or hematuria MSK: No joint or muscle aches Neuro: No numbness or weakness, no seizures Skin: No lesions or rashes Lymph: No swollen node All other review of system is negative. 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 mycophenolate Mofetil (CELLCEPT) 500 mg tablet Take 2 tablets by mouth twice daily. predniSONE (DELTASONE) 5 mg tablet Take 1 tablet by mouth every 48 hours. sulfamethoxazole-trimethoprim (BACTRIM DS,SEPTRA DS) 800-160 mg per tablet Take 1 tablet by mouth every Sunday,Sunday,Sunday. inFLIXimab (REMICADE) 100 mg injection Inject 600 mg intravenously every 6 weeks. Infuse 5 mg/kg intravenously on weeks 0, 2, 6 then every 4 weeks. Pre-medicate with 25mg po benadryl and 1000mg po acetaminophen prior to infusion per protocol. topiramate (TOPAMAX) 25 mg tablet Take 1 tablet by mouth twice daily. prednisoLONE acetate (PRED FORTE, ECONOPRED PLUS) 1 % ophthalmic suspension Use 1 Drop in the left eye four times daily. (Patient not taking: Reported on 08/12/2021 ) albuterol HFA (PROAIR HFA) 90 mcg/actuation inhaler Inhale 2 Puffs as instructed every 6 hours as needed for wheezing/shortness of breath (cough). cyclopentolate (CYCLOGYL) 1 % ophthalmic solution Use 1 Drop in the left eye twice daily. ondansetron (ZOFRAN) 4 mg tablet Take 1 tablet by mouth every 8 hours as needed for Nausea/Vomiting. BIPAP New machine: Settings 15/11 cm H2O, suitable mask per pt preference (Airfit F30), chin strap, head gear, humidity, tubing, lifetime supplies. G47.33 Obstructive Sleep Apnea No current facility-administered medications for this visit. CXR 03/23/21 - R basal atelectasis MRI Brain 03/03/21 Postoperative changes related to prior left globe mechanical vitrectomy. No acute brain findings. No mass effect or abnormal enhancement. Artifact as noted on the diffusion trace images. No correlate on the remaining images. Borderline tonsillar descent. No crowding at the foramen magnum. No evidence for cervical syrinx. 04/09/20 1. Complete resolution of previously identified intracranial changes of neurosarcoidosis. 2. On today's study - unremarkable MRI brain. 3. Findings consistent with secondary changes of papilledema (correlate clinically). 4. Persistent mild enhancement of posterior eye globe chorioretinal lining. 5. Remaining orbital MRI is unremarkable. 09/11/2019 Progressive infratentorial and supratentorial leptomeningeal enhancement since 05/31/2018 compatible with the provided history of neurosarcoidosis. No significant intracranial mass effect. Asymmetric enhancement left anterior chamber may relate to uveitis. Bilateral optic disc fullness suggestive of papilledema. Pansinusitis. Data Reviewed: Most recent labs and imaging results. Component Latest Ref Rng & Units 07/11/2018 TB Nil IU/mL 0.17 TB1 Ag minus Nil <0.35 IU/mL 0.00 TB2 Ag minus Nil <0.35 IU/mL 0.02 Mitogen minus Nil 5.88 TB Result Negative Negative TB Interpretation No evidence of current or previous infection with Mycobacterium tuberculosis. Vitamin D 1,25 Dihydroxy D2 pg/mL 68.4 Vitamin D 1,25 Dihydroxy D3 pg/mL 26.3 Vit D1,25 Dihydroxy 15.0 - 60.0 pg/mL 94.7 (H) TPMT Genotype TPMT*1/TPMT*1 TPMT Predicted Phenotype Alleles present are associated with NORMAL ENZYME ACTIVITY. WSR 0 - 15 mm/hr 26 (H) CRP <0.9 mg/dL 1.2 (H) ANGELITO <52 U/L 70 (H) Interleukin-2 Receptor, Serum <=1,033 pg/mL 2,389 (H) Vitamin D 25 Hydroxy 31.0 - 80.0 ng/mL 16.9 (L) PFT: ( normal) Date FEV1 FVC FEV1/FVC TLC RV DLco 03/17/21 2.82 (81%) 3.49 (84%) 81 20.09 (59%) Assessment: Sarcoidosis with eye, neurological and pulmonary involvement ( MRI confirms neurosarcoidosis) Loss of visionin left eye Preoperative Resp clearance for R Tibia Fibula fixation RONNA on BIPAP Tibia Fibula Fracture s/p fixation Rash - resolved with topicort Stomach pain Plan: - started on infliximab infusion 10/06/19 - every 4 weeks - MRI normal - discussed with Dr Srivastav ok to reduce infliximab to every 6 week, - he stopped taking cellcept and prednisone since August 2021 - ( no reason ) - -coul dnot tolerate methotrexate or aza - now having new dry skin , now worsening vision - no othe rcomplaints - has maintaine don inflximab every 6 weeks - need to see disease actvity - will get MRI kris and orbit , blood inflammatory markers - restart cellcept and prednisone - close follo wup with testing - GI consult for new abdominal pain Follo wup 4 week virtual visit Total Time Spent:30 minutes Lynn Howard MD Staff, Respiratory [place] Staff, Sarcoidosis ILD Center 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, [employer] Date: January 23, 2022 Time: 11:20 AM Pager: [phone] Cleveland Means MD, Dr Gibson, Dr Steinberg documented in this encounter [facility] 11-11-2021 Nurse Note Pt request med run over 1hr documented in this encounter [facility] 09-30-2021 History of Present illness Narrative . documented in this encounter [facility] 08-24-2021 History of Present illness Narrative Episode Visit Count: 3 Therapist That Will Oversee The Plan Of Care: Calvin Contreras PT Start of Care Date: 08/03/21 Onset Date: 08/03/20 Patient Identified by Name and Date of : Yes REHABILITATION AND SPORTS THERAPY PHYSICAL THERAPY TREATMENT NOTE ASSESSMENT: Aston Chicas III tolerated the session with decreased pain. He demonstrated improvements in pain and headaches. The patient will continue to benefit from ongoing skilled physical therapy to progress toward set goals. PLAN FOR NEXT VISIT: Progress postural strength, cervical AROM and manual therapy as needed. SUBJECTIVE: Patient Reason for Visit: Pt reports that previous PT sessions were effective and helpful, especially the manual techniques. He reports partial compliance with HEP 3x week. He acknowledges that this is not as often as he should. Overall he reports that he is improved since evaluation. Specifically he reports that neck pain is less and headaches are less frequent. He denies any neck pain to start today. Pain: Pain Pain Level: 0 Pain Location: Neck - Right;Neck - Left;Head - Right;Head - Left Description: (mild) Frequency: Intermittent OBJECTIVE MEASURES WITH LEVEL OF FUNCTION: Posture / Alignment Posture: Forward head;Increased thoracic kyphosis;Rounded shoulders;Poor TREATMENT: Therapeutic Exercise: 1: UBE UEs only seat #8 height #2 x5 minutes with resistance level 1 (subjective collected, HEP reviewed and recommendations made.) 2: seated cervical retraction 2x10 with emphasis on technique 3: seated scapular retraction with purple t-band 2x10 4: seated B UT stretching 3x30 seconds each 5: seated B levator scapulae stretch 3x30 seconds with review of technique 6: corner pectoral stretch 3x30 seconds 7: HEP reviewed, corrected and continuation encouraged to tolerance. Pt questions about exercises for symptom management and postural correction answered and recommendations made. Skilled Intervention: Patient was educated in proper exercise technique and purpose for exercises. Skilled judgment was provided in selection of appropriate interventions. Correct performance of therapeutic exercises was facilitated with verbal, visual and tactile cuing. Patient education as noted. Manual Therapy: 1: After therex, supine soft tissue techniques to B cervical spine muscles. Muscle bending, trigger point release and general massage of B UT and levator scapulae muscles. Sub-occipital release also done with encouragement to relax. Total time with manual therapy x15 minutes. Skilled Intervention: Manual skills to improve joint mobility, ROM, and decrease pain. Utilized anatomy knowledge of the therapist, and assessment of patient's response to intervention. Billing Therapeutic Exercise Treatment Minutes: 30 Manual TherapyTreatment Minutes: 15 Total Treatment Time Minutes (timed/untimed): 45 Calvin Contreras PT documented in this encounter [facility] 08-17-2021 History of Present illness Narrative Virtual Visit for sarcoidosis Aston Chicas III has consented to this telephone encounter. Persons Present: patient Chief Complaint/Reason: Sarcoidosis Subsequent vsit : - virtual visit for sarcoidosis - had surgery with good healing - when he missed his inflfixmab more tired after missing the dose - had rash which resolved with topicort - no fever - no chills - still not walking ROS: GEN: Good energy, good appetite, No weight change, no fevers, no chills HEENT: No headaches, no conjunctival pruritus, no rhinorrhea or congestion, no nose bleeds, no snoring, CV: see HPI Lungs:see HPI GI: No Abdominal pain, nausea, vomiting, diarrhea, constipation, blood in stools : No dysuria, polyuria or hematuria MSK: No joint or muscle aches Neuro: No numbness or weakness, no seizures Skin: No lesions or rashes Lymph: No swollen node All other review of system is negative. 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 predniSONE (DELTASONE) 5 mg tablet Take 1 tablet by mouth every 48 hours. sulfamethoxazole-trimethoprim (BACTRIM DS,SEPTRA DS) 800-160 mg per tablet Take 1 tablet by mouth every Sunday,Sunday,Sunday. inFLIXimab (REMICADE) 100 mg injection Inject 600 mg intravenously every 6 weeks. Infuse 5 mg/kg intravenously on weeks 0, 2, 6 then every 4 weeks. Pre-medicate with 25mg po benadryl and 1000mg po acetaminophen prior to infusion per protocol. topiramate (TOPAMAX) 25 mg tablet Take 1 tablet by mouth twice daily. prednisoLONE acetate (PRED FORTE, ECONOPRED PLUS) 1 % ophthalmic suspension Use 1 Drop in the left eye four times daily. (Patient not taking: Reported on 08/12/2021 ) pantoprazole DR (PROTONIX) 40 mg tablet TAKE 1 TABLET BY MOUTH EVERY DAY albuterol HFA (PROAIR HFA) 90 mcg/actuation inhaler Inhale 2 Puffs as instructed every 6 hours as needed for wheezing/shortness of breath (cough). cyclopentolate (CYCLOGYL) 1 % ophthalmic solution Use 1 Drop in the left eye twice daily. ondansetron (ZOFRAN) 4 mg tablet Take 1 tablet by mouth every 8 hours as needed for Nausea/Vomiting. BIPAP New machine: Settings 15/11 cm H2O, suitable mask per pt preference (Airfit F30), chin strap, head gear, humidity, tubing, lifetime supplies. G47.33 Obstructive Sleep Apnea No current facility-administered medications for this visit. CXR 03/23/21 - R basal atelectasis MRI Brain 03/03/21 Postoperative changes related to prior left globe mechanical vitrectomy. No acute brain findings. No mass effect or abnormal enhancement. Artifact as noted on the diffusion trace images. No correlate on the remaining images. Borderline tonsillar descent. No crowding at the foramen magnum. No evidence for cervical syrinx. 04/09/20 1. Complete resolution of previously identified intracranial changes of neurosarcoidosis. 2. On today's study - unremarkable MRI brain. 3. Findings consistent with secondary changes of papilledema (correlate clinically). 4. Persistent mild enhancement of posterior eye globe chorioretinal lining. 5. Remaining orbital MRI is unremarkable. 09/11/2019 Progressive infratentorial and supratentorial leptomeningeal enhancement since 05/31/2018 compatible with the provided history of neurosarcoidosis. No significant intracranial mass effect. Asymmetric enhancement left anterior chamber may relate to uveitis. Bilateral optic disc fullness suggestive of papilledema. Pansinusitis. Data Reviewed: Most recent labs and imaging results. Component Latest Ref Rng & Units 07/11/2018 TB Nil IU/mL 0.17 TB1 Ag minus Nil <0.35 IU/mL 0.00 TB2 Ag minus Nil <0.35 IU/mL 0.02 Mitogen minus Nil 5.88 TB Result Negative Negative TB Interpretation No evidence of current or previous infection with Mycobacterium tuberculosis. Vitamin D 1,25 Dihydroxy D2 pg/mL 68.4 Vitamin D 1,25 Dihydroxy D3 pg/mL 26.3 Vit D1,25 Dihydroxy 15.0 - 60.0 pg/mL 94.7 (H) TPMT Genotype TPMT*1/TPMT*1 TPMT Predicted Phenotype Alleles present are associated with NORMAL ENZYME ACTIVITY. WSR 0 - 15 mm/hr 26 (H) CRP <0.9 mg/dL 1.2 (H) ANGELITO <52 U/L 70 (H) Interleukin-2 Receptor, Serum <=1,033 pg/mL 2,389 (H) Vitamin D 25 Hydroxy 31.0 - 80.0 ng/mL 16.9 (L) PFT: ( normal) Date FEV1 FVC FEV1/FVC TLC RV DLco 03/17/21 2.82 (81%) 3.49 (84%) 81 20.09 (59%) Assessment: 1. Sarcoidosis with eye, neurological and pulmonary involvement ( MRI confirms neurosarcoidosis) 2. Loss of visionin left eye 3. Preoperative Resp clearance for R Tibia Fibula fixation 4. RONNA on BIPAP 5. Tibia Fibula Fracture s/p fixation 6. Rash - resolved with topicort Plan: - started on infliximab infusion 10/06/19 - every 4 weeks - MRI normal - discussed with Dr Crow lopez to reduce infliximab to every 6 week, when patient skipped dose he was more fatigued and SOB - will continue inflixiamab every 4 week for 6 more months and recheck inflamamtory amrkers before decidin to taper to every 6 weeks -coul dnot tolerate methotrexate or aza - so far tolerating cellcept 2g per day - on prednisone 5mg to every 48 hours - bronchitis will treat with augmentin - needs labs - ordered Follo wup 5 months Total Time Spent:25 minutes Lynn Howard MD Staff, Respiratory [place] Staff, Sarcoidosis ILD Center 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, [employer] Date: August 17, 2021 Time: 11:18 AM Pager: [phone] Cleveland Means MD, Dr Gibson, Dr Steinberg documented in this encounter [facility] 08-12-2021 History of Present illness Narrative [place] ankle will be having surgery and will hold remicade for this MEDS Using Atropine BID Prednisone 5mg daily Cellcept 2000mg (2tab BID, started early 2020) Remicade 900mg (7.3 mg/kg) q4 weeks (started 600mg 09/2019, increased to 900mg 02/2020) Previously imuran (stopped due to nausea) s/p PPV/SO/Retisert OS (07/27/20) - IOP is still 4, likely CB shutdown with hypotony maculopathy - Significant oil in AC, pt aphakic - on exam, eye approaching - Retisert visible and in good position - Observe for now although may need further surgical intervention if IOP elevates 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 biopsied and c/w sarcoid. Follows with pulmonology Dr. Howard. - Had numerous URRUTIA and light sensitivity, MRI in 05/2018 with leptomeningeal enhancement c/w sarcoidosis. Follows with neurology Dr. 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 Left eye Stable If able to generate some Intraocular pressure - could do lamellar and secondary Intraocular lens Left eye. Will observe for now I have confirmed and edited as necessary the relevant ophthalmic history, ROS, and the neuro exam findings as obtained by others. I have seen and examined this patient. I have discussed the case and the management of this patient's care with the Resident/Fellow, if applicable. I also have reviewed and agree with the assessment and plan as stated above and agree with all of its relevant components. Nelson Gibson MD August 12, 2021 11:38 AM documented in this encounter [facility] 08-12-2021 Miscellaneous Notes Cancelled as directed. Sue Summers Spouse called stating patient will be having surgery on his ankle next Sunday and will need to have his treatment cancelled. Spouse asked if we received instructions for when he can resume treatment. Spouse was instructed to call ordering provider for questions pertaining to his treatment. Spouse stated understanding of this. Spouse will call back if treatment needs to be rescheduled for August. PSS- please cancel patients treatment for next 08/19/21. Thank you. Nan Prather RN documented in this encounter [facility] 08-10-2021 History of Present illness Narrative Episode Visit Count: 2 Therapist That Will Oversee The Plan Of Care: Calvin Contreras PT Start of Care Date: 08/03/21 Onset Date: 08/03/20 Patient Identified by Name and Date of : Yes REHABILITATION AND SPORTS THERAPY PHYSICAL THERAPY TREATMENT NOTE ASSESSMENT: Aston Chicas III tolerated the session with decreased pain. He demonstrated improvements in tolerance for exercises and manual therapy and had no URRUTIA at end of treatment.. The patient will continue to benefit from ongoing skilled physical therapy to progress toward set goals. PLAN FOR NEXT VISIT: Progress postural strength, cervical AROM and manual therapy as needed. SUBJECTIVE: Patient Reason for Visit: Patient reports temproary relief with neck stretches from previous visit. Patient reports having a minor URRUTIA currently. Pain: Pain Pain Level: 2 Pain Location: Neck - Right;Neck - Left;Head - Right;Head - Left Description: Aching;Dull Frequency: Intermittent Post Treatment Pain Post Treatment Pain Level: 0 Post Treatment Symptoms: feels looser in neck and no URRUTIA OBJECTIVE MEASURES WITH LEVEL OF FUNCTION: Verbal cues needed for upright seated posture. TREATMENT: Therapeutic Exercise: 1: seated B UT stretch 3x30 seconds 2: seated B UT stretch 3x30 seconds 3: *Cervical retraction 2x10 (Education to stay in painfree range) 4: *Scapular retraction 2x10 (Education to do 3-5 times throughout the day) 5: Education to be aware of jaw clenching throughout the day as he does intermittent scapular retraction for postural awareness. Education to decrease jaw clenching throughout the day. 6: Education on importance of upright seated posture. Skilled Intervention: Patient was educated in proper exercise technique and purpose for exercises. Reviewed and educated patient on additions/changes for home exercise program as above (*). Skilled judgment was provided in selection of appropriate interventions. Provided written instruction for home exercise program to facilitate proper performance and compliance. Correct performance of therapeutic exercises was facilitated with verbal and visual cuing. Manual Therapy: 1: Supine suboccipital release, soft tissue mobs B cervical and UT and temporal soft tissue release. Followed with seated B cervical and UT lacrosse ball mobs and thumb triiger point release B UT with push to tolerance. Skilled Intervention: Manual skills to improve joint mobility, ROM, and decrease pain. Utilized anatomy knowledge of the therapist, and assessment of patient's response to intervention. Billing Therapeutic Exercise Treatment Minutes: 18 Manual TherapyTreatment Minutes: 24 Total Treatment Time Minutes (timed/untimed): 42 DEWEY Chavez PT documented in this encounter [facility] 08-03-2021 History of Past i llness Narrative Problem Noted Date Resolved Date Neck pain 08/03/2021 12/28/2021 Tension type headache 08/03/2021 12/28/2021 Nasal congestion 01/01/2018 01/26/2020 Depression with anxiety 08/19/2015 01/26/20 20 Overview: Susanne Langford CNP, [employer] [facility]. Solitary pulmonary nodule 07/26/20152019 Pulmonary embolus 07/12/2015 04/08/2018 Overview: Treat until September 2015. Hilar adenopathy 07/12/2015 04/08/2018 documented as of this encounter (statuses as of 01/23/2022) [facility] History of Past illness Narrative* Problem Noted Date Resolved Date Neck pain 08/03/2021 12/28/2021 Tension type headache 08/03/2021 12/28/2021 Nasal congestion 01/01/2018 01/26/2020 Depression with anxiety 08/19/2015 01/26/20 20 Overview: Susanne Langford CNP, [employer]. Solitary pulmonary nodule 07/26/20152019 Pulmonary embolus 07/12/2015 04/08/2018 Overview: Treat until September 2015. Hilar adenopathy 07/12/2015 04/08/2018 documented as of this encounter (statuses as of 02/01/2022) [facility] History of Past illness Narrative* Problem Noted Date Resolved Date Neck pain 08/03/2021 12/28/2021 Tension type headache 08/03/2021 12/28/2021 Nasal congestion 01/01/2018 01/26/2020 Depression with anxiety 08/19/2015 01/26/20 20 Overview: Susanne Langford CNP, [employer]. Solitary pulmonary nodule 07/26/20152019 Pulmonary embolus 07/12/2015 04/08/2018 Overview: Treat until September 2015. Hilar adenopathy 07/12/2015 04/08/2018 documented as of this encounter (statuses as of 02/03/2022) [facility] History of Past illness Narrative* Problem Noted Date Resolved Date Neck pain 08/03/2021 12/28/2021 Tension type headache 08/03/2021 12/28/2021 Nasal congestion 01/01/2018 01/26/2020 Depression with anxiety 08/19/2015 01/26/20 20 Overview: Susanne Langford CNP, [facility]. Solitary pulmonary nodule 07/26/20152019 Pulmonary embolus 07/12/2015 04/08/2018 Overview: Treat until September 2015. Hilar adenopathy 07/12/2015 04/08/2018 documented as of this encounter (statuses as of 02/03/2022) [facility] History of Past illness Narrative* Problem Noted Date Resolved Date Neck pain 08/03/2021 12/28/2021 Tension type headache 08/03/2021 12/28/2021 Nasal congestion 01/01/2018 01/26/2020 Depression with anxiety 08/19/2015 01/26/20 20 Overview: Susanne Langford CNP, [facility]. Solitary pulmonary nodule 07/26/20152019 Pulmonary embolus 07/12/2015 04/08/2018 Overview: Treat until September 2015. Hilar adenopathy 07/12/2015 04/08/2018 documented as of this encounter (statuses as of 03/19/2022) [facility] History of Past illness Narrative* Problem Noted Date Resolved Date Neck pain 08/03/2021 12/28/2021 Tension type headache 08/03/2021 12/28/2021 Nasal congestion 01/01/2018 01/26/2020 Depression with anxiety 08/19/2015 01/26/20 20 Overview: Susanne Langford CNP, [facility]. Solitary pulmonary nodule 07/26/20152019 Pulmonary embolus 07/12/2015 04/08/2018 Overview: Treat until September 2015. Hilar adenopathy 07/12/2015 04/08/2018 documented as of this encounter (statuses as of 03/29/2022) [facility] History of Past illness Narrative* Problem Noted Date Resolved Date Neck pain 08/03/2021 12/28/2021 Tension type headache 08/03/2021 12/28/2021 Nasal congestion 01/01/2018 01/26/2020 Depression with anxiety 08/19/2015 01/26/20 20 Overview: Susanne Langford CNP, [facility]. Solitary pulmonary nodule 07/26/20152019 Pulmonary embolus 07/12/2015 04/08/2018 Overview: Treat until September 2015. Hilar adenopathy 07/12/2015 04/08/2018 documented as of this encounter (statuses as of 03/30/2022) [facility] History of Past illness Narrative* Problem Noted Date Resolved Date Neck pain 08/03/2021 12/28/2021 Tension type headache 08/03/2021 12/28/2021 Nasal congestion 01/01/2018 01/26/2020 Depression with anxiety 08/19/2015 01/26/20 20 Overview: Susanne Langford CNP, [facility]. Solitary pulmonary nodule 07/26/20152019 Pulmonary embolus 07/12/2015 04/08/2018 Overview: Treat until September 2015. Hilar adenopathy 07/12/2015 04/08/2018 documented as of this encounter (statuses as of 04/01/2022) [facility] History of Past illness Narrative* Problem Noted Date Resolved Date Neck pain 08/03/2021 12/28/2021 Tension type headache 08/03/2021 12/28/2021 Nasal congestion 01/01/2018 01/26/2020 Depression with anxiety 08/19/2015 01/26/20 20 Overview: Susanne Langford CNP, [facility]. Solitary pulmonary nodule 07/26/20152019 Pulmonary embolus 07/12/2015 04/08/2018 Overview: Treat until September 2015. Hilar adenopathy 07/12/2015 04/08/2018 documented as of this encounter (statuses as of 04/04/2022) [facility] History of Past illness Narrative* Problem Noted Date Resolved Date Neck pain 08/03/2021 12/28/2021 Tension type headache 08/03/2021 12/28/2021 Nasal congestion 01/01/2018 01/26/2020 Depression with anxiety 08/19/2015 01/26/20 20 Overview: Susanne Langford CNP, [facility]. Solitary pulmonary nodule 07/26/20152019 Pulmonary embolus 07/12/2015 04/08/2018 Overview: Treat until September 2015. Hilar adenopathy 07/12/2015 04/08/2018 documented as of this encounter (statuses as of 04/10/2022) [facility] History of Past illness Narrative* Problem Noted Date Resolved Date Neck pain 08/03/2021 12/28/2021 Tension type headache 08/03/2021 12/28/2021 Nasal congestion 01/01/2018 01/26/2020 Depression with anxiety 08/19/2015 01/26/20 20 Overview: Susanne Langford CNP, [facility]. Solitary pulmonary nodule 07/26/20152019 Pulmonary embolus 07/12/2015 04/08/2018 Overview: Treat until September 2015. Hilar adenopathy 07/12/2015 04/08/2018 documented as of this encounter (statuses as of 05/03/2022) [facility] History of Past illness Narrative* Problem Noted Date Resolved Date Neck pain 08/03/2021 12/28/2021 Tension type headache 08/03/2021 12/28/2021 Nasal congestion 01/01/2018 01/26/2020 Depression with anxiety 08/19/2015 01/26/20 20 Overview: Susanne Langford CNP, [facility]. Solitary pulmonary nodule 07/26/20152019 Pulmonary embolus 07/12/2015 04/08/2018 Overview: Treat until September 2015. Hilar adenopathy 07/12/2015 04/08/2018 documented as of this encounter (statuses as of 05/19/2022) [facility] History of Past illness Narrative* Problem Noted Date Resolved Date Neck pain 08/03/2021 12/28/2021 Tension type headache 08/03/2021 12/28/2021 Nasal congestion 01/01/2018 01/26/2020 Depression with anxiety 08/19/2015 01/26/20 20 Overview: Susanne Langford CNP, [facility]. Solitary pulmonary nodule 07/26/20152019 Pulmonary embolus 07/12/2015 04/08/2018 Overview: Treat until September 2015. Hilar adenopathy 07/12/2015 04/08/2018 documented as of this encounter (statuses as of 06/09/2022) [facility] History of Past illness Narrative* Problem Noted Date Resolved Date Neck pain 08/03/2021 12/28/2021 Tension type headache 08/03/2021 12/28/2021 Nasal congestion 01/01/2018 01/26/2020 Depression with anxiety 08/19/2015 01/26/20 20 Overview: Susanne Langford CNP, [facility]. Solitary pulmonary nodule 07/26/20152019 Pulmonary embolus 07/12/2015 04/08/2018 Overview: Treat until September 2015. Hilar adenopathy 07/12/2015 04/08/2018 documented as of this encounter (statuses as of 06/30/2022) [facility] History of Past illness Narrative* Problem Noted Date Resolved Date Neck pain 08/03/2021 12/28/2021 Tension type headache 08/03/2021 12/28/2021 Nasal congestion 01/01/2018 01/26/2020 Depression with anxiety 08/19/2015 01/26/20 20 Overview: Susanne Langford CNP, [facility]. Solitary pulmonary nodule 07/26/20152019 Pulmonary embolus 07/12/2015 04/08/2018 Overview: Treat until September 2015. Hilar adenopathy 07/12/2015 04/08/2018 documented as of this encounter (statuses as of 09/13/2022) [facility] History of Past illness Narrative* Problem Noted Date Resolved Date Neck pain 08/03/2021 12/28/2021 Tension type headache 08/03/2021 12/28/2021 Nasal congestion 01/01/2018 01/26/2020 Depression with anxiety 08/19/2015 01/26/20 20 Overview: Susanne Langford CNP, [facility]. Solitary pulmonary nodule 07/26/20152019 Pulmonary embolus 07/12/2015 04/08/2018 Overview: Treat until September 2015. Hilar adenopathy 07/12/2015 04/08/2018 documented as of this encounter (statuses as of 09/22/2022) [facility] History of Past illness Narrative* Problem Noted Date Diagnosed Date Resolved Date Neck pain 08/03/2021 12/28/2021 Tension type headache 08/03/20212021 Nasal congestion 01/01/2018 01/26/2020 Depression with anxiety 08/19/201504/2019 Overview: Susanne Langford CNP, [facility]. Solitary pulmonary nodule 07/26/2015 Pulmonary embolus 07/12/2015 04/08/2018 Overview: Treat until September 2015. Hilar adenopathy 07/12/2015 04/08/2018 documented as of this encounter (statuses as of 12/15/2022) [facility] History of Past illness Narrative* Problem Noted Date Diagnosed Date Resolved Date Neck pain 08/03/2021 12/28/2021 Tension type headache 08/03/20212021 Nasal congestion 01/01/2018 01/26/2020 Depression with anxiety 08/19/201504/2019 Overview: Susanne Langford CNP, [facility]. Solitary pulmonary nodule 07/26/2015 Pulmonary embolus 07/12/2015 04/08/2018 Overview: Treat until September 2015. Hilar adenopathy 07/12/2015 04/08/2018 documented as of this encounter (statuses as of 01/26/2023) [facility] History of Past illness Narrative* Problem Noted Date Diagnosed Date Resolved Date Neck pain 08/03/2021 12/28/2021 Tension type headache 08/03/20212021 Nasal congestion 01/01/2018 01/26/2020 Depression with anxiety 08/19/201504/2019 Overview: Susanne Langford CNP, [facility]. Solitary pulmonary nodule 07/26/2015 Pulmonary embolus 07/12/2015 04/08/2018 Overview: Treat until September 2015. Hilar adenopathy 07/12/2015 04/08/2018 documented as of this encounter (statuses as of 01/26/2023) [facility] History of Past illness Narrative* Problem Noted Date Diagnosed Date Resolved Date Neck pain 08/03/2021 12/28/2021 Tension type headache 08/03/20212021 Nasal congestion 01/01/2018 01/26/2020 Depression with anxiety 08/19/201504/2019 Overview: Susanne Langford CNP, [facility]. Solitary pulmonary nodule 07/26/2015 Pulmonary embolus 07/12/2015 04/08/2018 Overview: Treat until September 2015. Hilar adenopathy 07/12/2015 04/08/2018 documented as of this encounter (statuses as of 01/27/2023) [facility] History of Past illness Narrative* Problem Noted Date Diagnosed Date Resolved Date Neck pain 08/03/2021 12/28/2021 Tension type headache 08/03/20212021 Nasal congestion 01/01/2018 01/26/2020 Depression with anxiety 08/19/201504/2019 Overview: Susanne Langford CNP, [facility]. Solitary pulmonary nodule 07/26/2015 Pulmonary embolus 07/12/2015 04/08/2018 Overview: Treat until September 2015. Hilar adenopathy 07/12/2015 04/08/2018 documented as of this encounter (statuses as of 01/27/2023) [facility] History of Past illness Narrative* Problem Noted Date Diagnosed Date Resolved Date Neck pain 08/03/2021 12/28/2021 Tension type headache 08/03/20212021 Nasal congestion 01/01/2018 01/26/2020 Depression with anxiety 08/19/201504/2019 Overview: Susanne Langford CNP, [facility]. Solitary pulmonary nodule 07/26/2015 Pulmonary embolus 07/12/2015 04/08/2018 Overview: Treat until September 2015. Hilar adenopathy 07/12/2015 04/08/2018 documented as of this encounter (statuses as of 01/29/2023) [facility] History of Past illness Narrative* Problem Noted Date Diagnosed Date Resolved Date Neck pain 08/03/2021 12/28/2021 Tension type headache 08/03/20212021 Nasal congestion 01/01/2018 01/26/2020 Depression with anxiety 08/19/201504/2019 Overview: Susanne Langford CNP, [facility]. Solitary pulmonary nodule 07/26/2015 Pulmonary embolus 07/12/2015 04/08/2018 Overview: Treat until September 2015. Hilar adenopathy 07/12/2015 04/08/2018 documented as of this encounter (statuses as of 02/02/2023) [facility] History of Past illness Narrative* Problem Noted Date Diagnosed Date Resolved Date Neck pain 08/03/2021 12/28/2021 Tension type headache 08/03/20212021 Nasal congestion 01/01/2018 01/26/2020 Depression with anxiety 08/19/201504/2019 Overview: Susanne Langford CNP, [facility]. Solitary pulmonary nodule 07/26/2015 Pulmonary embolus 07/12/2015 04/08/2018 Overview: Treat until September 2015. Hilar adenopathy 07/12/2015 04/08/2018 documented as of this encounter (statuses as of 03/06/2023) [facility] History of Past illness Narrative* Problem Noted Date Diagnosed Date Resolved Date Neck pain 08/03/2021 12/28/2021 Tension type headache 08/03/20212021 Nasal congestion 01/01/2018 01/26/2020 Depression with anxiety 08/19/201504/2019 Overview: Susanne Langford CNP, [facility]. Solitary pulmonary nodule 07/26/2015 Pulmonary embolus 07/12/2015 04/08/2018 Overview: Treat until September 2015. Hilar adenopathy 07/12/2015 04/08/2018 documented as of this encounter (statuses as of 05/04/2023) [facility] History of Past illness Narrative* Problem Noted Date Diagnosed Date Resolved Date Neck pain 08/03/2021 12/28/2021 Tension type headache 08/03/20212021 Nasal congestion 01/01/2018 01/26/2020 Depression with anxiety 08/19/201504/2019 Overview: Susanne Langford CNP, [facility]. Solitary pulmonary nodule 07/26/2015 Pulmonary embolus 07/12/2015 04/08/2018 Overview: Treat until September 2015. Hilar adenopathy 07/12/2015 04/08/2018 documented as of this encounter (statuses as of 05/10/2023) [facility] History of Past illness Narrative* Problem Noted Date Diagnosed Date Resolved Date Neck pain 08/03/2021 12/28/2021 Tension type headache 08/03/20212021 Nasal congestion 01/01/2018 01/26/2020 Depression with anxiety 08/19/201504/2019 Overview: uSsanne Langford CNP, [facility]. Solitary pulmonary nodule 07/26/2015 Pulmonary embolus 07/12/2015 04/08/2018 Overview: Treat until September 2015. Hilar adenopathy 07/12/2015 04/08/2018 documented as of this encounter (statuses as of 05/11/2023) [facility] History of Past illness Narrative* Problem Noted Date Diagnosed Date Resolved Date Neck pain 08/03/2021 12/28/2021 Tension type headache 08/03/20212021 Nasal congestion 01/01/2018 01/26/2020 Depression with anxiety 08/19/201504/2019 Overview: Susanne Langford CNP, [facility]. Solitary pulmonary nodule 07/26/2015 Pulmonary embolus 07/12/2015 04/08/2018 Overview: Treat until September 2015. Hilar adenopathy 07/12/2015 04/08/2018 documented as of this encounter (statuses as of 05/14/2023) [facility] History of Past illness Narrative* Problem Noted Date Diagnosed Date Resolved Date Neck pain 08/03/2021 12/28/2021 Tension type headache 08/03/20212021 Nasal congestion 01/01/2018 01/26/2020 Depression with anxiety 08/19/201504/2019 Overview: Susanne Langford CNP, [facility]. Solitary pulmonary nodule 07/26/2015 Pulmonary embolus 07/12/2015 04/08/2018 Overview: Treat until September 2015. Hilar adenopathy 07/12/2015 04/08/2018 documented as of this encounter (statuses as of 05/17/2023) [facility] History of Past illness Narrative* Problem Noted Date Diagnosed Date Resolved Date Neck pain 08/03/2021 12/28/2021 Tension type headache 08/03/20212021 Nasal congestion 01/01/2018 01/26/2020 Depression with anxiety 08/19/201504/2019 Overview: Susanne Langford CNP, [facility]. Solitary pulmonary nodule 07/26/2015 Pulmonary embolus 07/12/2015 04/08/2018 Overview: Treat until September 2015. Hilar adenopathy 07/12/2015 04/08/2018 documented as of this encounter (statuses as of 05/31/2023) [facility] History of Past illness Narrative* Problem Noted Date Diagnosed Date Resolved Date Neck pain 08/03/2021 12/28/2021 Tension type headache 08/03/20212021 Nasal congestion 01/01/2018 01/26/2020 Depression with anxiety 08/19/201504/2019 Overview: Susanne Langford CNP, [facility]. Solitary pulmonary nodule 07/26/2015 Pulmonary embolus 07/12/2015 04/08/2018 Overview: Treat until September 2015. Hilar adenopathy 07/12/2015 04/08/2018 documented as of this encounter (statuses as of 06/01/2023) [facility] History of Past illness Narrative* Problem Noted Date Diagnosed Date Resolved Date Neck pain 08/03/2021 12/28/2021 Tension type headache 08/03/20212021 Nasal congestion 01/01/2018 01/26/2020 Depression with anxiety 08/19/201504/2019 Overview: Susanne Langford CNP, [facility]. Solitary pulmonary nodule 07/26/2015 Pulmonary embolus 07/12/2015 04/08/2018 Overview: Treat until September 2015. Hilar adenopathy 07/12/2015 04/08/2018 documented as of this encounter (statuses as of 06/07/2023) [facility] History of Past illness Narrative* Problem Noted Date Diagnosed Date Resolved Date Neck pain 08/03/2021 12/28/2021 Tension type headache 08/03/20212021 Nasal congestion 01/01/2018 01/26/2020 Depression with anxiety 08/19/201504/2019 Overview: Susanne Langford CNP, [facility]. Solitary pulmonary nodule 07/26/2015 Pulmonary embolus 07/12/2015 04/08/2018 Overview: Treat until September 2015. Hilar adenopathy 07/12/2015 04/08/2018 documented as of this encounter (statuses as of 06/11/2023) [facility] History of Past illness Narrative* Problem Noted Date Diagnosed Date Resolved Date Neck pain 08/03/2021 12/28/2021 Tension type headache 08/03/20212021 Nasal congestion 01/01/2018 01/26/2020 Depression with anxiety 08/19/201504/2019 Overview: Susanne Langford CNP, [facility]. Solitary pulmonary nodule 07/26/2015 Pulmonary embolus 07/12/2015 04/08/2018 Overview: Treat until September 2015. 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, uveitis/perineuritis OS) DISEASE SUMMARY: Date of onset: July 2015 Date of diagnosis of sarcoidosis: 2015 Established by: Lung biopsy Disease course at onset: Progressive Current disease course: Progressive Previous disease therapies: - Methotrexate - Imuran (GI upset) Current disease therapy: - Infliximab 900 mg Q4 weeks - Prednisone 5 mg QD - Cellcept 2 g BID Most recent MRI orbits: 04/09/2020 Most recent MRI brain:03/03/2021 (stable) Most recent MRI cervical spine: Not done CHIEF COMPLAINT: Follow-up on MS disease modifying therapy INTERVAL HISTORY: Usual treating team: Idris/Jesse Unaccompanied. Last seen 04/07/2021. Currently taking infliximab, mycophenolate, and prednisone. Since the patient's last visit the patient reports overall feeling stable. Mr. Chicas had a fall in April after slipping on ice, during which he broke his leg. Current symptoms: 1. Headache: Intermittent, frequent, low-grade headaches. Occipital pressure bilaterally. His headaches get worse when putting pressure on the back of the head. Denies nausea/vomiting, phonophobia. Some sensitivity to light but this may be due to his history of uveitis/perineuritis. Issues with current therapy: Tolerating medication without side effects. Today's visit is being completed virtually over Zoom. Patient consented to proceed with virtual visit. REVIEW OF SYSTEMS: Mood: Good/bright Spasticity: None Pain: See HPI PAST HISTORY was reviewed and updated: PAST MEDICAL HISTORY Diagnosis Date Depression with anxiety 08/19/2015 Susanne Langford CNP, [facility]. 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 Sarcoidosis of lung (HCC) 08/19/2015 Seasonal allergic rhinitis 07/08/2015 Vitritis of left eye 11/28/2017 Opthalmology: Yuri Alcaraz MD PAST SURGICAL HISTORY Procedure Laterality Date AVASTIN (BEVACIZUMAB) 1.25MG INTRAVITREAL INJECTION OS (LEFT EYE) Left 04/08/2020 [facility] INCL FLUOR GDNCE DX W/CELL WASHG SPX 07/30/[address]N LIVER ABSCESS/LESION PERC percutaneous drainage TRIESENCE INTRAVITREAL INJECTION OS (LEFT EYE) Left 03/15/2020 last VITRECTOMY MECHANICAL PARS PLANA Left 07/27/2020 s/p PPV/SO/Retisert OS (07/27/20) MEDICATIONS and ALLERGIES were reviewed and updated. SOCIAL HISTORY was reviewed and updated: Current living situation: At home EXAM: General Appearance: well appearing, in no acute distress Mental status evaluation during the interview and examination showed normal level of consciousness,orientation, language, memory, praxis, and higher intellectual function Affect: Normal Speech: normal RESULTS: Monitoring labs: CBC + Diff Component Value Date WBC 6.10 04/25/2021 HB 13.4 04/25/2021 HCT 40.7 04/25/2021 PLT 321 04/25/2021 ABSLYMPH 1.11 04/25/2021 CMP Component Value Date AST 24 04/25/2021 GLUC 99 04/25/2021 BUN 13 04/25/2021 CREAT 1.13 04/25/2021 NA 140 04/25/2021 K 4.1 04/25/2021 CHLOR 105 04/25/2021 ALT 31 04/25/2021 No results found for: JCVAB, JCVIND ASSESSMENT/PLAN: Aston Chicas III is a 30-year-old man with 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 Overall, he has remained stable without anynew neurological symptoms to raise suspicion for active/ongoing 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 inflammation. He continues to have bothersome headaches on most days, which appear to have a cervicogenic component. MRI imaging from February 2021 was stable. We will repeat imaging around February 2022. PLAN: 1. Continue current treatment regimen: - Infliximab 900 mg monthly - Prednisone 5 mg QD - Cellcept 2 g BID 2. Repeat MRI Brain and Orbits in February 2022 3. PT for cervicalgia 4. Start OTC riboflavin 400 mg per day and magnesium 500 mg per day Follow-up: In 3 months by Virtual Visit with me at [facility] I spent a total of 30 minutes on the date of the service which included preparing to see the patient, [id number] patient care, completing clinical documentation, obtaining and/or reviewing separately obtained history, counseling and educating the patient/family/caregiver and ordering medications, tests, or procedures. Meño Steinberg MD Associate Staff Neurologist [facility] Miscellaneous Notes* Telephone Encounter - [facility] - 06/24/2021 10:55 AM EDT Parris - I haven't received any calls regarding this in the office so I'm not sure who he spoke with -can he be accommodated? Nelson Gibson MD filed at 02/25/2021 7:51 AM Status: Signed No changes to health or vision since last examination. 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 biopsied and c/w sarcoid. Follows with pulmonology Dr. Howard. - Had numerous URRUTIA and light sensitivity, MRI in 05/2018 with leptomeningeal enhancement c/w sarcoidosis. Follows with neurology Dr. 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) not seen recently - has been on MTX, prednisone, and Solumedrol in the past - FA 12/24/19 OD mild disc leakage with far peripheral perivenular leakage; relatively normal - Today on exam with diffuse K edema (not documented prior), injection - OCT 02/24/21 wnl nl foveal contour SRF/IRF right eye, few stable cells; left eye with retinal thickening and folds with choroidal folds - FA 02/24/21: Left eye hot disc, hazy view Right eye - sharp borders Stop atropine Prednisolone twice a day Right eye quiescent I have confirmed and edited as necessary the relevant ophthalmic history, ROS, and the neuro exam findings as obtained by others. I have seen and examined this patient. I have discussed the case and the management of this patient's care with the Resident/Fellow, if applicable. I also have reviewed and agree with the assessment and plan as stated above and agree withall of its relevant components. Nelson Gibson MD February 24, 2021 4:25 PM documented [facility] History of Present illness Narrative* Elysia Dominguez, RT(R) - 04/29/2021 3:50 PM EST Radiology Service Progress Note PATIENT NAME: Aston Chicas III DATE OF SERVICE: April 29, 2021 TIME: 3:54 PM PATIENT IDENTITY VERIFICATION COMPLETED USING TWO (2) IDENTIFIERS: Name and Date of confirmedby patient verbally. FALL SCREENING: Has the patient had 2 falls in the last year or 1 fall with injury or currently using an Ambulatory Assistive Device (Walker, Cane, Wheelchair, Crutches, etc.)? No PATIENT GENDER DATA: Male PATIENT RELEVANT IMPLANT DATA REVIEWED: Not Applicable RADIOLOGY DEPARTMENT: General X-ray: Exam(s) Completed: Lower Extremity X- Ray(s): Ankle, Right PERIPHERAL IV DATA: Not applicable SIGNED BY: RT Jeff(R) April 29, 2021 3:54 PM documented in this encounterUniversity [facility] History of Past illness Narrative* Problem Noted Date Resolved Date Nasal congestion 01/01/2018 01/26/2020 Depression with anxiety 08/19/2015 01/26/20 20 Overview: Susanne Langford CNP, [facility]. Solitary pulmonary nodule 07/26/20152019 Pulmonary embolus 07/12/2015 04/08/2018 Overview: Treat until September 2015. Hilar adenopathy 07/12/2015 04/08/2018 documented as of this encounter (statuses as of 06/29/2021) [facility] of Past illness Narrative* Problem Noted Date Resolved Date Nasal congestion 01/01/2018 01/26/2020 Depression with anxiety 08/19/2015 01/26/20 20 Overview: Susanne Langford CNP, [facility]. Solitary pulmonary nodule 07/26/20152019 Pulmonary embolus 07/12/2015 04/08/2018 Overview: Treat until September 2015. Hilar adenopathy 07/12/2015 04/08/2018 documented as of this encounter (statuses as of 07/01/2021) [facility] of Past illness Narrative* Problem Noted Date Resolved Date Nasal congestion 01/01/2018 01/26/2020 Depression with anxiety 08/19/2015 01/26/20 20 Overview: Susanne Langford CNP, [facility]. Solitary pulmonary nodule 07/26/20152019 Pulmonary embolus 07/12/2015 04/08/2018 Overview: Treat until September 2015. Hilar adenopathy 07/12/2015 04/08/2018 documented as of this encounter (statuses as of 07/08/2021) [facility] of [facility] illness Narrative* Problem Noted Date Resolved Date Nasal congestion 01/01/2018 01/26/2020 Depression with anxiety 08/19/2015 01/26/20 20 Overview: Susanne Langford CNP, [facility]. Solitary pulmonary nodule 07/26/20152019 Pulmonary embolus 07/12/2015 04/08/2018 Overview: Treat until September 2015. Hilar adenopathy 07/12/2015 04/08/2018 documented as of this encounter (statuses as of 07/22/2021) [facility] of [facility] illness Narrative* Problem Noted Date Resolved Date Nasal congestion 01/01/2018 01/26/2020 Depression with anxiety 08/19/2015 01/26/20 20 Overview: Susanne Langford CNP, [facility]. Solitary pulmonary nodule 07/26/20152019 Pulmonary embolus 07/12/2015 04/08/2018 Overview: Treat until September 2015. Hilar adenopathy 07/12/2015 04/08/2018 documented as of this encounter (statuses as of 08/10/2021) [facility] of [facility] illness Narrative* Problem Noted Date Resolved Date Nasal congestion 01/01/2018 01/26/2020 Depression with anxiety 08/19/2015 01/26/20 20 Overview: Susanne Langford CNP, [facility]. Solitary pulmonary nodule 07/26/20152019 Pulmonary embolus 07/12/2015 04/08/2018 Overview: Treat until September 2015. Hilar adenopathy 07/12/2015 04/08/2018 documented as of this encounter (statuses as of 08/11/2021) [facility] Narrative* Problem Noted Date Resolved Date Nasal congestion 01/01/2018 01/26/2020 Depression with anxiety 08/19/2015 01/26/20 20 Overview: Susanne Langford CNP, [facility]. Solitary pulmonary nodule 07/26/20152019 Pulmonary embolus 07/12/2015 04/08/2018 Overview: Treat until September 2015. Hilar adenopathy 07/12/2015 04/08/2018 documented as of this encounter (statuses as of 08/12/2021) [facility] of [facility] illness Narrative* Problem Noted Date Resolved Date Nasal congestion 01/01/2018 01/26/2020 Depression with anxiety 08/19/2015 01/26/20 20 Overview: Susanne Langford CNP, [facility]. Solitary pulmonary nodule 07/26/20152019 Pulmonary embolus 07/12/2015 04/08/2018 Overview: Treat until September 2015. Hilar adenopathy 07/12/2015 04/08/2018 documented as of this encounter (statuses as of 08/12/2021) [facility] of [facility] Narrative* Problem Noted Date Resolved Date Nasal congestion 01/01/2018 01/26/2020 Depression with anxiety 08/19/2015 01/26/20 20 Overview: Susanne Langford CNP, [facility]. Solitary pulmonary nodule 07/26/20152019 Pulmonary embolus 07/12/2015 04/08/2018 Overview: Treat until September 2015. Hilar adenopathy 07/12/2015 04/08/2018 documented as of this encounter (statuses as of 08/17/2021) [facility] of [facility] illness Narrative* Problem Noted Date Resolved Date Nasal congestion 01/01/2018 01/26/2020 Depression with anxiety 08/19/2015 01/26/20 20 Overview: Susanne Langford CNP, [facility]. Solitary pulmonary nodule 07/26/20152019 Pulmonary embolus 07/12/2015 04/08/2018 Overview: Treat until September 2015. Hilar adenopathy 07/12/2015 04/08/2018 documented as of this encounter (statuses as of 08/24/2021) [facility] of [facility] Narrative* Problem Noted Date Resolved Date Nasal congestion 01/01/2018 01/26/2020 Depression with anxiety 08/19/2015 01/26/20 20 Overview: Susanne Langford CNP, [facility]. Solitary pulmonary nodule 07/26/20152019 Pulmonary embolus 07/12/2015 04/08/2018 Overview: Treat until September 2015. Hilar adenopathy 07/12/2015 04/08/2018 documented as of this encounter (statuses as of 09/30/2021) [facility] of [facility] Narrative* Problem Noted Date Resolved Date Nasal congestion 01/01/2018 01/26/2020 Depression with anxiety 08/19/2015 01/26/20 20 Overview: Susanne Langford CNP, [facility]. Solitary pulmonary nodule 07/26/20152019 Pulmonary embolus 07/12/2015 04/08/2018 Overview: Treat until September 2015. Hilar adenopathy 07/12/2015 04/08/2018 documented as of this encounter (statuses as of 11/11/2021) [facility] of [facility] Narrative* Problem Noted Date Resolved Date Nasal congestion 01/01/2018 01/26/2020 Depression with anxiety 08/19/2015 01/26/20 20 Overview: Susanne Langford CNP, [facility]. Solitary pulmonary nodule 07/26/20152019 Pulmonary embolus 07/12/2015 04/08/2018 Overview: Treat until September 2015. Hilar adenopathy 07/12/2015 04/08/2018 documented as of this encounter (statuses as of 12/23/2021) [facility] note* Diagnosis Rash and nonspecific skin eruption- Primary Rash and other nonspecific skin eruption [facility] [place] [facility]* Diagnosis Pulmonary sarcoidosis (HCC)- Primary Sarcoidosis [facility] [place] [facility]* Diagnosis Sarcoidosis of central nervous system- Primary Sarcoidosis of lung (HCC) Sarcoidosis documented [facility] encounter [facility]* Diagnosis Neck pain- Primary Cervicalgia Chronic tension-type headache, not intractable Chronic tension type headache [facility] [place] [facility]* Diagnosis Sarcoid uveitis of left eye [facility] [place] [facility]* Diagnosis Neurosarcoidosis- Primary Sarcoidosis Gastroesophageal reflux disease without esophagitis Esophageal reflux Sarcoid uveitis of left eye Sarcoidosis of lung (HCC) Sarcoidosis Acute bronchitis, unspecified organism [facility]* Diagnosis Neck pain- Primary Cervicalgia Chronic tension-type headache, not intractable Chronic tension type headache [facility] [place] [facility]* Diagnosis Onset Date Resolution Status Fracture of distal end of right fibula acute Fracture of posterior malleolus of right tibia acute Tear of deltoid ligament of right ankle acute Fracture of distal end of right fibula acute [facility] Work Phone: Evaluation note* Diagnosis Onset Date Resolution Status Fracture of distal end of right fibula acute Fracture of posterior malleolus of right tibia acute Tear of deltoid ligament of right ankle acute Fracture of distal end of right fibula acute Other acute postprocedural pain acute Painful orthopaedic hardware acute [facility] Work Phone: Evaluation note* Diagnosis Pulmonary sarcoidosis (HCC)- Primary Sarcoidosis [facility] [place] [facility]* Diagnosis Pulmonary sarcoidosis (HCC)- Primary Sarcoidosis [facility] this [facility] [place] [facility]* Diagnosis Pulmonary sarcoidosis (HCC)- Primary Sarcoidosis Sarcoidosis of lung (HCC) Sarcoidosis [facility] [place] [facility]* Diagnosis Neurosarcoidosis- Primary Sarcoidosis Sarcoid uveitis of left eye Stomach pain Dyspepsia and other specified disorders of function of stomach [facility] [place] [facility]* Diagnosis Sarcoid uveitis of left eye [facility] [place] [facility]* Diagnosis Personal history of immunosupression therapy- Primary Personal history of immunosuppressive therapy Pulmonary sarcoidosis (HCC) Sarcoidosis documented [facility] this encounter [facility] [place] noteNo assessment information [facility]WMer[facility] Work [facility]: Evaluation note* Diagnosis Sarcoidosis- Primary [facility] [place] [facility]* Diagnosis Pulmonary sarcoidosis (HCC) Sarcoidosis [facility] [place] [facility]* Diagnosis Gastroesophageal reflux disease without esophagitis Esophageal reflux [facility] [place] [facility]* Diagnosis Neurosarcoidosis- Primary Sarcoidosis documented [facility] this [facility] [place] [facility]* Diagnosis Neurosarcoidosis- Primary Sarcoidosis Sarcoid uveitis of left eye Sarcoidosis of lung (HCC) Sarcoidosis [facility] [place] [facility]* Diagnosis Sarcoid uveitis of left eye [facility] [place] [facility]* Diagnosis Pulmonary sarcoidosis (HCC)- Primary Sarcoidosis [facility] [place] [facility]* Diagnosis Neurosarcoidosis- Primary Sarcoidosis [place]clap headache Headache Sarcoidosis of lung (HCC) Sarcoidosis Morbid obesity (HCC) Morbid obesity Pulmonary sarcoidosis (HCC) Sarcoidosis RONNA (obstructive sleep apnea) Obstructive sleep apnea (adult) (pediatric) documented [facility] [place] [facility]* Diagnosis Pulmonary sarcoidosis (HCC)- Primary Sarcoidosis [facility] [place] [facility]* Diagnosis Sarcoidosis of central nervous system [facility] this [facility] [place] [facility]* Diagnosis Heartburn Gastroesophageal reflux disease, unspecified whether esophagitis present documented in this encounter [facility] note* Diagnosis Sarcoid uveitis of left eye [facility] [place] [facility]* Diagnosis Sarcoid uveitis of left eye [facility] [place] [facility]* Diagnosis Sarcoidosis of lung (HCC)- Primary Sarcoidosis [facility] [place] [facility]* Diagnosis Sarcoidosis of lung (HCC)- Primary Sarcoidosis [facility] Diagnosis Neurosarcoidosis Sarcoidosis Sarcoidosis of lung (HCC) Sarcoidosis [facility]* Diagnosis Food allergy- Primary Other adverse food reactions, not elsewhere classified 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, 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 Pulmonary sarcoidosis (HCC) Sarcoidosis Sarcoid uveitis of left eye Stomach pain Dyspepsia and other specified disorders of function of stomach Panuveitis of left eye Panuveitis Current chronic use of systemic steroids Ongoing use of possibly toxic medication Encounter for long-term (current) use of other medications [facility]* Diagnosis Oral allergy syndrome, initial encounter- Primary Food allergy Other adverse food reactions, not elsewhere classified Adverse reaction to food, initial encounter Allergic rhinitis due to cats Allergic rhinitis due to animal (cat) (dog) hair and dander Allergic rhinitis due to dust mite Allergic rhinitis due to fungal spores, unspecified seasonality Seasonal allergic rhinitis due to pollen [facility]monary sarcoidosis (HCC)- Primary Sarcoidosis [facility] [place] [facility]* Diagnosis Personal history of immunosupression therapy- Primary Personal history of immunosuppressive therapy Pulmonary sarcoidosis (HCC) Sarcoidosis [facility]* Diagnosis 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, 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- Primary [facility] Diagnosis 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, 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- Primary [facility]* Diagnosis Pulmonary sarcoidosis (HCC)- Primary Sarcoidosis [facility]* Diagnosis Sarcoidosis of central nervous system- Primary [facility]* Diagnosis Sarcoidosis of central nervous system- Primary Optic neuritis Optic neuritis, unspecified [facility] Diagnosis Sarcoid uveitis of left eye [facility] Diagnosis Sarcoidosis of central nervous system- Primary [facility]* Diagnosis Pulmonary sarcoidosis (HCC)- Primary Sarcoidosis [facility]* Diagnosis 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 Optic neuritis, unspecified [facility]* Diagnosis Gastroesophageal reflux disease without esophagitis Esophageal reflux [facility]* Diagnosis Sarcoidosis- Primary Neurosarcoidosis Sarcoidosis 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 Optic neuritis Optic neuritis, unspecified Current chronic use of systemic steroids documented in this encounter [facility] note* Diagnosis Pulmonary sarcoidosis (HCC)- Primary Sarcoidosis documented in this encounter [facility] note* Diagnosis Pre-operative examination- Primary Preoperative examination, unspecified Sarcoid uveitis of left eye Neurosarcoidosis Sarcoidosis Pulmonary sarcoidosis (HCC) Sarcoidosis RONNA (obstructive sleep apnea) Obstructive sleep apnea (adult) (pediatric) Hepatic steatosis Other chronic nonalcoholic liver disease Gallstones Calculus of gallbladder without mention of cholecystitis or obstruction Gastroesophageal reflux disease, unspecified whether esophagitis present History of pulmonary embolus (PE) Personal history of pulmonary embolism Obesity, Class II, BMI 35-39.9 Obesity, unspecified Pre-operative examination- Primary Preoperative examination, unspecified Generalized disseminated choroiditis and chorioretinitis, unspecified laterality Neurosarcoidosis Sarcoidosis Pulmonary sarcoidosis (HCC) Sarcoidosis RONNA (obstructive sleep apnea) Obstructive sleep apnea (adult) (pediatric) Gastroesophageal reflux disease, unspecified whether esophagitis present History of pulmonary embolus (PE) Personal history of pulmonary embolism Hepatic steatosis Other chronic nonalcoholic liver disease Gallstones Calculus of gallbladder without mention of cholecystitis or obstruction Morbid obesity (HCC) Morbid obesity Refractive error- Primary Unspecified disorder of refraction and accommodation 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 documented in this encounter [facility] note* Diagnosis Pre-operative examination- Primary Preoperative examination, unspecified Sarcoid uveitis of left eye Neurosarcoidosis Sarcoidosis Pulmonary sarcoidosis (HCC) Sarcoidosis RONNA (obstructive sleep apnea) Obstructive sleep apnea (adult) (pediatric) Hepatic steatosis Other chronic nonalcoholic liver disease Gallstones Calculus of gallbladder without mention of cholecystitis or obstruction Gastroesophageal reflux disease, unspecified whether esophagitis present History of pulmonary embolus (PE) Personal history of pulmonary embolism Obesity, Class II, BMI 35-39.9 Obesity, unspecified Pre-operative examination- Primary Preoperative examination, unspecified Generalized disseminated choroiditis and chorioretinitis, unspecified laterality Neurosarcoidosis Sarcoidosis Pulmonary sarcoidosis (HCC) Sarcoidosis RONNA (obstructive sleep apnea) Obstructive sleep apnea (adult) (pediatric) Gastroesophageal reflux disease, unspecified whether esophagitis present History of pulmonary embolus (PE) Personal history of pulmonary embolism Hepatic steatosis Other chronic nonalcoholic liver disease Gallstones Calculus of gallbladder without mention of cholecystitis or obstruction Morbid obesity (HCC) Morbid obesity Pulmonary sarcoidosis (HCC)- Primary Sarcoidosis documented in this encounter [facility] note* Diagnosis Pre-operative examination- Primary Preoperative examination, unspecified Sarcoid uveitis of left eye Neurosarcoidosis Sarcoidosis Pulmonary sarcoidosis (HCC) Sarcoidosis RONNA (obstructive sleep apnea) Obstructive sleep apnea (adult) (pediatric) Hepatic steatosis Other chronic nonalcoholic liver disease Gallstones Calculus of gallbladder without mention of cholecystitis or obstruction Gastroesophageal reflux disease, unspecified whether esophagitis present History of pulmonary embolus (PE) Personal history of pulmonary embolism Obesity, Class II, BMI 35-39.9 Obesity, unspecified Pre-operative examination- Primary Preoperative examination, unspecified Generalized disseminated choroiditis and chorioretinitis, unspecified laterality Neurosarcoidosis Sarcoidosis Pulmonary sarcoidosis (HCC) Sarcoidosis RONNA (obstructive sleep apnea) Obstructive sleep apnea (adult) (pediatric) Gastroesophageal reflux disease, unspecified whether esophagitis present History of pulmonary embolus (PE) Personal history of pulmonary embolism Hepatic steatosis Other chronic nonalcoholic liver disease Gallstones Calculus of gallbladder without mention of cholecystitis or obstruction Morbid obesity (HCC) Morbid obesity Neurosarcoidosis Sarcoidosis Sarcoid uveitis of left eye documented in this encounter [facility] note* Diagnosis Pre-operative examination- Primary Preoperative examination, unspecified Sarcoid uveitis of left eye Neurosarcoidosis Sarcoidosis Pulmonary sarcoidosis (HCC) Sarcoidosis RONNA (obstructive sleep apnea) Obstructive sleep apnea (adult) (pediatric) Hepatic steatosis Other chronic nonalcoholic liver disease Gallstones Calculus of gallbladder without mention of cholecystitis or obstruction Gastroesophageal reflux disease, unspecified whether esophagitis present History of pulmonary embolus (PE) Personal history of pulmonary embolism Obesity, Class II, BMI 35-39.9 Obesity, unspecified Pre-operative examination- Primary Preoperative examination, unspecified Generalized disseminated choroiditis and chorioretinitis, unspecified laterality Neurosarcoidosis Sarcoidosis Pulmonary sarcoidosis (HCC) Sarcoidosis RONNA (obstructive sleep apnea) Obstructive sleep apnea (adult) (pediatric) Gastroesophageal reflux disease, unspecified whether esophagitis present History of pulmonary embolus (PE) Personal history of pulmonary embolism Hepatic steatosis Other chronic nonalcoholic liver disease Gallstones Calculus of gallbladder without mention of cholecystitis or obstruction Morbid obesity (HCC) Morbid obesity Injury of right ankle, initial encounter Acute right ankle pain documented in this encounter [facility] note* Diagnosis Pre-operative examination- Primary Preoperative examination, unspecified Sarcoid uveitis of left eye Neurosarcoidosis Sarcoidosis Pulmonary sarcoidosis (HCC) Sarcoidosis RONNA (obstructive sleep apnea) Obstructive sleep apnea (adult) (pediatric) Hepatic steatosis Other chronic nonalcoholic liver disease Gallstones Calculus of gallbladder without mention of cholecystitis or obstruction Gastroesophageal reflux disease, unspecified whether esophagitis present History of pulmonary embolus (PE) Personal history of pulmonary embolism Obesity, Class II, BMI 35-39.9 Obesity, unspecified Pre-operative examination- Primary Preoperative examination, unspecified Generalized disseminated choroiditis and chorioretinitis, unspecified laterality Neurosarcoidosis Sarcoidosis Pulmonary sarcoidosis (HCC) Sarcoidosis RONNA (obstructive sleep apnea) Obstructive sleep apnea (adult) (pediatric) Gastroesophageal reflux disease, unspecified whether esophagitis present History of pulmonary embolus (PE) Personal history of pulmonary embolism Hepatic steatosis Other chronic nonalcoholic liver disease Gallstones Calculus of gallbladder without mention of cholecystitis or obstruction Morbid obesity (HCC) Morbid obesity Pulmonary sarcoidosis (HCC)- Primary Sarcoidosis [facility] [place] [facility]* Diagnosis Pre-operative examination- Primary Preoperative examination, unspecified Sarcoid uveitis of left eye Neurosarcoidosis Sarcoidosis Pulmonary sarcoidosis (HCC) Sarcoidosis RONNA (obstructive sleep apnea) Obstructive sleep apnea (adult) (pediatric) Hepatic steatosis Other chronic nonalcoholic liver disease Gallstones Calculus of gallbladder without mention of cholecystitis or obstruction Gastroesophageal reflux disease, unspecified whether esophagitis present History of pulmonary embolus (PE) Personal history of pulmonary embolism Obesity, Class II, BMI 35-39.9 Obesity, unspecified Pre-operative examination- Primary Preoperative examination, unspecified Generalized disseminated choroiditis and chorioretinitis, unspecified laterality Neurosarcoidosis Sarcoidosis Pulmonary sarcoidosis (HCC) Sarcoidosis RONNA (obstructive sleep apnea) Obstructive sleep apnea (adult) (pediatric) Gastroesophageal reflux disease, unspecified whether esophagitis present History of pulmonary embolus (PE) Personal history of pulmonary embolism Hepatic steatosis Other chronic nonalcoholic liver disease Gallstones Calculus of gallbladder without mention of cholecystitis or obstruction Morbid obesity (HCC) Morbid obesity Neurosarcoidosis- Primary Sarcoidosis Sarcoidosis Sarcoid uveitis of left eye Current chronic use of systemic steroids Pulmonary sarcoidosis (HCC) Sarcoidosis RONNA (obstructive sleep apnea) Obstructive sleep apnea (adult) (pediatric) Morbid obesity (HCC) Morbid obesity Personal history of immunosupression therapy Personal history of immunosuppressive therapy [facility] [place] [facility] Diagnosis Pre-operative examination- Primary Preoperative examination, unspecified Sarcoid uveitis of left eye Neurosarcoidosis Sarcoidosis Pulmonary sarcoidosis (HCC) Sarcoidosis RONNA (obstructive sleep apnea) Obstructive sleep apnea (adult) (pediatric) Hepatic steatosis Other chronic nonalcoholic liver disease Gallstones Calculus of gallbladder without mention of cholecystitis or obstruction Gastroesophageal reflux disease, unspecified whether esophagitis present History of pulmonary embolus (PE) Personal history of pulmonary embolism Obesity, Class II, BMI 35-39.9 Obesity, unspecified Pre-operative examination- Primary Preoperative examination, unspecified Generalized disseminated choroiditis and chorioretinitis, unspecified laterality Neurosarcoidosis Sarcoidosis Pulmonary sarcoidosis (HCC) Sarcoidosis RONNA (obstructive sleep apnea) Obstructive sleep apnea (adult) (pediatric) Gastroesophageal reflux disease, unspecified whether esophagitis present History of pulmonary embolus (PE) Personal history of pulmonary embolism Hepatic steatosis Other chronic nonalcoholic liver disease Gallstones Calculus of gallbladder without mention of cholecystitis or obstruction Morbid obesity (HCC) Morbid obesity Pulmonary sarcoidosis (HCC)- Primary Sarcoidosis documented in this encounter [facility] note* Diagnosis Pre-operative examination- Primary Preoperative examination, unspecified Sarcoid uveitis of left eye Neurosarcoidosis Sarcoidosis Pulmonary sarcoidosis (HCC) Sarcoidosis RONNA (obstructive sleep apnea) Obstructive sleep apnea (adult) (pediatric) Hepatic steatosis Other chronic nonalcoholic liver disease Gallstones Calculus of gallbladder without mention of cholecystitis or obstruction Gastroesophageal reflux disease, unspecified whether esophagitis present History of pulmonary embolus (PE) Personal history of pulmonary embolism Obesity, Class II, BMI 35-39.9 Obesity, unspecified Pre-operative examination- Primary Preoperative examination, unspecified Generalized disseminated choroiditis and chorioretinitis, unspecified laterality Neurosarcoidosis Sarcoidosis Pulmonary sarcoidosis (HCC) Sarcoidosis RONNA (obstructive sleep apnea) Obstructive sleep apnea (adult) (pediatric) Gastroesophageal reflux disease, unspecified whether esophagitis present History of pulmonary embolus (PE) Personal history of pulmonary embolism Hepatic steatosis Other chronic nonalcoholic liver disease Gallstones Calculus of gallbladder without mention of cholecystitis or obstruction Morbid obesity (HCC) Morbid obesity Pulmonary sarcoidosis (HCC)- Primary Sarcoidosis documented in this encounter [facility] note* Diagnosis Pre-operative examination- Primary Preoperative examination, unspecified Sarcoid uveitis of left eye Neurosarcoidosis Sarcoidosis Pulmonary sarcoidosis (HCC) Sarcoidosis RONNA (obstructive sleep apnea) Obstructive sleep apnea (adult) (pediatric) Hepatic steatosis Other chronic nonalcoholic liver disease Gallstones Calculus of gallbladder without mention of cholecystitis or obstruction Gastroesophageal reflux disease, unspecified whether esophagitis present History of pulmonary embolus (PE) Personal history of pulmonary embolism Obesity, Class II, BMI 35-39.9 Obesity, unspecified Pre-operative examination- Primary Preoperative examination, unspecified Generalized disseminated choroiditis and chorioretinitis, unspecified laterality Neurosarcoidosis Sarcoidosis Pulmonary sarcoidosis (HCC) Sarcoidosis RONNA (obstructive sleep apnea) Obstructive sleep apnea (adult) (pediatric) Gastroesophageal reflux disease, unspecified whether esophagitis present History of pulmonary embolus (PE) Personal history of pulmonary embolism Hepatic steatosis Other chronic nonalcoholic liver disease Gallstones Calculus of gallbladder without mention of cholecystitis or obstruction Morbid obesity (HCC) Morbid obesity Sarcoidosis documented in this encounter [facility] note* Diagnosis Pre-operative examination- Primary Preoperative examination, unspecified Sarcoid uveitis of left eye Neurosarcoidosis Sarcoidosis Pulmonary sarcoidosis (HCC) Sarcoidosis RONNA (obstructive sleep apnea) Obstructive sleep apnea (adult) (pediatric) Hepatic steatosis Other chronic nonalcoholic liver disease Gallstones Calculus of gallbladder without mention of cholecystitis or obstruction Gastroesophageal reflux disease, unspecified whether esophagitis present History of pulmonary embolus (PE) Personal history of pulmonary embolism Obesity, Class II, BMI 35-39.9 Obesity, unspecified Pre-operative examination- Primary Preoperative examination, unspecified Generalized disseminated choroiditis and chorioretinitis, unspecified laterality Neurosarcoidosis Sarcoidosis Pulmonary sarcoidosis (HCC) Sarcoidosis RONNA (obstructive sleep apnea) Obstructive sleep apnea (adult) (pediatric) Gastroesophageal reflux disease, unspecified whether esophagitis present History of pulmonary embolus (PE) Personal history of pulmonary embolism Hepatic steatosis Other chronic nonalcoholic liver disease Gallstones Calculus of gallbladder without mention of cholecystitis or obstruction Morbid obesity (HCC) Morbid obesity Sarcoid uveitis of left eye documented in this encounter [facility] note* Diagnosis Pre-operative examination- Primary Preoperative examination, unspecified Sarcoid uveitis of left eye Neurosarcoidosis Sarcoidosis Pulmonary sarcoidosis (HCC) Sarcoidosis RONNA (obstructive sleep apnea) Obstructive sleep apnea (adult) (pediatric) Hepatic steatosis Other chronic nonalcoholic liver disease Gallstones Calculus of gallbladder without mention of cholecystitis or obstruction Gastroesophageal reflux disease, unspecified whether esophagitis present History of pulmonary embolus (PE) Personal history of pulmonary embolism Obesity, Class II, BMI 35-39.9 Obesity, unspecified Pre-operative examination- Primary Preoperative examination, unspecified Generalized disseminated choroiditis and chorioretinitis, unspecified laterality Neurosarcoidosis Sarcoidosis Pulmonary sarcoidosis (HCC) Sarcoidosis RONNA (obstructive sleep apnea) Obstructive sleep apnea (adult) (pediatric) Gastroesophageal reflux disease, unspecified whether esophagitis present History of pulmonary embolus (PE) Personal history of pulmonary embolism Hepatic steatosis Other chronic nonalcoholic liver disease Gallstones Calculus of gallbladder without mention of cholecystitis or obstruction Morbid obesity (HCC) Morbid obesity Pulmonary sarcoidosis (HCC)- Primary Sarcoidosis documented in this encounter [facility] note* Diagnosis Pre-operative examination- Primary Preoperative examination, unspecified Sarcoid uveitis of left eye Neurosarcoidosis Sarcoidosis Pulmonary sarcoidosis (HCC) Sarcoidosis RONNA (obstructive sleep apnea) Obstructive sleep apnea (adult) (pediatric) Hepatic steatosis Other chronic nonalcoholic liver disease Gallstones Calculus of gallbladder without mention of cholecystitis or obstruction Gastroesophageal reflux disease, unspecified whether esophagitis present History of pulmonary embolus (PE) Personal history of pulmonary embolism Obesity, Class II, BMI 35-39.9 Obesity, unspecified Pre-operative examination- Primary Preoperative examination, unspecified Generalized disseminated choroiditis and chorioretinitis, unspecified laterality Neurosarcoidosis Sarcoidosis Pulmonary sarcoidosis (HCC) Sarcoidosis RONNA (obstructive sleep apnea) Obstructive sleep apnea (adult) (pediatric) Gastroesophageal reflux disease, unspecified whether esophagitis present History of pulmonary embolus (PE) Personal history of pulmonary embolism Hepatic steatosis Other chronic nonalcoholic liver disease Gallstones Calculus of gallbladder without mention of cholecystitis or obstruction Morbid obesity (HCC) Morbid obesity Neurosarcoidosis- Primary Sarcoidosis documented in this encounter [facility] note* Diagnosis Pre-operative examination- Primary Preoperative examination, unspecified Sarcoid uveitis of left eye Neurosarcoidosis Sarcoidosis Pulmonary sarcoidosis (HCC) Sarcoidosis RONNA (obstructive sleep apnea) Obstructive sleep apnea (adult) (pediatric) Hepatic steatosis Other chronic nonalcoholic liver disease Gallstones Calculus of gallbladder without mention of cholecystitis or obstruction Gastroesophageal reflux disease, unspecified whether esophagitis present History of pulmonary embolus (PE) Personal history of pulmonary embolism Obesity, Class II, BMI 35-39.9 Obesity, unspecified Pre-operative examination- Primary Preoperative examination, unspecified Generalized disseminated choroiditis and chorioretinitis, unspecified laterality Neurosarcoidosis Sarcoidosis Pulmonary sarcoidosis (HCC) Sarcoidosis RONNA (obstructive sleep apnea) Obstructive sleep apnea (adult) (pediatric) Gastroesophageal reflux disease, unspecified whether esophagitis present History of pulmonary embolus (PE) Personal history of pulmonary embolism Hepatic steatosis Other chronic nonalcoholic liver disease Gallstones Calculus of gallbladder without mention of cholecystitis or obstruction Morbid obesity (HCC) Morbid obesity 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 for referral (narrative)* Outpatient Procedure (Routine) - Pending Review Specialty Diagnoses / Procedures Referred By Jarrod simon Referred To Contact [facility] Diagnoses Sarcoidosis of lung (HCC) Procedures LUNG DIFFUSION CAPACITY (DLCO) DIFFUSING CAPACITY Lynn Howard MD [address] [place] [address] Respiratory [place] [address] [place] [address] Referral ID Status Reason Start Date Expiration Date Visits Requested Visits Authorized [id number] Pending Review Auto-Generat ed Referral 3 10/13/2023 1 1 * Outpatient Procedure (Routine) - Pending Review Specialty Diagnoses / Procedures Referred By Jarrod simon Referred To Contact [facility] Diagnoses Sarcoidosis of lung (HCC) Procedures SPIROMETRY WITH DILATOR IF OBSTRUCTED BRNCDILAT RSPSE SPMTRY PRE&POST-BRNCDILAT ADMN Lynn Howard MD [address] [place] [address] Respiratory [place] [address] [place] [address] Referral ID Status Reason Start Date Expiration Date Visits Requested Visits Authorized [id number] Pending Review Auto-Generat ed Referral 3 10/13/2023 1 1 * MRI/CT (Routine) - Pending Review Specialty Diagnoses / Procedures Referred By Jarrod simon Referred To Contact CT IMAGING Diagnoses Thunderclap headache Sarcoidosis of lung (HCC) Neurosarcoidosis Morbid obesity (HCC) Procedures CT CHEST WO IVCON DIAGNOSTIC COMPUTED TOMOGRAPHY THORAX W/O CNTRST Lynn Howard MD [address] [place] [address] Ct Imaging Referral ID Status Reason Start Date Expiration Date Visits Requested Visits Authorized [id number] Pending Review Auto-Generat ed Referral 3 10/13/2023 1 1 * MRI/CT (Routine) - Pending Review Specialty Diagnoses / Procedures Referred By Jarrod simon Referred To Contact MR IMAGING Diagnoses Thunderclap headache Sarcoidosis of lung (HCC) Neurosarcoidosis Morbid obesity (HCC) Procedures MRI PITUITARY WO/W IVCON MRI BRAIN BRAIN STEM W/O W/CONTRAST MATERIAL Lynn Howard MD [address] [place] [address] Mr Imaging Referral ID Status Reason Start Date Expiration Date Visits Requested Visits Authorized [id number] Pending Review Auto-Generat ed Referral 3 10/13/2023 1 1 * MRI/CT (Routine) - Pending Review Specialty Diagnoses / Procedures Referred By Jarrod simon Referred To Contact MR IMAGING Diagnoses Thunderclap headache Sarcoidosis of lung (HCC) Neurosarcoidosis Morbid obesity (HCC) Procedures MRI BRAIN WO/W IVCON MRI BRAIN BRAIN STEM W/O W/CONTRAST MATERIAL Lynn Howard MD [address] [place] [address] Mr Imaging Referral ID Status Reason Start Date Expiration Date Visits Requested Visits Authorized [id number] Pending Review Auto-Generat ed Referral 3 10/13/2023 [address] [facility] for referral (narrative)* Outpatient Procedure (Routine) - Closed Specialty Diagnoses / Procedures Referred By Jarrod simon Referred To Contact [facility] Diagnoses Heartburn Procedures EGD DIAGNOSTIC ESOPHAGOGASTRODUODENOSC OPY TRANSORAL DIAGNOSTIC Norbert Sosa MD [address] [place] [address] [facility] [place] [address] [place] [address] Referral ID Status Reason Start Date Expiration Date V isits Requested Visits Authorized [id number] Closed Auto-Generate d Referral 01/31/2022 01/31/2023 [address] [facility] for referral (narrative)* Diagnostic Procedure Only (Urgent) - Closed Specialty Diagnoses / Procedures Referred By Jarrod t Referred To Contact XR IMAGING Diagnoses Injury of right ankle, initial encounter Acute right ankle pain Procedures XR ANKLE GENERAL 3V AP/LAT/OBL RIGHT RADEX ANKLE COMPLETE MINIMUM 3 VIEWS Nohemy Pollock APRN.TANK CLEANER [address] [place] [id number] [place] [address] Referral ID Status Reason Start Date Expiration Date V isits Requested Visits Authorized [id number] Closed Auto-Generate d Referral 04/29/2021 05/29/2022 [address] [facility] for referral (narrative)No reason for referral information availableGillett asgoodasnew [employer] Services Work Phone: Reason for visit Narrative* Diagnostic Procedure Only (Routine) - Closed Specialty Diagnoses / Procedures Referred By Jarrod simon Referred To Contact Radiology / RADIO MRI [facility] Diagnoses Sarcoidosis of other sites CCN APPROVED - MRI BRAIN 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] (R/S from 02/24/22 physician out) Procedures MRI BRAIN BRAIN STEM W/O W/CONTRAST MATERIAL MRI WWO NEU1 B 300 Meño Steinberg MD [address] [place] [address] Radio Mri [facility] [address] [place] [address] Referral ID Status Reason Start Date Expiration Date Visits Re quested Visits Authorized [id number] Closed 03/01/2022 03/25/2022 [address] [facility] for visit Narrative* Outpatient Procedure (Routine) - Closed Specialty Diagnoses / Procedures Referred By Jarrod simon Referred To Contact [facility] Diagnoses Heartburn Procedures EGD DIAGNOSTIC ESOPHAGOGASTRODUODENOSC OPY TRANSORAL DIAGNOSTIC Norbert Sosa MD [address] [place] [address] [facility] [place] [address] [place] [address] Referral ID Status Reason Start Date Expiration Date V isits Requested Visits Authorized [id number] Closed Auto-Generate d Referral 01/31/2022 01/31/2023 1 1 [facility] Diagnostic Procedure Only (Urgent) - Closed Specialty Diagnoses / Procedures Referred By Contac t Referred To Contact XR IMAGING Diagnoses Injury of right ankle, initial encounter Acute right ankle pain Procedures XR ANKLE GENERAL 3V AP/LAT/OBL RIGHT RADEX ANKLE COMPLETE MINIMUM 3 VIEWS Nohemy Pollock, HAT LINER.T[employer] CLEANER [address] [place] [address] [place] [address] Referral ID Status Reason Start Date Expiration Date V isits Requested Visits Authorized [id number] Closed Auto-Generate d Referral 04/29/2021 05/29/2022 1 1 [facility] Summary Purpose Family History No Family History Records FoundNo Family History Records FoundNo Family History Records FoundNo Family History Records FoundNo Family History Records Found Advance Directives Documents on File Type Date Recorded 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 Advance Directive(s) 07/22/2020 11:34 AM Advance Directive(s) 04/20/2020 8:53 AM Documents on File Type Date Recorded 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 Advance Directive(s) 07/22/2020 11:34 AM Advance Directive(s) 04/20/2020 8:53 AM Advance Directive Response Recorded Date/ Time Name of Medical Power of Nuclear Physics Professor Lynsey Andrade [facility] May 13, 2021 9:06am Living Will No August 24, 2021 3 :13pm Power of Nuclear Physics Professor No August 24, 2021 3:13pm Medications Administered Section Inactive Administered Medications - up to 3 most recent administrations Medication Order MAR Action Action Date Dose Rate Site acetaminophen 650 mg tab(s) (TYLENOL) 650 mg, ORAL, ONCE, 1 dose, On Sun07/08/21 at 0830, No more than 4000 mg of acetaminophen should be given per day (FROM ALL SOURCES) Given 07/08/2021 8:26 AM EDT 650 mg diphenhydrAMINE 25 mg (BENADRYL) 25 mg, ORAL, ONCE, 1 dose, On Sun07/08/21 at 0830 Given 07/08/2021 8:26 AM EDT 25 mg inFLIXimab-abda 600 mg in NaCl 0.9% 250 mL (RENFLEXIS) 600 mg, INTRAVENOUS, at 250 mL/hr, Administer over 1 Hours, ONCE, 1 dose, On Sun07/08/21 at 0830, TOTAL VOLUME = 250 mL. exp 1400 07/08/21 (refrigerated) (ordered by Dr Howard) Administer with 0.2 micron filter. New Bag/Syringe/Bottle 07/08/2021 9:32 AM EDT 600 mg 250 mL/hr Inactive Administered Medications - up to 3 most recent administrations Medication Order MAR Action Action Date Dose Rate Site acetaminophen 650 mg tab(s) (TYLENOL) 650 mg, ORAL, ONCE, 1 dose, On Sun09/30/21 at 0830, No more than 4000 mg of acetaminophen should be given per day (FROM ALL SOURCES) Given 09/30/2021 8:21 AM EDT 650 mg diphenhydrAMINE 25 mg (BENADRYL) 25 mg, ORAL, ONCE, 1 dose, On Sun09/30/21 at 0830 Given 09/30/2021 8:21 AM EDT 25 mg inFLIXimab 600 mg in NaCl 0.9% 250 mL (REMICADE) 600 mg, INTRAVENOUS, at 125 mL/hr, Administer over 2 Hours, ONCE, 1 dose, On Sun09/30/21 at 0830, Total volume: 250ml. exp 0830 10/01/21 (room temp) Administer with 0.2 micron filter. New Bag/Syringe/Bottle 09/30/2021 8:49 AM EDT 600 mg 125 mL/hr Inactive Administered Medications - up to 3 most recent administrations Medication Order MAR Action Action Date Dose Rate Site acetaminophen 650 mg tab(s) (TYLENOL) 650 mg, ORAL, ONCE, 1 dose, On Sun11/11/21 at 0930, No more than 4000 mg of acetaminophen should be given per day (FROM ALL SOURCES) Given 11/11/2021 9:27 AM EDT 650 mg diphenhydrAMINE 25 mg (BENADRYL) 25 mg, ORAL, ONCE, 1 dose, On Sun11/11/21 at 0930 Given 11/11/2021 9:28 AM EDT 25 mg inFLIXimab 600 mg in NaCl 0.9% 250 mL (REMICADE) 600 mg, INTRAVENOUS, at 125 mL/hr, Administer over 2 Hours, ONCE, 1 dose, On Sun11/11/21 at 0930, Total volume: 250ml. exp 0930 11/12/21 (room temp) Administer with 0.2 micron filter. New Bag/Syringe/Bottle 11/11/2021 9:44 AM EDT 600 mg 125 mL/hr Inactive Administered Medications - up to 3 most recent administrations Medication Order MAR Action Action Date Dose Rate Site acetaminophen 650 mg tab(s) (TYLENOL) 650 mg, ORAL, ONCE, 1 dose, On Sun12/23/21 at 1000, No more than 4000 mg of acetaminophen should be given per day (FROM ALL SOURCES) Given 12/23/2021 9:54 AM EDT 650 mg diphenhydrAMINE 25 mg (BENADRYL) 25 mg, ORAL, ONCE, 1 dose, On Sun12/23/21 at 1000 Given 12/23/2021 9:54 AM EDT 25 mg inFLIXimab 600 mg in NaCl 0.9% 250 mL (REMICADE) 600 mg, INTRAVENOUS, at 125 mL/hr, Administer over 2 Hours, ONCE, 1 dose, On Sun12/23/21 at 1000, Total volume: 250ml. EXP: (24 hrs) Administer with 0.2 micron filter. New Bag/Syringe/Bottle 12/23/2021 10:07 AM EDT 600 mg 125 mL/hr Inactive Administered Medications - up to 3 most recent administrations Medication Order MAR Action Action Date Dose Rate Site acetaminophen 650 mg tab(s) (TYLENOL) 650 mg, ORAL, ONCE, 1 dose, On Sun02/03/22 at 0930, No more than 4000 mg of acetaminophen should be given per day (FROM ALL SOURCES) Given 02/03/2022 9:40 AM EST 650 mg diphenhydrAMINE 25 mg (BENADRYL) 25 mg, ORAL, ONCE, 1 dose, On Sun02/03/22 at 0930 Given 02/03/2022 9:40 AM EST 25 mg inFLIXimab 600 mg in NaCl 0.9% 250 mL (REMICADE) 600 mg, INTRAVENOUS, at 125 mL/hr, Administer over 2 Hours, ONCE, 1 dose, On Sun02/03/22 at 0930, Total volume: 250ml. exp 02/04/22 @ 1000 (room temp) Administer with 0.2 micron filter. New Bag/Syringe/Bottle 02/03/2022 9:55 AM EST 600 mg 125 mL/hr Active Administered Medications - up to 3 most recent administrations Medication Order MAR Action Action Date Dose Rate Site fluorescein-benoxinate 0.25-0.4 % 1 Drop (FLURESS) 1 Drop, BOTH EYES, DIRECTED, Starting on Sun06/09/22 at 0930, Until Sun06/09/22 at 2128, Administer for applanation tonometry. In the event of a Fluress shortage, administer Helm-Fluor 1 drop into both eyes as directed for applanation tonometry, [facility] MED ORDERS Given 06/09/2022 9:40 AM EDT 1 Drop PHENYLephrine 2.5 % 1 Drop (AK-DILATE, ANGIE-SYNEPHRINE) 1 Drop, BOTH EYES, DIRECTED, Starting on Sun06/09/22 at 0930, Until Sun06/09/22 at 2128, Administer for dilation PROTECT FROM LIGHT, [facility]HT CLINIC MED ORDERS Given 06/09/2022 9:40 AM EDT 1 Drop tropicamide 1 % 1 Drop (MYDRIACYL) 1 Drop, BOTH EYES, DIRECTED, Starting on Sun06/09/22 at 0930, Until Sun06/09/22 at 2128, Administer for dilation, OPHT CLINIC MED ORDERS Given 06/09/2022 9:40 AM EDT 1 Drop Inactive Administered Medications - up to 3 most recent administrations Medication Order MAR Action Action Date Dose Rate Site acetaminophen 650 mg tab(s) (TYLENOL) 650 mg, ORAL, ONCE, 1 dose, On Sun06/30/22 at 0900, No more than 4000 mg of acetaminophen should be given per day (FROM ALL SOURCES) Given 06/30/2022 8:41 AM EDT 650 mg diphenhydrAMINE 25 mg (BENADRYL) 25 mg, ORAL, ONCE, 1 dose, On Sun06/30/22 at 0900 Given 06/30/2022 8:41 AM EDT 25 mg inFLIXimab 600 mg in NaCl 0.9% 250 mL (REMICADE) 600 mg, INTRAVENOUS, at 125 mL/hr, Administer over 2 Hours, ONCE, 1 dose, On Sun06/30/22 at 0900, Total volume: 250ml. EXP: (24 hrs) Administer with 0.2 micron filter. New Bag/Syringe/Bottle 06/30/2022 8:55 AM EDT 600 mg 125 mL/hr Inactive Administered Medications - up to 3 most recent administrations Medication Order MAR Action Action Date Dose Rate Site acetaminophen 650 mg tab(s) (TYLENOL) 650 mg, ORAL, ONCE, 1 dose, On Sun09/22/22 at 1030, No more than 4000 mg of acetaminophen should be given per day (FROM ALL SOURCES) Given 09/22/2022 10:30 AM EDT 650 mg diphenhydrAMINE 25 mg (BENADRYL) 25 mg, ORAL, ONCE, 1 dose, On Sun09/22/22 at 1030 Given 09/22/2022 10:30 AM EDT 25 mg inFLIXimab 600 mg in NaCl 0.9% 250 mL (REMICADE) 600 mg, INTRAVENOUS, at 125 mL/hr, Administer over 2 Hours, ONCE, 1 dose, On Sun09/22/22 at 1030, Total volume: 250ml. EXP: 09/23/22 1030 Administer with 0.2 micron filter. New Bag/Syringe/Bottle 09/22/2022 10:42 AM EDT 600 mg 125 mL/hr Inactive Administered Medications - up to 3 most recent administrations Medication Order MAR Action Action Date Dose Rate Site acetaminophen 650 mg tab(s) (TYLENOL) 650 mg, ORAL, ONCE, 1 dose, On Sun12/15/22 at 0830, No more than 4000 mg of acetaminophen should be given per day (FROM ALL SOURCES) Given 12/15/2022 8:47 AM EDT 650 mg diphenhydrAMINE 25 mg (BENADRYL) 25 mg, ORAL, ONCE, 1 dose, On Sun12/15/22 at 0830 Given 12/15/2022 8:47 AM EDT 25 mg inFLIXimab 600 mg in NaCl 0.9% 250 mL (REMICADE) 600 mg, INTRAVENOUS, at 125 mL/hr, Administer over 2 Hours, ONCE, 1 dose, On Sun12/15/22 at 0830, Total volume: 250ml. exp 89912/16/22 (room temp) Administer with 0.2 micron filter. New Bag/Syringe/Bottle 12/15/2022 9:01 AM EDT 600 mg 125 mL/hr Inactive Administered Medications - up to 3 most recent administrations Medication Order MAR Action Action Date Dose Rate Site acetaminophen 650 mg tab(s) (TYLENOL) 650 mg, ORAL, ONCE, 1 dose, On Sun01/26/23 at 0900, No more than 4000 mg of acetaminophen should be given per day (FROM ALL SOURCES) Given 01/26/2023 8:54 AM EDT 650 mg diphenhydrAMINE 25 mg (BENADRYL) 25 mg, ORAL, ONCE, 1 dose, On Sun01/26/23 at 0900 Given 01/26/2023 8:55 AM EDT 25 mg inFLIXimab 600 mg in NaCl 0.9% 250 mL (REMICADE) 600 mg, INTRAVENOUS, at 125 mL/hr, Administer over 2 Hours, ONCE, 1 dose, On Sun01/26/23 at 0900, Total volume: 250ml. exp 89901/27/23 (room temp) Administer with 0.2 micron filter. New Bag/Syringe/Bottle 01/26/2023 9:15 AM EDT 600 mg 250 mL/hr Inactive Administered Medications - up to 3 most recent administrations Medication Order MAR Action Action Date Dose Rate Site benzocaine 20% 1 [place] (TOPEX) 1 [place], TOPICAL, DIRECTED, Starting on Sun04/20/22 at 1400, Until Sun04/20/22 at 1759, DOSING DIRECTED BY PHYSICIAN FOR PROCEDURAL SEDATION ONLY - Pharmaceutical Waste: Aerosol -, Intraprocedure Given 04/20/2022 1:41 PM EST 5 Sprays diphenhydrAMINE 12.5-50 mg injection (BENADRYL) 12.5-50 mg, INTRAVENOUS, DIRECTED, Starting on Sun04/20/22 at 1400, Until Rosanna 04/20/22 at 1759, DOSING DIRECTED BY PHYSICIAN FOR PROCEDURAL SEDATION ONLY, Intraprocedure Given 04/20/2022 1:45 PM EST 50 mg fentaNYL 50 mcg/mL 25-100 mcg injection (SUBLIMAZE) 25-100 mcg, INTRAVENOUS, DIRECTED, Starting on Sun04/20/22 at 1400, Until Rosanna 04/20/22 at 1759, DOSING DIRECTED BY PHYSICIAN FOR PROCEDURAL SEDATION ONLY, Intraprocedure Given 04/20/2022 1:46 PM EST 50 mcg Given 04/20/2022 1:43 PM EST 50 mcg lactated ringers iv infusion 30 mL/hr, INTRAVENOUS, CONTINUOUS, Starting on Rosanna 04/20/22 at 1300, Until Rosanna 04/20/22 at 1403, Preprocedure New Bag/Syringe/Bottle 04/20/2022 1:10 PM EST 30 mL/hr 30 mL/hr midazolam 1-5 mg injection (VERSED) 1-5 mg, INTRAVENOUS, DIRECTED, Starting on Rosanna 04/20/22 at 1400, Until Rosanna 04/20/22 at 1759, DOSING DIRECTED BY PHYSICIAN FOR PROCEDURAL SEDATION ONLY, Intraprocedure Given 04/20/2022 1:49 PM EST 2 mg Given 04/20/2022 1:43 PM EST 3 mg Reason for Referral Specialty Diagnoses / Procedures Referred By Jarrod Referred To Contact [facility] Diagnoses Sarcoidosis of central nervous system Procedures CONSULT TO PHYSICAL THERAPY PHYSICAL THERAPY EVALUATION HIGH COMPLEX 45 MINS Meño Steinberg MD [address] [address] [facility] [address] [address] Referral ID Status Reason Start Date Expiration Date Visits Requested Visits Authorized [id number] Pending Review Auto-Generat ed Referral 07/22/2021 07/22/2022 1 1 Specialty Diagnoses / Procedures [facility]erred To Contact MR [facility] Diagnoses Sarcoidosis of central nervous system Procedures MRI ORBIT WO/W IVCON MRI ORBIT FACE & NECK W/O & W/CONTRAST MATRL Meño Steinberg MD [address] [address] Mr Imaging Referral ID Status Reason Start Date Expiration Date Visits Requested Visits Authorized [id number] Pending Review Auto-Generat ed Referral 07/22/2021 08/21/2022 1 1 Specialty Diagnoses / Procedures [facility]erred To Contact MR IMAGING Diagnoses Sarcoidosis of central nervous system Procedures MRI BRAIN WO/W IVCON MRI BRAIN BRAIN STEM W/O W/CONTRAST MATERIAL Meño Steinberg MD [address] [place] [address] Mr Imaging Referral ID Status Reason Start Date Expiration Date Visits Requested Visits Authorized [id number] Pending Review Auto-Generat ed Referral 07/22/2021 08/21/2022 1 1 Specialty Diagnoses / Procedures Referred By Contac t Referred To Contact Gastroenterology Diagnoses Stomach pain Procedures CONSULT TO GASTROENTEROLOGY OFFICE/OUTPATIENT NEW HIGH MDM 60-74 MINUTES Lynn Howard MD [address] [place] [address] Referral ID Status Reason Start Date Expiration Date Visits Requested Visits Authorized [id number] Authorized PCP Requested Referral 01/23/2023 1 1 Specialty Diagnoses / Procedures Referred By Starac t Referred To Contact CT IMAGING Diagnoses Neurosarcoidosis Sarcoidosis of lung (HCC) Procedures CT CHEST WO IVCON DIAGNOSTIC COMPUTED TOMOGRAPHY THORAX W/O CNTRST Lynn Howard MD [address] [facility] [place] [address] Ct Imaging Referral ID Status Reason Start Date Expiration Date Visits Requested Visits Authorized [id number] Pending Review Auto-Generat ed Referral 05/19/2022 06/18/2023 1 1 Specialty Diagnoses / Procedures Referred By Contac t Referred To Contact MR IMAGING Diagnoses Sarcoidosis of central nervous system Procedures MRI BRAIN WO/W IVCON MRI BRAIN BRAIN STEM W/O W/CONTRAST MATERIAL Meño Steinberg MD [address] [place] [address] Mr Imaging [place] [address] Referral ID Status Reason Start Date Expiration Date V isits Requested Visits Authorized [id number] Closed Auto-Generat ed Referral Patient Cleared - Admin/Chairm an/Director advise to proceed or did not respond 03/01/2022 03/25/2022 1 1 Specialty Diagnoses / Procedures Referred By Starac t Referred To Contact MR IMAGING Diagnoses Sarcoidosis of central nervous system Procedures MRI ORBIT WO/W IVCON MRI ORBIT FACE & NECK W/O & W/CONTRAST MATRL Meño Steinberg MD [address] [place] [address] Mr Imaging [place] [address] Referral ID Status Reason Start Date Expiration Date Visits Re quested Visits Authorized [id number] Closed 03/13/2022 03/21/2022 1 1 Specialty Diagnoses / Procedures Referred By Contac t Referred To Contact CT IMAGING Diagnoses Neurosarcoidosis Sarcoidosis of lung (HCC) Procedures CT CHEST WO IVCON DIAGNOSTIC COMPUTED TOMOGRAPHY THORAX W/O CNTRST Lynn Howard MD [address] [place] [address] Ct Imaging [place] [address] Referral ID Status Reason Start Date Expiration Date V isits Requested Visits Authorized [id number] Closed Auto-Generate d Referral 05/19/2022 06/18/2023 1 0 Specialty Diagnoses / Procedures Referred By Contac t Referred To Contact Gastroenterology Diagnoses Stomach pain Procedures CONSULT TO GASTROENTEROLOGY OFFICE/OUTPATIENT [facility] 60 MINUTES Nickie Ibarra PA-C [address] [facility] [place] [address] Referral ID Status Reason Start Date Expiration Date Visits Requested Visits Authorized [id number] Authorized PCP Requested Referral 05/10/2023 05/09/2024 1 1 Specialty Diagnoses / Procedures Referred By Contac t Referred To Contact Allergy Diagnoses Food allergy Procedures CONSULT TO ALLERGY/IMMUNOLOGY OFFICE/OUTPATIENT [facility] 60 MINUTES Nickie Ibarra PA-C [address] [place] [address] Referral ID Status Reason Start Date Expiration Date Visits Requested Visits Authorized [id number] Authorized PCP Requested Referral 05/10/2023 05/09/2024 1 1 Specialty Diagnoses / Procedures Referred By Contac t Referred To Contact MR IMAGING Diagnoses 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 Procedures MRI ORBIT WO/W IVCON MRI ORBIT FACE & NECK W/O & W/CONTRAST Meño Tirado MD [address] [place] [id number] Mr Imaging [place] [address] Referral ID Status Reason Start Date Expiration Date Visits Requested Visits Authorized [id number] Pending Review Auto-Generat ed Referral 08/23/2023 09/21/2024 1 1 Referral ID Status Reason Start Date Expiration Date V isits Requested Visits Authorized [id number] Closed Auto-Generate d Referral 09/11/2023 03/25/2024 1 1 Chief Complaint and Reason for Visit Chief Complaint Right leg xray ANKLE FRACTURE, PREOP RT ORIF ANKLE REPAIR SYNDESMOSIS AND POSS DELTOID Reason for Visit Fracture of distal e nd of right fibula Fracture of posterior malleolus of right tibia Tear of deltoid ligament of right ankle Fracture of distal end of right fibula Chief Complaint Right leg xray ANKLE FRACTURE, PREOP RT ORIF ANKLE REPAIR SYNDESMOSIS AND POSS DELTOID RT ANKLE REMOVAL SYNDESMOTIC SCREW Reason for Visit Fracture of distal e nd of right fibula Fracture of posterior malleolus of right tibia Tear of deltoid ligament of right ankle Fracture of distal end of right fibula Other acute postprocedural pain Painful orthopaedic hardware Chief Complaint Admit Date SPOT ON NOSE October 03, 2024 2:58 pm Additional Source Comments (unrecognized sect ion and content) No Status Records FoundNo Status Records FoundNo Status Records FoundNo Status Records FoundNo Status Records Found INFORMATION SOURCE (unrecogn ized section and content) DATE CREATED AUTHOR 03/04/2018 [facility] DATE CREATED AUTHOR AUTHOR'S ORGANIZ ATION 04/11/2021 [facility] DATE CREATED AUTHOR AUTHOR'S ORGANIZ ATION 03/06/2022 [facility] DATE CREATED AUTHOR AUTHOR'S ORGANIZ ATION 02/29/2024 [facility] DATE CREATED AUTHOR AUTHOR'S ORGANIZ ATION 09/02/2024 [facility] Source Comments (unrecognize d section and content) In the event this informatio n is protected by the Federal Confidentiality of Alcohol and Drug Abuse Patient Records regulations: The Federal rules restrict any use of the information to criminally investigate or prosecute any alcohol or drug abuse patient.[facility] the event this information is protected by the Federal Confidentiality of Alcohol and Drug Abuse Patient Records regulations: The Federal rules restrict any use of the information to criminally investigate or prosecute any alcohol or drug abuse patient.[facility] Center[facility] the event this information is protected by the Federal Confidentiality of Alcohol and Drug Abuse Patient Records regulations: The Federal rules restrict any use of the information to criminally investigate or prosecute any alcohol or drug abuse patient.[facility] CenterIn the event this information is protected by the Federal Confidentiality of Alcohol and Drug Abuse Patient Records regulations: The Federal rules restrict any use of the information to criminally investigate or prosecute any alcohol or drug abuse patient.[facility] CenterIn the event this information is protected by the Federal Confidentiality of Alcohol and Drug Abuse Patient Records regulations: The Federal rules restrict any use of the information to criminally investigate or prosecute any alcohol or drug abuse patient.[facility] CenterIn the event this information is protected by the Federal Confidentiality of Alcohol and Drug Abuse Patient Records regulations: The Federal rules restrict any use of the information to criminally investigate or prosecute any alcohol or drug abuse patient.[facility] CenterIn the event this information is protected by the Federal Confidentiality of Alcohol and Drug Abuse Patient Records regulations: The Federal rules restrict any use of the information to criminally investigate or prosecute any alcohol or drug abuse patient.[facility] CenterIn the event this information is protected by the Federal Confidentiality of Alcohol and Drug Abuse Patient Records regulations: The Federal rules restrict any use of the information to criminally investigate or prosecute any alcohol or drug abuse patient.[facility] CenterIn the event this information is protected by the Federal Confidentiality of Alcohol and Drug Abuse Patient Records regulations: The Federal rules restrict any use of the information to criminally investigate or prosecute any alcohol or drug abuse patient.[facility] CenterIn the event this information is protected by the Federal Confidentiality of Alcohol and Drug Abuse Patient Records regulations: The Federal rules restrict any use of the information to criminally investigate or prosecute any alcohol or drug abuse patient.[facility] CenterIn the event this information is protected by the Federal Confidentiality of Alcohol and Drug Abuse Patient Records regulations: The Federal rules restrict any use of the information to criminally investigate or prosecute any alcohol or drug abuse patient.[facility] CenterIn the event this information is protected by the Federal Confidentiality of Alcohol and Drug Abuse Patient Records regulations: The Federal rules restrict any use of the information to criminally investigate or prosecute any alcohol or drug abuse patient.[facility] CenterIn the event this information is protected by the Federal Confidentiality of Alcohol and Drug Abuse Patient Records regulations: The Federal rules restrict any use of the information to criminally investigate or prosecute any alcohol or drug abuse patient.[facility] CenterIn the event this information is protected by the Federal Confidentiality of Alcohol and Drug Abuse Patient Records regulations: The Federal rules restrict any use of the information to criminally investigate or prosecute any alcohol or drug abuse patient.[facility] CenterIn the event this information is protected by the Federal Confidentiality of Alcohol and Drug Abuse Patient Records regulations: The Federal rules restrict any use of the information to criminally investigate or prosecute any alcohol or drug abuse patient.[facility] CenterIn the event this information is protected by the Federal Confidentiality of Alcohol and Drug Abuse Patient Records regulations: The Federal rules restrict any use of the information to criminally investigate or prosecute any alcohol or drug abuse patient.[facility] CenterIn the event this information is protected by the Federal Confidentiality of Alcohol and Drug Abuse Patient Records regulations: The Federal rules restrict any use of the information to criminally investigate or prosecute any alcohol or drug abuse patient.[facility] CenterIn the event this information is protected by the Federal Confidentiality of Alcohol and Drug Abuse Patient Records regulations: The Federal rules restrict any use of the information to criminally investigate or prosecute any alcohol or drug abuse patient.[facility] CenterIn the event this information is protected by the Federal Confidentiality of Alcohol and Drug Abuse Patient Records regulations: The Federal rules restrict any use of the information to criminally investigate or prosecute any alcohol or drug abuse patient.[facility] CenterIn the event this information is protected by the Federal Confidentiality of Alcohol and Drug Abuse Patient Records regulations: The Federal rules restrict any use of the information to criminally investigate or prosecute any alcohol or drug abuse patient.[facility] CenterIn the event this information is protected by the Federal Confidentiality of Alcohol and Drug Abuse Patient Records regulations: The Federal rules restrict any use of the information to criminally investigate or prosecute any alcohol or drug abuse patient.[facility] CenterIn the event this information is protected by the Federal Confidentiality of Alcohol and Drug Abuse Patient Records regulations: The Federal rules restrict any use of the information to criminally investigate or prosecute any alcohol or drug abuse patient.[facility] CenterIn the event this information is protected by the Federal Confidentiality of Alcohol and Drug Abuse Patient Records regulations: The Federal rules restrict any use of the information to criminally investigate or prosecute any alcohol or drug abuse patient.[facility] CenterIn the event this information is protected by the Federal Confidentiality of Alcohol and Drug Abuse Patient Records regulations: The Federal rules restrict any use of the information to criminally investigate or prosecute any alcohol or drug abuse patient.[facility] CenterIn the event this information is protected by the Federal Confidentiality of Alcohol and Drug Abuse Patient Records regulations: The Federal rules restrict any use of the information to criminally investigate or prosecute any alcohol or drug abuse patient.[facility] CenterIn the event this information is protected by the Federal Confidentiality of Alcohol and Drug Abuse Patient Records regulations: The Federal rules restrict any use of the information to criminally investigate or prosecute any alcohol or drug abuse patient.[facility] CenterIn the event this information is protected by the Federal Confidentiality of Alcohol and Drug Abuse Patient Records regulations: The Federal rules restrict any use of the information to criminally investigate or prosecute any alcohol or drug abuse patient.[facility] CenterIn the event this information is protected by the Federal Confidentiality of Alcohol and Drug Abuse Patient Records regulations: The Federal rules restrict any use of the information to criminally investigate or prosecute any alcohol or drug abuse patient.[facility] CenterIn the event this information is protected by the Federal Confidentiality of Alcohol and Drug Abuse Patient Records regulations: The Federal rules restrict any use of the information to criminally investigate or prosecute any alcohol or drug abuse patient.[facility] CenterIn the event this information is protected by the Federal Confidentiality of Alcohol and Drug Abuse Patient Records regulations: The Federal rules restrict any use of the information to criminally investigate or prosecute any alcohol or drug abuse patient.[facility] CenterIn the event this information is protected by the Federal Confidentiality of Alcohol and Drug Abuse Patient Records regulations: The Federal rules restrict any use of the information to criminally investigate or prosecute any alcohol or drug abuse patient.[facility] CenterIn the event this information is protected by the Federal Confidentiality of Alcohol and Drug Abuse Patient Records regulations: The Federal rules restrict any use of the information to criminally investigate or prosecute any alcohol or drug abuse patient.[facility] CenterIn the event this information is protected by the Federal Confidentiality of Alcohol and Drug Abuse Patient Records regulations: The Federal rules restrict any use of the information to criminally investigate or prosecute any alcohol or drug abuse patient.[facility] CenterIn the event this information is protected by the Federal Confidentiality of Alcohol and Drug Abuse Patient Records regulations: The Federal rules restrict any use of the information to criminally investigate or prosecute any alcohol or drug abuse patient.[facility] CenterIn the event this information is protected by the Federal Confidentiality of Alcohol and Drug Abuse Patient Records regulations: The Federal rules restrict any use of the information to criminally investigate or prosecute any alcohol or drug abuse patient.[facility] CenterIn the event this information is protected by the Federal Confidentiality of Alcohol and Drug Abuse Patient Records regulations: The Federal rules restrict any use of the information to criminally investigate or prosecute any alcohol or drug abuse patient.[facility] CenterIn the event this information is protected by the Federal Confidentiality of Alcohol and Drug Abuse Patient Records regulations: The Federal rules restrict any use of the information to criminally investigate or prosecute any alcohol or drug abuse patient.[facility] CenterIn the event this information is protected by the Federal Confidentiality of Alcohol and Drug Abuse Patient Records regulations: The Federal rules restrict any use of the information to criminally investigate or prosecute any alcohol or drug abuse patient.[facility] CenterIn the event this information is protected by the Federal Confidentiality of Alcohol and Drug Abuse Patient Records regulations: The Federal rules restrict any use of the information to criminally investigate or prosecute any alcohol or drug abuse patient.[facility] CenterIn the event this information is protected by the Federal Confidentiality of Alcohol and Drug Abuse Patient Records regulations: The Federal rules restrict any use of the information to criminally investigate or prosecute any alcohol or drug abuse patient.[facility] CenterIn the event this information is protected by the Federal Confidentiality of Alcohol and Drug Abuse Patient Records regulations: The Federal rules restrict any use of the information to criminally investigate or prosecute any alcohol or drug abuse patient.[facility] CenterIn the event this information is protected by the Federal Confidentiality of Alcohol and Drug Abuse Patient Records regulations: The Federal rules restrict any use of the information to criminally investigate or prosecute any alcohol or drug abuse patient.[facility] CenterIn the event this information is protected by the Federal Confidentiality of Alcohol and Drug Abuse Patient Records regulations: The Federal rules restrict any use of the information to criminally investigate or prosecute any alcohol or drug abuse patient.[facility] CenterIn the event this information is protected by the Federal Confidentiality of Alcohol and Drug Abuse Patient Records regulations: The Federal rules restrict any use of the information to criminally investigate or prosecute any alcohol or drug abuse patient.[facility] CenterIn the event this information is protected by the Federal Confidentiality of Alcohol and Drug Abuse Patient Records regulations: The Federal rules restrict any use of the information to criminally investigate or prosecute any alcohol or drug abuse patient.[facility] CenterIn the event this information is protected by the Federal Confidentiality of Alcohol and Drug Abuse Patient Records regulations: The Federal rules restrict any use of the information to criminally investigate or prosecute any alcohol or drug abuse patient.[facility] CenterIn the event this information is protected by the Federal Confidentiality of Alcohol and Drug Abuse Patient Records regulations: The Federal rules restrict any use of the information to criminally investigate or prosecute any alcohol or drug abuse patient.[facility] CenterIn the event this information is protected by the Federal Confidentiality of Alcohol and Drug Abuse Patient Records regulations: The Federal rules restrict any use of the information to criminally investigate or prosecute any alcohol or drug abuse patient.[facility] CenterIn the event this information is protected by the Federal Confidentiality of Alcohol and Drug Abuse Patient Records regulations: The Federal rules restrict any use of the information to criminally investigate or prosecute any alcohol or drug abuse patient.[facility] CenterIn the event this information is protected by the Federal Confidentiality of Alcohol and Drug Abuse Patient Records regulations: The Federal rules restrict any use of the information to criminally investigate or prosecute any alcohol or drug abuse patient.[facility] CenterIn the event this information is protected by the Federal Confidentiality of Alcohol and Drug Abuse Patient Records regulations: The Federal rules restrict any use of the information to criminally investigate or prosecute any alcohol or drug abuse patient.[facility] CenterIn the event this information is protected by the Federal Confidentiality of Alcohol and Drug Abuse Patient Records regulations: The Federal rules restrict any use of the information to criminally investigate or prosecute any alcohol or drug abuse patient.[facility] CenterIn the event this information is protected by the Federal Confidentiality of Alcohol and Drug Abuse Patient Records regulations: The Federal rules restrict any use of the information to criminally investigate or prosecute any alcohol or drug abuse patient.[facility] CenterIn the event this information is protected by the Federal Confidentiality of Alcohol and Drug Abuse Patient Records regulations: The Federal rules restrict any use of the information to criminally investigate or prosecute any alcohol or drug abuse patient.[facility] CenterIn the event this information is protected by the Federal Confidentiality of Alcohol and Drug Abuse Patient Records regulations: The Federal rules restrict any use of the information to criminally investigate or prosecute any alcohol or drug abuse patient.[facility] CenterIn the event this information is protected by the Federal Confidentiality of Alcohol and Drug Abuse Patient Records regulations: The Federal rules restrict any use of the information to criminally investigate or prosecute any alcohol or drug abuse patient.[facility] CenterIn the event this information is protected by the Federal Confidentiality of Alcohol and Drug Abuse Patient Records regulations: The Federal rules restrict any use of the information to criminally investigate or prosecute any alcohol or drug abuse patient.[facility] CenterIn the event this information is protected by the Federal Confidentiality of Alcohol and Drug Abuse Patient Records regulations: The Federal rules restrict any use of the information to criminally investigate or prosecute any alcohol or drug abuse patient.[facility] CenterIn the event this information is protected by the Federal Confidentiality of Alcohol and Drug Abuse Patient Records regulations: The Federal rules restrict any use of the information to criminally investigate or prosecute any alcohol or drug abuse patient.[facility] CenterIn the event this information is protected by the Federal Confidentiality of Alcohol and Drug Abuse Patient Records regulations: The Federal rules restrict any use of the information to criminally investigate or prosecute any alcohol or drug abuse patient.[facility] CenterIn the event this information is protected by the Federal Confidentiality of Alcohol and Drug Abuse Patient Records regulations: The Federal rules restrict any use of the information to criminally investigate or prosecute any alcohol or drug abuse patient.[facility] CenterIn the event this information is protected by the Federal Confidentiality of Alcohol and Drug Abuse Patient Records regulations: The Federal rules restrict any use of the information to criminally investigate or prosecute any alcohol or drug abuse patient.[facility] CenterIn the event this information is protected by the Federal Confidentiality of Alcohol and Drug Abuse Patient Records regulations: The Federal rules restrict any use of the information to criminally investigate or prosecute any alcohol or drug abuse patient.[facility] CenterIn the event this information is protected by the Federal Confidentiality of Alcohol and Drug Abuse Patient Records regulations: The Federal rules restrict any use of the information to criminally investigate or prosecute any alcohol or drug abuse patient.[facility] CenterIn the event this information is protected by the Federal Confidentiality of Alcohol and Drug Abuse Patient Records regulations: The Federal rules restrict any use of the information to criminally investigate or prosecute any alcohol or drug abuse patient.[facility] CenterIn the event this information is protected by the Federal Confidentiality of Alcohol and Drug Abuse Patient Records regulations: The Federal rules restrict any use of the information to criminally investigate or prosecute any alcohol or drug abuse patient.[facility] CenterIn the event this information is protected by the Federal Confidentiality of Alcohol and Drug Abuse Patient Records regulations: The Federal rules restrict any use of the information to criminally investigate or prosecute any alcohol or drug abuse patient.[facility] CenterIn the event this information is protected by the Federal Confidentiality of Alcohol and Drug Abuse Patient Records regulations: The Federal rules restrict any use of the information to criminally investigate or prosecute any alcohol or drug abuse patient.[facility] CenterIn the event this information is protected by the Federal Confidentiality of Alcohol and Drug Abuse Patient Records regulations: The Federal rules restrict any use of the information to criminally investigate or prosecute any alcohol or drug abuse patient.[facility] CenterIn the event this information is protected by the Federal Confidentiality of Alcohol and Drug Abuse Patient Records regulations: The Federal rules restrict any use of the information to criminally investigate or prosecute any alcohol or drug abuse patient.[facility] CenterIn the event this information is protected by the Federal Confidentiality of Alcohol and Drug Abuse Patient Records regulations: The Federal rules restrict any use of the information to criminally investigate or prosecute any alcohol or drug abuse patient.[facility] CenterIn the event this information is protected by the Federal Confidentiality of Alcohol and Drug Abuse Patient Records regulations: The Federal rules restrict any use of the information to criminally investigate or prosecute any alcohol or drug abuse patient.[facility] CenterIn the event this information is protected by the Federal Confidentiality of Alcohol and Drug Abuse Patient Records regulations: The Federal rules restrict any use of the information to criminally investigate or prosecute any alcohol or drug abuse patient.[facility] CenterIn the event this information is protected by the Federal Confidentiality of Alcohol and Drug Abuse Patient Records regulations: The Federal rules restrict any use of the information to criminally investigate or prosecute any alcohol or drug abuse patient.[facility] CenterIn the event this information is protected by the Federal Confidentiality of Alcohol and Drug Abuse Patient Records regulations: The Federal rules restrict any use of the information to criminally investigate or prosecute any alcohol or drug abuse patient.[facility] CenterIn the event this information is protected by the Federal Confidentiality of Alcohol and Drug Abuse Patient Records regulations: The Federal rules restrict any use of the information to criminally investigate or prosecute any alcohol or drug abuse patient.[facility] CenterIn the event this information is protected by the Federal Confidentiality of Alcohol and Drug Abuse Patient Records regulations: The Federal rules restrict any use of the information to criminally investigate or prosecute any alcohol or drug abuse patient.[facility] CenterIn the event this information is protected by the Federal Confidentiality of Alcohol and Drug Abuse Patient Records regulations: The Federal rules restrict any use of the information to criminally investigate or prosecute any alcohol or drug abuse patient.[facility] CenterIn the event this information is protected by the Federal Confidentiality of Alcohol and Drug Abuse Patient Records regulations: The Federal rules restrict any use of the information to criminally investigate or prosecute any alcohol or drug abuse patient.[facility] CenterIn the event this information is protected by the Federal Confidentiality of Alcohol and Drug Abuse Patient Records regulations: The Federal rules restrict any use of the information to criminally investigate or prosecute any alcohol or drug abuse patient.[facility] CenterIn the event this information is protected by the Federal Confidentiality of Alcohol and Drug Abuse Patient Records regulations: The Federal rules restrict any use of the information to criminally investigate or prosecute any alcohol or drug abuse patient.[facility] CenterIn the event this information is protected by the Federal Confidentiality of Alcohol and Drug Abuse Patient Records regulations: The Federal rules restrict any use of the information to criminally investigate or prosecute any alcohol or drug abuse patient.[facility] CenterIn the event this information is protected by the Federal Confidentiality of Alcohol and Drug Abuse Patient Records regulations: The Federal rules restrict any use of the information to criminally investigate or prosecute any alcohol or drug abuse patient.[facility] CenterIn the event this information is protected by the Federal Confidentiality of Alcohol and Drug Abuse Patient Records regulations: The Federal rules restrict any use of the information to criminally investigate or prosecute any alcohol or drug abuse patient.[facility] Care Teams (unrecognized sec tion and content) [employer] Residential Service Technician Relationship Specialty Start Date End Date Cleveland Means MD [address] [place] [address] PCP - General Internal Medicine 07/26/15 Lynn Howard MD [address] [place] [address] Referring Pulmonary and Critical Care Medicine 09/12/19 Lynn Howard MD [address] [place] [address] Home Care Physician Pulmonary and Critical Care Medicine 09/12/19 [employer] Residential Service Technician Relationship Specialty Start Date End Date Cleveland Means MD [address] [place], [place] [id number] PCP - General Internal Medicine 07/26/15 Lynn Howard MD [address] [place] [address] Referring Pulmonary and Critical Care Medicine 09/12/19 Lynn Howard MD [address] [place] [address] Home Care Physician Pulmonary and Critical Care Medicine 09/12/19 [employer] Residential Service Technician Relationship Specialty Start Date End Date Cleveland Means MD [address] [place] [address] PCP - General Internal Medicine 07/26/15 Lynn Howard MD [address] [place] [address] Referring Pulmonary and Critical Care Medicine 09/12/19 Lynn Howard MD [address] [place] [address] Home Care Physician Pulmonary and Critical Care Medicine 09/12/19 [employer] Residential Service Technician Relationship Specialty Start Date End Date Cleveland Means MD [address] [place] [address] PCP - General Internal Medicine 07/26/15 Lynn Howard MD [address] [facility] [place] [address] Referring Pulmonary and Critical Care Medicine 09/12/19 Lynn Howard MD [address] [facility] [place] [address] Home Care Physician Pulmonary and Critical Care Medicine 09/12/19 [employer] Residential Service Technician Relationship Specialty Start Date End Date Cleveland Means MD [address] [place] [address] PCP - General Internal Medicine 07/26/15 Lynn Howard MD [address] [place] [address] Referring Pulmonary and Critical Care Medicine 09/12/19 Lynn Howard MD [address] [place] [address] Home Care Physician Pulmonary and Critical Care Medicine 09/12/19 [employer] Residential Service Technician Relationship Specialty Start Date End Date Cleveland Means MD [address] [place] [address] PCP - General Internal Medicine 07/26/15 Lynn Howard MD [address] [place] [address] Referring Pulmonary and Critical Care Medicine 09/12/19 Lynn Howard MD [address] [place] [address] Home Care Physician Pulmonary and Critical Care Medicine 09/12/19 [employer] Residential Service Technician Relationship Specialty Start Date End Date Cleveland Means MD [address] [place] [address] PCP - General Internal Medicine 07/26/15 Lynn Howard MD [address] [place] [address] Referring Pulmonary and Critical Care Medicine 09/12/19 Lynn Howard MD [address] [place] [address] Home Care Physician Pulmonary and Critical Care Medicine 09/12/19 [employer] Residential Service Technician Relationship Specialty Start Date End Date Cleveland Means MD [address] [place] [address] PCP - General Internal Medicine 07/26/15 Lynn Howard MD [address] [place] [address] Referring Pulmonary and Critical Care Medicine 09/12/19 Lynn Howard MD [address] [place] [address] Home Care Physician Pulmonary and Critical Care Medicine 09/12/19 [employer] Residential Service Technician Relationship Specialty Start Date End Date Cleveland Means MD [address] [place] [address] PCP - General Internal Medicine 07/26/15 Lynn Howard MD [address] [place] [address] Referring Pulmonary and Critical Care Medicine 09/12/19 Lynn Howard MD [address] [place] [address] Home Care Physician Pulmonary and Critical Care Medicine 09/12/19 [employer] Residential Service Technician Relationship Specialty Start Date End Date Cleveland Means MD [address] [place] [address] PCP - General Internal Medicine 07/26/15 Lynn Howard MD [address] [place] [address] Referring Pulmonary and Critical Care Medicine 09/12/19 Lynn Howard MD [address] [place] [address] Home Care Physician Pulmonary and Critical Care Medicine 09/12/19 [employer] Residential Service Technician Relationship Specialty Start Date End Date Cleveland Means MD [address] [place] [address] PCP - General Internal Medicine 07/26/15 Lynn Howard MD [address] [place] [address] Referring Pulmonary and Critical Care Medicine 09/12/19 Lynn Howard MD [address] [place] [address] Home Care Physician Pulmonary and Critical Care Medicine 09/12/19 [employer] Residential Service Technician Relationship Specialty Start Date End Date Cleveland Means MD [address] [place] [address] PCP - General Internal Medicine 07/26/15 Lynn Howard MD [address] [place] [address] Referring Pulmonary and Critical Care Medicine 09/12/19 Lynn Howard MD [address] [place] [address] Home Care Provider Pulmonary and Critical Care Medicine 09/12/19 [employer] Residential Service Technician Relationship Specialty Start Date End Date Cleveland Means MD [address] [place] [address] PCP - General Internal Medicine 07/26/15 Lynn Howard MD [address] [facility] [place] [address] Referring Pulmonary and Critical Care Medicine 09/12/19 Lynn Howard MD [address] [place] [address] Home Care Provider Pulmonary and Critical Care Medicine 09/12/19 [employer] Residential Service Technician Relationship Specialty Start Date End Date Cleveland Means MD [address] [place] [address] PCP - General Internal Medicine 07/26/15 Lynn Howard MD [address] [place] [address] Referring Pulmonary and Critical Care Medicine 09/12/19 Lynn Howard MD [address] [place] [address] Home Care Provider Pulmonary and Critical Care Medicine 09/12/19 [employer] Residential Service Technician Relationship Specialty Start Date End Date Cleveland Means MD [address] [place] [address] PCP - General Internal Medicine 07/26/15 Lynn Howard MD [address] [place] [address] Referring Pulmonary and Critical Care Medicine 09/12/19 Lynn Howard MD [address] [place] [address] Home Care Provider Pulmonary and Critical Care Medicine 09/12/19 [employer] Residential Service Technician Relationship Specialty Start Date End Date Cleveland Means MD [address] [place] [address] PCP - General Internal Medicine 07/26/15 Lynn Howard MD [address] [place] [address] Referring Pulmonary and Critical Care Medicine 09/12/19 Lynn Howard MD [address] [place] [address] Home Care Provider Pulmonary and Critical Care Medicine 09/12/19 [employer] Residential Service Technician Relationship Specialty Start Date End Date Cleveland Means MD [address] [place] [address] PCP - General Internal Medicine 07/26/15 Lynn Howard MD [address] [place] [address] Referring Pulmonary and Critical Care Medicine 09/12/19 Lynn Howard MD [address] [place] [address] Home Care Provider Pulmonary and Critical Care Medicine 09/12/19 [employer] Residential Service Technician Relationship Specialty Start Date End Date Cleveland Means MD [address] [place] [address] PCP - General Internal Medicine 07/26/15 Lynn Howard MD [address] [place] [address] Referring Pulmonary and Critical Care Medicine 09/12/19 Lynn Howard MD [address] [place] [address] Home Care Provider Pulmonary and Critical Care Medicine 09/12/19 [employer] Residential Service Technician Relationship Specialty Start Date End Date Cleveland Means MD [address] [place] [address] PCP - General Internal Medicine 07/26/15 Lynn Howard MD [address] [place] [address] Referring Pulmonary and Critical Care Medicine 09/12/19 Lynn Howard MD [address] [place] [address] Home Care Provider Pulmonary and Critical Care Medicine 09/12/19 [employer]vac Residential Service Technician Relationship Specialty Start Date End Date Cleveland Means MD [address] [place] [address] PCP - General Internal Medicine 07/26/15 Lynn Howard MD [address] [place] [address] Referring Pulmonary and Critical Care Medicine 09/12/19 Lynn Howard MD [address] [place] [address] Home Care Provider Pulmonary and Critical Care Medicine 09/12/19 [employer] Residential Service Technician Relationship Specialty Start Date End Date Cleveland Means MD [address] [place] [address] PCP - General Internal Medicine 07/26/15 Lynn Howard MD [address] [place] [address] Referring Pulmonary and Critical Care Medicine 09/12/19 Lynn Howard MD [address] [place] [address] Home Care Provider Pulmonary and Critical Care Medicine 09/12/19 [employer] Residential Service Technician Relationship Specialty Start Date End Date Cleveland Means MD [address] [place] [address] PCP - General Internal Medicine 07/26/15 Lynn Howard MD [address] [place] [address] Referring Pulmonary and Critical Care Medicine 09/12/19 Lynn Howard MD [address] [place] [address] Home Care Provider Pulmonary and Critical Care Medicine 09/12/19 [employer] Residential Service Technician Relationship Specialty Start Date End Date Cleveland Means MD [address] [place] [address] PCP - General Internal Medicine 07/26/15 Lynn Howard MD [address] [place] [address] Referring Pulmonary and Critical Care Medicine 09/12/19 Lynn Howard MD [address] [place] [address] Home Care Provider Pulmonary and Critical Care Medicine 09/12/19 [employer] Residential Service Technician Relationship Specialty Start Date End Date Cleveland Means MD [address] [place], [place] [address] PCP - General Internal Medicine 07/26/15 Lynn Howard MD [address] [place] [address] Referring Pulmonary and Critical Care Medicine 09/12/19 Lynn Howard MD [address] [place] [address] Home Care Provider Pulmonary and Critical Care Medicine 09/12/19 [employer] Residential Service Technician Relationship Specialty Start Date End Date Cleveland Means MD [address] [place], [place] [id number] PCP - General Internal Medicine 07/26/15 Lynn Howard MD [address] [place] [address] Referring Pulmonary and Critical Care Medicine 09/12/19 Lynn Howard MD [address] [place] [address] Home Care Provider Pulmonary and Critical Care Medicine 09/12/19 [employer] Residential Service Technician Relationship Specialty Start Date End Date Cleveland Means MD [address] [place], [place] [id number] PCP - General Internal Medicine 07/26/15 Lynn Howard MD [address] [place] [address] Referring Pulmonary and Critical Care Medicine 09/12/19 Lynn Howard MD [address] [place] [address] Home Care Provider Pulmonary and Critical Care Medicine 09/12/19 [employer] Residential Service Technician Relationship Specialty Start Date End Date Cleveland Means MD [address] [place], [place] [id number] PCP - General Internal Medicine 07/26/15 Lynn Howard MD [address] [place] [address] Referring Pulmonary and Critical Care Medicine 09/12/19 Lynn Howard MD [address] [place] [address] Home Care Provider Pulmonary and Critical Care Medicine 09/12/19 [employer] Residential Service Technician Relationship Specialty Start Date End Date Cleveland Means MD [address] [place] [address] PCP - General Internal Medicine 07/26/15 Lynn Howard MD [address] [place] [address] Referring Pulmonary and Critical Care Medicine 09/12/19 Lynn Howard MD [address] [place] [address] Home Care Provider Pulmonary and Critical Care Medicine 09/12/19 [employer] Residential Service Technician Relationship Specialty Start Date End Date Cleveland Means MD [address] [place], [place] [address] PCP - General Internal Medicine 07/26/15 Lynn Howard MD [address] [place] [address] Referring Pulmonary and Critical Care Medicine 09/12/19 Lynn Howard MD [address] [place] [address] Home Care Provider Pulmonary and Critical Care Medicine 09/12/19 [employer] Residential Service Technician Relationship Specialty Start Date End Date Cleveland Means MD [address] [place], [place] [id number] PCP - General Internal Medicine 07/26/15 Lynn Howard MD [address] [place] [address] Referring Pulmonary and Critical Care Medicine 09/12/19 Lynn Howard MD [address] [place] [address] Home Care Provider Pulmonary and Critical Care Medicine 09/12/19 [employer] Residential Service Technician Relationship Specialty Start Date End Date Cleveland Means MD [address] [place], [place] [id number] PCP - General Internal Medicine 07/26/15 Lynn Howard MD [address] [place] [address] Referring Pulmonary and Critical Care Medicine 09/12/19 Lynn Howard MD [address] [place] [address] Home Care Provider Pulmonary and Critical Care Medicine 09/12/19 [employer]vac Residential Service Technician Relationship Specialty Start Date End Date Cleveland Means MD [address] [place], [place] [address] PCP - General Internal Medicine 07/26/15 Lynn Howard MD [address] [place] [address] Referring Pulmonary and Critical Care Medicine 09/12/19 Lynn Howard MD [address] [place] [address] Home Care Provider Pulmonary and Critical Care Medicine 09/12/19 [employer] Residential Service Technician Relationship Specialty Start Date End Date Cleveland Means MD [address] [place], [place] [address] PCP - General Internal Medicine 07/26/15 Lynn Howard MD [address] [place], [place] [address] Referring Pulmonary and Critical Care Medicine 09/12/19 Lynn Howard MD [address] [place] [address] Home Care Provider Pulmonary and Critical Care Medicine 09/12/19 [employer] Residential Service Technician Relationship Specialty Start Date End Date Cleveland Means MD [address] [place], [place] [id number] PCP - General Internal Medicine 07/26/15 Lynn Howard MD [address] [place] [address] Referring Pulmonary and Critical Care Medicine 09/12/19 Lynn Howard MD [address] [place] [address] Home Care Provider Pulmonary and Critical Care Medicine 09/12/19 [employer] Residential Service Technician Relationship Specialty Start Date End Date Cleveland Means MD [address] [place] [address] PCP - General Internal Medicine 07/26/15 Lynn Howard MD [address] [place], [place] [id number] Referring Pulmonary and Critical Care Medicine 09/12/19 Lynn Howard MD [address] [place] [address] Home Care Provider Pulmonary and Critical Care Medicine 09/12/19 Hvac Residential Service Technician Relationship Specialty Start Date End Date Cleveland Means MD [address] [place] [address] PCP - General Internal Medicine 07/26/15 Lynn Howard MD [address] [place] [address] Referring Pulmonary and Critical Care Medicine 09/12/19 Lynn Howard MD [address] [place] [address] Home Care Provider Pulmonary and Critical Care Medicine 09/12/19 Hvac Residential Service Technician Relationship Specialty Start Date End Date Cleveland Means MD [address] [place], [place] [address] PCP - General Internal Medicine 07/26/15 Lynn Howard MD [address] [place], [place] [address] Referring Pulmonary and Critical Care Medicine 09/12/19 Lynn Howard MD [address] [place] [address] Home Care Provider Pulmonary and Critical Care Medicine 09/12/19 [employer]vac Residential Service Technician Relationship Specialty Start Date End Date Cleveland Means MD [address] [place], [place] [address] PCP - General Internal Medicine 07/26/15 Lynn Howard MD [address] [place], [place] [address] Referring Pulmonary and Critical Care Medicine 09/12/19 Lynn Howard MD [address] [place], [place] [address] Home Care Provider Pulmonary and Critical Care Medicine 09/12/19 Hvac Residential Service Technician Relationship Specialty Start Date End Date Cleveland Means MD [address] [place], [place] [id number] PCP - General Internal Medicine 07/26/15 Lynn Howard MD [address] [place] [address] Referring Pulmonary and Critical Care Medicine 09/12/19 Lynn Howard MD [address] [place] [address] Home Care Provider Pulmonary and Critical Care Medicine 09/12/19 [employer] Residential Service Technician Relationship Specialty Start Date End Date Cleveland Means MD [address] [place], [place] [id number] PCP - General Internal Medicine 07/26/15 Lynn Howard MD [address] [place] [address] Referring Pulmonary and Critical Care Medicine 09/12/19 Lynn Howard MD [address] [place], [place] [id number] Home Care Provider Pulmonary and Critical Care Medicine 09/12/19 [employer] Residential Service Technician Relationship Specialty Start Date End Date Cleveland Means MD [address] [place], [place] [id number] PCP - General Internal Medicine 07/26/15 Lynn Howard MD [address] [place], [place] [id number] Referring Pulmonary and Critical Care Medicine 09/12/19 Lynn Howard MD [address] [place] [address] Home Care Provider Pulmonary and Critical Care Medicine 09/12/19 [employer] Residential Service Technician Relationship Specialty Start Date End Date Cleveland Means MD [address] [place], [place] [id number] PCP - General Internal Medicine 07/26/15 Lynn Howard MD [address] [place], [place] [id number] Referring Pulmonary and Critical Care Medicine 09/12/19 Lynn Howard MD [address] [place] [address] Home Care Provider Pulmonary and Critical Care Medicine 09/12/19 [employer] Residential Service Technician Relationship Specialty Start Date End Date Cleveland Means MD [address] [place] [address] PCP - General Internal Medicine 07/26/15 Lynn Howard MD [address] [place] [place] [id number] Referring Pulmonary and Critical Care Medicine 09/12/19 Lynn Howard MD [address] [place], [place] 6168595 Home Care Provider Pulmonary and Critical Care Medicine 09/12/19 [employer] Residential Service Technician Relationship Specialty Start Date End Date Cleveland Means MD [address] [place] [address] PCP - General Internal Medicine 07/26/15 Lynn Howard MD [address] [place] [address] Referring Pulmonary and Critical Care Medicine 09/12/19 Lynn Howard MD [address] [place] [address] Home Care Provider Pulmonary and Critical Care Medicine 09/12/19 [employer] Residential Service Technician Relationship Specialty Start Date End Date Cleveland Means MD [address] [place] [address] PCP - General Internal Medicine 07/26/15 Lynn Howard MD [address] [place], [place] 7076995 Referring Pulmonary and Critical Care Medicine 09/12/19 Lynn Howard MD [address] [place], [place] 8958195 Home Care Provider Pulmonary and Critical Care Medicine 09/12/19 [employer] Residential Service Technician Relationship Specialty Start Date End Date Cleveland Means MD [address] [place] [address] PCP - General Internal Medicine 07/26/15 Lynn Howard MD [address] [place], [place] [id number] Referring Pulmonary and Critical Care Medicine 09/12/19 Lynn Howard MD [address] [place], [place] 1869195 Home Care Provider Pulmonary and Critical Care Medicine 09/12/19 [employer] Residential Service Technician Relationship Specialty Start Date End Date Cleveland Means MD [address] [place], [place] 252841 PCP - General Internal Medicine 07/26/15 Lynn Howard MD [address] [place], [place] 1186995 Referring Pulmonary and Critical Care Medicine 09/12/19 Lynn Howard MD [address] [place], [place] [id number] Home Care Provider Pulmonary and Critical Care Medicine 09/12/19 [employer] Residential Service Technician Relationship Specialty Start Date End Date Cleveland Means MD [address] [place] [address] PCP - General Internal Medicine 07/26/15 Lynn Howard MD [address] [place], [place] [id number] Referring Pulmonary and Critical Care Medicine 09/12/19 Lynn Howard MD [address] [place] [address] Home Care Provider Pulmonary and Critical Care Medicine 09/12/19 [employer] Residential Service Technician Relationship Specialty Start Date End Date Cleveland Means MD [address] [place] [address] PCP - General Internal Medicine 07/26/15 Lynn Howard MD [address] [place] [address] Referring Pulmonary and Critical Care Medicine 09/12/19 Lynn Howard MD [address] [place] [address] Home Care Provider Pulmonary and Critical Care Medicine 09/12/19 [employer] Residential Service Technician Relationship Specialty Start Date End Date Cleveland Means MD [address] [place], [place] [id number] PCP - General Internal Medicine 07/26/15 Lynn Howard MD [address] [place], [place] 2844695 Referring Pulmonary and Critical Care Medicine 09/12/19 Lynn Howard MD [address] [place], [place] 9169395 Home Care Provider Pulmonary and Critical Care Medicine 09/12/19 [employer] Residential Service Technician Relationship Specialty Start Date End Date Cleveland Means MD [address] [place] [address] PCP - General Internal Medicine 07/26/15 Lynn Howard MD [address] [place] [address] Referring Pulmonary and Critical Care Medicine 09/12/19 Lynn Howard MD [address] [place] [address] Home Care Provider Pulmonary and Critical Care Medicine 09/12/19 [employer] Residential Service Technician Relationship Specialty Start Date End Date Cleveland Means MD [address] [place] [address] PCP - General Internal Medicine 07/26/15 Lynn Howard MD [address] [place], [place] [id number] Referring Pulmonary and Critical Care Medicine 09/12/19 Lynn Howard MD [address] [place], [place] 2028795 Home Care Provider Pulmonary and Critical Care Medicine 09/12/19 [employer] Residential Service Technician Relationship Specialty Start Date End Date Cleveland Means MD [address] [place] [address] PCP - General Internal Medicine 07/26/15 Lynn Howard MD [address] [place] [address] Referring Pulmonary and Critical Care Medicine 09/12/19 Lynn Howard MD [address] [place] [address] Home Care Provider Pulmonary and Critical Care Medicine 09/12/19 [employer] Residential Service Technician Relationship Specialty Start Date End Date Cleveland Means MD [address] [place] [address] PCP - General Internal Medicine 07/26/15 Lynn Howard MD [address] [place] [address] Referring Pulmonary and Critical Care Medicine 09/12/19 Lynn Howard MD [address] [place] [address] Home Care Provider Pulmonary and Critical Care Medicine 09/12/19 [employer] Residential Service Technician Relationship Specialty Start Date End Date Cleveland Means MD [address] [place] [address] PCP - General Internal Medicine 07/26/15 Lynn Howard MD [address] [place], [place] [id number] Referring Pulmonary and Critical Care Medicine 09/12/19 Lynn Howard MD [address] [place], [place] 1418095 Home Care Provider Pulmonary and Critical Care Medicine 09/12/19 Mandy Horne, HAT LINER.TANK CLEANER [address] [place] [address] Financial Services Consultant Internal Medicine 03/03/24 [employer] Residential Service Technician Relationship Specialty Start Date End Date Cleveland Means MD [address] [place], [place] 336711 PCP - General Internal Medicine 07/26/15 Lynn Howard MD [address] [place] [address] Referring Pulmonary and Critical Care Medicine 09/12/19 Lynn Howard MD [address] [place] [address] Home Care Provider Pulmonary and Critical Care Medicine 09/12/19 Mandy Horne, HAT LINER.TANK CLEANER [address] [place] [address] Financial Services Consultant Internal Medicine 03/03/24 [employer] Residential Service Technician Relationship Specialty Start Date End Date Cleveland Means MD [address] [place], [place] 638311 PCP - General Internal Medicine 07/26/15 Lynn Howard MD [address] [place], [place] [id number] Referring Pulmonary and Critical Care Medicine 09/12/19 Lynn Howard MD [address] [place], [place] 1704495 Home Care Provider Pulmonary and Critical Care Medicine 09/12/19 Mandy Horne, HAT LINER.TANK CLEANER [address] [place], [place] 854291 Financial Services Consultant Internal Medicine 03/03/24 [employer] Residential Service Technician Relationship Specialty Start Date End Date Cleveland Means MD [address] [place], [place] 353071 PCP - General Internal Medicine 07/26/15 Lynn Howard MD [address] [place], [place] 1780995 Referring Pulmonary and Critical Care Medicine 09/12/19 Lynn Howard MD [address] [place], [place] 6547395 Home Care Provider Pulmonary and Critical Care Medicine 09/12/19 Mandy Horne, HAT LINER.TANK CLEANER [address] [place], [place] 288561 Financial Services Consultant Internal Medicine 03/03/24 [employer] Residential Service Technician Relationship Specialty Start Date End Date Cleveland Means MD [address] [place], [place] [id number] PCP - General Internal Medicine 07/26/15 Lynn Howard MD [address] [place] [address] Referring Pulmonary and Critical Care Medicine 09/12/19 Lynn Howard MD [address] [place] [address] Home Care Provider Pulmonary and Critical Care Medicine 09/12/19 Mandy Horne, HAT LINER.TANK CLEANER [address] [place], [place] 308881 Financial Services Consultant Internal Medicine 03/03/24 [employer] Residential Service Technician Relationship Specialty Start Date End Date Cleveland Means MD [address] [place], [place] [id number] PCP - General Internal Medicine 07/26/15 Lynn Howard MD [address] [place] [address] Referring Pulmonary and Critical Care Medicine 09/12/19 Lynn Howard MD [address] [place] [address] Home Care Provider Pulmonary and Critical Care Medicine 09/12/19 Mandy Horne, HAT LINER.TANK CLEANER [address] [place], [place] 742641 Financial Services Consultant Internal Medicine 03/03/24 [employer] Residential Service Technician Relationship Specialty Start Date End Date Lynn Howard MD [address] [place] [address] Referring Pulmonary and Critical Care Medicine 09/12/19 Lynn Howard MD [address] [place] [address] Home Care Provider Pulmonary and Critical Care Medicine 09/12/19 Mandy Horne, HAT LINER.TANK CLEANER [address] [place], [place] 891291 Financial Services Consultant Internal Medicine 03/03/24 [employer] Residential Service Technician Relationship Specialty Start Date End Date Lynn Howard MD [address] [place], [place] [id number] Referring Pulmonary and Critical Care Medicine 09/12/19 Lynn Howard MD [address] [place], [place] 2752095 Home Care Provider Pulmonary and Critical Care Medicine 09/12/19 Mandy Horne, HAT LINER.TANK CLEANER [address] [place] [address] [facility] Internal Medicine 03/03/24 Hvac Residential Service Technician Relationship Specialty Start Date End Date Lynn Howard MD [address] [place], [place] 1068295 Referring Pulmonary and Critical Care Medicine 09/12/19 Lynn Howard MD [address] [place], [place] 1621795 Home Care Provider Pulmonary and Critical Care Medicine 09/12/19 Manyd Horne, HAT LINER.TANK CLEANER [address] [place], [place] 53745691 [facility] Internal Medicine 03/03/24 [employer]vac Residential Service Technician Relationship Specialty Start Date End Date Lynn Howard MD [address] [place] [address] Referring Pulmonary and Critical Care Medicine 09/12/19 Lynn Howard MD [address] [place] [address] Home Care Provider Pulmonary and Critical Care Medicine 09/12/19 Mandy Horne, HAT LINER.TANK CLEANER [address] [place], [place] 267091 Financial Services Consultant Internal Medicine 03/03/24 Team Status: Active Member Role/Relationship Status Dates Dr. Cleveland Means MD Family Provider Active Dr. Cleveland Means MD Primary Care Provider Active Team Status: Inactive Member Role/Relationship Status Dates Dr. Cleveland Means MD Primary Care Provider Active Start: October 03, 2024 End: October 03, 2024 Dr. Cleveland Means MD Referring Provider Active Start: October 03, 2024 End: October 03, 2024 Dr. Jerrod Londono MD Attending Provider Active Start: October 03, 2024 End: October 03, 2024 [employer] Residential Service Technician Relationship Specialty Start Date End Date Lynn Howard MD [address] [place] [address] Referring Pulmonary and Critical Care Medicine 09/12/19 Lynn Howard MD [address] [place] [address] Home Care Provider Pulmonary and Critical Care Medicine 09/12/19 Mandy Horne, HAT LINER.TANK CLEANER [address] [place], [place] 589521 [facility] Internal Medicine 03/03/24 Reason for Visit (unrecogniz ed section and content) Reason Comments Chemotherapy Treatment Specialty Diagnoses / Procedures Referred By Contgraham t Referred To Contact Hematology/Oncology / HEMATOLOGY/ONCOLOGY Diagnoses 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] Procedures INJECTION, RENFLEXIS INFLIXIMAB INJECTION RENJOIS Lynn Howard MD [address] [place] [id number] [facility] [address] [place] [address] Referral ID Status Reason Start Date Expiration Date V isits Requested Visits Authorized [id number] Authorized 10/06/2019 09/30/2022 39 39 Reason Comments Non-Chemotherapy Treatment Specialty Diagnoses / Procedures Referred By Contac t Referred To Contact Hematology/Oncology / HEMATOLOGY/ONCOLOGY Diagnoses 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 [address] [place] [address] Referral ID Status Reason Start Date Expiration Date V isits Requested Visits Authorized [id number] Authorized 10/06/2019 11/04/2021 27 27 Reason Comments Established Patient Follow-Up Reason Comments Physical Therapy Specialty Diagnoses / Procedures Referred By Contac t Referred To Contact [facility] Diagnoses Sarcoidosis of central nervous system Procedures CONSULT TO PHYSICAL THERAPY PHYSICAL THERAPY EVALUATION HIGH COMPLEX 45 [place] [address] [place] [address] [facility] [place] [address] Referral ID Status Reason Start Date Expiration Date V isits Requested Visits Authorized [id number] Authorized 03/26/2021 03/25/2022 40 40 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 Reason Comments Panuveitis Follow Up OS Reason Comments Sarcoidosis Reason Comments Sarcoidosis Reason Comments Appointment Reason Comments Sarcoid Uveitis Reason Onset Date Comments Orders 03/17/2022 Needs new remica de order Reason Onset Date Comments Refill Request 03/25/2022 Reason Comments Appointment Patient Update Reason Comments Procedure Follow Up EGD Reason Comments Sarcoidosis 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 Referral ID Status Reason Start Date Expiration Date V isits Requested Visits Authorized [id number] Authorized 10/06/2019 09/30/2022 51 51 Reason Comments Sarcoidosis Referral ID Status Reason Start Date Expiration Date V isits Requested Visits Authorized [id number] Authorized 10/06/2019 09/30/2022 35 35 Referral ID Status Reason Start Date Expiration Date V isits Requested Visits Authorized [id number] Authorized 10/06/2019 10/02/2023 41 41 Reason Comments Uveitis Follow Up Sarcoid uveitis of O S Reason Comments Sarcoidosis with Panuveitis OS Specialty Diagnoses / Procedures Referred By Contac t Referred To Contact Hematology/Oncology / HEMATOLOGY/ONCOLOGY Diagnoses Q6WK RENFLEXIS/ORDERING LYNN HOWARD/AUTH EXP 10/02/23* 2hr TX per nurse- AM APPTS- NO LATER THAN 130 Procedures 2 HR TX Lynn Howard MD [address] [place] [address] [facility] [address] [place] [address] Referral ID Status Reason Start Date Expiration Date Visits Requested Visits Authorized [id number] Authorized Patient Cleared - Qualified 100% FAS 04/09/2023 07/08/2023 99 99 Reason Comments Spirometry Specialty Diagnoses / Procedures Referred By Contac t Referred To Contact [facility] Diagnoses Sarcoidosis of lung (HCC) Procedures LUNG DIFFUSION CAPACITY (DLCO) DIFFUSING CAPACITY Lynn Howard MD [address] [place] [address] [facility] [place] [facility] [place] [address] Referral ID Status Reason Start Date Expiration Date V isits Requested Visits Authorized [id number] Closed Auto-Generate d Referral 03/15/2023 10/13/2023 1 1 Specialty Diagnoses / Procedures Referred By Contac t Referred To Contact [facility] Diagnoses Sarcoidosis of lung (HCC) Procedures SPIROMETRY WITH DILATOR IF OBSTRUCTED BRNCDILAT RSPSE SPMTRY PRE&POST-BRNCDILAT ADMN Lynn Howard MD [address] [place] [address] [facility] [place] [address] [place] [address] Referral ID Status Reason Start Date Expiration Date V isits Requested Visits Authorized [id number] Closed Auto-Generate d Referral 03/15/2023 10/13/2023 1 1 Specialty Diagnoses / Procedures Referred By Contac t Referred To Contact Hematology/Oncology / HEMATOLOGY/ONCOLOGY Diagnoses Q6WK RENFLEXIS/ORDERING LYNN HOWARD/AUTH EXP 10/02/23* 2hr TX per nurse- AM APPTS- NO LATER THAN 130 Procedures 2 HR TX Lynn Howard MD [address] [place] [id number] [facility] [address] [place] [address] Reason Comments Follow Up Reason Comments New Patient Evaluation Specialty Diagnoses / Procedures Referred By Contac t Referred To Contact Allergy Diagnoses Food allergy Procedures CONSULT TO ALLERGY/IMMUNOLOGY OFFICE/OUTPATIENT NEW HIGH MDM 60 MINUTES Nickie Ibarra PA-C [address] [place] [address] Referral ID Status Reason Start Date Expiration Date V isits Requested Visits Authorized [id number] Closed PCP Requested Referral 05/10/2023 05/09/2024 1 1 Specialty Diagnoses / Procedures Referred By Contac t Referred To Contact Hematology/Oncology / HEMATOLOGY/ONCOLOGY Diagnoses 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 AVSOLA, 10 MG RENFLEXIS Lynn Howard MD [address] [place] [address] [facility] [address] [place] [address] Referral ID Status Reason Start Date Expiration Date V isits Requested Visits Authorized [id number] Authorized 10/06/2019 07/10/2024 99 99 Reason Comments Insurance Authorization Reason Comments Follow Up Reason Comments Sarcoid Uveitis f/u OS Specialty Diagnoses / Procedures Referred By 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 AVSOLA, 10 MG JOELIS Lynn Howard MD [address] [place] [id number] Phone: tel: fax: Hematology/Oncology [facility] [place] [address] [place] [address] Phone: tel: fax: Reason Comments Medication Authorization Referral ID Status Reason Start Date Expiration Date V isits Requested Visits Authorized [id number] Authorized 10/06/2019 11/14/2024 48 48 Reason Comments Sarcoidosis panuveitis OS: w/ Vitritis Specialty Diagnoses / Procedures [facility] Referred To Contact Hematology/Oncology / HEMATOLOGY/ONCOLOGY Diagnoses Sarcoidosis of lung (HCC) Pulmonary sarcoidosis (HCC) [D86.0] Procedures INJECTION, RENFLEXIS INFLIXIMAB INJECTION INJ. RAVENSOLA, 10 MG Lynn Morales MD [address] [place] [address] Phone: tel: fax: Hematology/Oncology [facility] [place] [place] [address] Phone: tel: fax: Goals (unrecognized section and content) Goals may be documented in a n alternate sectionGoals may be documented in an alternate sectionGoals may be documented in an alternate sectionGoals may be documented in an alternate section Inactive Administered Medications - up to 3 most recent administrations Administered Medications (un recognized section and content) Medication Order MAR Action Action Date Dose Rate Site acetaminophen 650 mg tab(s) (TYLENOL) 650 mg, ORAL, ONCE, 1 dose, On Sun06/01/23 at 0830, No more than 4000 mg of acetaminophen should be given per day (FROM ALL SOURCES) Given 06/01/2023 8:31 AM EST 650 mg diphenhydrAMINE 25 mg (BENADRYL) 25 mg, ORAL, ONCE, 1 dose, On Sun06/01/23 at 0830 Given 06/01/2023 8:32 AM EST 25 mg inFLIXimab 600 mg in NaCl 0.9% 250 mL (REMICADE) 600 mg, INTRAVENOUS, at 125 mL/hr, Administer over 2 Hours, ONCE, 1 dose, On Sun06/01/23 at 0830, Total volume: 250ml. exp 0900 06/02/23 (room temp) Administer with 0.2 micron filter. New Bag/Syringe/Bottle 06/01/2023 8:49 AM EST 600 mg 125 mL/hr FOR RECORDS PERTAINING TO PATIENTS WHO ARE OR HAVE BEEN ENROLLED IN A CHEMICAL DEPENDENCY/SUBSTANCEABUSE PROGRAM, SOME INFORMATION MAY BE OMITTED. This clinical summary was aggregated from multiple sources. Caution should be exercised in using it in the provision of clinical care. This summary normalizes information from multiple sources, and as a consequence, information in this document may materially change the coding, format and clinical context of patient data. In addition, data may be omitted in some cases. CLINICAL DECISIONS SHOULD BE BASED ON THE PRIMARY CLINICAL RECORDS. [employer] [facility]. provides no warranty or guarantee of the accuracy or completeness of information in this document.
== END | disposition home or self-care (01) ==
LOC: LABSPEC 09:23
PROVIDERS: PCP Internal Medicine; Referring Provider Surgery Plastic and Reconstructive Surgery; Visit Provider Surgery Plastic and Reconstructive Surgery
DX: L98.9 Disorder of the skin and subcutaneous tissue, unspecified (principal)
CPT/HCPCS: 88305

== ENCOUNTER 2024-12-24 17:57 | Emergency (ER) | payer BC, SELFPAY ==
[2024-12-24 17:58] VITALS: BP 139/93; PULSE 68; RESP 18; TEMP 36; O2SAT 98; BMI 38.6
--- NOTE | 2024-12-24 18:09 | EKG12_ITS ---
Test Reason : CP/SOB Blood Pressure : */* mmHG Vent. Rate : 52 BPM Atrial Rate : 52 BPM P-R Int : 144 ms QRS Dur : 86 ms QT Int : 434 ms P-R-T Axes : 37 45 15 degrees QTcB Int : 403 ms Sinus bradycardia Otherwise normal ECG Confirmed by Aaron Poon ([id number]), senior editor DEBBIE BRADLEY ([id number]) on 12/26/2024 7:19:05 AM Referred By: BANDAR Confirmed By: Aaron Poon
--- NOTE | 2024-12-24 18:10 | ED.VIS.CHEST ---
HPI History of Present Illness Chief Complaint: Chest Pain Informant: patient Narrative Narrative: Patient is a 34-year-old male with a history of pulmonary and neurosarcoidosis presenting with chest discomfort, dyspnea, and cough. - Reports chest discomfort primarily in the sternum, radiating to the back and both sides, with the most intense pain on the right side; onset 2 days ago. - Describes pain as sharp and worse with breathing, but not excruciating; denies any known muscle strain in the area. - Associated symptoms include dyspnea and a new cough; denies productive cough. - Denies palpitations or tachycardia. - Denies abdominal pain. - Denies leg pain or swelling, but notes bumps on the legs; denies known DVTs. - History of a pulmonary embolism 10 years ago, which led to the diagnosis of sarcoidosis; was on anticoagulants temporarily. - Has not received infliximab infusions for 3 months due to insurance issues; previously received every 6 weeks. - Took 40 mg of prednisone yesterday and today as prescribed by commercial front load driver; reports no significant improvement. - Denies history of cardiac issues. - Has a history of esophagitis and reflux, but states current symptoms are different. [facility] Medical History Former smoker Depression Anxiety Pulmonary embolism Gastric reflux Chews tobacco BiPAP (biphasic positive airway pressure) dependence Sleep apnea Chronic cough Sarcoidosis Home Medications ?Medication ?Instructions ?Recorded ?Last Taken ?Type prednisone 5 mg tablet 5 mg PO DAILY 12/15/19 04/29/21 History mycophenolate mofetil 250 mg 500 mg PO BID 05/13/21 04/29/21 History capsule (CellCept) infliximab 100 mg intravenous mg .Route Q6W 10/03/24 Unknown History solution (Remicade) methotrexate sodium 2.5 mg tablet 7.5 mg PO QWEEK 10/03/24 Unknown History Allergy/AdvReac Type Severity Reaction Status Date / Time No Known Allergies Allergy Verified 12/24/24 17:58 Surgical History History of ankle surgery History of esophagogastroduodenoscopy (EGD) History of intraocular lens implant Social History Smoking Status: Current every day smoker tobacco type: smokeless tobacco alcohol intake: current alcohol intake frequency: holidays/special occasions only substance use type: does not use ROS ROS ED Constitutional Constitutional ED: Denies chills or fever(s) Eyes Eyes: Denies change in vision or diplopia ENT ENT ED: Denies rhinorrhea or sore throat Cardiovascular Cardiovascular: Reports as per HPI and chest pain; Denies leg edema, palpitations or radiating jaw, neck or arm pain Respiratory/Chest Respiratory/Chest: Reports cough and dyspnea; Denies sputum Gastrointestinal Gastrointestinal: Denies abdominal pain, diarrhea, nausea or vomiting Genitourinary Genitourinary ED: Denies dysuria or hematuria Musculoskeletal Musculoskeletal: Denies arthralgias or neck pain Integumentary Denies abscess or rash Neurologic Neurologic: Denies headache(s), paresthesias or weakness Psychiatric Psychiatric: Denies anxiety or suicidal thoughts EXAM Physical Exam Const Vital Signs: 12/24/24 17:58 12/24/24 18:15 12/24/24 20:00 Temperature 96.8 F L Temperature Source Temporal Pulse Rate 68 51 L Respiratory Rate 18 16 Blood Pressure 139/93 H 120/66 Blood Pressure Mean 108 84 Pulse Ox 98 99 Oxygen Delivery Method Room Air Room Air Room Air 12/24/24 21:43 Temperature 98 F Temperature Source Pulse Rate 66 Respiratory Rate 18 Blood Pressure 146/80 H Blood Pressure Mean 102 Pulse Ox 98 Oxygen Delivery Method Positive well nourished and well developed General Appearance ED: well developed and NAD HEENT Reports moist mucous membranes normocephalic and atraumatic Eyes PERRL and EOMs intact bilaterally Eyes Narrative: Clouded left cornea chronic per patient Neck full ROM and supple Chest Wall Chest Narrative: Mild tenderness caudal aspect of the right sternal mid paraspinal musculature, no crepitance or subcutaneous emphysema or step-off Resp normal respiratory effort and clear to auscultation bilaterally Resp Narrative: No splinting with deep inspiration Cardio regular rate, regular rhythm and no murmurs Rate: Negative for tachycardic Peripheral Pulses: pulses 2+ throughout GI non-tender and non-distended Auscultation: normoactive bowel sounds Palpation: soft Back/Spine no CVA tenderness General Back: other FROM Extremity normal to inspection Extremity Narrative: Some ecchymoses in the right ritter that are not specifically tender, no calf tenderness bilaterally and no pedal edema or asymmetry otherwise. General Extremety ED: Negative for edema, pulses abnormal or tenderness General Extremity: Negative for edema or pulses abnormal Neuro oriented x3, CN's II-XII intact bilaterally and no sensory deficits noted Sensorium / Orientation: awake and alert Motor Exam: strength 5/5 throughout Psych mental status grossly normal Skin no rashes or lesions noted and no wounds Heart Score History: Slightly/Non-Suspicious ECG: Normal Age: </= 45 years Risk Factors: 1 or 2 Risk Factors (Smoking) Troponin: </= Normal Limit Score: 1 MDM MDM MDM Narrative Medical decision making narrative: Assessment: The patient is a 34-year-old male with PMH of pulmonary and neurosarcoidosis presenting for two days of midsternal chest discomfort radiating to the back, associated with cough and shortness of breath. Initial concern included pulmonary embolism; however, EKG and troponin are normal and CT angiography of the chest is negative for PE. Imaging shows scattered tree-in-bud opacities and mediastinal lymphadenopathy felt to reflect his known sarcoidosis. Given the negative cardiac markers and CT findings and low HEART score, current symptoms are most consistent with sarcoidosis-related chest discomfort without acute cardiopulmonary pathology. Plan: - Offered ED analgesics; patient declined, comfortable. - No additional pharmacologic changes; patient to continue recent course of prednisone 40 mg daily as started by pulmonology. - Discharge home in stable condition. - Advise prompt outpatient follow-up with commercial front load driver. Diagnostics: - EKG interpreted: normal sinus rhythm, no ischemic changes. Independently interpreted by [facility]fin cain. - Labs: Troponin normal; D-dimer elevated, all other routine chemistries within normal limits. - CT angiography chest: no pulmonary embolism; scattered tree-in-bud opacities and mediastinal lymphadenopathy consistent with sarcoidosis. Diagnoses: Chest pain; Shortness of breath; Pulmonary sarcoidosis Lab Data Attestation: I reviewed the patient's lab results. Labs: Laboratory Results - last 24 hr 12/24/24 12/24/24 18:25 20:20 WBC 7.3 RBC 4.21 L Hgb 12.6 L Hct 37.4 L MCV 88.8 MCH 29.9 MCHC 33.7 RDW Std Deviation 39.2 RDW Coeff of Omayra 12.2 Plt Count 334 MPV 9.3 Immature Gran % (Auto) 0.500 Neut % (Auto) 66.7 Lymph % (Auto) 26.1 [place] % (Auto) 6.1 Eos % (Auto) 0.3 Baso % (Auto) 0.3 Absolute Neuts (auto) 4.9 Absolute Lymphs (auto) 1.91 Nucleated RBC % 0 D-Dimer Quant (PE/DVT) 0.71 H* Sodium 140 Potassium 3.3 Chloride 104 Carbon Dioxide 22.0 Anion Gap 14 BUN 14 Creatinine 1.19 Estim Creat Clear Calc 106.77 Est GFR (MDRD) Non-Af 82 BUN/Creatinine Ratio 11.3 Glucose 117 H Calcium 9.1 Troponin T High Sens < 6 Troponin T Hi Sens 2 Hr < 6 Radiography Diagnostic Testing: Clinical Impression(s) from Imaging Studies Chest X-Ray 12/24/24 18:40 IMPRESSION: No evidence of acute cardiopulmonary disease. Reading Location: [facility] Chest CTA 12/24/24 19:46 IMPRESSION: 1. No pulmonary embolism. 2. Lung emphysema with multiple tree-in-bud opacities scattered in both lungs could be secondary to infection or inflammatory process. Repeat CT in 3 months is recommended. 3. Scattered mediastinal lymph nodes some of which are upper limits of normal in size and are most likely reactive lymph nodes. Reading Location: [facility] Rhythm Strip Rhythm Strip: Sinus Rhythm Rate: 70 Ectopy: None EKG Initial EKG: Attestation: I personally reviewed and interpreted this EKG as follows: Interpretation: Sinus Rhythm and No Acute Injury Pattern Comments: Nml axis & intervals; nml EKG Discharge Plan Triage Chief Complaint: Chest Pain Other Complaint: Lower Extremity Injury ED Provider: Mesfin More Dx/Rx/DC Orders Clinical Impression: Chest pain, unspecified, Acute dyspnea, Pulmonary sarcoidosis Instructions: ED Chest Pain, Noncardiac Prescriptions: No Action prednisone 5 mg tablet 5 mg PO DAILY methotrexate sodium 2.5 mg tablet 7.5 mg PO QWEEK infliximab [Remicade] 100 mg recon soln .Route Q6W Rx Instructions: every 6 weeksIV mycophenolate mofetil [CellCept] 250 mg Capsule 500 mg PO BID Primary Care Provider: Cleveland Means Referrals: Cleveland Means MD [Primary Care Provider, Internal Medicine] Activity Restrictions/Additional Instructions: - Continue your current prednisone treatment (40 mg daily) as prescribed by your [facility] commercial front load driver. - Your EKG and heart enzyme (troponin) tests were normal. - Your D-dimer blood test was elevated, but the CT scan of your chest ruled out a blood clot in your lungs. - The CT scan showed small ?tree-in-bud? changes in both lungs and enlarged lymph nodes, most likely related to your pulmonary sarcoidosis. - No additional treatment changes are needed at this time. - Follow up with your commercial front load driver for ongoing management of your sarcoidosis. Print Language: Arabic Disposition Disposition: Home, Self Care
[2024-12-24 18:37] LABS: Hematocrit 37.4 % (40-54); Hemoglobin 12.6 g/dL (13.0-16.5); Immature Granulocytes Count 0.040 X10^3/uL (0.0-0.0); Mean Corp Hgb Conc 33.7 g/dL (32-36); Mean Corpuscular Volume 88.8 fL (80-94); Mean Platelet Vol. 9.3 fl (6.2-12.0); NRBC Flagged by Analyzer 0 % (0-5); Platelet Count 334 K/mm3 (150-450); RBC Distribution Width CV 12.2 % (11.6-14.6); RBC Distribution Width SD 39.2 fl (35.1-43.9); Red Blood Count 4.21 M/mm3 (4.6-6.2); White Blood Count 7.3 K/mm3 (4.4-11.0)
--- NOTE | 2024-12-24 18:40 | RAD_ITS ---
PROCEDURE: CHEST PA AND LATERAL 12/24/2024 REASON FOR EXAM: CHEST PAIN, COUGH, HX SARCOIDOSIS TECHNIQUE: Procedure Code: RADCXR Modality: DX Procedure: CHEST PA AND LATERAL COMPARISON: 05/11/2021 FINDINGS: Lungs/Pleura: Clear. No focal airspace consolidation, pneumothorax or pleural effusion. Heart/Mediastinum: Within normal limits. No discrete hilar adenopathy appreciated. Bones/Soft tissues: No significant abnormality. RAD/Chest PA and Lateral IMPRESSION: No evidence of acute cardiopulmonary disease. Reading Location: [id number]
[2024-12-24 19:09] LABS: Anion Gap 14 (5-15); BUN 14 mg/dL (4-19); BUN/Creat Ratio 11.3 RATIO (10-20); Calcium,Total 9.1 mg/dL (7.6-11.0); Carbon Dioxide 22.0 mmol/L (21.0-32.0); Chloride 104 mmol/L (98-108); Estimated Creatinine Clearance 106.77 ml/min (50-250); Glucose 117 mg/dL (70-99); Potassium 3.3 mmol/L (3.3-5.1); Troponin T High Sensitivity < 6 ng/L (<=22)
[2024-12-24 19:24] LABS: D-Dimer Quantitative (DVT/PE) 0.71 FEU/ug/m (0.27-0.49)
--- NOTE | 2024-12-24 19:46 | CT_ITS ---
EXAM: CT Angiography Chest Without and With Intravenous Contrast CLINICAL INDICATION: CHEST PAIN, HX PE, ELEVATED D-DIMER TECHNIQUE: Axial computed tomographic angiography images of the chest without and with intravenous contrast. This CT exam was performed using one or more of the following dose reduction techniques: automated exposure control, adjustment of the mA and/or kV according to patient size, and/or use of iterative reconstruction technique. MIP reconstructed images were created and reviewed. COMPARISON: No relevant prior studies available. FINDINGS: PULMONARY ARTERIES: Unremarkable. No pulmonary embolism. AORTA: No acute findings. No thoracic aortic aneurysm. LUNGS AND PLEURAL SPACES: Lung emphysema with multiple tree-in-bud opacities scattered in both lungs could be secondary to infection or inflammatory process. Repeat CT in 3 months is recommended. No significant effusion. No pneumothorax. HEART: Unremarkable. No cardiomegaly. No significant pericardial effusion. No evidence of RV dysfunction. MEDIASTINUM: Scattered mediastinal lymph nodes some of which are upper limits of normal in size and are most likely reactive lymph nodes. BONES/JOINTS: No acute fracture. No dislocation. SOFT TISSUES: Unremarkable. LYMPH NODES: See above. CT/CTA Chest W/WO Contrast IMPRESSION: 1. No pulmonary embolism. 2. Lung emphysema with multiple tree-in-bud opacities scattered in both lungs could be secondary to infection or inflammatory process. Repeat CT in 3 months is recommended. 3. Scattered mediastinal lymph nodes some of which are upper limits of normal in size and are most likely reactive lymph nodes. Reading Location: [id number]
[2024-12-24 20:00] VITALS: BP 120/66; PULSE 51; RESP 16; O2SAT 99
[2024-12-24 20:44] LABS: Troponin T High Sens 2 HR < 6 ng/L (<=22)
[2024-12-24 21:43] VITALS: BP 146/80; PULSE 66; RESP 18; TEMP 36.6; O2SAT 98
== END 2024-12-24 22:09 | disposition home or self-care (01) ==
PROVIDERS: Emergency Provider Emergency Medicine; PCP Internal Medicine; Visit Provider Emergency Medicine
DX: R07.9 Chest pain, unspecified (principal); J43.9 Emphysema, unspecified; R06.02 Shortness of breath; D86.9 Sarcoidosis, unspecified; R59.0 Localized enlarged lymph nodes; K21.9 Gastro-esophageal reflux disease without esophagitis; F17.220 Nicotine dependence, chewing tobacco, uncomplicated
CPT/HCPCS: 71046; 71275; 80048; 84484; 85025; 85379; 93005; 99285; Q9967; A4216